=== PATIENT | male | born 1935 | race Caucasian/White ===

== ENCOUNTER → 2017-03-04 | Outpatient (CLI) | payer MEDICARE ==
[~2017-03-04] MED LIST: /WARF5TA; BISO5TAB5 PO; FIBEPOW PO; HYDR25TA6; LISI20TA5; THERGRAN; WARF5VL PO; XARE20TA PO
[2017-03-04 13:18] LABS: ALBUMIN 4.2 GM/DL (3.2-5.2); ALBUMIN/GLOBULIN RATIO 1.24 (1.00-1.93); BILIRUBIN,TOTAL 0.7 MG/DL (0.2-1.0); CALCIUM LEVEL 9.7 MG/DL (8.8-10.2); CREATININE FOR GFR 1.37 MG/DL (0.70-1.30); GLOMERULAR FILTRATION RATE 53.4 (>42); POTASSIUM SERUM 4.5 MEQ/L (3.5-5.1); TOTAL PROTEIN 7.6 GM/DL (6.4-8.2)
[2017-03-04 13:22] LABS: BASO % 0.8 % (0.0-1.0); EOS # 0.1 K/mm3 (0.0-0.50); EOS % 1.9 % (0.0-3.0); LARGE UNSTAINED CELL # 0.1 K/mm3 (0.0-0.4); LYMPH # 1.4 K/mm3 (1.5-4.5); LYMPH % 20.2 % (24.0-44.0); MEAN CORPUSCULAR HEMOGLOBIN 33.6 pg (27.0-33.0); MEAN CORPUSCULAR HGB CONC 32.1 g/dl (32.0-36.5); MEAN CORPUSCULAR VOLUME 104.7 fl (80.0-96.0); MONO # 0.5 K/mm3 (0.0-0.8); MONO % 7.3 % (0.0-5.0); NEUTROPHILS # 4.5 K/mm3 (1.8-7.7); NEUTROPHILS % 67.8 % (36.0-66.0); PLATELET COUNT, AUTOMATED 268 k/mm3 (150-450); RED CELL DISTRIBUTION WIDTH 13.7 % (11.5-14.5); WHITE BLOOD COUNT 6.7 K/mm3 (4.0-10.0)
== END ==
LOC: M SMT 09:55
PROVIDERS: ATTEND Family Medicine
DX: I10 Essential (primary) hypertension (principal); R73.01 Impaired fasting glucose

== ENCOUNTER 2017-09-09 07:17 | Outpatient (CLI) | payer MEDICARE ==
[~2017-09-09] VITALS: Ht 167.6 cm; Wt 85.0 kg
[2017-09-09] MEDS ORDERED: IMMUNE GLOBULIN 10% 20GM 200ML 20 GM in APPROPRIATE DILUENT 1 EA IV ONE ×4 (08:00)
[2017-09-25] MEDS ORDERED: TRAV04OPD (11:28)
[2017-09-25] MEDS ORDERED: LISI-542 PO (11:28)
[2017-09-25] MEDS ORDERED: ELIQ5TAB (11:28)
[2017-09-25] MEDS ORDERED: GABA600T PO (11:28)
[2017-09-25] MEDS ORDERED: ATOR1TAB19 (11:28)
[2017-09-25] MEDS ORDERED: MECL-68 (11:28)
[2017-09-25] MEDS ORDERED: BAYE325T12 PO (11:28)
[2017-09-25] MEDS ORDERED: CHLO125TA (11:28)
[2017-09-25] MEDS ORDERED: METH2.5TA PO (11:28)
[2017-09-25] MEDS ORDERED: POTA20TA6 (11:28)
[2017-09-25] MEDS ORDERED: NORT50CA (11:28)
[2017-09-25] MEDS ORDERED: GABA-282 PO (11:28)
== END 2017-09-09 11:15 | disposition home or self-care (01) ==
LOC: M INFU 07:17
PROVIDERS: ATTEND Psychiatry & Neurology Neurology
DX: G61.81 Chronic inflammatory demyelinating polyneuritis (principal); Z95.0 Presence of cardiac pacemaker; Z85.828 Personal history of other malignant neoplasm of skin; Z88.8 Allergy status to other drugs, medicaments and biological substances; Z88.0 Allergy status to penicillin; Z88.2 Allergy status to sulfonamides; Z96.1 Presence of intraocular lens; Z79.899 Other long term (current) drug therapy
CPT/HCPCS: 96365; 96366; J1569

== ENCOUNTER 2017-10-07 07:48 | Outpatient (CLI) | payer MEDICARE ==
[~2017-10-07] VITALS: Ht 167.6 cm; Wt 85.0 kg
[~2017-10-07 07:48] MED LIST changes: +ATOR1TAB19; +BAYE325T12 PO; +CHLO125TA; +ELIQ5TAB; +GABA-282 PO; +GABA600T PO; +LISI-542 PO; +MECL-68; +METH2.5TA PO; +NORT50CA; +POTA20TA6; +TRAV04OPD
[2017-10-07] MEDS ORDERED: IMMUNE GLOBULIN 10% 20GM 200ML 40 GM in APPROPRIATE DILUENT 1 EA IV ONE (08:00)
== END 2017-10-07 11:25 | disposition home or self-care (01) ==
LOC: M INFU 07:48
PROVIDERS: ATTEND Psychiatry & Neurology Neurology
DX: G61.81 Chronic inflammatory demyelinating polyneuritis (principal); Z95.0 Presence of cardiac pacemaker; Z96.1 Presence of intraocular lens; Z85.828 Personal history of other malignant neoplasm of skin; Z88.8 Allergy status to other drugs, medicaments and biological substances; Z88.0 Allergy status to penicillin; Z88.2 Allergy status to sulfonamides; Z79.82 Long term (current) use of aspirin; Z79.899 Other long term (current) drug therapy
CPT/HCPCS: 96365; 96366; J1569

== ENCOUNTER 2017-11-04 07:33 | Outpatient (CLI) | payer MEDICARE ==
[2017-11-04] MEDS ORDERED: IMMUNE GLOBULIN 10% 5GM 5 GM in APPROPRIATE DILUENT 1 EA IV ONE (07:45)
[2017-11-04] MEDS ORDERED: IMMUNE GLOBULIN 10% 10GM 100ML 10 GM in APPROPRIATE DILUENT 1 EA IV ONE (07:45)
[2017-11-04] MEDS ORDERED: IMMUNE GLOBULIN 10% 20GM 200ML 40 GM in APPROPRIATE DILUENT 1 EA IV ONE (08:00)
== END 2017-11-04 11:30 | disposition home or self-care (01) ==
LOC: M INFU 07:33
PROVIDERS: ATTEND Psychiatry & Neurology Neurology
DX: G61.81 Chronic inflammatory demyelinating polyneuritis (principal); Z95.0 Presence of cardiac pacemaker; Z96.1 Presence of intraocular lens; Z85.828 Personal history of other malignant neoplasm of skin; Z88.8 Allergy status to other drugs, medicaments and biological substances; Z88.0 Allergy status to penicillin; Z88.2 Allergy status to sulfonamides; Z79.82 Long term (current) use of aspirin; Z79.899 Other long term (current) drug therapy
CPT/HCPCS: 96365; 96366; J1569

== ENCOUNTER → 2018-03-06 | Outpatient (CLI) | payer MEDICARE ==
[2018-03-06 13:34] LABS: BASO # 0.1 10^3/uL (0.0-0.2); BASO % 1.5 % (0.0-1.0); EOS # 0.2 10^3/uL (0.0-0.50); HEMATOCRIT 43.4 % (42.0-52.0); HEMOGLOBIN 14.2 g/dl (13.5-17.5); IMMATURE GRANULOCYTE % 0.3 % (0-3.0); LYMPH # 1.6 10^3/uL (1.5-4.5); LYMPH % 24.2 % (24.0-44.0); MEAN CORPUSCULAR HEMOGLOBIN 33.6 pg (27.0-33.0); MEAN CORPUSCULAR HGB CONC 32.7 g/dl (32.0-36.5); MEAN CORPUSCULAR VOLUME 102.6 fl (80.0-96.0); MONO # 0.6 10^3/uL (0.0-0.8); MONO % 9.1 % (0.0-5.0); NEUTROPHILS # 4.2 10^3/uL (1.8-7.7); NEUTROPHILS % 61.9 % (36.0-66.0); PLATELET COUNT, AUTOMATED 272 10^3/uL (150-450); RED BLOOD COUNT 4.23 10^6/uL (4.30-6.10); RED CELL DISTRIBUTION WIDTH 14.2 % (11.5-14.5); WHITE BLOOD COUNT 6.7 10^3/uL (4.0-10.0)
[2018-03-06 14:06] LABS: ALBUMIN 4.1 GM/DL (3.2-5.2); ALBUMIN/GLOBULIN RATIO 0.98 (1.00-1.93); ALKALINE PHOSPHATASE 85 U/L (45-117); ALT/SGPT 23 U/L (12-78); ANION GAP 6 MEQ/L (8-16); AST/SGOT 20 U/L (7-37); BILIRUBIN,TOTAL 0.8 MG/DL (0.2-1.0); BLOOD UREA NITROGEN 23 MG/DL (7-18); CALCIUM LEVEL 9.3 MG/DL (8.8-10.2); CARBON DIOXIDE LEVEL 29 MEQ/L (21-32); CHLORIDE LEVEL 105 MEQ/L (98-107); CHOLESTEROL LEVEL 129 MG/DL (<200); CHOLESTEROL RISK RATIO 1.897 (<5); CREATININE FOR GFR 1.37 MG/DL (0.70-1.30); GLOMERULAR FILTRATION RATE 53.2 (>35); GLUCOSE, FASTING 111 MG/DL (70-100); HDL CHOLESTEROL 68 MG/DL (>40); LDL CHOLESTEROL 50.6 MG/DL (<100); NON-HDL-C 61 MG/DL; POTASSIUM SERUM 4.3 MEQ/L (3.5-5.1); SODIUM LEVEL 140 MEQ/L (136-145); TOTAL PROTEIN 8.3 GM/DL (6.4-8.2); TRIGLYCERIDES LEVEL 52 MG/DL (<150)
[2018-03-06 14:57] LABS: ESTIMATED AVERAGE GLUCOSE 111 MG/DL (60-110); HEMOGLOBIN A1c 5.5 %
== END ==
LOC: M SMT 09:11
DX: I10 Essential (primary) hypertension (principal); R73.01 Impaired fasting glucose
CPT/HCPCS: 80053

== ENCOUNTER 2018-04-07 07:45 | Outpatient (CLI) | payer MEDICARE ==
[2018-04-07] MEDS: IMMUNE GLOBULIN 10% 20GM 200ML 40 GM in APPROPRIATE DILUENT 1 EA IV (09:01)
== END 2018-04-07 12:00 | disposition home or self-care (01) ==
LOC: M INFU 07:45
DX: G61.81 Chronic inflammatory demyelinating polyneuritis (principal); I10 Essential (primary) hypertension; Z79.82 Long term (current) use of aspirin; Z79.899 Other long term (current) drug therapy; Z88.8 Allergy status to other drugs, medicaments and biological substances; Z95.0 Presence of cardiac pacemaker
CPT/HCPCS: J1569

== ENCOUNTER 2018-05-05 08:38 | Outpatient (CLI) | payer MEDICARE ==
[2018-05-05] MEDS: IMMUNE GLOBULIN 10% 20GM 200ML 40 GM in APPROPRIATE DILUENT 1 EA IV (08:56)
== END 2018-05-05 12:30 | disposition home or self-care (01) ==
LOC: M INFU 08:38
DX: G61.81 Chronic inflammatory demyelinating polyneuritis (principal); I10 Essential (primary) hypertension; Z79.899 Other long term (current) drug therapy; Z79.82 Long term (current) use of aspirin; Z88.8 Allergy status to other drugs, medicaments and biological substances; Z95.5 Presence of coronary angioplasty implant and graft
CPT/HCPCS: J1569

== ENCOUNTER 2018-05-26 21:05 | Inpatient (IN) | payer MEDICARE ==
[2018-05-26 22:45] LABS: BASO # 0.1 10^3/uL (0.0-0.2); BASO % 0.3 % (0.0-1.0); EOS % 0.2 % (0.0-3.0); HEMATOCRIT 40.1 % (42.0-52.0); HEMOGLOBIN 13.5 g/dl (13.5-17.5); IMMATURE GRANULOCYTE % 0.7 % (0-3.0); LYMPH # 0.5 10^3/uL (1.5-4.5); LYMPH % 2.3 % (24.0-44.0); MEAN CORPUSCULAR HEMOGLOBIN 33.4 pg (27.0-33.0); MEAN CORPUSCULAR HGB CONC 33.7 g/dl (32.0-36.5); MEAN CORPUSCULAR VOLUME 99.3 fl (80.0-96.0); MONO # 1.2 10^3/uL (0.0-0.8); MONO % 6.2 % (0.0-5.0); NEUTROPHILS # 17.7 10^3/uL (1.8-7.7); NEUTROPHILS % 90.3 % (36.0-66.0); PLATELET COUNT, AUTOMATED 302 10^3/uL (150-450); RED BLOOD COUNT 4.04 10^6/uL (4.30-6.10); RED CELL DISTRIBUTION WIDTH 14.6 % (11.5-14.5); WHITE BLOOD COUNT 19.6 10^3/uL (4.0-10.0)
[2018-05-26] MEDS: NS 500 ML IV ×2 (22:50→23:45)
[2018-05-26] MEDS: cefTRIAXone SOD 1 GM in D5W MINI-BAG PLUS 50 ML IV (22:50)
[2018-05-26] MEDS: ACETAMINOPHEN TAB 650MG DOSE (2X325MG) PO (22:50)
[2018-05-26 23:00] LABS: ALBUMIN 3.9 GM/DL (3.2-5.2); ALBUMIN/GLOBULIN RATIO 0.95 (1.00-1.93); ALKALINE PHOSPHATASE 78 U/L (45-117); ALT/SGPT 25 U/L (12-78); ANION GAP 10 MEQ/L (8-16); AST/SGOT 17 U/L (7-37); BILIRUBIN,DIRECT 0.3 MG/DL (0.0-0.2); BILIRUBIN,TOTAL 1.1 MG/DL (0.2-1.0); BLOOD UREA NITROGEN 21 MG/DL (7-18); C REACTIVE PROTEIN QUANTITATIV 1.22 MG/DL (0.00-0.30); CALCIUM LEVEL 8.7 MG/DL (8.8-10.2); CARBON DIOXIDE LEVEL 25 MEQ/L (21-32); CHLORIDE LEVEL 101 MEQ/L (98-107); CK-MB VALUE MASS < 1.0 NG/ML (<3.6); CPK CREATINE PHOSPHOKINASE 68 U/L (39-308); CREATININE FOR GFR 1.35 MG/DL (0.70-1.30); GLOMERULAR FILTRATION RATE 54.1 (>35); GLUCOSE, FASTING 137 MG/DL (70-100); MB/CK RELATIVE INDEX 1.47 (< OR =4); POTASSIUM SERUM 3.9 MEQ/L (3.5-5.1); SODIUM LEVEL 136 MEQ/L (136-145); TROPONIN I 0.04 NG/ML (< 0.10)
[2018-05-26 23:09] LABS: LACTIC ACID SEPSIS PROTOCOL 3.1 MMOL/L (0.4-2.0)
[2018-05-27] MEDS: AZITHROMYCIN INJ 500 MG, VIAL MATE ADAPTER 1 EACH in D5W 250 ML IV (00:30)
[2018-05-27 01:02] LABS: KETONE, URINE AUTO RFX NEGATIVE (NEGATIVE); LEUKOCYTE ESTERASE UR AUTO RFX NEGATIVE (NEGATIVE); MUCUS, URINE RFX SMALL (NEGATIVE); NITRITE, URINE AUTO RFX NEGATIVE (NEGATIVE); RBC, URINE AUTO RFX 3 /HPF (0-3); SPECIFIC GRAVITY UR AUTO RFX 1.017 (1.002-1.035); SQUAM EPITHELIAL CELL UR AURFX 0 /HPF (0-6); WBC, URINE AUTO RFX 0 /HPF (0-3)
[2018-05-27] MEDS ORDERED: BISACODYL 5 MG TAB PO (01:30)
[2018-05-27] MEDS ORDERED: ONDANSETRON 4 MG TAB (S0181) PO (01:30)
[2018-05-27] MEDS ORDERED: ACETAMINOPHEN 500 MG TAB PO (01:30)
[2018-05-27] MEDS: LATANOPROST 0.005% OPHTH SOLN 2.5 ML OU ×2 (02:29→20:36)
[2018-05-27] MEDS: ATORVASTATIN 10 MG TAB PO ×2 (02:29→20:36)
[2018-05-27] MEDS: LISINOPRIL 5 MG TAB PO ×2 (02:29→20:36)
[2018-05-27] MEDS: NORTRIPTYLINE 25 MG CAP PO ×2 (02:29→20:31)
[2018-05-27] MEDS: GABAPENTIN 300 MG CAP PO ×4 (02:29→20:31)
[2018-05-27] MEDS: APIXABAN 5 MG TAB (ELIQUIS) PO ×3 (02:29→20:31)
[2018-05-27 03:09] LABS: BASO % 0.1 % (0.0-1.0); HEMATOCRIT 33.4 % (42.0-52.0); HEMOGLOBIN 11.7 g/dl (13.5-17.5); IMMATURE GRANULOCYTE % 1.9 % (0-3.0); LYMPH # 0.4 10^3/uL (1.5-4.5); LYMPH % 1.4 % (24.0-44.0); MEAN CORPUSCULAR HEMOGLOBIN 33.9 pg (27.0-33.0); MEAN CORPUSCULAR VOLUME 96.8 fl (80.0-96.0); MONO % 7.7 % (0.0-5.0); NEUTROPHILS # 24.5 10^3/uL (1.8-7.7); NEUTROPHILS % 88.9 % (36.0-66.0); PLATELET COUNT, AUTOMATED 255 10^3/uL (150-450); RED BLOOD COUNT 3.45 10^6/uL (4.30-6.10); RED CELL DISTRIBUTION WIDTH 14.6 % (11.5-14.5); WHITE BLOOD COUNT 27.6 10^3/uL (4.0-10.0)
[2018-05-27 03:27] LABS: ANION GAP 10 MEQ/L (8-16); BLOOD UREA NITROGEN 20 MG/DL (7-18); CALCIUM LEVEL 7.8 MG/DL (8.8-10.2); CARBON DIOXIDE LEVEL 25 MEQ/L (21-32); CHLORIDE LEVEL 101 MEQ/L (98-107); GLOMERULAR FILTRATION RATE 56.5 (>35); GLUCOSE, FASTING 155 MG/DL (70-100); POTASSIUM SERUM 3.6 MEQ/L (3.5-5.1); SODIUM LEVEL 136 MEQ/L (136-145)
[2018-05-27 04:20] LABS: MONO # 2.1 10^3/uL (0.0-0.8); POSITIVE DIFF POS FLAG
[2018-05-27 08:05] LABS: CPK CREATINE PHOSPHOKINASE 63 U/L (39-308); MB/CK RELATIVE INDEX 1.58 (< OR =4); TROPONIN I 0.04 NG/ML (< 0.10)
[2018-05-27 08:14] LABS: LACTIC ACID SEPSIS PROTOCOL 2.4 MMOL/L (0.4-2.0)
[2018-05-27] MEDS: NS 500 ML IV (08:55)
[2018-05-27] MEDS: VITAMIN D 1,000 INTERNATIONAL UNITS TABLET PO (08:55)
[2018-05-27] MEDS: MULTIVITAMINS/MINERALS THERAP 1 TAB PO (08:55)
[2018-05-27] MEDS: FOLIC ACID 1 MG TAB PO (08:55)
[2018-05-27] MEDS: ASPIRIN 81 MG ENTERIC TAB PO (08:55)
[2018-05-27] MEDS: POTASSIUM CHLORIDE 10 MEQ SR TABLET PO (08:56)
[2018-05-27] MEDS ORDERED: ISOVUE-370 76% 100ML VIAL (Q9967) As Ordered (13:34)
[2018-05-27] MEDS: CEFTAROLINE FOSAMIL 600 MG in D5W MINI-BAG PLUS 50 ML IV (15:02)
[2018-05-27] MEDS: KCL 40MEQ in NS 1000ML 1,000 ML IV (15:03)
[2018-05-27 16:32] LABS: LACTIC ACID SEPSIS PROTOCOL 1.7 MMOL/L (0.4-2.0)
[2018-05-27] MEDS: ACETAMINOPHEN TAB 650MG DOSE (2X325MG) PO (20:30)
[2018-05-27] MEDS ORDERED: cefTRIAXone SOD 1 GM in D5W MINI-BAG PLUS 50 ML IV (23:00)
[2018-05-28] MEDS ORDERED: AZITHROMYCIN INJ 500 MG, VIAL MATE ADAPTER 1 EACH in D5W 250 ML IV ×2 (01:00)
[2018-05-28] MEDS: CEFTAROLINE FOSAMIL 600 MG in D5W MINI-BAG PLUS 50 ML IV ×2 (01:53→14:52)
[2018-05-28 05:44] LABS: HEMATOCRIT 34.2 % (42.0-52.0); HEMOGLOBIN 11.3 g/dl (13.5-17.5); MEAN CORPUSCULAR HEMOGLOBIN 33.2 pg (27.0-33.0); MEAN CORPUSCULAR VOLUME 100.6 fl (80.0-96.0); PLATELET COUNT, AUTOMATED 222 10^3/uL (150-450); RED CELL DISTRIBUTION WIDTH 15.2 % (11.5-14.5); WHITE BLOOD COUNT 11.5 10^3/uL (4.0-10.0)
[2018-05-28 06:01] LABS: ALBUMIN 2.7 GM/DL (3.2-5.2); ALBUMIN/GLOBULIN RATIO 0.66 (1.00-1.93); ALKALINE PHOSPHATASE 63 U/L (45-117); ALT/SGPT 18 U/L (12-78); ANION GAP 5 MEQ/L (8-16); AST/SGOT 12 U/L (7-37); BILIRUBIN,TOTAL 0.3 MG/DL (0.2-1.0); BLOOD UREA NITROGEN 20 MG/DL (7-18); C REACTIVE PROTEIN QUANTITATIV 6.92 MG/DL (0.00-0.30); CALCIUM LEVEL 8.2 MG/DL (8.8-10.2); CARBON DIOXIDE LEVEL 27 MEQ/L (21-32); CHLORIDE LEVEL 108 MEQ/L (98-107); CREATININE FOR GFR 1.23 MG/DL (0.70-1.30); GLOMERULAR FILTRATION RATE > 60.0 (>35); GLUCOSE, FASTING 117 MG/DL (70-100); MAGNESIUM LEVEL 2.1 MG/DL (1.8-2.4); POTASSIUM SERUM 4.5 MEQ/L (3.5-5.1); SODIUM LEVEL 140 MEQ/L (136-145); TOTAL PROTEIN 6.8 GM/DL (6.4-8.2)
[2018-05-28] MEDS: APIXABAN 5 MG TAB (ELIQUIS) PO ×2 (09:49→21:34)
[2018-05-28] MEDS: FOLIC ACID 1 MG TAB PO (09:49)
[2018-05-28] MEDS: GABAPENTIN 300 MG CAP PO ×3 (09:49→21:33)
[2018-05-28] MEDS: ASPIRIN 81 MG ENTERIC TAB PO (09:49)
[2018-05-28] MEDS: MULTIVITAMINS/MINERALS THERAP 1 TAB PO (09:50)
[2018-05-28] MEDS: VITAMIN D 1,000 INTERNATIONAL UNITS TABLET PO (09:50)
[2018-05-28] MEDS: CHLORTHALIDONE 12.5MG PER 1/2 TABLET PO (14:52)
[2018-05-28] MEDS: LISINOPRIL 5 MG TAB PO (21:33)
[2018-05-28] MEDS: NORTRIPTYLINE 25 MG CAP PO (21:34)
[2018-05-28] MEDS: LATANOPROST 0.005% OPHTH SOLN 2.5 ML OU (21:34)
[2018-05-28] MEDS: ATORVASTATIN 10 MG TAB PO (21:34)
[2018-05-28] MEDS: ACETAMINOPHEN TAB 650MG DOSE (2X325MG) PO (21:35)
[2018-05-29] MEDS: CEFTAROLINE FOSAMIL 600 MG in D5W MINI-BAG PLUS 50 ML IV (01:47)
[2018-05-29 06:16] LABS: HEMATOCRIT 35.5 % (42.0-52.0); HEMOGLOBIN 11.7 g/dl (13.5-17.5); MEAN CORPUSCULAR HEMOGLOBIN 33.1 pg (27.0-33.0); MEAN CORPUSCULAR VOLUME 100.6 fl (80.0-96.0); PLATELET COUNT, AUTOMATED 228 10^3/uL (150-450); RED BLOOD COUNT 3.53 10^6/uL (4.30-6.10); RED CELL DISTRIBUTION WIDTH 14.9 % (11.5-14.5); WHITE BLOOD COUNT 7.9 10^3/uL (4.0-10.0)
[2018-05-29 06:37] LABS: ALBUMIN 2.8 GM/DL (3.2-5.2); ALBUMIN/GLOBULIN RATIO 0.61 (1.00-1.93); ALKALINE PHOSPHATASE 78 U/L (45-117); ALT/SGPT 36 U/L (12-78); ANION GAP 6 MEQ/L (8-16); AST/SGOT 29 U/L (7-37); BILIRUBIN,TOTAL 0.2 MG/DL (0.2-1.0); BLOOD UREA NITROGEN 18 MG/DL (7-18); C REACTIVE PROTEIN QUANTITATIV 3.26 MG/DL (0.00-0.30); CALCIUM LEVEL 8.3 MG/DL (8.8-10.2); CARBON DIOXIDE LEVEL 28 MEQ/L (21-32); CHLORIDE LEVEL 107 MEQ/L (98-107); CREATININE FOR GFR 1.23 MG/DL (0.70-1.30); GLOMERULAR FILTRATION RATE > 60.0 (>35); GLUCOSE, FASTING 120 MG/DL (70-100); POTASSIUM SERUM 4.4 MEQ/L (3.5-5.1); SODIUM LEVEL 141 MEQ/L (136-145); TOTAL PROTEIN 7.4 GM/DL (6.4-8.2)
[2018-05-29] MEDS: FOLIC ACID 1 MG TAB PO (08:47)
[2018-05-29] MEDS: APIXABAN 5 MG TAB (ELIQUIS) PO (08:47)
[2018-05-29] MEDS: CHLORTHALIDONE 12.5MG PER 1/2 TABLET PO (08:47)
[2018-05-29] MEDS: ASPIRIN 81 MG ENTERIC TAB PO (08:47)
[2018-05-29] MEDS: GABAPENTIN 300 MG CAP PO (08:48)
[2018-05-29] MEDS: MULTIVITAMINS/MINERALS THERAP 1 TAB PO (08:48)
[2018-05-29] MEDS: VITAMIN D 1,000 INTERNATIONAL UNITS TABLET PO (08:48)
== END 2018-05-29 13:08 | disposition home or self-care (01) | DRG 872 ==
LOC: M ED INP 05-27 01:19 → M MS5PR 05-29 02:09 → M ED 21:05 → M MSPAV 05-27 01:59
DX: A41.9 Sepsis, unspecified organism (principal); L03.115 Cellulitis of right lower limb; I48.2 Chronic atrial fibrillation; F32.9 Major depressive disorder, single episode, unspecified; I10 Essential (primary) hypertension; G62.9 Polyneuropathy, unspecified; Z95.0 Presence of cardiac pacemaker; Z79.899 Other long term (current) drug therapy; Z79.82 Long term (current) use of aspirin; Z88.0 Allergy status to penicillin; Z88.8 Allergy status to other drugs, medicaments and biological substances

== ENCOUNTER 2018-06-02 07:03 | Outpatient (CLI) | payer MEDICARE ==
[2018-06-02] MEDS: IMMUNE GLOBULIN 10% 20GM 200ML 40 GM in APPROPRIATE DILUENT 1 EA IV (07:35)
== END 2018-06-02 10:30 | disposition home or self-care (01) ==
LOC: M INFU 07:03
DX: G61.81 Chronic inflammatory demyelinating polyneuritis (principal); Z95.0 Presence of cardiac pacemaker; Z88.8 Allergy status to other drugs, medicaments and biological substances; Z88.0 Allergy status to penicillin; Z88.2 Allergy status to sulfonamides; Z79.82 Long term (current) use of aspirin; Z79.899 Other long term (current) drug therapy
CPT/HCPCS: J1569

== ENCOUNTER → 2018-06-06 | Outpatient (REF) | payer MEDICARE ==
[2018-06-06 14:04] LABS: CREATININE, URINE 37.9 MG/DL; MALB URINE SIEMENS 12.3 MG/L; MAU/CREAT RATIO 32.4 MCG/MG (0.0-30.0)
== END ==
LOC: M LAB REF 13:05
DX: E11.9 Type 2 diabetes mellitus without complications (principal)
CPT/HCPCS: 82043

== ENCOUNTER 2018-06-30 07:05 | Outpatient (CLI) | payer MEDICARE ==
[2018-06-30] MEDS: IMMUNE GLOBULIN 10% 20GM 200ML 40 GM in APPROPRIATE DILUENT 1 EA IV (07:20)
== END 2018-06-30 10:30 | disposition home or self-care (01) ==
LOC: M INFU 07:05
DX: G61.81 Chronic inflammatory demyelinating polyneuritis (principal); Z95.0 Presence of cardiac pacemaker; Z88.8 Allergy status to other drugs, medicaments and biological substances; Z88.0 Allergy status to penicillin; Z88.2 Allergy status to sulfonamides; Z79.899 Other long term (current) drug therapy; Z79.82 Long term (current) use of aspirin; Z79.01 Long term (current) use of anticoagulants
CPT/HCPCS: J1569

== ENCOUNTER 2018-07-28 07:16 | Outpatient (CLI) | payer MEDICARE ==
[2018-07-28] MEDS: IMMUNE GLOBULIN 10% 20GM 200ML 40 GM in APPROPRIATE DILUENT 1 EA IV (07:55)
== END 2018-07-28 10:50 | disposition home or self-care (01) ==
LOC: M INFU 07:16
DX: G61.81 Chronic inflammatory demyelinating polyneuritis (principal); E78.5 Hyperlipidemia, unspecified; I10 Essential (primary) hypertension; I48.91 Unspecified atrial fibrillation; K57.30 Diverticulosis of large intestine without perforation or abscess without bleeding; I25.2 Old myocardial infarction; Z95.0 Presence of cardiac pacemaker; Z88.8 Allergy status to other drugs, medicaments and biological substances; Z88.0 Allergy status to penicillin; Z88.2 Allergy status to sulfonamides; Z79.899 Other long term (current) drug therapy; Z79.82 Long term (current) use of aspirin
CPT/HCPCS: J1569

== ENCOUNTER 2018-08-25 09:45 | Outpatient (CLI) | payer MEDICARE ==
[2018-08-25] MEDS: IMMUNE GLOBULIN 10% 20GM 200ML 40 GM in APPROPRIATE DILUENT 1 EA IV (10:28)
== END 2018-08-25 13:30 | disposition home or self-care (01) ==
LOC: M INFU 09:45
DX: G61.81 Chronic inflammatory demyelinating polyneuritis (principal)
CPT/HCPCS: J1569

== ENCOUNTER 2018-09-25 06:39 | Outpatient (CLI) | payer MEDICARE ==
[2018-09-25] MEDS: IMMUNE GLOBULIN 10% 20GM 200ML 40 GM in APPROPRIATE DILUENT 1 EA IV (07:25)
== END 2018-09-25 10:30 | disposition home or self-care (01) ==
LOC: M INFU 06:39
DX: G61.81 Chronic inflammatory demyelinating polyneuritis (principal); Z79.899 Other long term (current) drug therapy; Z88.0 Allergy status to penicillin; Z88.2 Allergy status to sulfonamides; Z88.8 Allergy status to other drugs, medicaments and biological substances
CPT/HCPCS: J1569

== ENCOUNTER 2018-10-23 06:50 | Outpatient (CLI) | payer MEDICARE ==
[2018-10-23] MEDS: IMMUNE GLOBULIN 10% 40 GM in APPROPRIATE DILUENT 1 EA IV (07:15)
== END 2018-10-23 10:30 | disposition home or self-care (01) ==
LOC: M INFU 06:50
DX: G61.81 Chronic inflammatory demyelinating polyneuritis (principal)
CPT/HCPCS: J1459

== ENCOUNTER → 2018-10-25 | Outpatient (CLI) | payer MEDICARE ==
[2018-10-25 18:45] LABS: ANION GAP 7 MEQ/L (8-16); BLOOD UREA NITROGEN 22 MG/DL (7-18); CALCIUM LEVEL 9.3 MG/DL (8.8-10.2); CARBON DIOXIDE LEVEL 29 MEQ/L (21-32); CHLORIDE LEVEL 103 MEQ/L (98-107); CREATININE FOR GFR 1.28 MG/DL (0.70-1.30); GLOMERULAR FILTRATION RATE 57.4 (>35); GLUCOSE, FASTING 78 MG/DL (70-100); POTASSIUM SERUM 4.9 MEQ/L (3.5-5.1); SODIUM LEVEL 139 MEQ/L (136-145)
[2018-10-25 18:56] LABS: HEMATOCRIT 40.4 % (42.0-52.0); HEMOGLOBIN 13.1 g/dl (13.5-17.5); MEAN CORPUSCULAR HEMOGLOBIN 32.8 pg (27.0-33.0); MEAN CORPUSCULAR HGB CONC 32.4 g/dl (32.0-36.5); PLATELET COUNT, AUTOMATED 272 10^3/uL (150-450); WHITE BLOOD COUNT 6.2 10^3/uL (4.0-10.0)
== END ==
LOC: M SMT 13:06
DX: I48.2 Chronic atrial fibrillation (principal); I11.9 Hypertensive heart disease without heart failure
CPT/HCPCS: 83735

== ENCOUNTER 2019-02-28 06:44 | Outpatient (CLI) | payer MEDICARE ==
[~2019-02-28] VITALS: Ht 182.9 cm; Wt 87.0 kg
[~2019-02-28 06:44] MED LIST changes: -/WARF5TA; +ACET500T15 PO; +ASPI81TA85 PO; -ATOR1TAB19; +ATOR1TAB19 PO; +BENF150C PO; +CEFD1CAP8 PO; -CHLO125TA; +CHLO125TA PO; +COUM1TAB17; +DOXY-350 PO; -ELIQ5TAB; +ELIQ5TAB PO; +FOLI1TAB11 PO; -GABA-282 PO; +GABA-843 PO; -GABA600T PO; +GABA600T4 PO; +METH2.5T48 PO; -METH2.5TA PO; -NORT50CA; +NORT50CA PO; -POTA20TA6; +POTA20TA6 PO; -TRAV04OPD; +TRAV04OPD OU; +VITA200016 PO; +VITMTA PO
[2019-02-28 06:50] VITALS: BP 135/63
[2019-02-28] MEDS ORDERED: IMMUNE GLOBULIN 10% 40 GM in APPROPRIATE DILUENT 1 EA IV ONE (07:00)
[2019-02-28 07:45] VITALS: BP 137/70
[2019-02-28 08:15] VITALS: BP 153/67
[2019-02-28 08:45] VITALS: BP 153/68
[2019-02-28 09:45] VITALS: BP 160/70
[2019-02-28 10:30] VITALS: BP 163/71
== END 2019-02-28 10:30 | disposition home or self-care (01) ==
LOC: M INFU 06:44
PROVIDERS: ATTEND Psychiatry & Neurology Neurology
DX: G61.81 Chronic inflammatory demyelinating polyneuritis (principal)
CPT/HCPCS: 96365; 96366; J1459

== ENCOUNTER 2019-03-27 18:48 | Inpatient (IN) | payer MEDICARE ==
[~2019-03-27] VITALS: Ht 175.3 cm; Wt 85.4 kg
[2019-03-27 19:48] LABS: HEMATOCRIT 27.3 % (42.0-52.0); HEMOGLOBIN 8.7 g/dl (13.5-17.5); MEAN CORPUSCULAR HEMOGLOBIN 31.8 pg (27.0-33.0); MEAN CORPUSCULAR HGB CONC 31.9 g/dl (32.0-36.5); MEAN CORPUSCULAR VOLUME 99.6 fl (80.0-96.0); PLATELET COUNT, AUTOMATED 211 10^3/uL (150-450); RED BLOOD COUNT 2.74 10^6/uL (4.30-6.10); WHITE BLOOD COUNT 5.8 10^3/uL (4.0-10.0)
[2019-03-27 20:02] LABS: INR 1.66; PROTHROMBIN TIME 19.9 SECONDS (12.1-14.4)
[2019-03-27 20:03] LABS: PARTIAL THROMBOPLASTIN TIME 42.1 SECONDS (25.4-37.6)
[2019-03-27 20:05] LABS: ALBUMIN 3.5 GM/DL (3.2-5.2); BILIRUBIN,DIRECT 0.2 MG/DL (0.0-0.2); BILIRUBIN,TOTAL 0.6 MG/DL (0.2-1.0); CALCIUM LEVEL 8.3 MG/DL (8.8-10.2); CREATININE FOR GFR 2.15 MG/DL (0.70-1.30); GLOMERULAR FILTRATION RATE 31.6 (>35); TOTAL PROTEIN 7.3 GM/DL (6.4-8.2)
[2019-03-27 20:30] LABS: EOSINOPHILS 2 % (0-5); LYMPHOCYTES 20 % (16-52); NEUTROPHILS 78 % (35-75); PLATELET ESTIMATE NORMAL (NORMAL)
[2019-03-27 20:32] LABS: ANISOCYTOSIS 1+; OVALOCYTES 1+; POIKILOCYTOSIS 1+
--- NOTE | 2019-03-27 21:14 | REPVR ---
EXAM: CT Abdomen and Pelvis Without Contrast EXAM DATE/TIME: 03/27/2019 8:26 PM CLINICAL HISTORY: 83 years old, male; Injury or trauma; Fall; Initial encounter; Blunt; Generalized; Additional info: Tr/elev creat. TECHNIQUE: Imaging protocol: Axial computed tomography images of the abdomen and pelvis without contrast. Coronal and sagittal reformatted images were created and reviewed. Radiation optimization: All CT scans at this facility use at least one of these dose optimization techniques: automated exposure control; mA and/or kV adjustment per patient size (includes targeted exams where dose is matched to clinical indication); or iterative reconstruction. COMPARISON: No relevant prior studies available. FINDINGS: Tubes, catheters and devices: A transvenous pacemaker is noted. Lungs: 1 cm nodule at the right lung base. Heart: There is moderate cardiomegaly. There is no evidence of pericardial effusion. ABDOMEN: Liver: Normal appearing liver. Gallbladder and bile ducts: Normal appearing gallbladder. Small gallstone. Pancreas: Normal appearing pancreas. Spleen: Normal appearing spleen. Adrenals: Normal appearing adrenal glands. Kidneys and ureters: 4 mm calcified stone upper pole right kidney/nonobstructive. Small calcified stone left kidney/nonobstructive. There is some stranding density right and left kidney probably scarring. Stomach and bowel: There are numerous diverticula throughout the colon. It is noted that there is hazy increased density within the mesentery of the diverticula at the hepatic flexure this may be scarring. Very mild changes of inflammation not excluded. The cecum is in the right pelvis. There is no evidence of inflammation in the region of the cecum. There is focal thickening at the junction of the left colon with the sigmoid colon, I would recommend correlation with colonoscopy to exclude any possibility of pathology. There is also some thickening of the bowel wall of the rectum on the left. PELVIS: Bladder: Normal appearing urinary bladder. Reproductive: Normal prostate. ABDOMEN and PELVIS: Intraperitoneal space: There is no evidence of pneumoperitoneum. There is no evidence of free fluid within the abdomen or the pelvis. Bones/joints: There is a grade 2 spondylolisthesis of L4 on L5 and with posterior disc protrusion producing central canal stenosis and severe bilateral L4 neural foramina narrowing. There is a prominent posterior osteophyte L2-L3 and L3-L4 causing Central spinal canal stenosis. There is no evidence of fracture. Soft tissues: There is a 4 CM umbilical hernia with protrusion of mesenteric fat only. Vasculature: There is calcification/atherosclerotic change of the aorta. 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 Lymph nodes: Normal. No enlarged lymph nodes. IMPRESSION: 1. No evidence of fracture and no evidence of organ laceration. 2. Numerous large diverticula throughout the colon. It is incidentally noted there is some hazy increased density in the mesentery at the hepatic flexure of the colon which may be the result of scarring. Mild changes of inflammation of these large diverticula also possible. 3. There is evidence of prominent thickening at the junction of the left colon with the proximal sigmoid colon. To exclude any possibility of mass in this area recommend colonoscopy or CT with oral contrast to opacify the colon versus barium enema. Electronically signed by: Hector Spears On 03/27/2019 21:14:41 PM
[2019-03-27] MEDS ORDERED: NS 1,000 ML IV ONE (22:15)
[2019-03-27] MEDS ORDERED: FERR32TA PO (22:44)
[2019-03-27] MEDS ORDERED: METH2.5T48 PO (22:44)
[2019-03-27] MEDS ORDERED: IMMUN40IV IV ×2 (22:44→22:54)
[2019-03-27] MEDS ORDERED: NITR4TASL SL (22:44)
[2019-03-27] MEDS ORDERED: GABA600T4 PO (22:44)
[2019-03-27] MEDS ORDERED: TRIA1CR80 TOP (23:03)
[2019-03-27] MEDS ORDERED: CHLO25TA PO (23:07)
[2019-03-27] MEDS ORDERED: BISO5TAB5 PO (23:07)
[2019-03-27] MEDS ORDERED: MOM 30ML SUSPENSION UDC PO PRN (23:45)
[2019-03-27] MEDS ORDERED: MAALOX 30 ML SUSP *UDC PO PRN (23:45)
[2019-03-27] MEDS ORDERED: TRIAMCINOLONE ACET 0.1% CREAM 80 GM TOP PRN (23:45)
[2019-03-27] MEDS ORDERED: NITROGLYCERIN 0.4 MG SUBL TABLET SL PRN (23:45)
[2019-03-28] MEDS ORDERED: CIPROFLOXACIN 400 MG in APPROPRIATE DILUENT 1 EA IV SCH (01:00)
[2019-03-28 01:28] VITALS: BP 174/72
--- NOTE | 2019-03-28 02:23 | HPEPDOC ---
General Date of Admission March 27, 2019 at 23:36 Chief Complaint The patient is a 83-year-old male admitted with a reason for visit of Symptomati c Anemia. Source: Patient, Family, RN/MD, Old records History of Present Illness Mr. Ritchie is an 83 years old man with hx/o AF on Eliquis who presented to ER with c/o bloody diarrhea, weakness and dizziness for 2-3 days. He also had a fall today and sustained injury to the left side of this body, no head injury. He also admitted to dull/crampy intermittent abdominal pain. But denied nausea, vomiting, fever or chills. In the ER, pt was hemodynamically stable, afebrile, with good mental status. He was noted to have a Hb level of 8.7 (13.1 in Dec), Serum Cr of 2.5 (1.28 in Dec). Ct abd showed left colon wall thickening. Last colonoscopy was 5-10 years ago. Pt doesn't remember the report. PAST MEDICAL HISTORY: peripheral neuropathy, AF on Eliquis s/p pacemaker, HTN, HLD, diverticulosis, C. diff colitis Dec 2018 PAST SURGICAL HISTORY: hernia surgery, pacemaker implantation SOCIAL HISTORY: Patient denies smoking, illicit drug and drinking FAMILY HISTORY: Family history consistent of heart disease Home Medications Scheduled Apixaban (Eliquis) 5 Mg Tab, 5 MG PO BID, (Reported) Aspirin (Aspir 81) 81 Mg Tab, 81 MG PO DAILY, (Reported) Atorvastatin Calcium (Atorvastatin Calcium) 10 Mg Tab, 10 MG PO QHS, (Reported) Bisoprolol Fumarate (Bisoprolol Fumarate) 5 Mg Tablet, 2.5 MG PO DAILY, ( Reported) Chlorthalidone (Chlorthalidone) 25 Mg Tablet, 12.5 MG PO DAILY, (Reported) Cholecalciferol (Vitamin D3) (Vitamin D3) 2,000 Unit Cap, 2,000 UNIT PO DAILY, (Reported) Ferrous Gluconate (Ferrous Gluconate) 324 Mg Tablet, 324 MG PO BID, (Reported) Folic Acid (Folic Acid) 1 Mg Tab, 1 MG PO DAILY, (Reported) Gabapentin (Gabapentin) 600 Mg Tablet, 600 MG PO BID, (Reported) Immune Globulin (Privigen 10% Vial) 400 Ml Vial, 40 GM IV MTHLY, (Reported) NEXT DOSE ON 03/29/19 Lisinopril (Lisinopril) 5 Mg Tab, 5 MG PO QHS, (Reported) Methotrexate Sodium (Methotrexate) 2.5 Mg Tablet, 7.5 MG PO 1XWK, (Reported) MONDAYS Multivitamins (Thera M Plus Tablet) 1 Tab Tab, 1 TAB PO DAILY, (Reported) Nortriptyline HCl (Nortriptyline HCl) 50 Mg Cap, 50 MG PO QHS, (Reported) Potassium Chloride (Potassium Chloride) 20 Meq Tab, 20 MEQ PO DAILY, (Reported) Travoprost (Travatan Z) 50 Drop/2.5 Ml Soln, 1 DROP OU QHS, (Reported) Scheduled PRN Nitroglycerin (Nitrostat) 0.4 Mg Tab.subl, 0.4 MG SL NITRO PRN for CHEST PAIN, (Reported) Triamcinolone Acet (Triamcinolone Acetonide 0.1% Crm) 80 Gm Cream..g., 1 DOSE TOP BID PRN for RASH, (Reported) Allergies Coded Allergies: Penicillins (Verified Allergy, Unknown, 02/28/19) Sulfa (Sulfonamide Antibiotics) (Verified Allergy, Unknown, 02/28/19) nifedipine (Verified Allergy, Unknown, 02/28/19) A-FIB/CHADSVASC A-FIB History Current/History of A-Fib/PAF?: Yes Current Oral Anticoagulant The: No Treatment Reason Anticoagulant not given: Current bleeding Review of Systems Constitutional: Reports: Malaise, Weakness; Denies: Chills, Fever Eyes: Denies: Pain ENT: Denies: Head Aches Skin: Reports: Rash (papular rash on arms L>R, chest for 3 months (supposedly due to Vancmycin side effect)) Pulmonary: Denies: Dyspnea, Cough Cardiovascular: Reports: Edema; Denies: Chest Pain, Palpitations Gastrointestinal: Reports: Abdominal Pain, Diarrhea; Denies: Nausea, Vomiting Genitourinary: Denies: Dysuria Neurological: Reports: Weakness Psych: Reports: Mood Normal; Denies: Anxiety Physical Examination General Exam: Positive: Alert, Cooperative, No Acute Distress Eye Exam: Positive: PERRLA ENT Exam: Positive: Atraumatic, Mucous membr. moist/pink Neck Exam: Positive: Supple; Negative: JVD Chest Exam: Positive: Clear to auscultation, Normal air movement Heart Exam: Positive: Rate Normal, Irregular Rhythm Abdomen Exam: Positive: BS Hypoactive, Soft, Tenderness (on left lower abdomen) Extremity Exam: Positive: Edema (2+ leg edema b/l) Skin Exam: Negative: Rash Neuro Exam: Positive: Normal Speech, Strength at 5/5 X4 ext Psych Exam: Positive: Mental status NL, Mood NL Vital Signs Vital Signs Date Time Temp Pulse Resp B/P (MAP) Pulse Ox O2 Delivery O2 Flow Rate FiO2 03/27/19 23:00 78 18 154/72 (99) 100 Room Air 03/27/19 18:49 98.1 Laboratory Data Labs 24H Laboratory Tests 2 03/27/19 19:26: Nucleated Red Blood Cells % (auto) 0.0, Neutrophils 78H, Lymphocytes (Manual) 20, Eosinophils (Manual) 2, Platelet Estimate NORMAL, Poikilocytosis 1+, Anisocytosis 1+, Ovalocytes 1+, Prothrombin Time 19.9H, Prothromb Time International Ratio 1.66, Activated Partial Thromboplast Time 42.1H, Anion Gap 9, Glomerular Filtration Rate 31.6L, Calcium Level 8.3L, Aspartate Amino Transf (AST/SGOT) 24, Alanine Aminotransferase (ALT/SGPT) 30, Alkaline Phosphatase 97, Total Bilirubin 0.6, Direct Bilirubin 0.2, Total Protein 7.3, Albumin 3.5, Albumin/Globulin Ratio 0.92L, Lipase 214 03/27/19 20:51: Lactic Acid Level 1.2 CBC/BMP Laboratory Tests 03/27/19 19:26 Red Blood Count 2.74 L, Mean Corpuscular Volume 99.6 H, Mean Corpuscular Hemoglobin 31.8, Mean Corpuscular Hemoglobin Concent 31.9 L, Red Cell Distrib ution Width 14.7 H Assessment/Plan 1. Colitis vs non-inflammatory colon pathology (wall thickening in CT) - Send GI panel; risk for c. diff - IV Cipro and Flagyl empirically; avoid Vanco due to prior reaction - Colonoscopy as OP 2. Acute on Chronic Anemia due to Lower GI Bleeding while on Anticoagulation - Hold anticoagulation and trend h/h - Transfuse if further drop in Hb or more active bleeding - Colonoscopy as OP 3. MACY - IV fluid; treat underlying condition (volume loss from GI tract) - Monitor renal function 4. Chronic Leg Edema - Pt states it is due to neuropathy - Echo in the morning 5. Neuropathy of the Legs - Pt reports that he is scheduled for IVIg on Daisy; penelope order has been placed. Plan / VTE VTE Prophylaxis Ordered?: No VTE Exclusion Mechanical Proph: N/A:VTE Prophy Ordered VTE Exclusion Pharmacological: Active Bleeding PARKER WHYTE MD March 28, 2019 02:23
[2019-03-28] MEDS: GABAPENTIN 300 MG CAP PO SCH ×3 (02:59→20:59)
[2019-03-28] MEDS: ATORVASTATIN 10 MG TAB PO SCH ×2 (03:00→20:59)
[2019-03-28] MEDS: NORTRIPTYLINE 25 MG CAP PO SCH ×2 (03:00→20:59)
[2019-03-28] MEDS: LATANOPROST 0.005% OPHTH SOLN 2.5 ML OU SCH ×2 (03:01→20:59)
[2019-03-28] MEDS: LR 1,000 ML IV SCH ×2 (03:02→16:46)
[2019-03-28] MEDS: metroNIDAZOLE 500 MG in APPROPRIATE DILUENT 1 EA IV SCH ×3 (03:04→17:06)
[2019-03-28] MEDS: ACETAMINOPHEN TAB 650MG DOSE (2X325MG) PO PRN ×2 (03:07→23:35)
[2019-03-28] MEDS: FERROUS GLUCONATE 324 MG TAB PO SCH ×3 (03:26→20:59)
[2019-03-28 04:00] VITALS: BP 152/72
[2019-03-28 05:17] LABS: HEMATOCRIT 23.4 % (42.0-52.0); HEMOGLOBIN 7.6 g/dl (13.5-17.5); MEAN CORPUSCULAR HEMOGLOBIN 31.8 pg (27.0-33.0); MEAN CORPUSCULAR HGB CONC 32.5 g/dl (32.0-36.5); MEAN CORPUSCULAR VOLUME 97.9 fl (80.0-96.0); PLATELET COUNT, AUTOMATED 171 10^3/uL (150-450); RED BLOOD COUNT 2.39 10^6/uL (4.30-6.10); WHITE BLOOD COUNT 4.5 10^3/uL (4.0-10.0)
[2019-03-28 05:34] LABS: CALCIUM LEVEL 7.9 MG/DL (8.8-10.2); CREATININE FOR GFR 1.98 MG/DL (0.70-1.30); GLOMERULAR FILTRATION RATE 34.7 (>35); POTASSIUM SERUM 3.8 MEQ/L (3.5-5.1)
[2019-03-28] MEDS: FOLIC ACID 1 MG TAB PO SCH (09:04)
[2019-03-28] MEDS: BISOPROLOL FUMARATE 5 MG TAB PO SCH (09:04)
[2019-03-28 12:01] LABS: HEMOGLOBIN 7.9 g/dl (13.5-17.5)
[2019-03-28 14:00] VITALS: BP 148/68
--- NOTE | 2019-03-28 16:42 | IPNPDOC ---
Date Seen The patient was seen on 03/28/19. Progress Note SUBJECTIVE: Pleasant gentleman resting in bed. No active diarrhea. Feel tired but answers questions. Spoke to GI, plan for endoscopy evaluation on Tuesday. OBJECTIVE PHYSICAL EXAMINATION: VITAL SIGNS: Please see below GENERAL APPEARANCE: Resting comfortably HEENT: Normocephalic, PERRLA, Mucous moist, CARDIOVASCULAR: S1,S2, pulse present, irregular LUNGS: Equal air entry b/l, no wheezes or crackle ABDOMEN: Soft, BS present, mild tenderness, no guarding EXTREMITIES: B/L no edema, capillary refill present SKIN: Warm, No fever,multiple pin prick petechial dot like finding throughout his body except his face NEUROLOGICAL: Cranial nerves grossly intact PSYCHIATRIC: Normal mood and affect for current situation LABORATORY DATA, IMAGING STUDIES, MICROBIOLOGY: Please see below. Mr. Ritchie is an 83 years old man with hx/o AF on Eliquis who presented to ER with c/o bloody diarrhea, weakness and dizziness for 2-3 days. He also had a fall today and sustained injury to the left side of this body, no head injury. He also admitted to dull/crampy intermittent abdominal pain. But denied nausea, vomiting, fever or chills. In the ER, pt was hemodynamically stable, afebrile, with good mental status. He was noted to have a Hb level of 8.7 (13.1 in Dec), Serum Cr of 2.5 (1.28 in Dec). Ct abd showed left colon wall thickening. Last colonoscopy was 5-10 years ago. Pt doesn't remember the report. Assessment and plan:: 83 years old man with hx/o AF on Eliquis who presented to ER with c/o bloody diarrhea, weakness and dizziness for 2-3 days. He also has PMH of peripheral neuropathy, AF on Eliquis s/p pacemaker, HTN, HLD, diverticulosis, C. diff colitis Dec 2018. Colitis vs non-inflammatory colon pathology (wall thickening in CT), hx C.diff - CT abdomen:1. No evidence of fracture and no evidence of organ laceration. 2. Numerous large diverticula throughout the colon. It is incidentally noted there is some hazy increased density in the mesentery at the hepatic flexure of the colon which may be the result of scarring. Mild changes of inflammation of these large diverticula also possible. 3. There is evidence of prominent thickening at the junction of the left colon with the proximal sigmoid colon. To exclude any possibility of mass in this area recommend colonoscopy or CT with oral contrast to opacify the colon versus barium enema. - Previously hemoglobin on 11/07 was 13.1 - hx of c.diff, GI panel pending - Gi recommends IV Flagyl empirically - Avoiding Vanco due to prior skin reaction - Occult stool ordered - Dr. Leong consult, plan for endoscopy this coming Tuesday Acute on Chronic Anemia due to Lower GI Bleeding while on Anticoagulation - Held Eliquis and ASA - trend h/h - Transfuse if further drop in Hb (hemoglobin<7.0) or more active bleeding - resume iron supplement and FA - GI consult as above MACY on chronic kidney disease, improving - IV fluid; treat underlying condition (volume loss from GI tract) - Monitor renal function Fall from acute problems above - Fall precaution - cranial nerve intact - supportive treatment Chronic Leg Edema - Pt states it is due to neuropathy - Echo pending AF on Eliquis s/p pacemaker - Anticoagulant as above Neuropathy of the Legs - Pt reports that he is scheduled for IVIg on Daisy; spoke to Dr. Campos: can hold this dose and patient receive this therapy once acute issues are resolved. F/u with Dr. Campos as outpatient. -resume home regimen HTN -lisinopril held due to poor renal function -resume bisoprolol HLD -resume statin DVT prop w ESTEFANY/SCD A-FIB/CHADSVASC A-FIB History Current/History of A-Fib/PAF?: Yes VS, I&O, 24H, Fishbone Vital Signs/I&O Vital Signs Date Time Temp Pulse Resp B/P (MAP) Pulse Ox O2 Delivery O2 Flow Rate FiO2 03/28/19 14:00 98.2 83 18 148/68 (94) 99 03/27/19 23:00 Room Air I&O- Last 24 Hours up to 6 AM 03/28/19 06:00 Intake Total 396 ml Output Total 100 ml Balance 296 ml Laboratory Data 24H LABS Laboratory Tests 2 03/27/19 19:26: Nucleated Red Blood Cells % (auto) 0.0, Neutrophils 78H, Lymphocytes (Manual) 20, Eosinophils (Manual) 2, Platelet Estimate NORMAL, Poikilocytosis 1+, Anisocytosis 1+, Ovalocytes 1+, Prothrombin Time 19.9H, Prothromb Time International Ratio 1.66, Activated Partial Thromboplast Time 42.1H, Anion Gap 9, Glomerular Filtration Rate 31.6L, Calcium Level 8.3L, Aspartate Amino Transf (AST/SGOT) 24, Alanine Aminotransferase (ALT/SGPT) 30, Alkaline Phosphatase 97, Total Bilirubin 0.6, Direct Bilirubin 0.2, Total Protein 7.3, Albumin 3.5, Al[place] min/Globulin Ratio 0.92L, Lipase 214 03/27/19 20:51: Lactic Acid Level 1.2 03/28/19 05:02: Nucleated Red Blood Cells % (auto) 0.0, Anion Gap 7L, Glomerular Filtration Rate 34.7L, Calcium Level 7.9L, Blood Urea Nitrogen 38H, Creatinine 1.98H, Sodium Level 139, Potassium Level 3.8, Chloride Level 109H, Carbon Dioxide Level 23 CBC/BMP Laboratory Tests 03/27/19 19:26 Red Blood Count 2.74 L, Mean Corpuscular Volume 99.6 H, Mean Corpuscular H emoglobin 31.8, Mean Corpuscular Hemoglobin Concent 31.9 L, Red Cell Distribution Width 14.7 H 03/28/19 05:02 Red Blood Count 2.39 L, Mean Corpuscular Volume 97.9 H, Mean Corpuscular Hemoglobin 31.8, Mean Corpuscular Hemoglobin Concent 32.5, Red Cell Distribution Width 14.4, Calcium Level 7.9 L 03/28/19 11:51 Microbiology Microbiology 03/28/19 Blood Culture, Received Pending NINI NGO MD March 28, 2019 16:42
[2019-03-28 18:07] LABS: HEMATOCRIT 24.4 % (42.0-52.0); HEMOGLOBIN 7.9 g/dl (13.5-17.5)
[2019-03-28 20:00] VITALS: BP 160/74
--- NOTE | 2019-03-28 21:25 | ECHO ---
DATE OF PROCEDURE: 03/28/2019 AGE: 83 GENDER: Male HEIGHT: 69 inches WEIGHT: 171 pounds BODY SURFACE AREA: 1.94 m2 PATIENT LOCATION: Inpatient, [address] [place] [address], room 4134 REFERRING PHYSICIAN: Javier Webb MD INDICATION: Edema. 2-D MEASUREMENTS: RV: 4.8 cm LV: 4.9 cm Septum: 1.3 cm Posterior wall: 1.3 cm Aortic root: 3.4 cm LA: 4.8 cm LVEF: 75% DOPPLER MEASUREMENTS: AV: 1.7 m/s LVOT: 0.8 m/s LVOT diameter: 2.3 cm MV-E: 68 Early mitral deceleration time: 134 ms E prime: 8, E/E prime ratio: 8.5 PCWP: 9.6 mmHg PV: 0.7 m/s Pulmonary artery acceleration time: 90 ms RVSP: 61 mmHg IVC: 2.0 cm COMMENTS: Underlying atrial fibrillation with controlled ventricular response. Right bundle branch block. M-mode and two-dimensional echocardiography was performed with pulsed, continuous wave, color flow and tissue Doppler studies. Mild concentric left ventricle hypertrophy with hyperkinetic wall motion. Moderately dilated left atrium with current estimated mean left atrial pressure within normal limits. Moderately dilated right heart chambers with right ventricular free wall hypokinesis and Doppler evidence of moderately severe to severe pulmonary hypertension. IVC size upper limits of normal with reduced respiratory collapse in keeping with an elevated central venous pressure/right heart failure. Moderate aortic valvular sclerosis without stenosis, but mild - moderate insufficiency. Normal aortic root size. Moderate mitral annular calcification without inflow tract obstruction and only mild insufficiency. Normal appearing tricuspid valve with at least moderate insufficiency. Pacing lead could be visualized traversing right heart structures, but no other intracardiac mass. No pericardial effusion.
[2019-03-29] VITALS: BP 156/60
[2019-03-29 00:36] LABS: HEMATOCRIT 24.3 % (42.0-52.0); HEMOGLOBIN 7.9 g/dl (13.5-17.5)
[2019-03-29] MEDS: LR 1,000 ML IV SCH ×3 (01:09→15:35)
[2019-03-29] MEDS: metroNIDAZOLE 500 MG in APPROPRIATE DILUENT 1 EA IV SCH ×3 (01:09→17:23)
[2019-03-29 04:00] VITALS: BP 146/58
[2019-03-29 06:47] LABS: HEMATOCRIT 20.5 % (42.0-52.0)
[2019-03-29 06:53] LABS: HEMOGLOBIN 6.7 g/dl (13.5-17.5)
[2019-03-29 07:44] LABS: HEMATOCRIT 21.4 % (42.0-52.0)
[2019-03-29] MEDS: FOLIC ACID 1 MG TAB PO SCH (08:28)
[2019-03-29] MEDS: FERROUS GLUCONATE 324 MG TAB PO SCH ×2 (08:28→20:33)
[2019-03-29] MEDS: GABAPENTIN 300 MG CAP PO SCH ×2 (08:28→20:34)
[2019-03-29] MEDS: BISOPROLOL FUMARATE 5 MG TAB PO SCH (08:29)
[2019-03-29] MEDS ORDERED: IMMUNE GLOBULIN 10% 40GM 400ML BOTTLE (PRIVIGEN) (J1459 PER 500MG) IV ONE (09:00)
[2019-03-29 10:00] VITALS: BP 102/62
--- NOTE | 2019-03-29 10:26 | REP ---
Right elbow series: Five views. History: Pain after a fall. Findings: Five views right elbow demonstrate olecranon and proximal ulnar osteoarthritic spurring. There is a little luisito olecranon soft tissue swelling on the lateral view. There is no evidence of fracture. No joint effusion is seen. There is medial and lateral epicondylar spurring. Impression: No acute bony abnormality. Proximal ulnar and olecranon spurring. Medial and lateral epicondylar spurring. Electronically Signed by James Da Silva MD 03/29/2019 10:17 A
[2019-03-29 14:00] VITALS: BP 162/82
--- NOTE | 2019-03-29 14:45 | IPNPDOC ---
Date Seen The patient was seen on 03/29/19. Progress Note SUBJECTIVE: Patient hemoglobin was less than 7 today. Repeat hemoglobin return 7 therefore patient to receive 1 unit of red blood cell. Risk and benefit for r blood cell transfusion explained to patient Patient denied of any chest pain, shortness of breath, dizziness, or any acute signs of acute bleeding. Patient plan for colonoscopy and endoscopy evaluation by GI tomorrow. Dr. Leong requests cardiology optimization as patient has a pacemaker and may require magnetic adjustment. Consulted with Dr. Zuñiga (patient's income tax investigator), discussed the case with cardiology and discussed the response to GI. OBJECTIVE PHYSICAL EXAMINATION: VITAL SIGNS: Please see below GENERAL APPEARANCE: Resting comfortably HEENT: Normocephalic, PERRLA, Mucous moist, CARDIOVASCULAR: S1,S2, pulse present, irregular LUNGS: Equal air entry b/l, no wheezes or crackle ABDOMEN: Soft, BS present, mild tenderness, no guarding EXTREMITIES: B/L no edema, capillary refill present SKIN: Warm, No fever,multiple pin prick petechial dot like finding throughout his body except his face NEUROLOGICAL: Cranial nerves grossly intact PSYCHIATRIC: Normal mood and affect for current situation LABORATORY DATA, IMAGING STUDIES, MICROBIOLOGY: Please see below. Mr. Ritchie is an 83 years old man with hx/o AF on Eliquis who presented to ER with c/o bloody diarrhea, weakness and dizziness for 2-3 days. He also had a fall today and sustained injury to the left side of this body, no head injury. He also admitted to dull/crampy intermittent abdominal pain. But denied nausea, vomiting, fever or chills. In the ER, pt was hemodynamically stable, afebrile, with good mental status. He was noted to have a Hb level of 8.7 (13.1 in Dec), Serum Cr of 2.5 (1.28 in Dec). Ct abd showed left colon wall thickening. Last colonoscopy was 5-10 years ago. Pt doesn't remember the report. Assessment and plan:: 83 years old man with hx/o AF on Eliquis who presented to ER with c/o bloody diarrhea, weakness and dizziness for 2-3 days. He also has PMH of peripheral neuropathy, AF on Eliquis s/p pacemaker, HTN, HLD, diverticulosis, C. diff colitis Dec 2018. Colitis vs non-inflammatory colon pathology (wall thickening in CT), hx C.diff - CT abdomen:1. No evidence of fracture and no evidence of organ laceration. 2. Numerous large diverticula throughout the colon. It is incidentally noted there is some hazy increased density in the mesentery at the hepatic flexure of the colon which may be the result of scarring. Mild changes of inflammation of these large diverticula also possible. 3. There is evidence of prominent thickening at the junction of the left colon with the proximal sigmoid colon. To exclude any possibility of mass in this area recommend colonoscopy or CT with oral contrast to opacify the colon versus barium enema. - Previously hemoglobin on 11/07 was 13.1 - hx of c.diff, GI panel: no stool collected - Gi recommends IV Flagyl empirically - Avoiding Vanco due to prior skin reaction - Occult stool ordered: no stool collected - Dr. Leong consult, plan for endoscopy this coming Tuesday but requests cardiology optimization as patient has a pacemaker and may require magnetic adjustment - Consult with Dr. Zuñiga (patient's income tax investigator), discussed the case with cardiology and discussed the response to GI. Acute on Chronic Anemia due to Lower GI Bleeding while on Anticoagulation - Held Eliquis and ASA - trend h/h, transfused 1 unit RBC - Transfuse if further drop in Hb (hemoglobin<7.0) or more active bleeding - resume iron supplement and FA - GI consult as above MACY on chronic kidney disease, improving - IV fluid; treat underlying condition (volume loss from GI tract) - Monitor renal function Fall from acute problems above - Fall precaution - cranial nerve intact - supportive treatment Chronic Leg Edema - Pt states it is due to neuropathy - Echo :Mild concentric left ventricle hypertrophy with hyperkinetic wall motion.Moderately dilated left atrium with current estimated mean left atrial pressure within normal limits.Moderately dilated right heart chambers with right ventricular free wall hypokinesis and Doppler evidence of moderately severe to severe pulmonary hypertension. IVC size upper limits of normal with reduced respiratory collapse in keeping with an elevated central venous pressure/right heart failure. Moderate aortic valvular sclerosis without stenosis, but mild - moderate insufficiency. Normal aortic root size. Moderate mitral annular calcification without inflow tract obstruction and only mild insufficiency. Normal appearing tricuspid valve with at least moderate insufficiency. Pacing lead could be visualized traversing right heart structures, but no other intracardiac mass. No pericardial effusion. AF on Eliquis s/p pacemaker - Anticoagulant as above Neuropathy of the Legs - Pt reports that he is scheduled for IVIg on Daisy; spoke to Dr. Campos: can hold this dose and patient receive this therapy once acute issues are resolved. F/u with Dr. Campos as outpatient. F/u with Dr. Campos as outpatient. -resume home regimen HTN -lisinopril held due to poor renal function -resume bisoprolol HLD -resume statin DVT prop w ESTEFANY/SCD A-FIB/CHADSVASC A-FIB History Current/History of A-Fib/PAF?: Yes VS, I&O, 24H, Fishbone Vital Signs/I&O Vital Signs Date Time Temp Pulse Resp B/P (MAP) Pulse Ox O2 Delivery O2 Flow Rate FiO2 03/29/19 14:00 97.3 73 19 162/82 (108) 100 03/27/19 23:00 Room Air I&O- Last 24 Hours up to 6 AM 03/29/19 06:00 Intake Total 3440 ml Output Total 1375 ml Balance 2065 ml Laboratory Data CBC/BMP Laboratory Tests 03/28/19 17:33 03/29/19 00:09 03/29/19 06:15 03/29/19 07:31 Microbiology Microbiology 03/28/19 Blood Culture - Preliminary, Resulted No growth after 24 hours . All specim... NINI NGO MD March 29, 2019 14:45
[2019-03-29 18:00] VITALS: BP 180/83
--- NOTE | 2019-03-29 18:39 | CR.PDOC ---
General Date of Consultation: March 28, 2019 Referring Provider: PARKER WEBB MD Attending Physician: WALTER POP MD Consultation Primary physician/ hospitalist: Dr. Webb Reason for consult: Rectal bleeding, abnormal CT scan and acute anemia of blood loss. HPI: 83 years old male patient with HTN, atrial fibrillation on Eliquis, h/p pacemaker placement ( last Checked in April 2018), was admitted to hospital through ER for complaints of one episode of bloody diarrhea. Patient is noted with new onset anemia ( drop in H/H to 8.7 gm/dL from baseline 13.1gm/ dL in Oct 2018). Gi was consulted for the same. Patient reports his symptoms started initially in Oct 2018 when he was diagnosed with C. difficile diarrhea, which was treated with vancomycin and he started having petechial rash all over the abdomen. Patient reports being weak over the past few weeks and 1 day prior to hospitalizatoin, he had one large bloody bowel movement with some left sided abdominal cramping. Patient denies any further bloody stools but having once daily bowel movements. Patient denies any similar episodes of bleeding in past. Patient also reports his skin rash is not improving but thinks it is worsening. Who presented to ER with c/o bloody diarrhea, weakness and dizziness for 2-3 days. He also had a fall today and sustained injury to the left side of this body, no head injury. He also admitted to dull/crampy intermittent abdominal pain. But denied nausea, vomiting, fever or chills. In the ER, pt was hemodynamically stable, afebrile, with good mental status. He was noted to have a Hb level of 8.7 (13.1 in Dec), Serum Cr of 2.5 (1.28 in Dec). Ct abd showed left colon wall thickening. Pertinent negative GI symptoms: Patient denies nausea, vomiting, diarrhea, abdominal pain, loss of appetite, early satiety or unintentional weight loss. No history of hematemesis, melena or hematochezia. Patient reports regular bowel movements. Review of Systems: GI: as stated above CVS: No chest pain, No palpitations, No leg swelling. 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 Skin: No rash : No hematuria, No burning sensation of the urine ENT: No ear discharge/ pain, No dysphagia. Eyes: No photophobia. Home medications: reviewed. Antithrombotic agents - On eliquis -- Last dose on tuesday. Medical h/o: As above. Surgical h/o: None on abdomen. Social h/o: Alcohol- Denies , tobacco-Denies , IVDA/ drugs- Denies.. Family h/o of GI cancers - [ ] Prior Endoscopies: None in [facility] Prior GI evaluation: None in [facility] Exam: Vitals: reviewed General: Alert and oriented x 3, not in distress HEENT: NO pallor, no icterus. Normal oropharynx, NO cervical lymph nodes. Chest: symmetric with bilateral clear air entry, CVS: S1, S2 heard, normal, no murmurs . Abdomen: non-distended, no surgical scars, soft, non-tender, no palpable masses, normal bowel sounds heard. Rectal exam: Patient refused / Deferred at this time in view of scheduled colonoscopy. Extremities: no pedal edema, pulses palpable. 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 Moves all extremities Skin: diffuse petechial rash Labs: reviewed. Imaging: reviewed. Impression: - Acute drop in Hemoglobin and hematocrit in patient on anticoagulation with one large bloody bowel movements and No further rectal bleeding and CT abdomen showing Colon wall thickening -- Needs further evaluation for GI bleeding -- DDx-- colon cancer vs Colitis vs AVMs vs PUD. - Diffuse petechial rash over the entire body -- Needs further evaluation. Recommendations: - Patient educated about the test results, possible differential diagnoses and All questions answered. - Clear liquid diet for 1 day prior to procedure. - Monitor H/H and transfuse as needed to keep hemoglobin around 8-9 gm/dL. - If not contraindicated continue to hold Eliquis in view of acute blood loss anemia. - Patient can continue ASA 81 mg ( no contraindication from GI point as there is no increased of bleeding with that). - Give IV pantoprazole 40 mg twice daily for now. - Please have medical clearance and /or Pacemaker evaluation prior to the planned EGD and Colonoscopy on Tuesday. - Patient is scheduled for EGD and Colonoscopy on Tuesday after holding eliquis for 3 days and after bowel prep. - The procedures, indications, risks (bleeding, perforation, infection, hypotension, respiratory depression, allergy, need for endotracheal intubation, surgery, colostomy, cardiac arrest, even ), benefits, limitations (e.g., missing a lesion), and all other alternatives (including no intervention) were explained to the patient who understood and agreed for the procedures. - Follow the procedure notes post procedure for further recommendations. Plan of care discussed with patient and primary team. Patient verbalized understanding and agreed with the plan. Laboratory Data CBC/BMP Laboratory Tests 03/27/19 19:26 Red Blood Count 2.74 L, Mean Corpuscular Volume 99.6 H, Mean Corpuscular Hemoglobin 31.8, Mean Corpuscular Hemoglobin Concent 31.9 L, Red Cell Distribution Width 14.7 H 03/28/19 05:02 Red Blood Count 2.39 L, Mean Corpuscular Volume 97.9 H, Mean Corpuscular Hemoglobin 31.8, Mean Corpuscular Hemoglobin Concent 32.5, Red Cell Distribution Width 14.4, Calcium Level 7.9 L 03/28/19 11:51 03/28/19 17:33 Allergies Coded Allergies: Penicillins (Verified Allergy, Unknown, 02/28/19) Sulfa (Sulfonamide Antibiotics) (Verified Allergy, Unknown, 02/28/19) nifedipine (Verified Allergy, Unknown, 02/28/19) Home Medications Scheduled Apixaban (Eliquis) 5 Mg Tab, 5 MG PO BID, (Reported) Aspirin (Aspir 81) 81 Mg Tab, 81 MG PO DAILY, (Reported) Atorvastatin Calcium (Atorvastatin Calcium) 10 Mg Tab, 10 MG PO QHS, (Reported) Bisoprolol Fumarate (Bisoprolol Fumarate) 5 Mg Tablet, 2.5 MG PO DAILY, (Reported) Chlorthalidone (Chlorthalidone) 25 Mg Tablet, 12.5 MG PO DAILY, (Reported) Cholecalciferol (Vitamin D3) (Vitamin D3) 2,000 Unit Cap, 2,000 UNIT PO DAILY, (Reported) Ferrous Gluconate (Ferrous Gluconate) 324 Mg Tablet, 324 MG PO BID, (Reported) Folic Acid (Folic Acid) 1 Mg Tab, 1 MG PO DAILY, (Reported) Gabapentin (Gabapentin) 600 Mg Tablet, 600 MG PO BID, (Reported) Immune Globulin (Privigen 10% Vial) 400 Ml Vial, 40 GM IV MTHLY, (Reported) NEXT DOSE ON 03/29/19 Lisinopril (Lisinopril) 5 Mg Tab, 5 MG PO QHS, (Reported) Methotrexate Sodium (Methotrexate) 2.5 Mg Tablet, 7.5 MG PO 1XWK, (Reported) MONDAYS Multivitamins (Thera M Plus Tablet) 1 Tab Tab, 1 TAB PO DAILY, (Reported) Nortriptyline HCl (Nortriptyline HCl) 50 Mg Cap, 50 MG PO QHS, (Reported) Potassium Chloride (Potassium Chloride) 20 Meq Tab, 20 MEQ PO DAILY, (Reported) Travoprost (Travatan Z) 50 Drop/2.5 Ml Soln, 1 DROP OU QHS, (Reported) Scheduled PRN Nitroglycerin (Nitrostat) 0.4 Mg Tab.subl, 0.4 MG SL NITRO PRN for CHEST PAIN, (Reported) Triamcinolone Acet (Triamcinolone Acetonide 0.1% Crm) 80 Gm Cream..g., 1 DOSE TOP BID PRN for RASH, (Reported) WALTER POP MD March 28, 2019 19:16
[2019-03-29] MEDS ORDERED: GOLYTELY SOLN 4000 ML BTL PO ONE (19:00)
[2019-03-29] MEDS ORDERED: BISACODYL 5 MG TAB PO ONE (20:00)
[2019-03-29] MEDS: ATORVASTATIN 10 MG TAB PO SCH (20:34)
[2019-03-29] MEDS: LATANOPROST 0.005% OPHTH SOLN 2.5 ML OU SCH (20:34)
[2019-03-29] MEDS: NORTRIPTYLINE 25 MG CAP PO SCH (20:42)
[2019-03-29] MEDS ORDERED: FIDAXOMICIN 200 MG TAB (DIFICID) PO SCH (21:00)
[2019-03-29 22:03] VITALS: BP 168/84
[2019-03-30] VITALS (11 sets, daily range): BP systolic 128–168; BP diastolic 62–86
[2019-03-30] MEDS ORDERED: VANCOMYCIN ORAL SOL 250MG/5ML ORAL SYRINGE PO SCH (01:15)
[2019-03-30] MEDS: metroNIDAZOLE 500 MG in APPROPRIATE DILUENT 1 EA IV SCH ×2 (01:25→09:54)
[2019-03-30] MEDS: LR 1,000 ML IV SCH ×2 (01:26→11:45)
[2019-03-30] MEDS ORDERED: FIDAXOMICIN 200 MG TAB (DIFICID) PO SCH (01:30)
[2019-03-30 08:05] LABS: HEMATOCRIT 25.1 % (42.0-52.0); HEMOGLOBIN 8.2 g/dl (13.5-17.5); MEAN CORPUSCULAR HEMOGLOBIN 31.8 pg (27.0-33.0); MEAN CORPUSCULAR HGB CONC 32.7 g/dl (32.0-36.5); MEAN CORPUSCULAR VOLUME 97.3 fl (80.0-96.0); PLATELET COUNT, AUTOMATED 120 10^3/uL (150-450); RED BLOOD COUNT 2.58 10^6/uL (4.30-6.10); WHITE BLOOD COUNT 5.3 10^3/uL (4.0-10.0)
[2019-03-30 08:24] LABS: CALCIUM LEVEL 7.7 MG/DL (8.8-10.2); CREATININE FOR GFR 1.79 MG/DL (0.70-1.30); POTASSIUM SERUM 3.3 MEQ/L (3.5-5.1)
[2019-03-30] MEDS: GABAPENTIN 300 MG CAP PO SCH ×2 (09:54→20:40)
[2019-03-30] MEDS: BISOPROLOL FUMARATE 5 MG TAB PO SCH (09:54)
[2019-03-30] MEDS: FERROUS GLUCONATE 324 MG TAB PO SCH ×2 (09:55→20:40)
[2019-03-30] MEDS: FOLIC ACID 1 MG TAB PO SCH (09:55)
--- NOTE | 2019-03-30 11:36 | REP ---
REASON: Increasing abdominal pain. COMPARISON: 03/27/2019 also without contrast. Once again, the lack of intravenous contrast significantly decreases the sensitivity of the exam. Small bilateral pleural effusions have developed since the last exam. This is seen in conjunction with patchy basilar opacities which could be secondary to infectious etiology or subsegmental atelectatic changes correlate clinically. Note is again made of the four chamber cardiac enlargement. There is an unchanged right middle lobe nodule which represents a change from the chest CT of 05/27/2018. The nodule measures 6 mm. Limited evaluation of the solid intra-abdominal organs, there is no change in the appearance of the gallbladder. Small bilateral nephroliths are noted status quo. These are not causing obstructive phenomenon. Limited evaluation of the pancreas and adrenal glands show no gross abnormalities or significant changes from the prior exam. There is no evidence of free fluid or free air in the abdomen. There is calcific atherosclerotic change in the abdominal aorta status quo with mild ectasis, but without evidence of aneurysmal dilatation. There is a ventral hernia through which only mesentery protrudes. The appearance of the mesentery today has changed in that it is now fatty infiltrated. There is colonic diverticulosis status quo. There are a few gas filled mildly dilated small bowel loops in the abdomen which have developed since the last exam. CT PELVIS: There are a few fluid filled loops of small bowel in the pelvis which have developed since the last exam. There is no pelvic mass or adenopathy. There is no free fluid or free air. Bone window technique throughout the exam shows chronic osseous changes stable from 03/27/2019. IMPRESSION: 1. Lung base findings and nodule in the right middle lobe as described above. According to the revised Fleischner's Society criteria the nodule represents a category 4A lesion for which [address] is recommended. 2. The ventral hernia is unchanged in size from 03/27/2019, however, the fatty infiltration of the mesentery within the hernial sac indicates inflammation. 3. There is evidence of a small bowel ileus or possible early small bowel obstruction. The area of narrowed sigmoid colon seen on the prior exam is now collapsed, but that could be secondary to content void rather than other causes. This exam does not obviate colonoscopy. 4. Other chronic findings and stable findings as described above. Electronically Signed by Geovany Hernández DO 03/30/2019 02:41 P
[2019-03-30] MEDS ORDERED: PROPOFOL 200 MG/20 ML VIAL As Ordered ONE (13:58)
[2019-03-30] MEDS ORDERED: LIDOCAINE 2% INJ 100 MG/5 ML SDV (FOR ANES.) As Ordered ONE (13:59)
--- NOTE | 2019-03-30 15:35 | ROOR ---
Patient Name: Jacky Ritchie Procedure Date: 03/30/2019 2:36 PM Date of : 1935 Age: 83 Room: [facility] Gender: Male Note Status: Finalized Procedure: Upper GI endoscopy Indications: Acute post hemorrhagic anemia Providers: Marlon Leong MD Referring MD: Bettina Soto MD Requesting Provider: Medicines: Monitored Anesthesia Care Complications: No immediate complications. Procedure: Pre-Anesthesia Assessment: - Prior to the procedure, a History and Physical was performed, and patient medications and allergies were reviewed. The patient is competent. The risks and benefits of the procedure and the sedation options and risks were discussed with the patient. All questions were answered and informed consent was obtained. Patient identification and proposed procedure were verified by the physician, the nurse and the anesthesiologist in the procedure room. Mental Status Examination: alert and oriented. Airway Examination: normal oropharyngeal airway and neck mobility. Respiratory Examination: clear to auscultation. CV Examination: normal. Prophylactic Antibiotics: The patient does not require prophylactic antibiotics. Prior Anticoagulants: The patient has taken Eliquis (apixaban), last dose was 3 days prior to procedure. ASA Grade Assessment: III - A patient with severe systemic disease. After reviewing the risks and benefits, the patient was deemed in satisfactory condition to undergo the procedure. The anesthesia plan was to use monitored anesthesia care (MAC). Immediately prior to administration of medications, the patient was re-assessed for adequacy to receive sedatives. The heart rate, respiratory rate, oxygen saturations, blood pressure, adequacy of pulmonary ventilation, and response to care were monitored throughout the procedure. The physical status of the patient was re-assessed after the procedure. The Endoscope was introduced through the mouth, and advanced to the second part of duodenum. The upper GI endoscopy was accomplished without difficulty. The patient tolerated the procedure well. Findings: The examined esophagus was normal. The Z-line was regular and was found 42 cm from the incisors. Scattered moderate inflammation characterized by erosions, friability and granularity was found in the gastric body and in the gastric antrum. Biopsies were taken with a cold forceps for Helicobacter pylori testing. Biopsies were taken with a cold forceps for histology. Verification of patient identification for the specimen was done by the physician and nurse using the patient's name, date and medical record number. Estimated blood loss was minimal. Patchy mild inflammation characterized by erythema and granularity was found in the duodenal bulb, in the second portion of the duodenum and in the third portion of the duodenum. Biopsies for histology were taken with a cold forceps for evaluation of celiac disease. Impression: - Normal esophagus. - Z-line regular, 42 cm from the incisors. - Gastritis. Biopsied. - Duodenitis. Biopsied. Recommendation: - Patient has a contact number available for emergencies. The signs and symptoms of potential delayed complications were discussed with the patient. Return to normal activities tomorrow. Written discharge instructions were provided to the patient. - High fiber diet. - Continue present medications. - Use Protonix (pantoprazole) 40 mg PO twice daily - to be taken in morning (1/2 hour before breakfast) and at bedtime ( atleast 3 hours after last meal) for 3 months. - Resume Eliquis (apixaban) at prior dose tomorrow. Refer to primary physician for further adjustment of therapy. - Await pathology results. - If Biopsy shows H. pylori will need therapy with antibiotic course.. - Return to primary care physician. - Telephone GI clinic for pathology results 1 - 2 weeks. Please call GI clinic @ [phone] for apppointment date and time. Marlon Leong MD Marlon Leong MD 03/30/2019 3:35:25 PM Electronically signed by Marlon Leong MD Number of Addenda: 0 Note Initiated On: 03/30/2019 2:36 PM Estimated Blood Loss: Estimated blood loss was minimal.
--- NOTE | 2019-03-30 15:47 | ROOR ---
Patient Name: Jacky Ritchie Procedure Date: 03/30/2019 2:35 PM Date of : 1935 Age: 83 Room: [facility] Gender: Male Note Status: Finalized Procedure: Colonoscopy Indications: Hematochezia Providers: Marlon Leong MD Referring MD: Bettina Soto MD Requesting Provider: Medicines: Monitored Anesthesia Care Complications: No immediate complications. Procedure: Pre-Anesthesia Assessment: - Prior to the procedure, a History and Physical was performed, and patient medications and allergies were reviewed. The patient is competent. The risks and benefits of the procedure and the sedation options and risks were discussed with the patient. All questions were answered and informed consent was obtained. Patient identification and proposed procedure were verified by the physician, the nurse and the anesthesiologist in the procedure room. Mental Status Examination: alert and oriented. Airway Examination: normal oropharyngeal airway and neck mobility. Respiratory Examination: clear to auscultation. CV Examination: normal. Prophylactic Antibiotics: The patient does not require prophylactic antibiotics. Prior Anticoagulants: The patient has taken Eliquis (apixaban), last dose was 3 days prior to procedure. ASA Grade Assessment: III - A patient with severe systemic disease. After reviewing the risks and benefits, the patient was deemed in satisfactory condition to undergo the procedure. The anesthesia plan was to use monitored anesthesia care (MAC). Immediately prior to administration of medications, the patient was re-assessed for adequacy to receive sedatives. The heart rate, respiratory rate, oxygen saturations, blood pressure, adequacy of pulmonary ventilation, and response to care were monitored throughout the procedure. The physical status of the patient was re-assessed after the procedure. The Colonoscope was introduced through the anus and advanced to the terminal ileum, with identification of the appendiceal orifice and IC valve. The colonoscopy was performed without difficulty. The patient tolerated the procedure well. The quality of the bowel preparation was fair. The terminal ileum, ileocecal valve, appendiceal orifice, and rectum were photographed. Scope insertion time was 4 minutes. Scope withdrawal time was 10 minutes. The total duration of the procedure was 14 minutes. Findings: The perianal and digital rectal examinations were normal. The terminal ileum appeared normal. Multiple small and large-mouthed diverticula were found from sigmoid to ascending colon. There was no evidence of diverticular bleeding. Scattered, segmental and patchy severe mucosal changes characterized by congestion (edema), erosions, erythema, granularity and loss of vascularity were found from rectum to transverse colon. Biopsies were taken with a cold forceps for histology. Verification of patient identification for the specimen was done by the physician and nurse using the patient's name, date and medical record number. Estimated blood loss was minimal. Non-bleeding external and internal hemorrhoids were found during retroflexion. The hemorrhoids were medium-sized. Impression: - Preparation of the colon was fair. - The examined portion of the ileum was normal. - Severe diverticulosis from sigmoid to ascending colon. There was no evidence of diverticular bleeding. - Scattered, segmental and patchy severe mucosal changes were found from rectum to transverse colon secondary to left-sided colitis. Biopsied. - Non-bleeding external and internal hemorrhoids. Recommendation: - Patient has a contact number available for emergencies. The signs and symptoms of potential delayed complications were discussed with the patient. Return to normal activities tomorrow. Written discharge instructions were provided to the patient. - High fiber diet. - Continue present medications. - Resume Eliquis (apixaban) at prior dose tomorrow. Refer to primary physician for further adjustment of therapy. - Await pathology results. - Repeat colonoscopy is not recommended depending on clinical and functional status. - Telephone GI clinic for pathology results 1 - 2 weeks. Please call GI clinic @ [phone] for apppointment date and time. - Return to primary care physician. Marlon Leong MD Marlon Leong MD 03/30/2019 3:46:58 PM Electronically signed by Marlon Leong MD Number of Addenda: 0 Note Initiated On: 03/30/2019 2:35 PM Estimated Blood Loss: Estimated blood loss was minimal.
[2019-03-30] MEDS ORDERED: MAGNESIUM OXIDE 400 MG TAB (MAG-OX) PO ONE (16:45)
[2019-03-30] MEDS ORDERED: POTASSIUM CHLORIDE 10 MEQ SR TABLET PO ONE (16:45)
--- NOTE | 2019-03-30 17:10 | IPNPDOC ---
Date Seen The patient was seen on 03/30/19. Progress Note SUBJECTIVE: Patient hemoglobin stable. Positive for C.diff and started Difficid as patient had skin reaction on vancomycin. Abd pain slightly worse this morning suspect bowel prep irritation and c.diff; thus CT scan done prior to endoscopy. CT abdomen:Lung base findings and nodule in the right middle lobe as described above. [address] is recommended. The ventral hernia is unchanged in size from 03/27/2019, however, the fatty infiltration of the mesentery within the hernial sac indicates inflammation. There is evidence of a small bowel ileus or possible early small bowel obstruction. The area of narrowed sigmoid colon seen on the prior exam is now collapsed, but that could be secondary to content void rather than other causes. S/p EGD and Colonoscopy today. EGD:Normal esophagus. Z-line regular, 42 cm from the incisors. Gastritis and Duodenitis. Biopsied. Colonoscopy:: ileum was normal. Severe diverticulosis from sigmoid to ascending colon. There was no evidence of diverticular bleeding. - Scattered, segmental and patchy severe mucosal changes w ere found from rectum to transverse colon secondary to left-sided colitis. - Non-bleeding external and internal hemorrhoids. GI recommends:High fiber diet., Resume Eliquis (apixaban) at prior dose tomorrow, Telephone GI clinic for pathology results 1 - 2 weeks. Protonix (panto prazole) 40 mg PO twice daily. If Biopsy shows H. pylori will need therapy with antibiotic course OBJECTIVE PHYSICAL EXAMINATION: VITAL SIGNS: Please see below GENERAL APPEARANCE: Resting comfortably HEENT: Normocephalic, PERRLA, Mucous moist, CARDIOVASCULAR: S1,S2, pulse present, irregular LUNGS: Equal air entry b/l, no wheezes or crackle ABDOMEN: Soft, BS present, mild tenderness, no guarding EXTREMITIES: B/L no edema, capillary refill present SKIN: Warm, No fever,multiple pin prick petechial dot like finding throughout his body except his face NEUROLOGICAL: Cranial nerves grossly intact PSYCHIATRIC: Normal mood and affect for current situation LABORATORY DATA, IMAGING STUDIES, MICROBIOLOGY: Please see below. Mr. Ritchie is an 83 years old man with hx/o AF on Eliquis who presented to ER with c/o bloody diarrhea, weakness and dizziness for 2-3 days. He also had a fall today and sustained injury to the left side of this body, no head injury. He also admitted to dull/crampy intermittent abdominal pain. But denied nausea, vomiting, fever or chills. In the ER, pt was hemodynamically stable, afebrile, with good mental status. He was noted to have a Hb level of 8.7 (13.1 in Dec), Serum Cr of 2.5 (1.28 in Dec). Ct abd showed left colon wall thickening. Last colonoscopy was 5-10 years ago. Pt doesn't remember the report. Assessment and plan:: 83 years old man with hx/o AF on Eliquis who presented to ER with c/o bloody diarrhea, weakness and dizziness for 2-3 days. He also has PMH of peripheral neuropathy, AF on Eliquis s/p pacemaker, HTN, HLD, diverticulosis, C. diff colitis Dec 2018. Left-sided colitis, hx C.diff and repeat positive for C.diff - CT abdomen:1. No evidence of fracture and no evidence of organ laceration. 2. Numerous large diverticula throughout the colon. It is incidentally noted there is some hazy increased density in the mesentery at the hepatic flexure of the colon which may be the result of scarring. Mild changes of inflammation of these large diverticula also possible. 3. There is evidence of prominent thickening at the junction of the left colon with the proximal sigmoid colon. To exclude any possibility of mass in this area recommend colonoscopy or CT with oral contrast to opacify the colon versus barium enema. - S/p Gi recommends IV Flagyl empirically - Previously hemoglobin on 11/07 was 13.1 - hx of c.diff, GI panel:C. diff positive - Avoiding Vanco due to prior skin reaction - Dificid started - Occult stool ordered: negative - Dr. Leong consult - Repeat CT abdomen:Lung base findings and nodule in the right middle lobe as described above. [address] is recommended. The ventral hernia is unchanged in size from 03/27/2019, however, the fatty infiltration of the mesentery within the hernial sac indicates inflammation. There is evidence of a small bowel ileus or possible early small bowel obstruction. The area of narrowed sigmoid colon seen on the prior exam is now collapsed, but that could be secondary to content void rather than other causes. - S/p EGD and Colonoscopy today. EGD:Normal esophagus. Z-line regular, 42 cm from the incisors. Gastritis and Duodenitis. Biopsied. Colonoscopy:: ileum was normal. Severe diverticulosis from sigmoid to ascending colon. There was no evidence of diverticular bleeding. - Scattered, segmental and patchy severe mucosal changes were found from rectum to transverse colon secondary to left-sided colitis. - Non-bleeding external and internal hemorrhoids. GI recommends:High fiber diet., Resume Eliquis (apixaban) at prior dose tomorrow, Telephone GI clinic for pathology results 1 - 2 weeks. Protonix (pantoprazole) 40 mg PO twice daily. If Biopsy shows H. pylori will need therapy with antibiotic course Acute on Chronic Anemia due to Lower GI Bleeding while on Anticoagulation - Held Eliquis and ASA, resume as per GI - trend h/h, transfused 1 unit RBC - Transfuse if further drop in Hb (hemoglobin<7.0) or more active bleeding - resume iron supplement and FA - GI consult as above MACY on chronic kidney disease, improving - IV fluid; treat underlying condition (volume loss from GI tract) - Monitor renal function Fall from acute problems above - Fall precaution - cranial nerve intact - supportive treatment Chronic Leg Edema - Pt states it is due to neuropathy - Echo :Mild concentric left ventricle hypertrophy with hyperkinetic wall motion.Moderately dilated left atrium with current estimated mean left atrial pressure within normal limits.Moderately dilated right heart chambers with right ventricular free wall hypokinesis and Doppler evidence of moderately severe to severe pulmonary hypertension. IVC size upper limits of normal with reduced respiratory collapse in keeping with an elevated central venous pressure/right heart failure. Moderate aortic valvular sclerosis without stenosis, but mild - moderate insufficiency. Normal aortic root size. Moderate mitral annular calcification without inflow tract obstruction and only mild insufficiency. No rmal appearing tricuspid valve with at least moderate insufficiency. Pacing lead could be visualized traversing right heart structures, but no other intracardiac mass. No pericardial effusion. AF on Eliquis s/p pacemaker - Anticoagulant as above Neuropathy of the Legs - Pt reports that he is scheduled for IVIg on Daisy; spoke to Dr. Campos: can hold this dose and patient receive this therapy once acute issues are resolved. F/u with Dr. Campos as outpatient. F/u with Dr. Campos as outpatient. -resume home regimen HTN -lisinopril held due to poor renal function -resume bisoprolol HLD -resume statin DVT prop w ESTEFANY/SCD A-FIB/CHADSVASC A-FIB History Current/History of A-Fib/PAF?: Yes VS, I&O, 24H, Fishbone Vital Signs/I&O Vital Signs Date Time Temp Pulse Resp B/P (MAP) Pulse Ox O2 Delivery O2 Flow Rate FiO2 03/30/19 15:20 98.4 81 18 164/72 99 03/27/19 23:00 Room Air I&O- Last 24 Hours up to 6 AM 03/30/19 06:00 Intake Total 5660 ml Output Total 1100 ml Balance 4560 ml Laboratory Data 24H LABS Laboratory Tests 2 03/29/19 21:15: Urine Color YELLOW, Urine Appearance HAZY, Urine pH 5.0, Urine Specific [place] 1.013, Urine Protein 2+H, Urine Glucose (UA) NEGATIVE, Urine Ketones NEGATIVE, Urine Blood 3+H, Urine Nitrite NEGATIVE, Urine Bilirubin NEGATIVE, Urine Urobilinogen 0.2, Urine Leukocyte Esterase TRACEH, Urine WBC (Auto) 2, Urine RBC (Auto) 77H, Urine Hyaline Casts (Auto) 0, Urine Bacteria (Auto) NEGATIVE, Urine Squamous Epithelial Cells 0, Urine Mucus (Auto) SMALL, Urine Sperm (Auto) 03/30/19 07:50: Nucleated Red Blood Cells % (auto) 0.0, Anion Gap 9, Glomerular Filtration Rate 39.0, Blood Urea Nitrogen 32H, Creatinine 1.79H, Sodium Level 138, Potassium Level 3.3L, Chloride Level 104, Carbon Dioxide Level 25, Calcium Level 7.7L CBC/BMP Laboratory Tests 03/30/19 07:50 Red Blood Count 2.58 L, Mean Corpuscular Volume 97.3 H, Mean Corpuscular Hemoglobin 31.8, Mean Corpuscular Hemoglobin Concent 32.7, Red Cell Distribution Width 14.7 H, Calcium Level 7.7 L Microbiology Microbiology 03/28/19 Blood Culture - Preliminary, Resulted No Growth after 48 hours. All Specime... 03/29/19 Stool Occult Blood (MANDY) - Final, Complete 03/29/19 Gastrointestinal Tract Panel (PCR) - Final, Complete Clostridium Difficile A/B 03/29/19 Urine Culture - Final, Complete NINI NGO MD March 30, 2019 17:10
[2019-03-30] MEDS: LATANOPROST 0.005% OPHTH SOLN 2.5 ML OU SCH (20:39)
[2019-03-30] MEDS: NORTRIPTYLINE 25 MG CAP PO SCH (20:40)
[2019-03-30] MEDS: FIDAXOMICIN 200 MG TAB (DIFICID) PO SCH (20:40)
[2019-03-30] MEDS: ATORVASTATIN 10 MG TAB PO SCH (20:40)
--- NOTE | 2019-03-30 23:58 | ECGEPIP ---
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 HEART RATE IS NOW SLOWER Electronically Signed On 03-30-2019 23:58:30 EDT by Osorio Nguyen
[2019-03-31] MEDS: ACETAMINOPHEN TAB 650MG DOSE (2X325MG) PO PRN (02:56)
[2019-03-31 04:00] VITALS: BP 130/69
[2019-03-31] MEDS: LR 1,000 ML IV SCH ×2 (04:46→14:58)
[2019-03-31 06:51] LABS: HEMATOCRIT 23.4 % (42.0-52.0); HEMOGLOBIN 7.6 g/dl (13.5-17.5); MEAN CORPUSCULAR HEMOGLOBIN 31.1 pg (27.0-33.0); MEAN CORPUSCULAR HGB CONC 32.5 g/dl (32.0-36.5); MEAN CORPUSCULAR VOLUME 95.9 fl (80.0-96.0); RED BLOOD COUNT 2.44 10^6/uL (4.30-6.10); WHITE BLOOD COUNT 2.6 10^3/uL (4.0-10.0)
[2019-03-31 07:16] LABS: CALCIUM LEVEL 7.8 MG/DL (8.8-10.2); CREATININE FOR GFR 1.75 MG/DL (0.70-1.30); POTASSIUM SERUM 3.5 MEQ/L (3.5-5.1)
[2019-03-31 07:19] LABS: PLATELET COUNT, AUTOMATED 80 10^3/uL (150-450)
[2019-03-31] MEDS: APIXABAN 5 MG TAB (ELIQUIS) PO SCH ×2 (09:00→21:31)
[2019-03-31] MEDS ORDERED: ASPIRIN 81 MG ENTERIC TAB PO SCH (09:00)
[2019-03-31 10:00] VITALS: BP 152/70
[2019-03-31] MEDS: BISOPROLOL FUMARATE 5 MG TAB PO SCH (11:03)
[2019-03-31] MEDS: GABAPENTIN 300 MG CAP PO SCH ×2 (11:04→21:31)
[2019-03-31] MEDS: FIDAXOMICIN 200 MG TAB (DIFICID) PO SCH ×2 (11:04→21:32)
[2019-03-31] MEDS: VITAMIN D 1,000 INTERNATIONAL UNITS TABLET PO SCH (11:04)
[2019-03-31] MEDS: FERROUS GLUCONATE 324 MG TAB PO SCH ×2 (11:05→21:31)
[2019-03-31] MEDS: POTASSIUM CHLORIDE 10 MEQ SR TABLET PO SCH (11:05)
[2019-03-31] MEDS: CHLORTHALIDONE 12.5MG PER 1/2 TABLET PO SCH (11:05)
[2019-03-31] MEDS: FOLIC ACID 1 MG TAB PO SCH (11:06)
[2019-03-31 11:26] LABS: HEMATOCRIT 23.2 % (42.0-52.0); HEMOGLOBIN 7.5 g/dl (13.5-17.5); MEAN CORPUSCULAR HEMOGLOBIN 31.6 pg (27.0-33.0); MEAN CORPUSCULAR HGB CONC 32.3 g/dl (32.0-36.5); MEAN CORPUSCULAR VOLUME 97.9 fl (80.0-96.0); PLTBLUE- EDTA FREE CALC 81 K/mm3 (172-450); RED BLOOD COUNT 2.37 10^6/uL (4.30-6.10); WHITE BLOOD COUNT 2.4 10^3/uL (4.0-10.0)
[2019-03-31 11:57] LABS: PLATELET COUNT, AUTOMATED 80 10^3/uL (150-450)
[2019-03-31 11:58] LABS: PLTBLUE- EDTA FREE MACHINE 74 10^3/uL (172-450)
[2019-03-31 14:00] VITALS: BP 148/65
--- NOTE | 2019-03-31 15:09 | IPNPDOC ---
Date Seen The patient was seen on 03/31/19. Progress Note SUBJECTIVE: Patient hemoglobin stable. But his platelet decreased since yesterday. He does have renal dysfunction. He's not on heparin subcutaneous at this time due to procedure and ELiquis and ASA was to be resumed today. Patient clinically is feeling better after colonoscopy and EGD plus initiation of Dificid. We'll judiciously resume Eliquis but hold aspirin for now. Continue to monitor for worsening thrombocytopenia or acute bruising/bleeding. OBJECTIVE PHYSICAL EXAMINATION: VITAL SIGNS: Please see below GENERAL APPEARANCE: Resting comfortably HEENT: Normocephalic, PERRLA, Mucous moist, CARDIOVASCULAR: S1,S2, pulse present, irregular LUNGS: Equal air entry b/l, no wheezes or crackle ABDOMEN: Soft, BS present, mild tenderness, no guarding EXTREMITIES: B/L no edema, capillary refill present SKIN: Warm, No fever,multiple pin prick petechial dot like finding throughout his body except his fac NEUROLOGICAL: Cranial nerves grossly intact PSYCHIATRIC: Normal mood and affect for current situation LABORATORY DATA, IMAGING STUDIES, MICROBIOLOGY: Please see below. Mr. Ritchie is an 83 years old man with hx/o AF on Eliquis who presented to ER with c/o bloody diarrhea, weakness and dizziness for 2-3 days. He also had a fall today and sustained injury to the left side of this body, no head injury. He also admitted to dull/crampy intermittent abdominal pain. But denied nausea, vomiting, fever or chills. In the ER, pt was hemodynamically stable, afebrile, with good mental status. He was noted to have a Hb level of 8.7 (13.1 in Dec), Serum Cr of 2.5 (1.28 in Dec). Ct abd showed left colon wall thickening. Last colonoscopy was 5-10 years ago. Pt doesn't remember the report. Assessment and plan:: 83 years old man with hx/o AF on Eliquis who presented to ER with c/o bloody d iarrhea, weakness and dizziness for 2-3 days. He also has PMH of peripheral neuropathy, AF on Eliquis s/p pacemaker, HTN, HLD, diverticulosis, C. diff colitis Dec 2018. Left-sided colitis, hx C.diff and repeat positive for C.diff (possible colonization but patient with symptoms and colitis therefore treated). - CT abdomen:1. No evidence of fracture and no evidence of organ laceration. 2. Numerous large diverticula throughout the colon. It is incidentally noted there is some hazy increased density in the mesentery at the hepatic flexure of the colon which may be the result of scarring. Mild changes of inflammation of these large diverticula also possible. 3. There is evidence of prominent thickening at the junction of the left colon with the proximal sigmoid colon. To exclude any possibility of mass in this area recommend colonoscopy or CT with oral contrast to opacify the colon versus barium enema. - S/p Gi recommends IV Flagyl empirically - Previously hemoglobin on 11/07 was 13.1 - hx of c.diff, GI panel:C. diff positive - Avoiding Vanco due to prior skin reaction as above in PE - Dificid started - Occult stool ordered: negative - Dr. Leong consult - Repeat CT abdomen:Lung base findings and nodule in the right middle lobe as described above. [address] is recommended. The ventral hernia is unchanged in size from 03/27/2019, however, the fatty infiltration of the mesentery within the hernial sac indicates inflammation. There is evidence of a small bowel ileus or possible early small bowel obstruction. The area of narrowed sigmoid colon seen on the prior exam is now collapsed, but that could be secondary to content void rather than other causes. - S/p EGD and Colonoscopy today. EGD:Normal esophagus. Z-line regular, 42 cm from the incisors. Gastritis and Duodenitis. Biopsied. Colonoscopy:: ileum was normal. Severe diverticulosis from sigmoid to ascending colon. There was no evidence of diverticular bleeding. - Scattered, segmental and patchy severe mucosal changes were found from rectum to transverse colon secondary to left-sided colitis. - Non-bleeding external and internal hemorrhoids. -Eliquis resumed GI recommends:High fiber diet., Resume Eliquis (apixaban) at prior dose tomorrow, Telephone GI clinic for pathology results 1 - 2 weeks. Protonix (pantoprazole) 40 mg PO twice daily. If Biopsy shows H. pylori will need therapy with antibiotic course Thrombocytopenia -Patient with renal dysfunction -Continue to monitor -Judiciously resumed Eliquis -Held aspirin for now, if platelet remains stable will resume Acute on Chronic Anemia due to Lower GI Bleeding while on Anticoagulation - trend h/h, transfused 1 unit RBC - Transfuse if further drop in Hb (hemoglobin<7.0) or more active bleeding - resume iron supplement and FA - GI consult as above - judiciously resumed Eliquis MACY on chronic kidney disease, improving - IV fluid; treat underlying condition (volume loss from GI tract) - Monitor renal function Fall from acute problems above - Fall precaution - cranial nerve intact - supportive treatment Chronic Leg Edema - Pt states it is due to neuropathy - Echo :Mild concentric left ventricle hypertrophy with hyperkinetic wall motion.Moderately dilated left atrium with current estimated mean left atrial pressure within normal limits.Moderately dilated right heart chambers with right ventricular free wall hypokinesis and Doppler evidence of moderately severe to severe pulmonary hypertension. IVC size upper limits of normal with reduced respiratory collapse in keeping with an elevated central venous pressure/right heart failure. Moderate aortic valvular sclerosis without stenosis, but mild - moderate insufficiency. Normal aortic root size. Moderate mitral annular calcification without inflow tract obstruction and only mild insufficiency. Normal appearing tricuspid valve with at least moderate insufficiency. Pacing lead could be visualized traversing right heart structures, but no other intra cardiac mass. No pericardial effusion. AF on Eliquis s/p pacemaker - Anticoagulant as above Neuropathy of the Legs - Pt reports that he is scheduled for IVIg on Daisy; spoke to Dr. Campos: can hold this dose and patient receive this therapy once acute issues are resolved. F/u with Dr. Campos as outpatient. F/u with Dr. Campos as outpatient. -resume home regimen HTN -lisinopril held due to poor renal function -resume bisoprolol HLD -resume statin DVT prop w Eliquis A-FIB/CHADSVASC A-FIB History Current/History of A-Fib/PAF?: Yes VS, I&O, 24H, Fishbone Vital Signs/I&O Vital Signs Date Time Temp Pulse Resp B/P (MAP) Pulse Ox O2 Delivery O2 Flow Rate FiO2 03/31/19 11:03 62 136/66 03/31/19 04:00 100.8 14 94 03/27/19 23:00 Room Air I&O- Last 24 Hours up to 6 AM 03/31/19 06:00 Intake Total 1560 ml Balance 1560 ml Laboratory Data 24H LABS Laboratory Tests 2 03/31/19 06:29: Nucleated Red Blood Cells % (auto) 0.0, Immature Platelet Fraction 2.3, Anion Gap 9, Glomerular Filtration Rate 40.0, Blood Urea Nitrogen 35H, Creatinine 1.75H, Sodium Level 139, Potassium Level 3.5, Chloride Level 108H, Carbon Dioxide Level 22, Calcium Level 7.8L 03/31/19 11:10: Nucleated Red Blood Cells % (auto) 0.0, Platelet Count, EDTA Free 81L CBC/BMP Laboratory Tests 03/31/19 06:29 Red Blood Count 2.44 L, Mean Corpuscular Volume 95.9, Mean Corpuscular H emoglobin 31.1, Mean Corpuscular Hemoglobin Concent 32.5, Red Cell Distribution Width 14.4, Calcium Level 7.8 L 03/31/19 11:10 Red Blood Count 2.37 L, Mean Corpuscular Volume 97.9 H, Mean Corpuscular Hemoglobin 31.6, Mean Corpuscular Hemoglobin Concent 32.3, Red Cell Distribution Width 14.5 Microbiology Microbiology 03/28/19 Blood Culture - Preliminary, Resulted No Growth after 72 hours. All specime... 03/29/19 Stool Occult Blood (MANDY) - Final, Complete 03/29/19 Gastrointestinal Tract Panel (PCR) - Final, Complete Clostridium Difficile A/B 03/29/19 Urine Culture - Final, Complete NINI NGO MD March 31, 2019 15:09
[2019-03-31 18:00] VITALS: BP 163/71
[2019-03-31] MEDS: NORTRIPTYLINE 25 MG CAP PO SCH (21:31)
[2019-03-31] MEDS: ATORVASTATIN 10 MG TAB PO SCH (21:31)
[2019-03-31] MEDS: LISINOPRIL 5 MG TAB PO SCH (21:35)
[2019-03-31] MEDS: LATANOPROST 0.005% OPHTH SOLN 2.5 ML OU SCH (21:37)
[2019-03-31 22:00] VITALS: BP 161/71
[2019-04-01] VITALS (7 sets, daily range): BP systolic 150–161; BP diastolic 67–71
[2019-04-01 06:33] LABS: HEMATOCRIT 24.2 % (42.0-52.0); HEMOGLOBIN 7.8 g/dl (13.5-17.5); MEAN CORPUSCULAR HEMOGLOBIN 30.8 pg (27.0-33.0); MEAN CORPUSCULAR HGB CONC 32.2 g/dl (32.0-36.5); MEAN CORPUSCULAR VOLUME 95.7 fl (80.0-96.0); RED BLOOD COUNT 2.53 10^6/uL (4.30-6.10); WHITE BLOOD COUNT 2.4 10^3/uL (4.0-10.0)
[2019-04-01 06:55] LABS: CALCIUM LEVEL 7.9 MG/DL (8.8-10.2); CREATININE FOR GFR 1.73 MG/DL (0.70-1.30); GLOMERULAR FILTRATION RATE 40.6 (>35); POTASSIUM SERUM 3.7 MEQ/L (3.5-5.1)
[2019-04-01 07:03] LABS: PLATELET COUNT, AUTOMATED 66 10^3/uL (150-450)
[2019-04-01] MEDS: FIDAXOMICIN 200 MG TAB (DIFICID) PO SCH ×2 (08:35→21:25)
[2019-04-01] MEDS: CHLORTHALIDONE 12.5MG PER 1/2 TABLET PO SCH (08:35)
[2019-04-01] MEDS: LR 1,000 ML IV SCH ×2 (08:35)
[2019-04-01] MEDS: BISOPROLOL FUMARATE 5 MG TAB PO SCH (08:36)
[2019-04-01] MEDS: GABAPENTIN 300 MG CAP PO SCH ×2 (08:36→21:25)
[2019-04-01] MEDS: FERROUS GLUCONATE 324 MG TAB PO SCH ×2 (08:37→21:24)
[2019-04-01] MEDS: APIXABAN 5 MG TAB (ELIQUIS) PO SCH ×2 (08:37→21:24)
[2019-04-01] MEDS: POTASSIUM CHLORIDE 10 MEQ SR TABLET PO SCH (08:37)
[2019-04-01] MEDS: FOLIC ACID 1 MG TAB PO SCH (08:37)
[2019-04-01] MEDS: VITAMIN D 1,000 INTERNATIONAL UNITS TABLET PO SCH (08:37)
[2019-04-01] MEDS ORDERED: PILL CRUSHER/CUTTER 1 EACH XX PRN (11:15)
--- NOTE | 2019-04-01 13:32 | IPNPDOC ---
Date Seen The patient was seen on 04/01/19. Progress Note SUBJECTIVE: Patient hemoglobin stable. But his Plt continue to go down. Per patient he has petechiae like skin findings from Vanco po adn that was stopped and alternative treatment used in the past. Patient continues to clinically feeling better after colonoscopy and EGD plus initiation of Dificid. We'll judiciously resume Eliquis but hold aspirin for now. Continue to monitor for worsening thrombocytopenia or acute bruising/bleeding. ID consult Tuesday. OBJECTIVE PHYSICAL EXAMINATION: VITAL SIGNS: Please see below GENERAL APPEARANCE: Resting comfortably HEENT: Normocephalic, PERRLA, Mucous moist, CARDIOVASCULAR: S1,S2, pulse present, irregular LUNGS: Equal air entry b/l, no wheezes or crackle ABDOMEN: Soft, BS present, mild tenderness, no guarding EXTREMITIES: B/L no edema, capillary refill present SKIN: Warm, No fever, pin point petechiae like dot all over his body except face NEUROLOGICAL: Cranial nerves grossly intact PSYCHIATRIC: Normal mood and affect for current situation LABORATORY DATA, IMAGING STUDIES, MICROBIOLOGY: Please see below. Mr. Ritchie is an 83 years old man with hx/o AF on Eliquis who presented to ER with c/o bloody diarrhea, weakness and dizziness for 2-3 days. He also had a fall today and sustained injury to the left side of this body, no head injury. He also admitted to dull/crampy intermittent abdominal pain. But denied nausea, vomiting, fever or chills. In the ER, pt was hemodynamically stable, afebrile, with good mental status. He was noted to have a Hb level of 8.7 (13.1 in Dec), Serum Cr of 2.5 (1.28 in Dec). Ct abd showed left colon wall thickening. Last colonoscopy was 5-10 years ago. Pt doesn't remember the report. Assessment and plan:: 83 years old man with hx/o AF on Eliquis who presented to ER with c/o bloody diarrhea, weakness and dizziness for 2-3 days. He also has PMH of peripheral neuropathy, AF on Eliquis s/p pacemaker, HTN, HLD, diverticulosis, C. diff colitis Dec 2018. He is positive to c.diff and Difficid (as he had skin side effect petechiae while using Vanvo PO) restarted as it returned with bloody diarrhea. EGD and Colonoscopy was performed by GI and showed colitis. He developed thrombocytopenia, possibly from drug reaction (not on heparin sc, not on protonix, but Difficid started prior to acute low plt). Left-sided colitis, hx C.diff and repeat positive for C.diff (possible colonization but patient with symptoms and colitis therefore treated). - CT abdomen:1. No evidence of fracture and no evidence of organ laceration. 2. Numerous large diverticula throughout the colon. It is incidentally noted there is some hazy increased density in the mesentery at the hepatic flexure of the colon which may be the result of scarring. Mild changes of inflammation of these large diverticula also possible. 3. There is evidence of prominent thickening at the junction of the left colon with the proximal sigmoid colon. To exclude any possibility of mass in this area recommend colonoscopy or CT with oral co ntrast to opacify the colon versus barium enema. - S/p Gi recommends IV Flagyl empirically - Previously hemoglobin on 11/07 was 13.1 - hx of c.diff, GI panel:C. diff positive - Avoiding Vanco due to prior skin reaction - Dificid started - Occult stool ordered: negative - Dr. Leong consult - Repeat CT abdomen:Lung base findings and nodule in the right middle lobe as described above. [address] is recommended. The ventral hernia is unchanged in size from 03/27/2019, however, the fatty infiltration of the mesentery within the hernial sac indicates inflammation. There is evidence of a small bowel ileus or possible early small bowel obstruction. The area of narrowed sigmoid colon seen on the prior exam is now collapsed, but that could be secondary to content void rather than other causes. - S/p EGD and Colonoscopy today. EGD:Normal esophagus. Z-line regular, 42 cm from the incisors. Gastritis and Duodenitis. Biopsied. Colonoscopy:: ileum was normal. Severe diverticulosis from sigmoid to ascending colon. There was no evidence of diverticular bleeding. - Scattered, segmental and patchy severe mucosal changes were found from rectum to transverse colon secondary to left-sided colitis. - Non-bleeding external and internal hemorrhoids. -Eliquis resumed GI recommends:High fiber diet., Resume Eliquis (apixaban) at prior dose, Telephone GI clinic for pathology results 1 - 2 weeks. Protonix (pantoprazole) 40 mg PO twice daily. If Biopsy shows H. pylori will need therapy with antibiotic course Thrombocytopenia -Patient with renal dysfunction -Continue to monitor -Judiciously resumed Eliquis -Held aspirin for now, if platelet remains stable will resume -not on Protonix yet after colonoscopy due to low plt -evaluated medication list w pharmacy -Hematology consult w , request HIT, DIC, and flow cytometry workup -HIT marcos: ordered -DIC panel: ordered -Flow cytometry: ordered Acute on Chronic Anemia due to Lower GI Bleeding while on Anticoagulation - trend h/h, transfused 1 unit RBC - Transfuse if further drop in Hb (hemoglobin<7.0) or more active bleeding - resume iron supplement and FA - GI consult as above - judiciously resumed Eliquis MACY on chronic kidney disease, improving - IV fluid; treat underlying condition (volume loss from GI tract) - Monitor renal function Fall from acute problems above - Fall precaution - cranial nerve intact - supportive treatment Chronic Leg Edema - Pt states it is due to neuropathy - Echo :Mild concentric left ventricle hypertrophy with hyperkinetic wall motion.Moderately dilated left atrium with current estimated mean left atrial pressure within normal limits.Moderately dilated right heart chambers with right ventricular free wall hypokinesis and Doppler evidence of moderately severe to severe pulmonary hypertension. IVC size upper limits of normal with reduced respiratory collapse in keeping with an elevated central venous pressure/right heart failure. Moderate aortic valvular sclerosis without stenosis, but mild - moderate insufficiency. Normal aortic root size. Moderate mitral annular calcification without inflow tract obstruction and only mild insufficiency. Normal appearing tricuspid valve with at least moderate insufficiency. Pacing lead could be visualized traversing right heart structures, but no other intracardiac mass. No pericardial effusion. AF on Eliquis s/p pacemaker - Anticoagulant as above Neuropathy of the Legs - Pt reports that he is scheduledconsult for IVIg on Daisy; spoke to Dr. Campos: can hold this dose and patient receive this therapy once acute issues are resolved. F/u with Dr. Campos as outpatient. F/u with Dr. Campos as outpatient. -resume home regimen HTN -lisinopril held due to poor renal function -resume bisoprolol HLD -resume statin DVT prop w Eliquis . VS, I&O, 24H, Fishbone Vital Signs/I&O Vital Signs Date Time Temp Pulse Resp B/P (MAP) Pulse Ox O2 Delivery O2 Flow Rate FiO2 04/01/19 10:00 97.3 58 18 150/69 (96) 97 03/27/19 23:00 Room Air I&O- Last 24 Hours up to 6 AM 04/01/19 06:00 Intake Total 1440 ml Output Total 0 ml Balance 1440 ml Laboratory Data 24H LABS Laboratory Tests 2 04/01/19 05:21: Nucleated Red Blood Cells % (auto) 0.0, Anion Gap 8, Glomerular Filtration Rate 40.6, Blood Urea Nitrogen 31H, Creatinine 1.73H, Sodium Level 140, Potassium Level 3.7, Chloride Level 109H, Carbon Dioxide Level 23, Calcium Level 7.9L CBC/BMP Laboratory Tests 04/01/19 05:21 Red Blood Count 2.53 L, Mean Corpuscular Volume 95.7, Mean Corpuscular Hemoglobin 30.8, Mean Corpuscular Hemoglobin Concent 32.2, Red Cell Distribution Width 14.3, Calcium Level 7.9 L Microbiology Microbiology 03/28/19 Blood Culture - Preliminary, Resulted No Growth after 72 hours. All specime... 03/29/19 Stool Occult Blood (MANDY) - Final, Complete 03/29/19 Gastrointestinal Tract Panel (PCR) - Final, Complete Clostridium Difficile A/B 03/29/19 Urine Culture - Final, Complete NINI NGO MD April 01, 2019 13:32
[2019-04-01 14:21] LABS: INR 1.65; PROTHROMBIN TIME 19.8 SECONDS (12.1-14.4)
[2019-04-01 14:22] LABS: FIBRINOGEN 417 MG/DL (221-452)
[2019-04-01 14:42] LABS: D-DIMER QUANT > 4000 ng/ml (<500)
[2019-04-01] MEDS: NORTRIPTYLINE 25 MG CAP PO SCH (21:25)
[2019-04-01] MEDS: ATORVASTATIN 10 MG TAB PO SCH (21:25)
[2019-04-01] MEDS: LISINOPRIL 5 MG TAB PO SCH (21:25)
[2019-04-01] MEDS: LATANOPROST 0.005% OPHTH SOLN 2.5 ML OU SCH (21:26)
[2019-04-02 02:00] VITALS: BP 150/65
[2019-04-02 06:00] VITALS: BP 160/80
[2019-04-02 06:23] LABS: HEMATOCRIT 24.4 % (42.0-52.0); MEAN CORPUSCULAR HGB CONC 32.8 g/dl (32.0-36.5); MEAN CORPUSCULAR VOLUME 97.6 fl (80.0-96.0); WHITE BLOOD COUNT 4.6 10^3/uL (4.0-10.0)
[2019-04-02 06:33] LABS: PLATELET COUNT, AUTOMATED 48 10^3/uL (150-450)
[2019-04-02 06:43] LABS: CALCIUM LEVEL 8.1 MG/DL (8.8-10.2); CREATININE FOR GFR 1.67 MG/DL (0.70-1.30); GLOMERULAR FILTRATION RATE 42.2 (>35); POTASSIUM SERUM 3.7 MEQ/L (3.5-5.1)
[2019-04-02] MEDS: BISOPROLOL FUMARATE 5 MG TAB PO SCH (08:33)
[2019-04-02] MEDS: FOLIC ACID 1 MG TAB PO SCH (08:34)
[2019-04-02] MEDS: FIDAXOMICIN 200 MG TAB (DIFICID) PO SCH ×2 (08:34→21:10)
[2019-04-02] MEDS: VITAMIN D 1,000 INTERNATIONAL UNITS TABLET PO SCH (08:34)
[2019-04-02] MEDS: POTASSIUM CHLORIDE 10 MEQ SR TABLET PO SCH (08:34)
[2019-04-02] MEDS: GABAPENTIN 300 MG CAP PO SCH ×2 (08:34→21:10)
[2019-04-02] MEDS: FERROUS GLUCONATE 324 MG TAB PO SCH ×2 (08:34→21:09)
[2019-04-02] MEDS: APIXABAN 5 MG TAB (ELIQUIS) PO SCH ×2 (08:34→21:09)
[2019-04-02] MEDS: CHLORTHALIDONE 12.5MG PER 1/2 TABLET PO SCH (08:34)
[2019-04-02] MEDS ORDERED: ASPIRIN 81 MG ENTERIC TAB PO SCH (09:00)
[2019-04-02 10:00] VITALS: BP 144/70
--- NOTE | 2019-04-02 13:37 | IPNPDOC ---
Date Seen The patient was seen on 04/02/19. Progress Note SUBJECTIVE: Patient without clinical complaint. Patient hemoglobin stable and slightly up today but his Plt continue to go down. Await further recommendation and evaluation by hematology oncology and evaluation by infectious disease alternative treatment for C. difficile. Patient with history of vancomycin skin reaction. Platelet decrease shortly after initiation of Dificid. Patient not on heparin or PPI. Await recommendation by Hem/onco and ID. Appreciate evaluation. Dermatology consult. OBJECTIVE PHYSICAL EXAMINATION: VITAL SIGNS: Please see below GENERAL APPEARANCE: Resting comfortably HEENT: Normocephalic, PERRLA, Mucous moist, CARDIOVASCULAR: S1,S2, pulse present, irregular LUNGS: Equal air entry b/l, no wheezes or crackle ABDOMEN: Soft, BS present, mild tenderness, no guarding EXTREMITIES: B/L no edema, capillary refill present SKIN: Warm, No fever, multiple pin prick petechial dot like finding throughout his body except his face NEUROLOGICAL: Cranial nerves grossly intact PSYCHIATRIC: Normal mood and affect for current situation LABORATORY DATA, IMAGING STUDIES, MICROBIOLOGY: Please see below. Mr. Ritchie is an 83 years old man with hx/o AF on Eliquis who presented to ER with c/o bloody diarrhea, weakness and dizziness for 2-3 days. He also had a fall today and sustained injury to the left side of this body, no head injury. He also admitted to dull/crampy intermittent abdominal pain. But denied nausea, vomiting, fever or chills. In the ER, pt was hemodynamically stable, afebrile, with good mental status. He was noted to have a Hb level of 8.7 (13.1 in Dec), Serum Cr of 2.5 (1.28 in Dec). Ct abd showed left colon wall thickening. Last colonoscopy was 5-10 years ago. Pt doesn't remember the report. Assessment and plan:: 83 years old man with hx/o AF on Eliquis who presented to ER with c/o bloody diarrhea, weakness and dizziness for 2-3 days. He also has PMH of peripheral neuropathy, AF on Eliquis s/p pacemaker, HTN, HLD, diverticulosis, C. diff colit is Dec 2018. He is positive to c.diff and Difficid (as he had skin side effect petechiae while using Vanvo PO). EGD and Colonoscopy was performed by GI and showed colitis. He developed thrombocytopenia, possibly from drug reaction (not on heparin sc, not on protonix, but Difficid started prior to downtrending of low plt). Thrombocytopenia -Patient with renal dysfunction, improving -Judiciously resumed Eliquis, H/H stable -Held aspirin for now, if platelet remains improves and remains stable consider resume -not on Protonix yet after colonoscopy due to low plt -evaluated medication list w pharmacy -Hematology consult w , request HIT, DIC, and flow cytometry workup -HIT marcos: pending -DIC panel: Ddimer elevated, pt on RA and nit tachycardic on eliquis. Fibrinogen nml -Flow cytometry: ordered, Hematology on board -Dermatology consult w Dr. Styles Left-sided colitis, hx C.diff and repeat positive for C.diff (possible colonization but patient with symptoms and colitis therefore treated). - CT abdomen:1. No evidence of fracture and no evidence of organ laceration. 2. Numerous large diverticula throughout the colon. It is incidentally noted there is some hazy increased density in the mesentery at the hepatic flexure of the colon which may be the result of scarring. Mild changes of inflammation of these large diverticula also possible. 3. There is evidence of prominent thickening at the junction of the left colon with the proximal sigmoid colon. To exclude any possibility of mass in this area recommend colonoscopy or CT with oral contrast to opacify the colon versus barium enema. - S/p Gi recommends IV Flagyl empirically - Previously hemoglobin on 11/07 was 13.1 - hx of c.diff, GI panel:C. diff positive - Avoiding Vanco due to prior skin reaction - Dificid started - Occult stool ordered: negative - Dr. Leong consult - Repeat CT abdomen:Lung base findings and nodule in the right middle lobe as described above. [address] is recommended. The ventral hernia is unchanged in size from 03/27/2019, however, the fatty infiltration of the mesentery within the hernial sac indicates inflammation. There is evidence of a small bowel ileus or possible early small bowel obstruction. The area of narrowed sigmoid colon seen on the prior exam is now collapsed, but that could b e secondary to content void rather than other causes. - S/p EGD and Colonoscopy today. EGD:Normal esophagus. Z-line regular, 42 cm from the incisors. Gastritis and Duodenitis. Biopsied. Colonoscopy:: ileum was normal. Severe diverticulosis from sigmoid to ascending colon. There was no evidence of diverticular bleeding. - Scattered, segmental and patchy severe mucosal changes were found from rectum to transverse colon secondary to left-sided colitis. - Non-bleeding external and internal hemorrhoids. -Eliquis resumed GI recommends:High fiber diet., Resume Eliquis (apixaban) at prior dose, Telephone GI clinic for pathology results 1 - 2 weeks. Protonix (pantoprazole) 40 mg PO twice daily but not started due to low platelet. If Biopsy shows H. pylori will need therapy with antibiotic course. Acute on Chronic Anemia due to Lower GI Bleeding while on Anticoagulation - trend h/h, transfused 1 unit RBC - Transfuse if further drop in Hb (hemoglobin<7.0) or more active bleeding - resume iron supplement and FA - GI consult as above - judiciously resumed Eliquis MACY on chronic kidney disease, improving - IV fluid; treat underlying condition (volume loss from GI tract) - Monitor renal function Fall from acute problems above - Fall precaution - cranial nerve intact - supportive treatment Chronic Leg Edema - Pt states it is due to neuropathy - Echo :Mild concentric left ventricle hypertrophy with hyperkinetic wall mo tion.Moderately dilated left atrium with current estimated mean left atrial pressure within normal limits.Moderately dilated right heart chambers with right ventricular free wall hypokinesis and Doppler evidence of moderately severe to severe pulmonary hypertension. IVC size upper limits of normal with reduced respiratory collapse in keeping with an elevated central venous pressure/right heart failure. Moderate aortic valvular sclerosis without stenosis, but mild - moderate insufficiency. Normal aortic root size. Moderate mitral annular calcification without inflow tract obstruction and only mild insufficiency. Normal appearing tricuspid valve with at least moderate insufficiency. Pacing lead could be visualized traversing right heart structures, but no other intracardiac mass. No pericardial effusion. AF on Eliquis s/p pacemaker - Anticoagulant as above Neuropathy of the Legs - Pt reports that he is scheduled for IVIg on Daisy; spoke to Dr. Campos: can hold this dose and patient receive this therapy once acute issues are resolved. F/u with Dr. Campos as outpatient. F/u with Dr. Campos as outpatient. -resume home regimen HTN -lisinopril held due to poor renal function -resume bisoprolol HLD -resume statin DVT prop w Eliquis VS, I&O, 24H, Fishbone Vital Signs/I&O Vital Signs Date Time Temp Pulse Resp B/P (MAP) Pulse Ox O2 Delivery O2 Flow Rate FiO2 04/02/19 10:00 97.6 57 18 144/70 (94) 100 03/27/19 23:00 Room Air I&O- Last 24 Hours up to 6 AM 04/02/19 06:00 Intake Total 1200 ml Output Total 650 ml Balance 550 ml Laboratory Data 24H LABS Laboratory Tests 2 04/01/19 13:51: Prothrombin Time 19.8H, Prothromb Time International Ratio 1.65, Activated Partial Thromboplast Time 39.0H, Fibrinogen 417, D-Dimer, Quantitative > 4000H 04/02/19 06:07: Anion Gap 8, Glomerular Filtration Rate 42.2, Blood Urea Nitrogen 31H, Creatinine 1.67H, Sodium Level 140, Potassium Level 3.7, Chloride Level 109H, Carbon Dioxide Level 23, Calcium Level 8.1L 04/02/19 06:08: Nucleated Red Blood Cells % (auto) 0.0, Differential Slide Review Report, Immature Platelet Fraction 3.9, Peripheral Blood Smear Path Consult PERIPHERAL SMEAR CBC/BMP Laboratory Tests 04/02/19 06:07 Calcium Level 8.1 L 04/02/19 06:08 Red Blood Count 2.50 L, Mean Corpuscular Volume 97.6 H, Mean Corpuscular Hemoglobin 32.0, Mean Corpuscular Hemoglobin Concent 32.8, Red Cell Distribution Width 14.2 Microbiology Microbiology 03/28/19 Blood Culture - Final, Complete NO GROWTH AFTER 5 DAYS 03/29/19 Stool Occult Blood (MANDY) - Final, Complete 03/29/19 Gastrointestinal Tract Panel (PCR) - Final, Complete Clostridium Difficile A/B 03/29/19 Urine Culture - Final, Complete NINI NGO MD April 02, 2019 13:37
[2019-04-02 14:00] VITALS: BP 142/69
[2019-04-02 18:00] VITALS: BP 166/77
[2019-04-02] MEDS: ATORVASTATIN 10 MG TAB PO SCH (21:09)
[2019-04-02] MEDS: LISINOPRIL 5 MG TAB PO SCH (21:10)
[2019-04-02] MEDS: NORTRIPTYLINE 25 MG CAP PO SCH (21:10)
[2019-04-02] MEDS: LATANOPROST 0.005% OPHTH SOLN 2.5 ML OU SCH (21:10)
--- NOTE | 2019-04-02 21:22 | CR.PDOC ---
General Date of Consultation: April 02, 2019 Referring Provider: NINI NGO MD Attending Physician: Agata Lujan MD Consultation REASON FOR CONSULTATION/CHIEF COMPLAINT: C. Diff and thrombocytopenia HISTORY OF PRESENT ILLNESS: Mr. Ritchie is an 83 years old man with hx/o AF on Eliquis who presented to ER with c/o bloody diarrhea. Initial stool culture was positive for C. difficile toxin. Initially patient was started on metronidazole from March 28 to March 30, he was also given 1 dose of ciprofloxacin. On March 30. Patient was started on the fidaxomicin. Vancomycin was not given to patient. Due to reported allergy (Rash). GI was also consulted. Patient underwent colonoscopy and EGD that showed gastritis, duodenitis and colitis respectively. Patient states that his story began 2 months ago in [place] where he developed diarrhea and presented to a local hospital. He was started on medication. He does not recall the name of the medication. He states that his diarrhea resolved and he was able to return to the [facility]. He then visited [place] to see his other son in January. While in [place] he developed diarrhea and was taken to a local ER. He was then diagnosed with C. difficile and start on vancomycin. He stated that he took the medication until he developed a red rash all over his b tamera. So he discontinued the medication. His rash started to improved. He was fine for a few days until 2 weeks ago when he developed diarrhea. He denies any other recent use of any antibiotics. States that his rash started after the vancomycin has been improving. Infectious diseases consulted for management of patient's C. difficile and thrombocytopenia. On initial evaluation, patient stated that he feels fine. His last bowel movement was 2 days ago prior to initial evaluation. He had no acute complaints. Last colonoscopy was 5-10 years ago. Pt doesn't remember the report. ALLERGIES: Please see below. HOME MEDICATIONS: Please see below. PAST MEDICAL HISTORY: Peripheral neuropathy, atrial fibrillation on Ellik was status post pacemaker, hypertension, hyperlipidemia, diverticulosis, history of C. difficile PAST SURGICAL HISTORY: Hernia repair, pacemaker implantation FAMILY HISTORY: Noncontributory SOCIAL HISTORY: Denies smoking, denies illicit drug use. Denies alcohol use REVIEW OF SYSTEMS CONSTITUTIONAL: No fevers, denies chills, denies weight loss, denies lethargy HEENT: No rhinorrhea, no itchy eyes, no congesion, CARDIOVASCULAR: No murmurs no palpitations and arrhythmias RESPIRATORY: Not cough, No SOB, no issues to report GASTROINTESTINAL: No nausea, no vomiting, no difficulty swallowing, no pain with eating, no diarrhea HEMATOLOGICAL: Admits to prior rectal bleeding GENITOURINARY:No Issues HEMATOLOGIC/LYMPHATIC: No swelling PHYSICAL EXAMINATION VITALS: See Below GENERAL APPEARANCE: Alert no acute distress, elderly male SKIN: Vasculitic nonblanching erythematous rash on patient's arm and thighs. ENT: Palate intact, franco tympanic membrane no bulging, no erythema, Neck supple, no thyromegaly THORAX: Symmetrical. LUNGS: Clear to auscultation bilaterally. HEART: Normal S1, S2. No murmurs, no rubs, no gallops ABDOMEN: Soft. No masses. Bowel sounds are present. TRUNK/SPINE:Straight. EXTREMITIES: Ulcer noted on patient's fourth toe, foul odor detected from the toe, purulent drainage is also detected from patient's fourth toe PULSES: 2+ upper and lower extremity . LABORATORY DATA: Please see below. ASSESSMENT/PLAN: Patient is an 83-year-old male admitted for GI bleed, with gastroenterology consultation. He was also diagnosed with C. difficile, he has a history of C. difficile infection that began in December 2018. Infectious disease has been consulted for management of C.diff and thrombocytopenia Thrombocytopenia -Unlikely to be medication related, although metronidazole does have adverse effect of thrombocytopenia. Patient was only on it for 2 days. Fidaxomicin is unlikely to cause thrombocytopenia. Thrombocytopenia For the moment is not related to patient's infection.We'll continue to monitor. C.Diff -Patient reports an episode of diarrhea in [place], which was managed by medication. Patient does not remember the medication. During his travel to [place]. Patient was diagnosed with C. difficile and started on vancomycin. Which she discontinued due to stress. For the moment. Unsure if patient has been colonized or if his C. difficile was improperly treated due to the early termination of vancomycin. Please continue fidaxomicin. He denies diarrhea in the last 2 days. His GI bleed has been investigated by gastroenterology. Please follow their recommendation for management. -Rash - Distribution and presentation rashes is unlikely to be vancomycin allergic rash. I have suspicion for Henoch-Schnlein purpura, which would also provide an explanation from patient Thrombocytopenia . Vasculitis labs including ANCA, MAYRA, IgA, serum creatinine, liver profile, ESR and CRP have been ordered for tomorrow morning. Dermatology has been consulted. -Toe ulcer -Due to patient's current C. difficile antibiotic treatment is now recommended. Recommending nursing daily, ulcer, clean and and dressing with packing. Vital Signs/I&O Vital Signs Date Time Temp Pulse Resp B/P (MAP) Pulse Ox O2 Delivery O2 Flow Rate FiO2 04/02/19 18:00 97.4 58 16 166/77 (106) 100 03/27/19 23:00 Room Air I&O- Last 24 Hours up to 6 AM 04/02/19 06:00 Intake Total 1200 ml Output Total 650 ml Balance 550 ml Laboratory Data Labs 24H Laboratory Tests 2 04/02/19 06:07: Anion Gap 8, Glomerular Filtration Rate 42.2, Blood Urea Nitrogen 31H, Creatinine 1.67H, Sodium Level 140, Potassium Level 3.7, Chloride Level 109H, Carbon Dioxide Level 23, Calcium Level 8.1L 04/02/19 06:08: Nucleated Red Blood Cells % (auto) 0.0, Differential Slide Review Report, Immature Platelet Fraction 3.9, Peripheral Blood Smear Path Consult PERIPHERAL SMEAR CBC/BMP Laboratory Tests 04/02/19 06:07 Calcium Level 8.1 L 04/02/19 06:08 Red Blood Count 2.50 L, Mean Corpuscular Volume 97.6 H, Mean Corpuscular Hemoglobin 32.0, Mean Corpuscular Hemoglobin Concent 32.8, Red Cell Distribution Width 14.2 Microbiology Microbiology 03/28/19 Blood Culture - Final, Complete NO GROWTH AFTER 5 DAYS 03/29/19 Stool Occult Blood (MANDY) - Final, Complete 03/29/19 Gastrointestinal Tract Panel (PCR) - Final, Complete Clostridium Difficile A/B 03/29/19 Urine Culture - Final, Complete Allergies Coded Allergies: vancomycin (Verified Allergy, Intermediate, Rash, 03/30/19) Patient developed a generalized red body rash after receiving vanco 12/2018. Penicillins (Verified Allergy, Unknown, 02/28/19) Sulfa (Sulfonamide Antibiotics) (Verified Allergy, Unknown, 02/28/19) nifedipine (Verified Allergy, Unknown, 02/28/19) Home Medications Scheduled Apixaban (Eliquis) 5 Mg Tab, 5 MG PO BID, (Reported) Aspirin (Aspir 81) 81 Mg Tab, 81 MG PO DAILY, (Reported) Atorvastatin Calcium (Atorvastatin Calcium) 10 Mg Tab, 10 MG PO QHS, (Reported) Bisoprolol Fumarate (Bisoprolol Fumarate) 5 Mg Tablet, 2.5 MG PO DAILY, (Reported) Chlorthalidone (Chlorthalidone) 25 Mg Tablet, 12.5 MG PO DAILY, (Reported) Cholecalciferol (Vitamin D3) (Vitamin D3) 2,000 Unit Cap, 2,000 UNIT PO DAILY, (Reported) Ferrous Gluconate (Ferrous Gluconate) 324 Mg Tablet, 324 MG PO BID, (Reported) Folic Acid (Folic Acid) 1 Mg Tab, 1 MG PO DAILY, (Reported) Gabapentin (Gabapentin) 600 Mg Tablet, 600 MG PO BID, (Reported) Immune Globulin (Privigen 10% Vial) 400 Ml Vial, 40 GM IV MTHLY, (Reported) NEXT DOSE ON 03/29/19 Lisinopril (Lisinopril) 5 Mg Tab, 5 MG PO QHS, (Reported) Methotrexate Sodium (Methotrexate) 2.5 Mg Tablet, 7.5 MG PO 1XWK, (Reported) MONDAYS Multivitamins (Thera M Plus Tablet) 1 Tab Tab, 1 TAB PO DAILY, (Reported) Nortriptyline HCl (Nortriptyline HCl) 50 Mg Cap, 50 MG PO QHS, (Reported) Potassium Chloride (Potassium Chloride) 20 Meq Tab, 20 MEQ PO DAILY, (Reported) Travoprost (Travatan Z) 50 Drop/2.5 Ml Soln, 1 DROP OU QHS, (Reported) Scheduled PRN Nitroglycerin (Nitrostat) 0.4 Mg Tab.subl, 0.4 MG SL NITRO PRN for CHEST PAIN, (Reported) Triamcinolone Acet (Triamcinolone Acetonide 0.1% Crm) 80 Gm Cream..g., 1 DOSE TOP BID PRN for RASH, (Reported) GME ATTESTATION GME ATTESTATION My faculty preceptor for this patient encounter was physically present during the encounter and was fully available. All aspects of the patient interview, examination, medical decision making process, and medical care plan development were reviewed and approved by the faculty preceptor. The faculty preceptor is aware and concurs with the plan as stated in the body of this note and will attest to such by his/her cosignature. DOMINIC SIDDIQUI DO April 02, 2019 21:22
[2019-04-02 22:00] VITALS: BP 146/76
[2019-04-03 06:00] VITALS: BP 170/92
[2019-04-03 06:17] LABS: HEMATOCRIT 25.9 % (42.0-52.0); HEMOGLOBIN 8.3 g/dl (13.5-17.5); MEAN CORPUSCULAR HEMOGLOBIN 31.4 pg (27.0-33.0); MEAN CORPUSCULAR VOLUME 98.1 fl (80.0-96.0); RED BLOOD COUNT 2.64 10^6/uL (4.30-6.10); WHITE BLOOD COUNT 4.6 10^3/uL (4.0-10.0)
[2019-04-03 06:43] LABS: ALBUMIN 2.5 GM/DL (3.2-5.2); BILIRUBIN,DIRECT 0.2 MG/DL (0.0-0.2); BILIRUBIN,TOTAL 0.5 MG/DL (0.2-1.0); C REACTIVE PROTEIN QUANTITATIV 2.38 MG/DL (0.00-0.30); CREATININE FOR GFR 1.76 MG/DL (0.70-1.30); GLOMERULAR FILTRATION RATE 39.8 (>35); TOTAL PROTEIN 6.6 GM/DL (6.4-8.2)
[2019-04-03 06:45] LABS: ERYTHROCYTE SEDIMENTATION RATE 50 mm/hr (0-20)
[2019-04-03 06:53] LABS: PLATELET COUNT, AUTOMATED 30 10^3/uL (150-450)
[2019-04-03] MEDS: CHLORTHALIDONE 12.5MG PER 1/2 TABLET PO SCH (09:41)
[2019-04-03] MEDS: APIXABAN 5 MG TAB (ELIQUIS) PO SCH ×2 (09:41→20:24)
[2019-04-03] MEDS: GABAPENTIN 300 MG CAP PO SCH ×2 (09:41→20:25)
[2019-04-03] MEDS: FERROUS GLUCONATE 324 MG TAB PO SCH ×2 (09:41→20:24)
[2019-04-03] MEDS: FOLIC ACID 1 MG TAB PO SCH (09:41)
[2019-04-03] MEDS: VITAMIN D 1,000 INTERNATIONAL UNITS TABLET PO SCH (09:41)
[2019-04-03] MEDS: BISOPROLOL FUMARATE 5 MG TAB PO SCH (09:42)
[2019-04-03] MEDS: POTASSIUM CHLORIDE 10 MEQ SR TABLET PO SCH (09:42)
[2019-04-03] MEDS: FIDAXOMICIN 200 MG TAB (DIFICID) PO SCH ×2 (09:42→20:24)
[2019-04-03 10:00] VITALS: BP 143/74
[2019-04-03 14:00] VITALS: BP 160/65
[2019-04-03 18:00] VITALS: BP 183/73
--- NOTE | 2019-04-03 19:35 | IPNPDOC ---
Date Seen The patient was seen on 04/03/19. Progress Note SUBJECTIVE: Patient reported feeling well today denying any complaints. Reports no diarrhea or abdominal discomfort. Platelets continue to trend down at 30 today but no evidence of bleeding. To be seen by dermatology this evening. OBJECTIVE PHYSICAL EXAMINATION: VITAL SIGNS: Please see below. General: No acute distress, Alert Eyes: Normal sclera, EOMI, CAMRON HENT: Atraumatic, neck supple, moist mucous membranes Cardiovascular: Normal rate Pulmonary: Clear to auscultation b/l, no wheezing GI: Soft, nontender, nondistended Skin: diffuse red spots throughout body, non tender to palpation. Neuro: CN grossly intact. No focal deficits. Strengths equal b/l. Psych: oriented x 3 LABORATORY DATA, IMAGING STUDIES, MICROBIOLOGY: Please see below. DVT prophylaxis ordered?: Eliquis ASSESSMENT AND PLAN: 83 years old man with hx/o AF on Eliquis who presented to ER with c/o bloody diarrhea, weakness and dizziness for 2-3 days. He also has PMH of peripheral neuropathy, AF on Eliquis s/p pacemaker, HTN, HLD, diverticulosis, C. diff colitis Dec 2018. He is positive to c.diff on Fidaxomicin due to rashes on PO Vancomycin. EGD and Colonoscopy was performed by GI and showed colitis. He developed thrombocytopenia, possibly from drug reaction (not on heparin sc, not on protonix, but Fidaxomicin started prior to downtrending of low plt). 1. C. diff w/ colitis - Has a hx of c. diff and currently positive for it. - may be colonization but due to colitis, will treat for it at this time. - c/w Fidaxomicin treatment as PO vancomycin was suspected to cause patient's rash. no diarrhea reported at this time. - ID following. Low suspicion for Abx as the etiology of rash. - Dermatology consulted, f/u recommendations. - GI following. c/w empiric Flagyl at this time. - s/p EGD and colonoscopy with evidence of gastritis and duodenitis, f/u biopsy. Severe diverticulosis. 2. Acute on chronic anemia 2/2 GI bleed on AC - s/p transfusion. monitor H/H. - transfuse if Hb <7. - Eliquis resumed for now. - GI following. 3. MACY on CKD improving - Likely due to volume loss. - Monitor. 4. AF - c/w Eliquis. with pacemaker. 5. Leg neuropathy. - Scheduled for IVIG as outpatient with Dr. Campos. Discussed and can follow as outpatient was stable. 6. HTN - resume home meds A-FIB/CHADSVASC A-FIB History Current/History of A-Fib/PAF?: Yes Current Oral Anticoagulant The: Yes VS, I&O, 24H, Fishbone Vital Signs/I&O Vital Signs Date Time Temp Pulse Resp B/P (MAP) Pulse Ox O2 Delivery O2 Flow Rate FiO2 04/03/19 18:00 183/73 (109) 04/03/19 14:00 98.8 65 18 100 I&O- Last 24 Hours up to 6 AM 04/03/19 06:00 Intake Total 1710 ml Output Total 1400 ml Balance 310 ml Laboratory Data 24H LABS Laboratory Tests 2 04/03/19 05:58: Nucleated Red Blood Cells % (auto) 0.0, Erythrocyte Sedimentation Rate 50H, Anion Gap 8, Glomerular Filtration Rate 39.8, Calcium Level 8.0L, Aspartate Amino Transf (AST/SGOT) 21, Alanine Aminotransferase (ALT/SGPT) 36, Alkaline Phosphatase 69, Total Bilirubin 0.5, Direct Bilirubin 0.2, C-Reactive Protein, Quantitative 2.38H, Total Protein 6.6, Albumin 2.5L, Albumin/Globulin Ratio 0.61L CBC/BMP Laboratory Tests 04/03/19 05:58 Red Blood Count 2.64 L, Mean Corpuscular Volume 98.1 H, Mean Corpuscular H emoglobin 31.4, Mean Corpuscular Hemoglobin Concent 32.0, Red Cell Distribution Width 14.2 Microbiology Microbiology 03/28/19 Blood Culture - Final, Complete NO GROWTH AFTER 5 DAYS 03/29/19 Stool Occult Blood (MANDY) - Final, Complete 03/29/19 Gastrointestinal Tract Panel (PCR) - Final, Complete Clostridium Difficile A/B 03/29/19 Urine Culture - Final, Complete 04/03/19 Acid Fast Stain, Received Pending 04/03/19 Mycobacterial Culture, Received Pending 04/03/19 Fungal Smear, Received Pending 04/03/19 Fungal Culture, Received Pending 04/03/19 Surgical Biopsy Culture, Received Pending GREGG CHAVARRIA MD April 03, 2019 19:35
[2019-04-03] MEDS: LISINOPRIL 5 MG TAB PO SCH (20:24)
[2019-04-03] MEDS: NORTRIPTYLINE 25 MG CAP PO SCH (20:24)
[2019-04-03] MEDS: ATORVASTATIN 10 MG TAB PO SCH (20:24)
[2019-04-03] MEDS: LATANOPROST 0.005% OPHTH SOLN 2.5 ML OU SCH (20:25)
[2019-04-03 22:00] VITALS: BP 179/82
--- NOTE | 2019-04-03 22:51 | IPN ---
DATE: 04/03/2019 INFECTIOUS DISEASE PROGRESS NOTE Mr. Ritchie seems to be doing fairly well. He is anxious to go home. His diarrhea resolved. He has no complaints. No nausea, vomiting, no fever or chills. He was seen by Dr. Styles today, dermatology, who did a biopsy. Dr. Styles thinks this is a vasculitis. I had a long discussion with his son, Joshua, who lives in [place]. Mr. Ritchie went to [place] in mid October, around the . He developed cellulitis of his knuckle. He was treated with a 3-day course of antibiotic with improvement. Some time in late November, he developed diarrhea and a rash, the diarrhea got worse. When he arrived to [place] to his other son's, he was seen there and was treated for diverticulitis with some antibiotics that Joshua does not recall the name. He went back to [place] to spend another month. At that point, his diarrhea again was worse, and he was treated with vancomycin for Clostridium (C) difficile colitis. He was treated with 10 days of vancomycin. A few days after he discontinued antibiotics his diarrhea recurred, and he was given an 8-week course of vancomycin again by the providers in [place], probably on a tapering schedule. The patient states that he stopped the vancomycin at some point about a month prior to admission because he thought the rash was getting worse. His son is sure that the rash and the diarrhea started together in late November and was not medication related. On physical exam, temperature is 98.8, pulse 65, respirations 18, blood pressure 160/65, oxygen saturation (O2 sat) 100% on room air. Heart: Normal S1, S2 distant. Lungs are clear. Abdomen: Obese, soft, nontender. Extremities: Trace edema with multiple palpable purpura on the thighs and upper arms. LABORATORY DATA: White count 4.6, hemoglobin 8.3, hematocrit 25.9, platelets 30, which has continued to drop. On admission, his platelet count was 211. Sodium 143, potassium 4, chloride 109, bicarbonate 26, BUN 30, creatinine 1.76, glucose 110, calcium 8, AST 21, ALT 36, alkaline phosphatase 69, CRP 2.38, albumin 2.5. IMPRESSION: 1. Clostridium difficile colitis, on fidaxomicin, currently day number day #5 out of 10 with no recurrent diarrhea. 2. Palpable purpura, suggestive of vasculitis. MAYRA, ANCA were sent. Skin biopsy was done by Dr. Styles. He will follow up with dermatology in 1 week. 3. Severe thrombocytopenia. This is not related to vancomycin or fidaxomicin. Fidaxomicin was started and had already started dropping. I wonder whether the rash and the thrombocytopenia are related. He was seen by hematology, but the consult note is not in the chart yet. 4. Peripheral neuropathy. On IV immunoglobulins, ordered by Dr. Campos, but the patient had not taken his immunoglobulins in November, December or January. He had one infusion in February, and his infusion in March is on hold since he has been in the hospital, so this is unlikely the cause of his thrombocytopenia. PLAN: He needs to followup with dermatology and hematology as an outpatient. STEPHANE
[2019-04-04 02:00] VITALS: BP 165/84
[2019-04-04 06:00] VITALS: BP 145/86
[2019-04-04 06:34] LABS: HEMATOCRIT 24.3 % (42.0-52.0); HEMOGLOBIN 7.8 g/dl (13.5-17.5); MEAN CORPUSCULAR HEMOGLOBIN 31.6 pg (27.0-33.0); MEAN CORPUSCULAR HGB CONC 32.1 g/dl (32.0-36.5); MEAN CORPUSCULAR VOLUME 98.4 fl (80.0-96.0); RED BLOOD COUNT 2.47 10^6/uL (4.30-6.10); WHITE BLOOD COUNT 2.5 10^3/uL (4.0-10.0)
[2019-04-04 06:35] LABS: PLATELET COUNT, AUTOMATED 35 10^3/uL (150-450)
[2019-04-04 07:03] LABS: CALCIUM LEVEL 8.4 MG/DL (8.8-10.2); CREATININE FOR GFR 1.71 MG/DL (0.70-1.30); GLOMERULAR FILTRATION RATE 41.1 (>35); POTASSIUM SERUM 4.1 MEQ/L (3.5-5.1)
--- NOTE | 2019-04-04 07:36 | CR.PDOC ---
General Date of Consultation: April 03, 2019 Referring Provider: Agata Lujan MD Consultation REASON FOR CONSULTATION/CHIEF COMPLAINT: Rash and thrombocytopenia HISTORY OF PRESENT ILLNESS: Mr. Ritchie is an 83 year old man with AF on Eliquis who presented to ER with c/o bloody diarrhea. Initial stool culture was positive for C. difficile toxin. Initially patient was started on metronidazole from March 28 to March 30, he was also given 1 dose of ciprofloxacin. On March 30, patient was started on the fidaxomicin. Vancomycin was not given to patient due to reported allergy (rash). GI was also consulted. Patient underwent colonoscopy and EGD that showed gastritis, duodenitis and colitis. Patient states that his story began 2 months ago in [place] where he developed diarrhea and presented to a local hospital. He was started on medication. He does not recall the name of the medication. He states that his diarrhea resolved and he was able to return to the [facility]. He then visited [place] to see his other son in January. While in [place], he developed diarrhea and was taken to a local ER. He was then diagnosed with C. difficile and start on vancomycin. He stated that he took the medication until he developed a red rash all over his body. So he discontinued the medication. His rash started to improved. He was fine for a few days until 2 weeks ago when he developed diarrhea. He denies any other recent use of any antibiotics. Dermatology was consulted as rash has progressed in the last several weeks and is not remitting. His platelet count has progressively decreased, currently 30. ESR = 50; CRP = 2.38; sCr 1.76. ALLERGIES: Please see below. HOME MEDICATIONS: Please see below. PAST MEDICAL HISTORY: Peripheral neuropathy, atrial fibrillation, hypertension, hyperlipidemia, diverticulosis, history of C. difficile PAST SURGICAL HISTORY: Hernia repair, pacemaker implantation FAMILY HISTORY: Noncontributory SOCIAL HISTORY: Denies smoking, denies illicit drug use, denies alcohol use REVIEW OF SYSTEMS No fever, no chills, no genital sores, no oral sores, no swollen lumps or bumps, no joint stiffness PHYSICAL EXAMINATION VITALS: See Below GENERAL APPEARANCE: Alert no acute distress, elderly male SKIN: Vasculitic purple red nonblanching papules and macules on patient's arm and thighs LUNGS: Regular rate and rhythm ABDOMEN: Soft. No masses. Non-tender to palpation EXTREMITIES: Ulcer noted on patient's fourth toe, foul odor detected from the toe, purulent drainage is also detected from patient's fourth toe PULSES: 2+ upper and lower extremity LABORATORY DATA: Please see below. ASSESSMENT/PLAN: Patient is an 83-year-old male admitted for GI bleed also with C. difficile with a history of C. difficile infection that began in December 2018 with dermatology consultation placed for rash on arms and legs in setting of thrombocytopenia. 1) Rash: Distribution and presentation rashes is unlikely to be vancomycin/medication allergic rash. 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 Three punch biopsies performed to left arm for H&E, DIF, and tissue culture, 4 mm punch used with 4-0 nylon as suture, lido with epi used to anesthetize, Chloroprep used to clean the areas prior to biopsies being performed. Bandaging was performed with Vaseline, gauze, and Coban wrapping. Follow up ANCA, MAYRA, IgA along with pathology and cultures. 2) Toe ulcer: Recommending nursing daily, ulcer, clean and and dressing with packing. Outpatient wound care consultation to [facility]. Thank you for this consultation. I will continue to follow along with patient and should see patient at discharge in the outpatient dermatology clinic. Please arrange follow up in 2-3 W from discharge by calling [phone]. I spent 35 minutes at the patient's bedside in direct patient care. Vital Signs/I&O Vital Signs Date Time Temp Pulse Resp B/P (MAP) Pulse Ox O2 Delivery O2 Flow Rate FiO2 04/04/19 02:00 99.1 88 18 165/84 (111) 99 I&O- Last 24 Hours up to 6 AM 04/04/19 06:00 Intake Total 1080 ml Output Total 925 ml Balance 155 ml Laboratory Data Labs 24H Laboratory Tests 2 04/04/19 06:12: Nucleated Red Blood Cells % (auto) 0.0, Immature Platelet Fraction 7.6, Anion Gap 6L, Glomerular Filtration Rate 41.1, Blood Urea Nitrogen 29H, Creatinine 1.71H, Sodium Level 140, Potassium Level 4.1, Chloride Level 108H, Carbon Dioxide Level 26, Calcium Level 8.4L CBC/BMP Laboratory Tests 04/04/19 06:12 Red Blood Count 2.47 L, Mean Corpuscular Volume 98.4 H, Mean Corpuscular Hemoglobin 31.6, Mean Corpuscular Hemoglobin Concent 32.1, Red Cell Distribution Width 14.2, Calcium Level 8.4 L Microbiology Microbiology 03/28/19 Blood Culture - Final, Complete NO GROWTH AFTER 5 DAYS 03/29/19 Stool Occult Blood (MANDY) - Final, Complete 03/29/19 Gastrointestinal Tract Panel (PCR) - Final, Complete Clostridium Difficile A/B 03/29/19 Urine Culture - Final, Complete 04/03/19 Acid Fast Stain, Received Pending 04/03/19 Mycobacterial Culture, Received Pending 04/03/19 Fungal Smear, Received Pending 04/03/19 Fungal Culture, Received Pending 04/03/19 Surgical Biopsy Culture, Received Pending Allergies Coded Allergies: vancomycin (Verified Allergy, Intermediate, Rash, 03/30/19) Patient developed a generalized red body rash after receiving vanco 12/2018. Penicillins (Verified Allergy, Unknown, 02/28/19) Sulfa (Sulfonamide Antibiotics) (Verified Allergy, Unknown, 02/28/19) nifedipine (Verified Allergy, Unknown, 02/28/19) Home Medications Scheduled Apixaban (Eliquis) 5 Mg Tab, 5 MG PO BID, (Reported) Aspirin (Aspir 81) 81 Mg Tab, 81 MG PO DAILY, (Reported) Atorvastatin Calcium (Atorvastatin Calcium) 10 Mg Tab, 10 MG PO QHS, (Reported) Bisoprolol Fumarate (Bisoprolol Fumarate) 5 Mg Tablet, 2.5 MG PO DAILY, (Reported) Chlorthalidone (Chlorthalidone) 25 Mg Tablet, 12.5 MG PO DAILY, (Reported) Cholecalciferol (Vitamin D3) (Vitamin D3) 2,000 Unit Cap, 2,000 UNIT PO DAILY, (Reported) Ferrous Gluconate (Ferrous Gluconate) 324 Mg Tablet, 324 MG PO BID, (Reported) Folic Acid (Folic Acid) 1 Mg Tab, 1 MG PO DAILY, (Reported) Gabapentin (Gabapentin) 600 Mg Tablet, 600 MG PO BID, (Reported) Immune Globulin (Privigen 10% Vial) 400 Ml Vial, 40 GM IV MTHLY, (Reported) NEXT DOSE ON 03/29/19 Lisinopril (Lisinopril) 5 Mg Tab, 5 MG PO QHS, (Reported) Methotrexate Sodium (Methotrexate) 2.5 Mg Tablet, 7.5 MG PO 1XWK, (Reported) MONDAYS Multivitamins (Thera M Plus Tablet) 1 Tab Tab, 1 TAB PO DAILY, (Reported) Nortriptyline HCl (Nortriptyline HCl) 50 Mg Cap, 50 MG PO QHS, (Reported) Potassium Chloride (Potassium Chloride) 20 Meq Tab, 20 MEQ PO DAILY, (Reported) Travoprost (Travatan Z) 50 Drop/2.5 Ml Soln, 1 DROP OU QHS, (Reported) Scheduled PRN Nitroglycerin (Nitrostat) 0.4 Mg Tab.subl, 0.4 MG SL NITRO PRN for CHEST PAIN, (Reported) Triamcinolone Acet (Triamcinolone Acetonide 0.1% Crm) 80 Gm Cream..g., 1 DOSE TOP BID PRN for RASH, (Reported) LUIS FELIPE DURON MD April 04, 2019 07:36
[2019-04-04] MEDS: CHLORTHALIDONE 12.5MG PER 1/2 TABLET PO SCH (09:19)
[2019-04-04] MEDS: BISOPROLOL FUMARATE 5 MG TAB PO SCH (09:20)
[2019-04-04] MEDS: GABAPENTIN 300 MG CAP PO SCH ×2 (09:20→22:09)
[2019-04-04] MEDS: POTASSIUM CHLORIDE 10 MEQ SR TABLET PO SCH (09:20)
[2019-04-04] MEDS: VITAMIN D 1,000 INTERNATIONAL UNITS TABLET PO SCH (09:20)
[2019-04-04] MEDS: APIXABAN 5 MG TAB (ELIQUIS) PO SCH ×2 (09:20→22:09)
[2019-04-04] MEDS: FIDAXOMICIN 200 MG TAB (DIFICID) PO SCH ×2 (09:21→22:10)
[2019-04-04] MEDS: FERROUS GLUCONATE 324 MG TAB PO SCH ×2 (09:21→22:09)
[2019-04-04] MEDS: FOLIC ACID 1 MG TAB PO SCH (09:21)
[2019-04-04 10:00] VITALS: BP 137/75
[2019-04-04] MEDS: ACETAMINOPHEN TAB 650MG DOSE (2X325MG) PO PRN (13:00)
[2019-04-04 14:00] VITALS: BP 141/66
--- NOTE | 2019-04-04 16:17 | IPNPDOC ---
Date Seen The patient was seen on 04/04/19. Progress Note SUBJECTIVE: Patient denies any complaints today. s/p skin biopsy by dermatology yesterday. Diffuse rash still noted. Platelets still low today but slightly improved from 30->35. OBJECTIVE PHYSICAL EXAMINATION: VITAL SIGNS: Please see below. General: No acute distress, Alert Eyes: Normal sclera, EOMI, CAMRON HENT: Atraumatic, neck supple, moist mucous membranes Cardiovascular: Normal rate Pulmonary: Clear to auscultation b/l, no wheezing GI: Soft, nontender, nondistended Skin: diffuse purpuric rash throughout body, non tender to palpation. Neuro: CN grossly intact. No focal deficits. Strengths equal b/l. Psych: oriented x 3 LABORATORY DATA, IMAGING STUDIES, MICROBIOLOGY: Please see below. DVT prophylaxis ordered?: Eliquis ASSESSMENT AND PLAN: 83 years old man with hx/o AF on Eliquis who presented to ER with c/o bloody diarrhea, weakness and dizziness for 2-3 days. He also has PMH of peripheral neuropathy, AF on Eliquis s/p pacemaker, HTN, HLD, diverticulosis, C. diff colitis Dec 2018. He is positive to c.diff on Fidaxomicin due to rashes on PO Vancomycin. EGD and Colonoscopy was performed by GI and showed colitis. He developed thrombocytopenia, possibly from drug reaction (not on heparin sc, not on protonix, but Fidaxomicin started prior to downtrending of low plt). 1. C. diff w/ colitis - Has a hx of c. diff and currently positive for it. - c/w Fidaxomicin treatment as PO vancomycin was suspected to cause patient's rash. no diarrhea reported at this time. - ID following. Low suspicion for Abx as the etiology of rash. - Dermatology evaluated, biopsy obtained. f/u findings. - Suspicion for Henoch Schonlein purpura. Vasculitis workup pending. ANCA, MAYRA, IgA. ESR and CRP elevated. HIV negative. - GI following. c/w empiric Flagyl at this time. - s/p EGD and colonoscopy with evidence of gastritis and duodenitis, f/u biopsy. Severe diverticulosis. 2. Acute on chronic anemia 2/2 GI bleed on AC - s/p transfusion. monitor H/H. - transfuse if Hb <7. - Eliquis resumed for now. - GI following. 3. MACY on CKD improving - Likely due to volume loss. - Monitor. 4. AF - c/w Eliquis. with pacemaker. 5. Leg neuropathy. - Scheduled for IVIG as outpatient with Dr. Campos. Discussed and can follow as outpatient was stable. 6. HTN - resume home meds A-FIB/CHADSVASC A-FIB History Current/History of A-Fib/PAF?: Yes Current Oral Anticoagulant The: Yes VS, I&O, 24H, Fishbone Vital Signs/I&O Vital Signs Date Time Temp Pulse Resp B/P (MAP) Pulse Ox O2 Delivery O2 Flow Rate FiO2 04/04/19 14:00 97.8 72 18 141/66 (91) 98 I&O- Last 24 Hours up to 6 AM 04/04/19 06:00 Intake Total 1380 ml Output Total 925 ml Balance 455 ml Laboratory Data 24H LABS Laboratory Tests 2 04/04/19 06:12: Nucleated Red Blood Cells % (auto) 0.0, Immature Platelet Fraction 7.6, Anion Gap 6L, Glomerular Filtration Rate 41.1, Blood Urea Nitrogen 29H, Creatinine 1.71H, Sodium Level 140, Potassium Level 4.1, Chloride Level 108H, Carbon Dioxide Level 26, Calcium Level 8.4L, HIV Antigen/Antibody Combo Qual NEGATIVE CBC/BMP Laboratory Tests 04/04/19 06:12 Red Blood Count 2.47 L, Mean Corpuscular Volume 98.4 H, Mean Corpuscular Hemoglobin 31.6, Mean Corpuscular Hemoglobin Concent 32.1, Red Cell Distribution Width 14.2, Calcium Level 8.4 L Microbiology Microbiology 03/28/19 Blood Culture - Final, Complete NO GROWTH AFTER 5 DAYS 03/29/19 Stool Occult Blood (MANDY) - Final, Complete 03/29/19 Gastrointestinal Tract Panel (PCR) - Final, Complete Clostridium Difficile A/B 03/29/19 Urine Culture - Final, Complete 04/03/19 Acid Fast Stain, Received Pending 04/03/19 Mycobacterial Culture, Received Pending 04/03/19 Fungal Smear, Received Pending 04/03/19 Fungal Culture, Received Pending 04/03/19 Surgical Biopsy Culture, Received Pending GREGG CHAVARRIA MD April 04, 2019 16:17
--- NOTE | 2019-04-04 17:08 | CR ---
DATE OF CONSULTATION: 04/02/2019 Dr. Campos of hospitalist service requested inpatient hematology/oncology consult for a new thrombocytopenia in an 83year-old man admitted with colitis. Mr. Ritchie at baseline has atrial fibrillation on anticoagulation and a recent history of Clostridium (C) difficile colitis. He presented to the emergency room 03/28/2019 with complaint of bloody diarrhea. He had also had a fall without head trauma and complained of crampy abdominal pain. Workup here showed stool positive for C. difficile. He received oral vancomycin which was stopped after what was thought to be a petechial rash occurred and thrombocytopenia developed which was new, baseline platelets being normal. Through the hospitalization, white blood cell (WBC) count has gone from normal to 2.5, hemoglobin 8.7 on admission, 8 currently, platelets 211 on admission, 48 currently. Reviewing the patient's history, he has chronic intermittent leukopenia for years; but always with normal platelets. Notable among laboratories here is a sedimentation rate of 50 suggesting an inflammatory process. PAST MEDICAL HISTORY: Peripheral neuropathy, atrial fibrillation, pacemaker placement, hypertension, hyperlipidemia, diverticulosis, Clostridium (C) difficile colitis in December 2018. PAST SURGICAL HISTORY: Herniorrhaphy, permanent pacemaker placement. SOCIAL HISTORY: The patient is not a smoker. Denies alcohol. and lives with . FAMILY HISTORY: Negative for malignancy or blood disorders or platelet disorders or bleeding problems. HOME MEDICATIONS: Reviewed. CURRENT MEDICATIONS: Reviewed. No evidence that heparin flushes have been given on this admission in medication list. REVIEW OF SYSTEMS: The patient is seated on the bedside, able to answer questions, accompanied by his . He denies a history of chronic nosebleeds but had one episode where he required an emergency room (ER) visit for a nosebleed years ago. The patient denies a prodrome of chills or fevers. Acknowledges his Clostridium (C) difficile history. Denies unintended major weight loss in the last year. Denies bodily bruising without trauma, new joint swelling or aching. Acknowledges arthritis. Remainder of 12-system review negative. PHYSICAL EXAMINATION: Temperature 97.7, blood pressure 142/69, heart rate 58, respiratory rate 18, oxygen saturation 100%. The patient is a normal weight-appearing older gentleman reclining in bed, in no distress. RESPIRATORY: Clear lungs to auscultation. CARDIAC: S1, S2, irregularly irregular. ABDOMEN: Soft, nondistended. Some slight lower quadrant non-rebound tenderness without palpable mass. EXTREMITIES: Trace pedal edema. LYMPH NODES: No palpable submandibular, cervical, supraclavicular or axillary adenopathy bilaterally. SKIN: A macular irregular rash over the arms bilaterally but not obvious petechiae. LABORATORY DATA: WBC 4.6, hemoglobin 8, hematocrit 24, platelets 48. Peripheral smear with macrocytic anemia, poikilocytosis, thrombocytopenia with normal platelet morphology and no blast forms. No comment on presence of schistocyte. ESR 50, SPEP negative for M spike. PT, PTT 19.8 and 39 respectively with D-dimer greater than 4000, fibrinogen 417. IMPRESSION: 1. An 83-year-old man with rapidly evolving thrombocytopenia, absent heparin challenge, on Eliquis for atrial fibrillation. 2. Clostridium (C) difficile colitis on antibiotics, rash possibly associated or not, not convincingly a petechial rash. 3. New anemia without clear evidence of hemolysis, with a negative serum protein electrophoresis (SPEP), no major source of bleeding (bleeding explained by colitis that may not fully explain currently anemia level). The differential diagnosis is broad here. I have a low suspicion for heparin-induced thrombocytopenia (HIT) though it is conceivable the patient had contact with heparin; thrombotic thrombocytopenia purpura (TTP) is unlikely given elevated prothrombin time (PT) and partial thromboplastin time (PTT), the patient's clear sensorium though he does have some renal insufficiency currently. We do not have a lactate dehydrogenase (LDH) to further sort this out. With elevated sedimentation rate, autoimmune causes of thrombocytopenia and anemia have to be invoked for example microangiopathic hemolytic anemia which can be associated with lupus (Bernal syndrome), a drug-induced thrombocytopenia immune mediated, possibly with associated hemolysis. Because of the patient's normal laboratories almost right up until his admission, an acute leukemia is possible but seems less likely, again given the patient's overall well appearance on examination at the bedside. RECOMMENDATIONS: 1. Obtain full hemolysis laboratories including haptoglobin, BAT, aspartate aminotransferase (AST), LDH. 2. Peripheral flow cytometry, rule out leukemia, lymphoma. I will follow intermittently. Should platelets continue to drop precipitously, we will consider diagnostic bone marrow biopsy. [facility]
[2019-04-04 18:00] VITALS: BP 147/62
[2019-04-04] MEDS: LATANOPROST 0.005% OPHTH SOLN 2.5 ML OU SCH (21:00)
[2019-04-04 22:00] VITALS: BP 150/65
[2019-04-04] MEDS: ATORVASTATIN 10 MG TAB PO SCH (22:09)
[2019-04-04] MEDS: LISINOPRIL 5 MG TAB PO SCH (22:10)
[2019-04-04] MEDS: NORTRIPTYLINE 25 MG CAP PO SCH (22:10)
[2019-04-05 02:00] VITALS: BP 150/83
[2019-04-05 06:00] VITALS: BP 145/86
[2019-04-05 06:53] LABS: HEMATOCRIT 23.9 % (42.0-52.0); HEMOGLOBIN 7.7 g/dl (13.5-17.5); MEAN CORPUSCULAR HGB CONC 32.2 g/dl (32.0-36.5); MEAN CORPUSCULAR VOLUME 99.2 fl (80.0-96.0); RED BLOOD COUNT 2.41 10^6/uL (4.30-6.10)
[2019-04-05 06:55] LABS: PLATELET COUNT, AUTOMATED 68 10^3/uL (150-450); WHITE BLOOD COUNT 1.8 10^3/uL (4.0-10.0)
[2019-04-05 07:15] LABS: CALCIUM LEVEL 8.4 MG/DL (8.8-10.2); CREATININE FOR GFR 1.71 MG/DL (0.70-1.30); GLOMERULAR FILTRATION RATE 41.1 (>35); POTASSIUM SERUM 4.1 MEQ/L (3.5-5.1)
[2019-04-05] MEDS: GABAPENTIN 300 MG CAP PO SCH ×2 (09:18→22:18)
[2019-04-05] MEDS: FERROUS GLUCONATE 324 MG TAB PO SCH ×2 (09:18→22:18)
[2019-04-05] MEDS: POTASSIUM CHLORIDE 10 MEQ SR TABLET PO SCH (09:18)
[2019-04-05] MEDS: APIXABAN 5 MG TAB (ELIQUIS) PO SCH (09:18)
[2019-04-05] MEDS: FIDAXOMICIN 200 MG TAB (DIFICID) PO SCH ×2 (09:18→22:17)
[2019-04-05] MEDS: CHLORTHALIDONE 12.5MG PER 1/2 TABLET PO SCH (09:18)
[2019-04-05] MEDS: ACETAMINOPHEN TAB 650MG DOSE (2X325MG) PO PRN ×2 (09:18→22:38)
[2019-04-05] MEDS: FOLIC ACID 1 MG TAB PO SCH (09:18)
[2019-04-05] MEDS: VITAMIN D 1,000 INTERNATIONAL UNITS TABLET PO SCH (09:19)
[2019-04-05] MEDS: BISOPROLOL FUMARATE 5 MG TAB PO SCH (09:19)
[2019-04-05 10:00] VITALS: BP 132/63
--- NOTE | 2019-04-05 13:16 | IPNPDOC ---
Date Seen The patient was seen on 04/05/19. Progress Note SUBJECTIVE: Patient continues to report feeling well without any complaints. Denies any bleeding. Diffuse rash unchanged. Platelets up 35->68. WBC down to 1.8. OBJECTIVE PHYSICAL EXAMINATION: VITAL SIGNS: Please see below. General: No acute distress, Alert Eyes: Normal sclera, EOMI, CAMRON HENT: Atraumatic, neck supple, moist mucous membranes Cardiovascular: Normal rate Pulmonary: Clear to auscultation b/l, no wheezing GI: Soft, nontender, nondistended Skin: diffuse purpuric rash throughout body, non tender to palpation. Neuro: CN grossly intact. No focal deficits. Strengths equal b/l. Psych: oriented x 3 LABORATORY DATA, IMAGING STUDIES, MICROBIOLOGY: Please see below. DVT prophylaxis ordered?: Eliquis ASSESSMENT AND PLAN: 83 years old man with hx/o AF on Eliquis who presented to ER with c/o bloody diarrhea, weakness and dizziness for 2-3 days. He also has PMH of peripheral neuropathy, AF on Eliquis s/p pacemaker, HTN, HLD, diverticulosis, C. diff colitis Dec 2018. He is positive to c.diff on Fidaxomicin due to rashes on PO Vancomycin. EGD and Colonoscopy was performed by GI and showed colitis. He developed thrombocytopenia, possibly from drug reaction (not on heparin sc, not on protonix, but Fidaxomicin started prior to downtrending of low plt). 1. C. diff w/ colitis - Has a hx of c. diff and currently positive for it. - c/w Fidaxomicin treatment as PO vancomycin was initially suspected to cause patient's rash. no diarrhea reported at this time. - ID following. Low suspicion for Abx as the etiology of rash. - Dermatology evaluated, biopsy obtained. f/u findings. - Suspicion for Henoch Schonlein purpura. Vasculitis workup pending. ANCA, MAYRA, IgA. ESR and CRP elevated. HIV negative. - GI following. c/w empiric Flagyl at this time. - s/p EGD and colonoscopy with evidence of gastritis and duodenitis, f/u biopsy. Severe diverticulosis. 2. Acute on chronic anemia 2/2 GI bleed on AC - s/p transfusion. monitor H/H. - transfuse if Hb <7. - Eliquis resumed for now. - GI following. 3. MACY on CKD improving - Likely due to volume loss. - Monitor. 4. AF - c/w Eliquis. with pacemaker. 5. Leg neuropathy. - Scheduled for IVIG as outpatient with Dr. Campos. Discussed and can follow as outpatient was stable. 6. HTN - resume home meds 7. Thrombocytopenia - improving. - Suspecting HSP. Immune workup pending. 8. Leukopenia - WBC trending down. - Heme following. Repeat CBC tonight, possible BM biopsy tomorrow morning if persistently low. A-FIB/CHADSVASC A-FIB History Current/History of A-Fib/PAF?: No VS, I&O, 24H, Fishbone Vital Signs/I&O Vital Signs Date Time Temp Pulse Resp B/P (MAP) Pulse Ox O2 Delivery O2 Flow Rate FiO2 04/05/19 10:00 132/63 (86) 04/05/19 09:19 71 04/05/19 06:00 98.4 16 97 I&O- Last 24 Hours up to 6 AM 04/05/19 05:59 Intake Total 1340 ml Output Total 725 ml Balance 615 ml Laboratory Data 24H LABS Laboratory Tests 2 04/04/19 18:56: Lactate Dehydrogenase 210 04/05/19 06:13: Nucleated Red Blood Cells % (auto) 0.0, Immature Platelet Fraction 7.8, Anion Gap 6L, Glomerular Filtration Rate 41.1, Blood Urea Nitrogen 28H, Creatinine 1.71H, Sodium Level 139, Potassium Level 4.1, Chloride Level 108H, Carbon Dioxide Level 25, Calcium Level 8.4L CBC/BMP Laboratory Tests 04/05/19 06:13 Red Blood Count 2.41 L, Mean Corpuscular Volume 99.2 H, Mean Corpuscular Hemoglobin 32.0, Mean Corpuscular Hemoglobin Concent 32.2, Red Cell Distribution Width 14.4, Calcium Level 8.4 L Microbiology Microbiology 03/28/19 Blood Culture - Final, Complete NO GROWTH AFTER 5 DAYS 03/29/19 Stool Occult Blood (MANDY) - Final, Complete 03/29/19 Gastrointestinal Tract Panel (PCR) - Final, Complete Clostridium Difficile A/B 03/29/19 Urine Culture - Final, Complete 04/03/19 Acid Fast Stain, Received Pending 04/03/19 Mycobacterial Culture, Received Pending 04/03/19 Fungal Smear, Received Pending 04/03/19 Fungal Culture, Received Pending 04/03/19 Surgical Biopsy Culture - Final, Complete CHAVARRIAGREGG MD April 05, 2019 13:16
[2019-04-05 14:00] VITALS: BP 135/62
[2019-04-05 18:00] VITALS: BP 144/95
[2019-04-05 18:07] LABS: HEMATOCRIT 26.9 % (42.0-52.0); HEMOGLOBIN 8.6 g/dl (13.5-17.5); MEAN CORPUSCULAR HEMOGLOBIN 31.7 pg (27.0-33.0); MEAN CORPUSCULAR VOLUME 99.3 fl (80.0-96.0); RED BLOOD COUNT 2.71 10^6/uL (4.30-6.10); WHITE BLOOD COUNT 2.2 10^3/uL (4.0-10.0)
--- NOTE | 2019-04-05 18:25 | IPNPDOC ---
Text Note Date of Service The patient was seen on 04/05/19. NOTE SUBJECTIVE: Patient was examined at bedside. He was resting comfortably. He denied any abdominal pain, stated that he has not had diarrhea. He was afebrile overnight. He had no complaints. OBJECTIVE: PHYSICAL EXAMINATION: VITALS: See Below GENERAL APPEARANCE: Alert no acute distress, elderly male, very pleasant SKIN: Vasculitic nonblanching erythematous rash on patient's arm and thighs. Unchanged. Pt has skin biospy bruises on left arm LUNGS: Clear to auscultation bilaterally. HEART: Normal S1, S2. No murmurs, no rubs, no gallops ABDOMEN: Soft. No masses. Bowel sounds are present. EXTREMITIES: Ulcer noted on patient's fourth toe, no foul odor detected from the toe today PULSES: Intact LABORATORY DATA: Please see below. ASSEMENT AND PLAN: 1. Clostridium difficile colitis, on fidaxomicin, currently day number day #7 out of 10 with no recurrent diarrhea. 2. Palpable purpura, suggestive of vasculitis. Pending vasculitis serology. Dermatology, Dr. Styles, has been consulted. Pending biopsy results. Patient will follow-up with dermatology 1 week after discharge. 3. Severe thrombocytopenia. Patient had an increase in platelet count today compared to yesterday. However continues to thrombocytopenic. Dr. Simi Claros , oncologist, was consulted. They recomemded hemolysis laboratories including haptoglobin, BAT, aspartate aminotransferase (AST), LDH and Peripheral flow cytometry, rule out leukemia, lymphoma. Oncology will follow with patient. hold since he has been in 4. He needs to followup with dermatology and hematology as outpatient Adina RODRIGUEZ, I+O VSAdina, I+O Laboratory Tests 04/05/19 06:13 Red Blood Count 2.41 L, Mean Corpuscular Volume 99.2 H, Mean Corpuscular Hemoglobin 32.0, Mean Corpuscular Hemoglobin Concent 32.2, Red Cell Distribution Width 14.4, Calcium Level 8.4 L Vital Signs Date Time Temp Pulse Resp B/P (MAP) Pulse Ox O2 Delivery O2 Flow Rate FiO2 04/05/19 18:00 98.8 80 17 144/95 (111) 99 I&O- Last 24 Hours up to 6 AM 04/05/19 06:00 Intake Total 1240 ml Output Total 825 ml Balance 415 ml GME ATTESTATION GME ATTESTATION My faculty preceptor for this patient encounter was physically present during the encounter and was fully available. All aspects of the patient interview, examination, medical decision making process, and medical care plan development were reviewed and approved by the faculty preceptor. The faculty preceptor is aware and concurs with the plan as stated in the body of this note and will attest to such by his/her cosignature. DOMINIC SIDDIQUI DO April 05, 2019 18:25
[2019-04-05 19:11] LABS: PLATELET COUNT, AUTOMATED 94 10^3/uL (150-450)
[2019-04-05 22:00] VITALS: BP 140/85
[2019-04-05] MEDS: LISINOPRIL 5 MG TAB PO SCH (22:17)
[2019-04-05] MEDS: ATORVASTATIN 10 MG TAB PO SCH (22:17)
[2019-04-05] MEDS: NORTRIPTYLINE 25 MG CAP PO SCH (22:18)
[2019-04-05] MEDS: LATANOPROST 0.005% OPHTH SOLN 2.5 ML OU SCH (22:18)
[2019-04-06 00:06] LABS: ANCA-ATYPICAL <1:20 titer (Neg:<1:20); ANTINUCLEAR ANTIBODIES DIRECT Negative (Negative); CYTOPLASMIC NEUTROP AB ANCA-C <1:20 titer (Neg:<1:20); IGASUB3 16.3 mg/dL (13.4-97.9); IgA SERUM (part of Subclasses) 194 mg/dL (61-437); PERINUCLEAR AB ANCA-P <1:20 titer (Neg:<1:20)
[2019-04-06 06:00] VITALS: BP_SYST 140; BP_SYST 153; BP_DIAS 85
[2019-04-06 06:32] LABS: HEMATOCRIT 25.8 % (42.0-52.0); HEMOGLOBIN 8.3 g/dl (13.5-17.5); MEAN CORPUSCULAR HEMOGLOBIN 31.1 pg (27.0-33.0); MEAN CORPUSCULAR HGB CONC 32.2 g/dl (32.0-36.5); MEAN CORPUSCULAR VOLUME 96.6 fl (80.0-96.0); PLATELET COUNT, AUTOMATED 140 10^3/uL (150-450); RED BLOOD COUNT 2.67 10^6/uL (4.30-6.10); WHITE BLOOD COUNT 2.1 10^3/uL (4.0-10.0)
[2019-04-06 06:58] LABS: CALCIUM LEVEL 8.8 MG/DL (8.8-10.2); CREATININE FOR GFR 1.85 MG/DL (0.70-1.30); GLOMERULAR FILTRATION RATE 37.5 (>35); POTASSIUM SERUM 4.4 MEQ/L (3.5-5.1)
[2019-04-06] MEDS: FIDAXOMICIN 200 MG TAB (DIFICID) PO SCH ×2 (09:45→20:46)
[2019-04-06] MEDS: BISOPROLOL FUMARATE 5 MG TAB PO SCH (09:47)
[2019-04-06] MEDS: POTASSIUM CHLORIDE 10 MEQ SR TABLET PO SCH (09:47)
[2019-04-06] MEDS: FOLIC ACID 1 MG TAB PO SCH (09:48)
[2019-04-06] MEDS: GABAPENTIN 300 MG CAP PO SCH ×2 (09:48→20:46)
[2019-04-06] MEDS: VITAMIN D 1,000 INTERNATIONAL UNITS TABLET PO SCH (09:48)
[2019-04-06] MEDS: FERROUS GLUCONATE 324 MG TAB PO SCH ×2 (09:49→20:46)
[2019-04-06 10:00] VITALS: BP 156/81
--- NOTE | 2019-04-06 11:34 | IPN ---
DATE: 04/06/2019 He denies any complaints. No nausea, vomiting or diarrhea. No abdominal pain. His only complaint today is swelling of his leg and pain. He does not recall a history of gout but his right toe is definitely swollen. LABS: White count 2.1, hemoglobin 8.3, hematocrit 25.8, platelets 140, which have improved from 35 48 hours ago. Sodium 140, potassium 4.4, chloride 107, bicarbonate 25, BUN 29, creatinine 1.85, glucose 108, calcium 8.8. Surgical biopsy cultures of the left arm are negative. AFB fungal smear and culture are pending. On physical exam, temperature is 99.6, pulse 80, respirations 16, blood pressure 153/85, oxygen saturation 98% on room air. Heart: Normal S1, S2. No murmurs. Lungs are clear. Abdomen: Soft, nontender. No visceromegaly. He has no bowel movement in the past 3 days. Oropharynx: Clear. Purpuric lesions on arms and thighs are fading away. Nontender. Right foot is swollen, +1 pitting edema. Swollen metacarpophalangeal (MCP) joint and across the dorsal aspect of the foot. No swelling of the left MCP joint but he has trace edema on the left leg as well. IMPRESSION: 1. Clostridium (C) difficile colitis. Doing much better. Diarrhea has resolved. The patient is currently day 06/30 for daptomycin. 2. Purpuric lesions. Rule out vasculitis. The patient states that this occurred after his intravenous (IV) immunoglobulin in October and got worse after he had another infusion in February. The patient (dictation cut off) for the past 6 years and it could be held this month until a vasculitis workup is ruled out. There has been reported cases of cryoglobulinemic vasculitis from intravenous immunoglobulin (IVIG). 3. Swelling of the right foot. I suspect he has gouty arthritis. Would recommend prednisone. PLAN: Case has been discussed with Dr. Campos, who agreed on holding IVIG this month. Case has been discussed with Dr. Styles, who recommended a prednisone taper for possible vasculitis at a dose of 40 mg for 4 days, 30 mg for 4 days, 20 mg for 4 days, and then 10 mg. He is to followup with dermatology in 1 week upon discharge. Case has been discussed with Dr. Dixon, who agrees with plan. Lower extremity ultrasound to rule out deep venous thrombosis (DVT) is also scheduled. I would avoid any antibiotics at this point. I do not think the patient has cellulitis but more likely gouty arthritis.
[2019-04-06 11:46] LABS: URIC ACID 8.6 MG/DL (3.5-7.2)
[2019-04-06] MEDS: ACETAMINOPHEN TAB 650MG DOSE (2X325MG) PO PRN (12:10)
[2019-04-06] MEDS: CHLORTHALIDONE 12.5MG PER 1/2 TABLET PO SCH (12:10)
[2019-04-06] MEDS: predniSONE 20 MG TAB PO SCH (12:10)
--- NOTE | 2019-04-06 13:31 | IPN ---
MEDICAL ONCOLOGY INPATIENT CONSULTATION FOLLOWUP DATE OF SERVICE: 04/05/2019 DIAGNOSIS: Pancytopenia. CONSULTATION FOLLOWUP: Mr. Ritchie's white count dropped again overnight below 2 though platelets improving. Hemoglobin/hematocrit stable. Overall there is no clear evidence of a leukemia, the clinical impression is possibly drug related or inflammatory related or infection related bone marrow suppression. I talked with Mr. Ritchie about diagnostic bone marrow biopsy. I explained the procedure and reviewing the risks, benefits and alternatives including but not limited to pain bleeding, infection at the site, remote, rare risk of organ puncture and catastrophic bleeding, and the alternative of foregoing the information to be gained from a bone marrow biopsy. He said he is in favor of doing this if it is needed. I recommended we recheck CBC overnight and in the morning; if white blood cell count above 2, no worsening of platelets or hemoglobin/hematocrit, we could defer further hematology workup to the outpatient setting. Given he is anxious to go home there is no stigmata of florid emerging hematologic malignancy. He is in agreement with this. MPRESSION: Pancytopenia, uncertain etiology, suspect nonmalignant possibly secondary to drugs versus inflammation versus infection. PLAN/RECOMMENDATIONS: 1. Recheck CBC tonight and in the a.m. 2. Plan early childhood assistant bone marrow biopsy and aspirate if persistent drop in WBC count or platelets. The case discussed with Niurka Dixon MD of hospitalist service. STEPHANE
[2019-04-06 14:00] VITALS: BP 154/81
--- NOTE | 2019-04-06 14:44 | IPNPDOC ---
Date Seen The patient was seen on 04/06/19. Progress Note SUBJECTIVE: Patient continues to report feeling well without any complaints. Denies any bleeding. Had recurrent fevers today Tmax 102.1F, patient stated that he feels fine however and attributed to having several blankets on. Platelets trended up to 140 from 94. LLE noted to be glossy and diffusely swollen with erythema on dorsum of foot and R. toe. OBJECTIVE PHYSICAL EXAMINATION: VITAL SIGNS: Please see below. General: No acute distress, Alert Eyes: Normal sclera, EOMI, CAMRON HENT: Atraumatic, neck supple, moist mucous membranes Cardiovascular: Normal rate Pulmonary: Clear to auscultation b/l, no wheezing GI: Soft, nontender, nondistended Skin: diffuse purpuric rash throughout body, non tender to palpation. Neuro: CN grossly intact. No focal deficits. Strengths equal b/l. Psych: oriented x 3 LABORATORY DATA, IMAGING STUDIES, MICROBIOLOGY: Please see below. DVT prophylaxis ordered?: Eliquis ASSESSMENT AND PLAN: 83 years old man with hx/o AF on Eliquis who presented to ER with c/o bloody diarrhea, weakness and dizziness for 2-3 days. He also has PMH of peripheral neuropathy, AF on Eliquis s/p pacemaker, HTN, HLD, diverticulosis, C. diff colitis Dec 2018. He is positive to c.diff on Fidaxomicin due to rashes on PO Vancomycin. EGD and Colonoscopy was performed by GI and showed colitis. He developed thrombocytopenia, possibly from drug reaction (not on heparin sc, not on protonix, but Fidaxomicin started prior to downtrending of low plt). 1. C. diff w/ colitis - Has a hx of c. diff and currently positive for it. - c/w Fidaxomicin treatment as PO vancomycin was initially suspected to cause patient's rash. no diarrhea reported at this time. - ID following. Low suspicion for Abx as the etiology of rash. - Dermatology evaluated, biopsy obtained. f/u findings. - Suspicion for Henoch Schonlein purpura. Vasculitis workup: negative for ANCA screen and IgA WNL. ESR and CRP elevated. HIV negative. - s/p EGD and colonoscopy with evidence of gastritis and duodenitis, f/u biopsy. Severe diverticulosis. 2. Acute on chronic anemia 2/2 GI bleed on AC - s/p transfusion. monitor H/H. - transfuse if Hb <7. - Eliquis resumed for now. - GI following. 3. MACY on CKD improving - Likely due to volume loss. - Monitor. 4. AF - c/w Eliquis. with pacemaker. 5. Leg neuropathy. - Scheduled for IVIG as outpatient with Dr. Campos. Discussed and can follow as outpatient was stable. - Reportedly symptoms worsen with IVIG? 6. HTN - resume home meds 7. 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 ESR elevated but negative ANCA screen with normal IgA. - Started on Prednisone taper course starting with 40 mg daily, will help with vasculitis as well as possible gout flare. 8. Leukopenia - WBC trending down. - Heme following. 9. RLE swelling - RLE dopplers ordered to r/o DVT. - Patient is on Eliquis already for Afib, lower suspicion. - R. foot is tender in many areas including toe, uric acid 8.6. - Started on prednisone for vasculitis also will help with gout if symptoms are 2/2 gout flare. Would be new onset. 10. Fevers - Could possible from DVT vs. RLE cellulitis vs. gout flare? - f/u LE dopplers, blood cultures and Lactic acid. - Consider adding Abx with lactic acid +. A-FIB/CHADSVASC A-FIB History Current/History of A-Fib/PAF?: Yes Current Oral Anticoagulant The: Yes VS, I&O, 24H, Fishbone Vital Signs/I&O Vital Signs Date Time Temp Pulse Resp B/P (MAP) Pulse Ox O2 Delivery O2 Flow Rate FiO2 04/06/19 14:00 101.1 85 16 154/81 (105) 97 I&O- Last 24 Hours up to 6 AM 04/06/19 06:00 Intake Total 1390 ml Output Total 420 ml Balance 970 ml Laboratory Data 24H LABS Laboratory Tests 2 04/05/19 17:55: Nucleated Red Blood Cells % (auto) 0.0 04/05/19 22:28: 04/06/19 06:07: Nucleated Red Blood Cells % (auto) 0.0, Anion Gap 8, Glomerular Filtration Rate 37.5, Blood Urea Nitrogen 29H, Creatinine 1.85H, Sodium Level 140, Potassium Level 4.4, Chloride Level 107, Carbon Dioxide Level 25, Calcium Level 8.8 04/06/19 11:06: Uric Acid 8.6H CBC/BMP Laboratory Tests 04/05/19 17:55 Red Blood Count 2.71 L, Mean Corpuscular Volume 99.3 H, Mean Corpuscular Hemoglobin 31.7, Mean Corpuscular Hemoglobin Concent 32.0, Red Cell Distribution Width 14.6 H 04/06/19 06:07 Red Blood Count 2.67 L, Mean Corpuscular Volume 96.6 H, Mean Corpuscular Hemoglobin 31.1, Mean Corpuscular Hemoglobin Concent 32.2, Red Cell Distribution Width 14.6 H, Calcium Level 8.8 Microbiology Microbiology 03/28/19 Blood Culture - Final, Complete NO GROWTH AFTER 5 DAYS 03/29/19 Stool Occult Blood (MANDY) - Final, Complete 03/29/19 Gastrointestinal Tract Panel (PCR) - Final, Complete Clostridium Difficile A/B 03/29/19 Urine Culture - Final, Complete 04/03/19 Acid Fast Stain, Received Pending 04/03/19 Mycobacterial Culture, Received Pending 04/03/19 Fungal Smear, Received Pending 04/03/19 Fungal Culture, Received Pending 04/03/19 Surgical Biopsy Culture - Final, Complete GREGG CHAVARRIA MD April 06, 2019 14:44
--- NOTE | 2019-04-06 16:39 | REP ---
Right lower extremity duplex venous ultrasound: History: Right lower extremity swelling. Question DVT. No comparison study. Findings: The deep veins are anechoic and fully compressible from the groin to the popliteal fossa in the right lower extremity on two-dimensional scanning. The rizzo of the common femoral vein and the proximal femoral vein segment are slightly thickened however there is complete compression and good flow suggesting that this may be the result of old thrombophlebitis. There is no evidence of acute DVT. There are two normal-appearing lymph nodes in the right groin. These have normal fatty hilar architecture. Impression: No evidence of acute DVT. Slight thickening of the rizzo of the proximal femoral and common femoral vein segments may reflect old DVT. Electronically Signed by James Da Silva MD 04/06/2019 06:33 P
[2019-04-06 18:00] VITALS: BP 124/57
[2019-04-06] MEDS: ATORVASTATIN 10 MG TAB PO SCH (20:46)
[2019-04-06] MEDS: APIXABAN 5 MG TAB (ELIQUIS) PO SCH (20:46)
[2019-04-06] MEDS: LISINOPRIL 5 MG TAB PO SCH (20:47)
[2019-04-06] MEDS: LATANOPROST 0.005% OPHTH SOLN 2.5 ML OU SCH (20:47)
[2019-04-06] MEDS: NORTRIPTYLINE 25 MG CAP PO SCH (20:47)
[2019-04-06 22:00] VITALS: BP 131/65
[2019-04-07 02:00] VITALS: BP 128/64
[2019-04-07 06:00] VITALS: BP 139/77
[2019-04-07 06:51] LABS: HEMOGLOBIN 8.7 g/dl (13.5-17.5); MEAN CORPUSCULAR HEMOGLOBIN 32.1 pg (27.0-33.0); MEAN CORPUSCULAR HGB CONC 32.2 g/dl (32.0-36.5); MEAN CORPUSCULAR VOLUME 99.6 fl (80.0-96.0); PLATELET COUNT, AUTOMATED 230 10^3/uL (150-450); RED BLOOD COUNT 2.71 10^6/uL (4.30-6.10)
[2019-04-07 07:06] LABS: WHITE BLOOD COUNT 1.3 10^3/uL (4.0-10.0)
[2019-04-07 07:21] LABS: CALCIUM LEVEL 8.5 MG/DL (8.8-10.2); CREATININE FOR GFR 1.85 MG/DL (0.70-1.30); GLOMERULAR FILTRATION RATE 37.5 (>35); POTASSIUM SERUM 3.8 MEQ/L (3.5-5.1)
[2019-04-07] MEDS: VITAMIN D 1,000 INTERNATIONAL UNITS TABLET PO SCH (09:06)
[2019-04-07] MEDS: POTASSIUM CHLORIDE 10 MEQ SR TABLET PO SCH (09:07)
[2019-04-07] MEDS: GABAPENTIN 300 MG CAP PO SCH ×2 (09:08→21:42)
[2019-04-07] MEDS: CHLORTHALIDONE 12.5MG PER 1/2 TABLET PO SCH (09:08)
[2019-04-07] MEDS: FIDAXOMICIN 200 MG TAB (DIFICID) PO SCH ×2 (09:08→21:42)
[2019-04-07] MEDS: APIXABAN 5 MG TAB (ELIQUIS) PO SCH (09:09)
[2019-04-07] MEDS: predniSONE 20 MG TAB PO SCH (09:09)
[2019-04-07] MEDS: FOLIC ACID 1 MG TAB PO SCH (09:10)
[2019-04-07] MEDS: BISOPROLOL FUMARATE 5 MG TAB PO SCH (09:11)
[2019-04-07] MEDS: FERROUS GLUCONATE 324 MG TAB PO SCH ×2 (09:11→21:44)
[2019-04-07 10:00] VITALS: BP 134/74
--- NOTE | 2019-04-07 10:23 | IPNPDOC ---
Date Seen The patient was seen on 04/07/19. Progress Note SUBJECTIVE: Patient's fever had completely resolved and patient reported feeling well this morning. Remained afebrile overnight and denies any bleeding. Reported improvement in pain of right lower extremity over foot and large toe. Was started on prednisone yesterday for vasculitis and suspected gout. Rashes noted to had improved as well. OBJECTIVE PHYSICAL EXAMINATION: VITAL SIGNS: Please see below. General: No acute distress, Alert Eyes: Normal sclera, EOMI, CAMRON HENT: Atraumatic, neck supple, moist mucous membranes Cardiovascular: Normal rate Pulmonary: Clear to auscultation b/l, no wheezing GI: Soft, nontender, nondistended MSK: RLE swollen and shiny compared to left. b/l pitting edema worse on the R. side. Skin: diffuse purpuric rash throughout body, non tender to palpation, improved from prior. Neuro: CN grossly intact. No focal deficits. Strengths equal b/l. Psych: oriented x 3 LABORATORY DATA, IMAGING STUDIES, MICROBIOLOGY: Please see below. DVT prophylaxis ordered?: Eliquis ASSESSMENT AND PLAN: 83 years old man with hx/o AF on Eliquis who presented to ER with c/o bloody diarrhea, weakness and dizziness for 2-3 days. He also has PMH of peripheral neuropathy, AF on Eliquis s/p pacemaker, HTN, HLD, diverticulosis, C. diff colitis Dec 2018. He is positive to c.diff on Fidaxomicin due to rashes on PO Vancomycin. EGD and Colonoscopy was performed by GI and showed colitis. He developed thrombocytopenia, possibly from drug reaction (not on heparin sc, not on protonix, but Fidaxomicin started prior to downtrending of low plt). 1. C. diff w/ colitis - Has a hx of c. diff and currently positive for it. - c/w Fidaxomicin treatment as PO vancomycin was initially suspected to cause patient's rash. no diarrhea reported at this time. - Started 03/30/19. Would be day 810 today. - s/p EGD and colonoscopy with evidence of gastritis and duodenitis, f/u biopsy. Severe diverticulosis. 2. Suspect vasculitis. - ID following. Low suspicion for Abx as the etiology of rash. 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 - Dermatology evaluated, biopsy obtained. f/u findings. - Suspicion for Henoch Schonlein purpura. Vasculitis workup: negative for ANCA screen and IgA WNL. ESR and CRP elevated. HIV negative. - ID had discussed with Dr. Styles, recommended Prednisone 40 mg for 4 days, follow by 30mg/20mg/10mg each for 4 days. Will also help with likely gout in RLE as well. 3. Acute on chronic anemia 2/2 GI bleed on AC - s/p transfusion. monitor H/H. - transfuse if Hb <7. - Eliquis resumed for now. - GI following. 4. MACY on CKD improving - Likely due to volume loss. - Monitor. 5. AF - c/w Eliquis. with pacemaker. 6. Leg neuropathy. - Scheduled for IVIG as outpatient with Dr. Campos. Discussed and can follow as outpatient was stable. - Reportedly symptoms worsen with IVIG? 7. HTN - resume home meds 8. 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 ESR elevated but negative ANCA screen with normal IgA. - Started on Prednisone taper course starting with 40 mg daily, will help with vasculitis as well as possible gout flare. 9. Leukopenia - WBC trending down. - Heme following. 10. RLE swelling - Doppler negative for any DVT. - Patient is on Eliquis already for Afib. - R. foot is tender in many areas including toe, uric acid 8.6. - Started on prednisone for vasculitis also will help with a gouty flare. - Tenderness improving. 11. Fevers - No evidence of DVT, resolved. - Lactic acid WNL. f/u blood cultures. - Clinically improved without any Abx. Unsure if gout attack could cause this fever. A-FIB/CHADSVASC A-FIB History Current/History of A-Fib/PAF?: Yes Current Oral Anticoagulant The: Yes VS, I&O, 24H, Fishbone Vital Signs/I&O Vital Signs Date Time Temp Pulse Resp B/P (MAP) Pulse Ox O2 Delivery O2 Flow Rate FiO2 04/07/19 09:11 73 139/77 04/07/19 06:00 97.7 18 100 I&O- Last 24 Hours up to 6 AM 04/07/19 06:00 Intake Total 440 ml Output Total 475 ml Balance -35 ml Laboratory Data 24H LABS Laboratory Tests 2 04/06/19 11:06: Uric Acid 8.6H 04/06/19 14:59: Lactic Acid Level 1.5 04/07/19 06:14: Nucleated Red Blood Cells % (auto) 0.0, Anion Gap 7L, Glomerular Filtration Rate 37.5, Blood Urea Nitrogen 31H, Creatinine 1.85H, Sodium Level 139, Potassium Level 3.8, Chloride Level 106, Carbon Dioxide Level 26, Calcium Level 8.5L CBC/BMP Laboratory Tests 04/07/19 06:14 Red Blood Count 2.71 L, Mean Corpuscular Volume 99.6 H, Mean Corpuscular Hemoglobin 32.1, Mean Corpuscular Hemoglobin Concent 32.2, Red Cell Distribution Width 14.6 H, Calcium Level 8.5 L Microbiology Microbiology 04/06/19 Blood Culture, Received Pending 04/06/19 Blood Culture, Received Pending 03/28/19 Blood Culture - Final, Complete NO GROWTH AFTER 5 DAYS 03/29/19 Stool Occult Blood (MANDY) - Final, Complete 03/29/19 Gastrointestinal Tract Panel (PCR) - Final, Complete Clostridium Difficile A/B 03/29/19 Urine Culture - Final, Complete 04/03/19 Acid Fast Stain, Received Pending 04/03/19 Mycobacterial Culture, Received Pending 04/03/19 Fungal Smear, Received Pending 04/03/19 Fungal Culture, Received Pending 04/03/19 Surgical Biopsy Culture - Final, Complete GREGG CHAVARRIA MD April 07, 2019 10:23
[2019-04-07 13:14] LABS: CRYOGLOBULINS NEGATIVE (NEGATIVE)
[2019-04-07 14:00] VITALS: BP 125/55
[2019-04-07 18:00] VITALS: BP 130/60
[2019-04-07 21:01] LABS: APPEARANCE, URINE MANUAL CLOUDY (CLEAR); COLOR, URINE MANUAL BROWN (YELLOW)
[2019-04-07 21:02] LABS: BILIRUBIN, URINE MANUAL NEGATIVE (NEGATIVE); BLOOD URINE MANUAL POSITIVE (NEGATIVE); GLUCOSE, URINE (UA) MANUAL TRACE(50 MG/DL) mg/dL (NEGATIVE); KETONE, URINE MANUAL NEGATIVE (NEGATIVE); LEUKOCYTE ESTERASE, URINE MAN POSITIVE (NEGATIVE); NITRITE, URINE MANUAL NEGATIVE (NEGATIVE); PROTEIN, URINE MANUAL 2+ mg/dL (NEGATIVE); SPECIFIC GRAVITY,URINE MANUAL 1.025 (1.002-1.035); UROBILINOGEN, URINE MANUAL NORMAL (NORMAL)
[2019-04-07 21:11] LABS: RBC, URINE TNTC /hpf (0-3)
[2019-04-07 21:12] LABS: SQUAMOUS EPITHELIAL CELL URINE SMALL AMOUNT /hpf (SMALL AMT); TRANSITIONAL EPI CELLS, URINE LARGE AMOUNT /hpf; URIC ACID CRYSTALS, URINE MOD AMOUNT /hpf
[2019-04-07 21:15] LABS: AMORPHOUS SEDIMENT, URINE SMALL AMOUNT (NEGATIVE); BACTERIA, URINE SMALL AMOUNT; MUCUS, URINE MOD AMOUNT (NEGATIVE)
[2019-04-07 21:16] LABS: HYALINE CAST, URINE 0-1 /lpf (0-1)
[2019-04-07] MEDS: NORTRIPTYLINE 25 MG CAP PO SCH (21:41)
[2019-04-07] MEDS: ATORVASTATIN 10 MG TAB PO SCH (21:42)
[2019-04-07] MEDS: LISINOPRIL 5 MG TAB PO SCH (21:43)
[2019-04-07] MEDS: LATANOPROST 0.005% OPHTH SOLN 2.5 ML OU SCH (21:44)
[2019-04-07 22:00] VITALS: BP 126/56
[2019-04-08 02:00] VITALS: BP 133/72
[2019-04-08 06:00] VITALS: BP 136/71
[2019-04-08 06:21] LABS: HEMATOCRIT 25.8 % (42.0-52.0); HEMOGLOBIN 8.4 g/dl (13.5-17.5); MEAN CORPUSCULAR HEMOGLOBIN 31.8 pg (27.0-33.0); MEAN CORPUSCULAR HGB CONC 32.6 g/dl (32.0-36.5); MEAN CORPUSCULAR VOLUME 97.7 fl (80.0-96.0); PLATELET COUNT, AUTOMATED 347 10^3/uL (150-450); RED BLOOD COUNT 2.64 10^6/uL (4.30-6.10)
[2019-04-08 06:24] LABS: WHITE BLOOD COUNT 1.3 10^3/uL (4.0-10.0)
[2019-04-08 06:45] LABS: CALCIUM LEVEL 7.8 MG/DL (8.8-10.2); CREATININE FOR GFR 1.64 MG/DL (0.70-1.30); GLOMERULAR FILTRATION RATE 43.1 (>35); POTASSIUM SERUM 4.2 MEQ/L (3.5-5.1)
[2019-04-08] MEDS: CHLORTHALIDONE 12.5MG PER 1/2 TABLET PO SCH (08:17)
[2019-04-08] MEDS: POTASSIUM CHLORIDE 10 MEQ SR TABLET PO SCH (08:20)
[2019-04-08] MEDS: VITAMIN D 1,000 INTERNATIONAL UNITS TABLET PO SCH (08:20)
[2019-04-08] MEDS: FIDAXOMICIN 200 MG TAB (DIFICID) PO SCH ×2 (08:21→21:23)
[2019-04-08] MEDS: FERROUS GLUCONATE 324 MG TAB PO SCH ×2 (08:21→21:24)
[2019-04-08] MEDS: FOLIC ACID 1 MG TAB PO SCH (08:21)
[2019-04-08] MEDS: predniSONE 20 MG TAB PO SCH (08:21)
[2019-04-08] MEDS: BISOPROLOL FUMARATE 5 MG TAB PO SCH (08:22)
[2019-04-08] MEDS: GABAPENTIN 300 MG CAP PO SCH ×2 (08:22→21:21)
[2019-04-08 10:00] VITALS: BP 134/73
--- NOTE | 2019-04-08 11:22 | IPNPDOC ---
Date Seen The patient was seen on 04/08/19. Progress Note SUBJECTIVE: Patient reports feeling well and offered no complaints. LE tenderness and swelling improving. Noted to have tea color urine overnight and this morning. RBC noted on UA. Complaints of intermittent dysuria. Eliquis has been held. Rashes had improved significantly. OBJECTIVE PHYSICAL EXAMINATION: VITAL SIGNS: Please see below. General: No acute distress, Alert Eyes: Normal sclera, EOMI, CAMRON HENT: Atraumatic, neck supple, moist mucous membranes Cardiovascular: Normal rate Pulmonary: Clear to auscultation b/l, no wheezing GI: Soft, nontender, nondistended MSK: RLE swollen and shiny compared to left. b/l pitting edema worse on the R. side. Skin: diffuse purpuric rash throughout body improving. Neuro: CN grossly intact. No focal deficits. Strengths equal b/l. Psych: oriented x 3 LABORATORY DATA, IMAGING STUDIES, MICROBIOLOGY: Please see below. DVT prophylaxis ordered?: Eliquis ASSESSMENT AND PLAN: 83 years old man with hx/o AF on Eliquis who presented to ER with c/o bloody diarrhea, weakness and dizziness for 2-3 days. He also has PMH of peripheral neuropathy, AF on Eliquis s/p pacemaker, HTN, HLD, diverticulosis, C. diff colitis Dec 2018. He is positive to c.diff on Fidaxomicin due to rashes on PO Vancomycin. EGD and Colonoscopy was performed by GI and showed colitis. He developed thrombocytopenia, possibly from drug reaction (not on heparin sc, not on protonix, but Fidaxomicin started prior to downtrending of low plt). 1. C. diff w/ colitis - Has a hx of c. diff and currently positive for it. - c/w Fidaxomicin treatment as PO vancomycin was initially suspected to cause patient's rash. no diarrhea reported at this time. - Started 03/30/19. Would be day 07/31 today. - s/p EGD and colonoscopy with evidence of gastritis and duodenitis, f/u biopsy. Severe diverticulosis. 2. Suspect vasculitis. - ID following. Low suspicion for Abx as the etiology of rash. 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 - Dermatology evaluated, biopsy obtained. f/u findings. - Vasculitis workup: negative for ANCA screen and IgA WNL. ESR and CRP elevated. HIV negative. Cryoglobulin negative. - ID had discussed with Dr. Styles, recommended Prednisone 40 mg for 4 days, follow by 30mg/20mg/10mg each for 4 days. Will also help with likely gout in RLE as well. 3. Acute on chronic anemia 2/2 GI bleed on AC - s/p transfusion. monitor H/H. - transfuse if Hb <7. - Eliquis was resumed but held at this time due to hematuria. - GI following. 4. MACY on CKD improving - Likely due to volume loss. - Monitor. 5. AF - c/w Eliquis once hematuria resolves. with pacemaker. 6. Leg neuropathy. - Scheduled for IVIG as outpatient with Dr. Campos. Discussed and can follow as outpatient was stable. - Reportedly symptoms worsen with IVIG? 7. HTN - resume home meds 8. Thrombocytopenia - Resolved. - Suspected HSP and other vasculitis etiology. ESR elevated but negative ANCA screen with normal IgA. Likely drug reaction vs. infectious etiology with presentation. - Started on Prednisone taper course starting with 40 mg daily, will help with vasculitis as well as possible gout flare. 9. Leukopenia - WBC trended down. - Heme following. BM biopsy was considered but held at this time. - Low suspicion for malignancy, flowed cytometry noted. 10. RLE swelling - Doppler negative for any DVT. - Patient was on Eliquis already for Afib. - R. foot is tender in many areas including toe, uric acid 8.6. - Started on prednisone for vasculitis also will help with a gouty flare. - Tenderness improving. 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 - Will give some diuresis to see if swelling will improve. 11. Fevers - No evidence of DVT, resolved. - Lactic acid WNL. blood cultures NTD. - Clinically improved without any Abx. Unsure if gout attack could cause this fever. A-FIB/CHADSVASC A-FIB History Current/History of A-Fib/PAF?: Yes Current Oral Anticoagulant The: Yes VS, I&O, 24H, Fishbone Vital Signs/I&O Vital Signs Date Time Temp Pulse Resp B/P (MAP) Pulse Ox O2 Delivery O2 Flow Rate FiO2 04/08/19 10:00 98.5 75 18 134/73 (93) 98 I&O- Last 24 Hours up to 6 AM 04/08/19 06:00 Intake Total 1170 ml Output Total 125 ml Balance 1045 ml Laboratory Data 24H LABS Laboratory Tests 2 04/07/19 20:50: Bedside Urine Color (LAB) BROWNH, Bedside Urine Appearance (LAB) CLOUDYH, Bedside Urine pH (LAB) 5.0, Bedside Urine Specific [place] (LAB 1.025, Bedside Urine Protein (LAB) 2+H, Bedside Urine Glucose (UA) TRACE(50 MG/DL), Bedside Urine Ketones (LAB) NEGATIVE, Bedside Urine Blood POSITIVEH, Bedside Urine Nitrite (LAB) NEGATIVE, Bedside Urine Bilirubin (LAB) NEGATIVE, Bedside Urine Urobilinogen (LAB) NORMAL, Bedside Urine Leukocyte Esterase (L POSITIVEH, Urine WBC 10-15H, Urine RBC TNTCH, Urine Squamous Epithelial Cells SMALL AMOUNT, Urine Transitional Epithelial Cells LARGE AMOUNTH, Urine Uric Acid Crystals MOD AMOUNTH, Urine Bacteria SMALL AMOUNTH, Urine Hyaline Casts 0-1, Urine Mucus MOD AMOUNTH, Urine Amorphous Sediment SMALL AMOUNTH, Urine Sediment Examination PERFORMED 04/08/19 05:53: Nucleated Red Blood Cells % (auto) 0.0, Anion Gap 8, Glomerular Filtration Rate 43.1, Blood Urea Nitrogen 41H, Creatinine 1.64H, Sodium Level 139, Potassium Level 4.2, Chloride Level 107, Carbon Dioxide Level 24, Calcium Level 7.8L CBC/BMP Laboratory Tests 04/08/19 05:53 Red Blood Count 2.64 L, Mean Corpuscular Volume 97.7 H, Mean Corpuscular Hemoglobin 31.8, Mean Corpuscular Hemoglobin Concent 32.6, Red Cell Distribution Width 14.7 H, Calcium Level 7.8 L Microbiology Microbiology 04/06/19 Blood Culture - Preliminary, Resulted No growth after 24 hours . All specim... 04/06/19 Blood Culture - Preliminary, Resulted No growth after 24 hours . All specim... 03/29/19 Stool Occult Blood (MANDY) - Final, Complete 03/29/19 Gastrointestinal Tract Panel (PCR) - Final, Complete Clostridium Difficile A/B 03/29/19 Urine Culture - Final, Complete 04/03/19 Acid Fast Stain, Received Pending 04/03/19 Mycobacterial Culture, Received Pending 04/03/19 Fungal Smear, Received Pending 04/03/19 Fungal Culture, Received Pending 04/03/19 Surgical Biopsy Culture - Final, Complete GREGG CHAVARRIA MD April 08, 2019 11:22
--- NOTE | 2019-04-08 11:44 | SMCUROLCON ---
Urology Consultation General Date of Consultation 04/08/19 Reason For Consultation This patient is seen for Symptomatic Anemia. History of Present Illness Mr. Ritchie is an 83 years old man with hx/o AF on Eliquis who presented to ER with c/o bloody diarrhea, weakness and dizziness for 2-3 days. He also had a fall today and sustained injury to the left side of this body, no head injury. He also admitted to dull/crampy intermittent abdominal pain. But denied nausea, vomiting, fever or chills. He has been in the hospital since 03/28/19. He has had a history of urgency and urge incontinences and for approximately a week ago developed dysuria. Family History Family History heart disease Social History * Smoker: non-smoker Medications Current Medications Current Medications Acetaminophen (Tylenol Tab) 650 mg Q4H PRN PO PAIN OR FEVER Last administered on 04/06/19at 12:10; Start 03/27/19 at 23:45 Al Hydrox/Mg Hydrox/Simethicone (Mylanta) 10 ml DAILY PRN PO DYSPEPSIA; Start 03/27/19 at 23:45 Apixaban (Eliquis) 5 mg BID PO Last administered on 04/07/19at 09:09; Start 03/31/19 at 09:00; Stop 04/07/19 at 21:29; Status DC Aspirin (Ecotrin) 81 mg DAILY PO ; Start 03/31/19 at 09:00; Stop 03/31/19 at 15:29; Status DC Aspirin (Ecotrin) 81 mg DAILY PO ; Start 04/02/19 at 09:00; Stop 04/02/19 at 09:00; Status DC Atorvastatin Calcium (Lipitor) 10 mg QHS PO Last administered on 04/07/19at 21:42; Start 03/27/19 at 21:00 Bisoprolol Fumarate (Zebeta) 2.5 mg DAILY PO Last administered on 04/08/19at 08:22; Start 03/28/19 at 09:00 Chlorthalidone (Hygroton, Chlorthalidone) 12.5 mg DAILY PO Last administered on 04/08/19at 08:17; Start 03/31/19 at 09:00 Ciprofloxacin 400 mg/IV Miscellaneous Supplies 200 ml @ 200 mls/hr Q12H IV Last administered on 03/28/19at 05:01; Start 03/28/19 at 01:00; Stop 03/28/19 at 11:53; Status DC Ferrous Gluconate (Fergon) 324 mg BID PO Last administered on 04/08/19 08:21; Start 03/27/19 at 21:00 Fidaxomicin (Dificid) 200 mg BID PO ; Start 03/30/19 at 01:30; Stop 03/30/19 at 01:30; Status DC Fidaxomicin (Dificid) 200 mg BID PO Last administered on 04/08/19 08:21; Start 03/30/19 at 21:00; Stop 04/14/19 at 20:59 Fidaxomicin (Dificid) 200 mg BID PO ; Start 03/29/19 at 21:00; Stop 03/30/19 at 01:17; Status DC Folic Acid (Folic Acid) 1 mg DAILY PO Last administered on 04/08/19 08:21; Start 03/28/19 at 09:00 Gabapentin (Neurontin) 600 mg BID PO Last administered on 04/08/19 08:22; Start 03/27/19 at 21:00 Home Med (Med Rec Complete!) ASDIRECTED XX ; Start 03/27/19 at 22:45; Stop 03/27/19 at 22:46; Status DC Lactated Ringer's 1,000 ml @ 100 mls/hr Q10H IV Last administered on 04/01/19 08:35; Start 03/27/19 at 23:45; Stop 04/01/19 at 09:10; Status DC Latanoprost (Xalatan 0.005% Op Soln) 1 drop QHS OU Last administered on 04/07/19at 21:44; Start 03/27/19 at 21:00 Lisinopril (Prinivil) 5 mg QHS PO Last administered on 04/07/19 21:43; Start 03/31/19 at 21:00 Magnesium Hydroxide (Milk Of Magnesia) 30 ml DAILY PRN PO CONSTIPATION; Start 03/27/19 at 23:45 Metronidazole 500 mg/IV Miscellaneous Supplies 100 ml @ 100 mls/hr Q8H IV Last administered on 03/30/19 09:54; Start 03/28/19 at 02:00; Stop 03/30/19 at 16:32; Status DC Nitroglycerin (Nitrostat (1/ 150)) 0.4 mg Q15MP PRN SL CHEST PAIN; Start 03/27/19 at 23:45 Nortriptyline HCl (Pamelor) 50 mg QHS PO Last administered on 04/07/19at 21:41; Start 03/27/19 at 21:00 Potassium Chloride (Micro-K Extencaps) 20 meq DAILY PO Last administered on 04/08/19at 08:20; Start 03/31/19 at 09:00 Prednisone (Deltasone) 40 mg DAILY PO Last administered on 04/08/19at 08:21; Start 04/06/19 at 09:00 Triamcinolone Acetonide (Kenalog 0.1% Cream) 1 dose BID PRN TOP RASH Last administered on 04/08/19at 08:24; Start 03/27/19 at 23:45 Vancomycin HCl (First-Vancomycin 50(Firvanq)- 250mg/5ml) 125 mg Q6H PO ; Start 03/30/19 at 01:15; Stop 03/30/19 at 01:16; Status DC Vitamin D (Vitamin D) 2,000 units DAILY PO Last administered on 04/08/19at 08:20; Start 03/31/19 at 09:00 Allergies Allergies: Coded Allergies: vancomycin (Verified Allergy, Intermediate, Rash, 03/30/19) Patient developed a generalized red body rash after receiving vanco 12/2018. Penicillins (Verified Allergy, Unknown, 02/28/19) Sulfa (Sulfonamide Antibiotics) (Verified Allergy, Unknown, 02/28/19) nifedipine (Verified Allergy, Unknown, 02/28/19) Review of Systems General: Denies: ROS Unobtainable, Chills, Night Sweats, Fatigue, Malaise, Normal Appetite, Other Symptoms Constitutional: Denies: Fever, Chills, Sweats, Weakness, Malaise, Other Skin: Denies: Rash, Lesions, Jaundice, Bruising, Itching, Dry, Breakdown, Nail Changes, Other Pulmonary: Denies: Dyspnea, Cough, Pleuritic Chest Pain, Other Symptoms Cardiovascular: Denies Chest Pain, Denies Palpitations, Denies Orthopnea, Denies Paroxysmal Noc. Dyspnea, Denies Edema, Denies Lt Headedness, Denies Other Symptoms Gastrointestinal: Denies: Nausea, Vomiting, Abdominal Pain, Diarrhea, Constipation, Melena, Hematochezia, Other Symptoms Genitourinary: Reports: Dysuria, Frequency, Incontinence, Hematuria, Retention, Other Symptoms (urgency and urge incontinence ) Neurological: Denies: Weakness, Numbness, Incoordination, Change in Speech, Confusion, Seizures, Other Symptoms Psych: Denies: Mood Normal, Anxiety, Depression, Memory Issues, Thoughts of Self Harm, Anger, Thoughts of harming Other, Other Psych Physical Examination General Exam: Alert, Cooperative, No Acute Distress, Mild Distress, Moderate Distress, Severe Distress, Other Neck Exam: Supple Abdomen Exam: No: Normal Bowel Sounds, BS Hyperactive, BS Hypoactive, Soft, Tenderness, Hepatospenomegaly, Mass, Hernia, Other Male Exam: Normal Genital Exam Male Exam prostate 30 grams with left sided firmness and asymmetry. ? nodule Extremity Exam: Clubbing, Cyanosis, Edema, Normal Pulses, Tenderness, Swelling, Other Skin Exam: Nl turgor and temperature Vital Signs/I&O Vital Signs Date Time Temp Pulse Resp B/P (MAP) Pulse Ox O2 Delivery O2 Flow Rate FiO2 04/08/19 10:00 98.5 75 18 134/73 (93) 98 I&O- Last 24 Hours up to 6 AM 04/08/19 06:00 Intake Total 1170 ml Output Total 125 ml Balance 1045 ml Laboratory Data 24H Labs Laboratory Tests 2 04/07/19 20:50: Bedside Urine Color (LAB) BROWNH, Bedside Urine Appearance (LAB) CLOUDYH, Bedside Urine pH (LAB) 5.0, Bedside Urine Specific Cl[place] (LAB 1.025, Bedside Urine Protein (LAB) 2+H, Bedside Urine Glucose (UA) TRACE(50 MG/DL), Bedside Urine Ketones (LAB) NEGATIVE, Bedside Urine Blood POSITIVEH, Bedside Urine Nitrite (LAB) NEGATIVE, Bedside Urine Bilirubin (LAB) NEGATIVE, Bedside Urine Urobilinogen (LAB) NORMAL, Bedside Urine Leukocyte Esterase (L POSITIVEH, Urine WBC 10-15H, Urine RBC TNTCH, Urine Squamous Epithelial Cells SMALL AMOUNT, Urine Transitional Epithelial Cells LARGE AMOUNTH, Urine Uric Acid Crystals MOD AMOUNTH, Urine Bacteria SMALL AMOUNTH, Urine Hyaline Casts 0-1, Urine Mucus MOD AMOUNTH, Urine Amorphous Sediment SMALL AMOUNTH, Urine Sediment Examination PERFORMED 04/08/19 05:53: Nucleated Red Blood Cells % (auto) 0.0, Anion Gap 8, Glomerular Filtration Rate 43.1, Blood Urea Nitrogen 41H, Creatinine 1.64H, Sodium Level 139, Potassium Level 4.2, Chloride Level 107, Carbon Dioxide Level 24, Calcium Level 7.8L CBC/BMP Laboratory Tests 04/08/19 05:53 Red Blood Count 2.64 L, Mean Corpuscular Volume 97.7 H, Mean Corpuscular Hemoglobin 31.8, Mean Corpuscular Hemoglobin Concent 32.6, Red Cell Distribution Width 14.7 H, Calcium Level 7.8 L Microbiology Microbiology 04/06/19 Blood Culture - Preliminary, Resulted No growth after 24 hours . All specim... 04/06/19 Blood Culture - Preliminary, Resulted No growth after 24 hours . All specim... 03/29/19 Stool Occult Blood (MANDY) - Final, Complete 03/29/19 Gastrointestinal Tract Panel (PCR) - Final, Complete Clostridium Difficile A/B 03/29/19 Urine Culture - Final, Complete 04/03/19 Acid Fast Stain, Received Pending 04/03/19 Mycobacterial Culture, Received Pending 04/03/19 Fungal Smear, Received Pending 04/03/19 Fungal Culture, Received Pending 04/03/19 Surgical Biopsy Culture - Final, Complete Assessment Patient with history of lower urinary tract symptoms and now the dysuria and uncomplicated uti Plan 1) Treat UTI with oral antibiotics 2) Start Flomax daily 3) Follow up in 1 month in urology clinic with TAB Klein MD April 08, 2019 11:32
[2019-04-08] MEDS ORDERED: FUROSEMIDE 40 MG/4 ML VIAL (J1940) IV ONE (12:00)
[2019-04-08] MEDS: CIPROFLOXACIN 500 MG TAB PO SCH (12:21)
[2019-04-08 14:00] VITALS: BP 124/61
[2019-04-08 18:00] VITALS: BP 146/71
[2019-04-08] MEDS: NORTRIPTYLINE 25 MG CAP PO SCH (21:23)
[2019-04-08] MEDS: LISINOPRIL 5 MG TAB PO SCH (21:23)
[2019-04-08] MEDS: ATORVASTATIN 10 MG TAB PO SCH (21:23)
[2019-04-08] MEDS: LATANOPROST 0.005% OPHTH SOLN 2.5 ML OU SCH (21:24)
[2019-04-08 22:00] VITALS: BP 131/62
[2019-04-09 02:00] VITALS: BP 175/72
[2019-04-09] MEDS: CIPROFLOXACIN 500 MG TAB PO SCH (05:48)
[2019-04-09 06:00] VITALS: BP 168/77
[2019-04-09 06:10] LABS: HEMATOCRIT 25.9 % (42.0-52.0); HEMOGLOBIN 8.2 g/dl (13.5-17.5); MEAN CORPUSCULAR HEMOGLOBIN 30.6 pg (27.0-33.0); MEAN CORPUSCULAR HGB CONC 31.7 g/dl (32.0-36.5); MEAN CORPUSCULAR VOLUME 96.6 fl (80.0-96.0); PLATELET COUNT, AUTOMATED 443 10^3/uL (150-450); RED BLOOD COUNT 2.68 10^6/uL (4.30-6.10); WHITE BLOOD COUNT 2.1 10^3/uL (4.0-10.0)
[2019-04-09 06:36] LABS: CALCIUM LEVEL 8.6 MG/DL (8.8-10.2); CREATININE FOR GFR 1.8 MG/DL (0.70-1.30); GLOMERULAR FILTRATION RATE 38.7 (>35); POTASSIUM SERUM 4.1 MEQ/L (3.5-5.1)
[2019-04-09] MEDS ORDERED: APIXABAN 5 MG TAB (ELIQUIS) PO SCH (09:00)
[2019-04-09] MEDS ORDERED: TAMSULOSIN 0.4 MG CAP PO SCH (09:00)
[2019-04-09] MEDS: POTASSIUM CHLORIDE 10 MEQ SR TABLET PO SCH (11:24)
[2019-04-09] MEDS: FOLIC ACID 1 MG TAB PO SCH (11:25)
[2019-04-09] MEDS: predniSONE 20 MG TAB PO SCH (11:25)
[2019-04-09] MEDS: VITAMIN D 1,000 INTERNATIONAL UNITS TABLET PO SCH (11:25)
[2019-04-09] MEDS: CHLORTHALIDONE 12.5MG PER 1/2 TABLET PO SCH (11:25)
[2019-04-09 11:26] VITALS: BP 168/77
[2019-04-09] MEDS: BISOPROLOL FUMARATE 5 MG TAB PO SCH (11:26)
[2019-04-09] MEDS: FIDAXOMICIN 200 MG TAB (DIFICID) PO SCH (11:32)
[2019-04-09] MEDS: FERROUS GLUCONATE 324 MG TAB PO SCH (11:32)
[2019-04-09] MEDS: GABAPENTIN 300 MG CAP PO SCH (11:33)
[2019-04-09] MEDS ORDERED: CIPR-249 PO ×2 (11:40→11:41)
[2019-04-09] MEDS ORDERED: FLOM0.4C39 PO (11:40)
--- NOTE | 2019-04-09 11:49 | DS.PDOC ---
Discharge Summary General Date of Admission March 27, 2019 at 23:36 Date of Discharge 04/09/19 Specialist/Consultants Involve: Agata Lujan MD Specialist/Consultants Involve Dr. Stephani Sanchez Discharge Summary PROCEDURES PERFORMED DURING STAY: EGD and Colonoscopy- Gastritis and Duodenitis Severe Diverticulosis ADMITTING DIAGNOSES: 1. C. diff infection/colitis 2. Acute on chronic anemia 3. MACY 4. Leg neuropathy 5. Afib 6. HTN 7. Thrombocytopenia DISCHARGE DIAGNOSES: 1. C. diff infection/colitis 2. Acute on chronic anemia 3. MACY 4. Leg neuropathy 5. Afib 6. HTN 7. Thrombocytopenia 8. Suspected Vasculitis 9. Suspected Gout 10. Hematuria COMPLICATIONS/CHIEF COMPLAINT: Symptomatic Anemia. HISTORY OF PRESENT ILLNESS: "Mr. Ritchie is an 83 years old man with hx/o AF on Eliquis who presented to ER with c/o bloody diarrhea, weakness and dizziness for 2-3 days. He also had a fall today and sustained injury to the left side of this body, no head injury. He also admitted to dull/crampy intermittent abdominal pain. But denied nausea, vomiting, fever or chills. In the ER, pt was hemodynamically stable, afebrile, with good mental status. He was noted to have a Hb level of 8.7 (13.1 in Dec), Serum Cr of 2.5 (1.28 in Dec) . Ct abd showed left colon wall thickening. Last colonoscopy was 5-10 years ago. Pt doesn't remember the report." HOSPITAL COURSE: Patient is admitted for colitis and treated for C. difficile infection with bloody diarrhea s/p EGD/Colonoscopy showing gastritis/duodenitis/diverticulosis. He was started on Fidaxomicin as patient was noted to have severe thrombocytopenia and diffuse purpuric rash. GI symptoms quickly resolved but rash was concerning for possible drug reaction. ID, Heme, and Dermatology was also consulted. Extensive workup showed no strong evidence for IgA vasculitis and a skin biopsy was obtained by dermatology. Very low suspicion for rash as a drug reaction or allergy to PO vancomycin or other drugs. Likely 2/2 infectious etiology. Thrombocytopenia resolved on its own as well as improvement in rash. He was also initiated on prednisone for suspected vasculitis as well as gout to RLE, all symptoms improve quickly and patient reports feeling well wishing to go home. In addition, he developed tea color urine yesterday with RBC and LE noted on UA, he was started on Abx and Flomax with resolution of urinary symptoms. To discharge patient home to / with Heme, Derm, and urology as outpatient. His course of Fidaxomine is complete today at 10/10 days, will only need 3 more days of Cipro to complete 5 day course for UTI. DISCHARGE MEDICATIONS: Please see below. ALLERGIES: Please see below. PHYSICAL EXAMINATION ON DISCHARGE: VITAL SIGNS: Please see below. General: No acute distress, Alert Eyes: Normal sclera, EOMI, CAMRON HENT: Atraumatic, neck supple, moist mucous membranes Cardiovascular: Normal rate Pulmonary: Clear to auscultation b/l, no wheezing GI: Soft, nontender, nondistended MSK: RLE swollen and shiny compared to left. b/l pitting edema worse on the R. side. Skin: Improving diffuse purpuric rash. Neuro: CN grossly intact. No focal deficits. Strengths equal b/l. Psych: oriented x 3 LABORATORY DATA: Please see below. IMAGING: Abd/pelvis CT (03/27)- IMPRESSION: 1. No evidence of fracture and no evidence of organ laceration. 2. Numerous large diverticula throughout the colon. It is incidentally noted there is some hazy increased density in the mesentery at the hepatic flexure of the colon which may be the result of scarring. Mild changes of inflammation of these large diverticula also possible. 3. There is evidence of prominent thickening at the junction of the left colon with the proximal sigmoid colon. To exclude any possibility of mass in this area recommend colonoscopy or CT with oral contrast to opacify the colon versus barium enema. R Elbow XR- Impression: No acute bony abnormality. Proximal ulnar and olecranon spurring. Medial and lateral epicondylar spurring. Abd/pelvis CT (03/30)- IMPRESSION: 1. Lung base findings and nodule in the right middle lobe as described above. According to the revised Fleischner's Society criteria the nodule represents a category 4A lesion for which [address] is recommended. 2. The ventral hernia is unchanged in size from 03/27/2019, however, the fatty infiltration of the mesentery within the hernial sac indicates inflammation. 3. There is evidence of a small bowel ileus or possible early small bowel obstruction. The area of narrowed sigmoid colon seen on the prior exam is now collapsed, but that could be secondary to content void rather than other causes. This exam does not obviate colonoscopy. 4. Other chronic findings and stable findings as described above. Vascular US/Doppler RLE- Impression: No evidence of acute DVT. Slight thickening of the rizzo of the proximal femoral and common femoral vein segments may reflect old DVT. ACTIVITY: [As tolerated]. DIET: High fiber diet DISCHARGE PLAN: Complete course of 3 more days of Ciprofloxaxin Complete course of Prednisone taper: 30 mg for 4 days, follow by 20mg for 4 days, then 10 mg for 4 days F/u with PCP, Heme, Dermatology and urology. DISPOSITION: Home. DISCHARGE INSTRUCTIONS: Complete course of 3 more days of Ciprofloxaxin Complete course of Prednisone taper: 30 mg for 4 days, follow by 20mg for 4 days, then 10 mg for 4 days F/u with PCP, Heme, Dermatology and urology. ITEMS TO FOLLOWUP ON ON OUTPATIENT: Skin biopsy findings DISCHARGE CONDITION: [Stable]. TIME SPENT ON DISCHARGE: 35 minutes. Vital Signs/I&Os Vital Signs Date Time Temp Pulse Resp B/P (MAP) Pulse Ox O2 Delivery O2 Flow Rate FiO2 04/09/19 11:26 77 168/77 04/09/19 06:00 96.5 20 96 I&O- Last 24 Hours up to 6 AM 04/09/19 06:00 Intake Total 1440 ml Output Total 1475 ml Balance -35 ml Laboratory Data Labs 24H Laboratory Tests 2 04/09/19 05:47: Nucleated Red Blood Cells % (auto) 0.0, Anion Gap 7L, Glomerular Filtration Rate 38.7, Blood Urea Nitrogen 45H, Creatinine 1.80H, Sodium Level 141, Potassium Level 4.1, Chloride Level 107, Carbon Dioxide Level 27, Calcium Level 8.6L CBC/BMP Laboratory Tests 04/09/19 05:47 Red Blood Count 2.68 L, Mean Corpuscular Volume 96.6 H, Mean Corpuscular Hemog lobin 30.6, Mean Corpuscular Hemoglobin Concent 31.7 L, Red Cell Distribution Width 14.7 H, Calcium Level 8.6 L Microbiology Microbiology 04/06/19 Blood Culture - Preliminary, Resulted No Growth after 48 hours. All Specime... 04/06/19 Blood Culture - Preliminary, Resulted No Growth after 48 hours. All Specime... 04/08/19 Urine Culture - Final, Complete 04/03/19 Acid Fast Stain, Received Pending 04/03/19 Mycobacterial Culture, Received Pending 04/03/19 Fungal Smear, Received Pending 04/03/19 Fungal Culture, Received Pending 04/03/19 Surgical Biopsy Culture - Final, Complete Discharge Medications Scheduled Apixaban (Eliquis) 5 Mg Tab, 5 MG PO BID, (Reported) Aspirin (Aspir 81) 81 Mg Tab, 81 MG PO DAILY, (Reported) Atorvastatin Calcium (Atorvastatin Calcium) 10 Mg Tab, 10 MG PO QHS, (Reported) Bisoprolol Fumarate (Bisoprolol Fumarate) 5 Mg Tablet, 2.5 MG PO DAILY, (Reported) Chlorthalidone (Chlorthalidone) 25 Mg Tablet, 12.5 MG PO DAILY, (Reported) Cholecalciferol (Vitamin D3) (Vitamin D3) 2,000 Unit Cap, 2,000 UNIT PO DAILY, (Reported) Ciprofloxacin HCl (Cipro) 500 Mg Tablet, 500 MG PO DAILY@06 start 04/10/19 Ferrous Gluconate (Ferrous Gluconate) 324 Mg Tablet, 324 MG PO BID, (Reported) Folic Acid (Folic Acid) 1 Mg Tab, 1 MG PO DAILY, (Reported) Gabapentin (Gabapentin) 600 Mg Tablet, 600 MG PO BID, (Reported) Immune Globulin (Privigen 10% Vial) 400 Ml Vial, 40 GM IV MTHLY, (Reported) NEXT DOSE ON 03/29/19 Lisinopril (Lisinopril) 5 Mg Tab, 5 MG PO QHS, (Reported) Methotrexate Sodium (Methotrexate) 2.5 Mg Tablet, 7.5 MG PO 1XWK, (Reported) MONDAYS Multivitamins (Thera M Plus Tablet) 1 Tab Tab, 1 TAB PO DAILY, (Reported) Nortriptyline HCl (Nortriptyline HCl) 50 Mg Cap, 50 MG PO QHS, (Reported) Potassium Chloride (Potassium Chloride) 20 Meq Tab, 20 MEQ PO DAILY, (Reported) Tamsulosin HCl (Flomax) 0.4 Mg Capsule, 0.4 MG PO DAILY Travoprost (Travatan Z) 50 Drop/2.5 Ml Soln, 1 DROP OU QHS, (Reported) Scheduled PRN Nitroglycerin (Nitrostat) 0.4 Mg Tab.subl, 0.4 MG SL NITRO PRN for CHEST PAIN, (Reported) Triamcinolone Acet (Triamcinolone Acetonide 0.1% Crm) 80 Gm Cream..g., 1 DOSE TOP BID PRN for RASH, (Reported) Allergies Coded Allergies: vancomycin (Verified Allergy, Intermediate, Rash, 03/30/19) Patient developed a generalized red body rash after receiving vanco 12/2018. Penicillins (Verified Allergy, Unknown, 02/28/19) Sulfa (Sulfonamide Antibiotics) (Verified Allergy, Unknown, 02/28/19) nifedipine (Verified Allergy, Unknown, 02/28/19) GREGG CHAVARRIA MD April 09, 2019 11:49
[2019-04-12 00:07] LABS: CMV QUANT DNA PCR, URINE Negative copies/mL (Negative)
== END 2019-04-09 13:20 | disposition home or self-care (01) | DRG 372 ==
LOC: M ED 18:48 → M ED INP 23:36 → M MS4PR 03-28 01:28 → M MS5PR 03-30 20:59
PROVIDERS: ADMIT Internal Medicine; ATTEND Student in an Organized Health Care Education/Training Program
PROC: 30233N1 Transfusion of Nonautologous Red Blood Cells into Peripheral Vein, Percutaneous Approach (ICD-10-PCS; principal; 2019-03-29)
PROC: 0DB68ZX Excision of Stomach, Via Natural or Artificial Opening Endoscopic, Diagnostic (ICD-10-PCS; 2019-03-30)
PROC: 0DBK8ZX Excision of Ascending Colon, Via Natural or Artificial Opening Endoscopic, Diagnostic (ICD-10-PCS; 2019-03-30)
DX: A04.71 Enterocolitis due to Clostridium difficile, recurrent (principal); K92.2 Gastrointestinal hemorrhage, unspecified; N17.9 Acute kidney failure, unspecified; N39.0 Urinary tract infection, site not specified; D62 Acute posthemorrhagic anemia; K52.9 Noninfective gastroenteritis and colitis, unspecified; I48.91 Unspecified atrial fibrillation; D69.6 Thrombocytopenia, unspecified; I10 Essential (primary) hypertension; Z79.899 Other long term (current) drug therapy; Z79.82 Long term (current) use of aspirin; Z88.0 Allergy status to penicillin; Z88.2 Allergy status to sulfonamides; Z88.8 Allergy status to other drugs, medicaments and biological substances; Z95.0 Presence of cardiac pacemaker; Z79.01 Long term (current) use of anticoagulants; K57.30 Diverticulosis of large intestine without perforation or abscess without bleeding; G62.9 Polyneuropathy, unspecified; K64.8 Other hemorrhoids; L95.8 Other vasculitis limited to the skin

== ENCOUNTER → 2019-04-25 | Outpatient (REF) | payer MEDICARE ==
[~2019-04-25] MED LIST changes: +CHLO25TA PO; +CIPR-249 PO; +FERR32TA PO; +FLOM0.4C39 PO; +IMMUN40IV IV; +NITR4TASL SL; +TRIA1CR80 TOP
== END ==
LOC: M SFHCPLAZ 17:18
PROVIDERS: ATTEND Dermatology
DX: C44.310 Basal cell carcinoma of skin of unspecified parts of face (principal)

== ENCOUNTER 2019-05-01 07:03 | Outpatient (CLI) | payer MEDICARE ==
[~2019-05-01] VITALS: Ht 175.3 cm; Wt 79.7 kg
[2019-05-01 07:10] VITALS: BP 129/61
[2019-05-01] MEDS ORDERED: IMMUNE GLOBULIN 10% 40 GM in APPROPRIATE DILUENT 1 EA IV ONE (07:15)
[2019-05-01 08:05] VITALS: BP 132/63
[2019-05-01 08:35] VITALS: BP 130/60
[2019-05-01 09:05] VITALS: BP 125/58
[2019-05-01 10:05] VITALS: BP 137/65
[2019-05-01 10:55] VITALS: BP 149/68
== END 2019-05-01 10:55 | disposition home or self-care (01) ==
LOC: M INFU 07:03
PROVIDERS: ATTEND Psychiatry & Neurology Neurology
DX: G61.81 Chronic inflammatory demyelinating polyneuritis (principal)
CPT/HCPCS: 96365; 96366; J1459

== ENCOUNTER → 2019-05-03 | Outpatient (CLI) | payer MEDICARE ==
[2019-05-03 10:37] LABS: BASO # 0.1 10^3/uL (0.0-0.2); BASO % 1.4 % (0.0-1.0); EOS # 0.7 10^3/uL (0.0-0.50); EOS % 13.1 % (0.0-3.0); HEMATOCRIT 27.6 % (42.0-52.0); HEMOGLOBIN 8.6 g/dl (13.5-17.5); LYMPH # 1.1 10^3/uL (1.5-4.5); LYMPH % 20.5 % (24.0-44.0); MEAN CORPUSCULAR HEMOGLOBIN 30.3 pg (27.0-33.0); MEAN CORPUSCULAR HGB CONC 31.2 g/dl (32.0-36.5); MEAN CORPUSCULAR VOLUME 97.2 fl (80.0-96.0); MONO # 0.7 10^3/uL (0.0-0.8); MONO % 14.2 % (0.0-5.0); NEUTROPHILS # 2.6 10^3/uL (1.8-7.7); NEUTROPHILS % 50.6 % (36.0-66.0); PLATELET COUNT, AUTOMATED 321 10^3/uL (150-450); RED BLOOD COUNT 2.84 10^6/uL (4.30-6.10); WHITE BLOOD COUNT 5.1 10^3/uL (4.0-10.0)
[2019-05-03 11:04] LABS: ALBUMIN 2.8 GM/DL (3.2-5.2); BILIRUBIN,TOTAL 0.5 MG/DL (0.2-1.0); CALCIUM LEVEL 8.4 MG/DL (8.8-10.2); CREATININE FOR GFR 2.43 MG/DL (0.70-1.30); GLOMERULAR FILTRATION RATE 27.4 (>35); POTASSIUM SERUM 4.8 MEQ/L (3.5-5.1); TOTAL PROTEIN 7.1 GM/DL (6.4-8.2)
== END ==
LOC: M SMT 08:11
PROVIDERS: ATTEND Psychiatry & Neurology Neurology
DX: M10.9 Gout, unspecified (principal); G61.81 Chronic inflammatory demyelinating polyneuritis

== ENCOUNTER 2019-05-31 06:51 | Outpatient (CLI) | payer MEDICARE ==
[~2019-05-31] VITALS: Ht 175.3 cm; Wt 79.7 kg
[2019-05-31] MEDS ORDERED: IMMUNE GLOBULIN 10% 40 GM in APPROPRIATE DILUENT 1 EA IV ONE (07:00)
[2019-05-31 07:15] VITALS: BP 134/61
[2019-05-31] MEDS ORDERED: IMMUNE GLOBULIN 10% 20GM 200ML 40 GM in APPROPRIATE DILUENT 1 EA IV ONE (07:15)
[2019-05-31 07:45] VITALS: BP 124/58
[2019-05-31 08:15] VITALS: BP 116/56
[2019-05-31 08:45] VITALS: BP 133/60
[2019-05-31 09:45] VITALS: BP 127/58
[2019-05-31 10:15] VITALS: BP 137/65
== END 2019-05-31 10:32 | disposition home or self-care (01) ==
LOC: M INFU 06:51
PROVIDERS: ATTEND Psychiatry & Neurology Neurology
DX: G61.81 Chronic inflammatory demyelinating polyneuritis (principal)
CPT/HCPCS: 96365; 96366; J1569

== ENCOUNTER → 2019-06-05 | Outpatient (CLI) | payer MEDICARE ==
[2019-06-05 10:11] LABS: BASO % 0.9 % (0.0-1.0); EOS # 0.2 10^3/uL (0.0-0.50); EOS % 4.1 % (0.0-3.0); HEMATOCRIT 26.8 % (42.0-52.0); HEMOGLOBIN 8.6 g/dl (13.5-17.5); LYMPH # 1.2 10^3/uL (1.5-4.5); LYMPH % 25.3 % (24.0-44.0); MEAN CORPUSCULAR HGB CONC 32.1 g/dl (32.0-36.5); MEAN CORPUSCULAR VOLUME 96.8 fl (80.0-96.0); MONO # 0.5 10^3/uL (0.0-0.8); MONO % 11.6 % (0.0-5.0); NEUTROPHILS # 2.7 10^3/uL (1.8-7.7); NEUTROPHILS % 57.9 % (36.0-66.0); PLATELET COUNT, AUTOMATED 270 10^3/uL (150-450); RED BLOOD COUNT 2.77 10^6/uL (4.30-6.10); WHITE BLOOD COUNT 4.6 10^3/uL (4.0-10.0)
[2019-06-05 10:29] LABS: ALBUMIN 3.3 GM/DL (3.2-5.2); BILIRUBIN,TOTAL 0.7 MG/DL (0.2-1.0); CALCIUM LEVEL 8.7 MG/DL (8.8-10.2); CHOLESTEROL RISK RATIO 2.285 (<5); CREATININE FOR GFR 2.04 MG/DL (0.70-1.30); GLOMERULAR FILTRATION RATE 33.5 (>35); POTASSIUM SERUM 4.5 MEQ/L (3.5-5.1); TOTAL PROTEIN 7.6 GM/DL (6.4-8.2)
[2019-06-05 10:36] LABS: CREATININE, URINE 71.4 MG/DL; MAU/CREAT RATIO 336.1 MCG/MG (0.0-30.0)
[2019-06-05 11:31] LABS: HEMOGLOBIN A1c 5.7 %
== END ==
LOC: M SMT 08:00
PROVIDERS: ATTEND Family Medicine
DX: E11.9 Type 2 diabetes mellitus without complications (principal)

== ENCOUNTER 2019-06-28 07:18 | Outpatient (CLI) | payer MEDICARE ==
[~2019-06-28] VITALS: Ht 175.3 cm; Wt 69.0 kg
[~2019-06-28 07:18] MED LIST changes: +IMMUNE GLOBULIN 10% 40 GM in APPROPRIATE DILUENT 1 EA IV ONE
[2019-06-28 07:20] VITALS: BP 162/72
[2019-06-28 08:15] VITALS: BP 152/65
[2019-06-28 08:45] VITALS: BP 132/63
[2019-06-28 09:15] VITALS: BP 149/66
[2019-06-28 09:45] VITALS: BP 168/69
[2019-06-28 11:00] VITALS: BP 142/67
== END 2019-06-28 11:00 | disposition home or self-care (01) ==
LOC: M INFU 07:18
PROVIDERS: ATTEND Psychiatry & Neurology Neurology
DX: G61.81 Chronic inflammatory demyelinating polyneuritis (principal)
CPT/HCPCS: 96365; 96366; J1459

== ENCOUNTER → 2019-07-02 | Outpatient (CLI) | payer MEDICARE ==
[~2019-07-02] MED LIST changes: -IMMUNE GLOBULIN 10% 40 GM in APPROPRIATE DILUENT 1 EA IV ONE
[2019-07-02 13:20] LABS: BASO % 0.9 % (0.0-1.0); EOS # 0.2 10^3/uL (0.0-0.50); EOS % 3.3 % (0.0-3.0); HEMOGLOBIN 8.9 g/dl (13.5-17.5); LYMPH # 1.3 10^3/uL (1.5-4.5); LYMPH % 27.7 % (24.0-44.0); MEAN CORPUSCULAR HEMOGLOBIN 31.9 pg (27.0-33.0); MEAN CORPUSCULAR HGB CONC 31.8 g/dl (32.0-36.5); MEAN CORPUSCULAR VOLUME 100.4 fl (80.0-96.0); MONO # 0.5 10^3/uL (0.0-0.8); MONO % 11.8 % (0.0-5.0); NEUTROPHILS # 2.5 10^3/uL (1.8-7.7); NEUTROPHILS % 55.6 % (36.0-66.0); PLATELET COUNT, AUTOMATED 186 10^3/uL (150-450); RED BLOOD COUNT 2.79 10^6/uL (4.30-6.10); WHITE BLOOD COUNT 4.5 10^3/uL (4.0-10.0)
== END ==
LOC: M SMT 08:23
PROVIDERS: ATTEND Family Medicine
DX: D64.9 Anemia, unspecified (principal)

== ENCOUNTER → 2019-07-24 | Outpatient (REF) | payer MEDICARE ==
[~2019-07-24] MED LIST changes: +BISO5TAB9 PO; +NITR1CAP26 PO
== END ==
LOC: M SFHCPLAZ 10:41
PROVIDERS: ATTEND Dermatology
DX: C44.310 Basal cell carcinoma of skin of unspecified parts of face (principal)

== ENCOUNTER 2019-07-27 07:19 | Outpatient (CLI) | payer MEDICARE ==
[~2019-07-27] VITALS: Ht 175.3 cm; Wt 69.0 kg
[~2019-07-27 07:19] MED LIST changes: -NITR1CAP26 PO
[2019-07-27 07:30] VITALS: BP 154/66
[2019-07-27 08:30] VITALS: BP 129/60
[2019-07-27 09:00] VITALS: BP 150/70
[2019-07-27] MEDS ORDERED: IMMUNE GLOBULIN 10% 40 GM in APPROPRIATE DILUENT 1 EA IV ONE (09:00)
[2019-07-27 09:30] VITALS: BP 156/67
[2019-07-27 10:30] VITALS: BP 165/72
[2019-07-27 11:30] VITALS: BP 145/62
== END 2019-07-27 11:55 | disposition home or self-care (01) ==
LOC: M INFU 07:19
PROVIDERS: ATTEND Psychiatry & Neurology Neurology
DX: G61.81 Chronic inflammatory demyelinating polyneuritis (principal)
CPT/HCPCS: 96365; 96366; J1459

== ENCOUNTER → 2019-08-17 | Outpatient (REF) | payer MEDICARE ==
[2019-08-17 15:40] LABS: BASO # 0.1 10^3/uL (0.0-0.2); BASO % 1.3 % (0.0-1.0); EOS # 0.2 10^3/uL (0.0-0.5); EOS % 4.1 % (0.0-3.0); HEMATOCRIT 31.6 % (42.0-52.0); LYMPH # 1.1 10^3/uL (1.5-5.0); LYMPH % 24.7 % (24.0-44.0); MEAN CORPUSCULAR HEMOGLOBIN 31.8 pg (27.0-33.0); MEAN CORPUSCULAR HGB CONC 31.6 g/dl (32.0-36.5); MEAN CORPUSCULAR VOLUME 100.6 fl (80.0-96.0); MONO # 0.6 10^3/uL (0.0-0.8); MONO % 12.6 % (0.0-5.0); NEUTROPHILS # 2.6 10^3/uL (1.5-8.5); NEUTROPHILS % 57.1 % (36.0-66.0); PLATELET COUNT, AUTOMATED 214 10^3/uL (150-450); RED BLOOD COUNT 3.14 10^6/uL (4.30-6.10); WHITE BLOOD COUNT 4.6 10^3/uL (4.0-10.0)
[2019-08-17 16:50] LABS: ALBUMIN 3.8 GM/DL (3.2-5.2); BILIRUBIN,TOTAL 0.5 MG/DL (0.2-1.0); CALCIUM LEVEL 9.1 MG/DL (8.8-10.2); CREATININE FOR GFR 2.21 MG/DL (0.70-1.30); GLOMERULAR FILTRATION RATE 30.5 (>35); POTASSIUM SERUM 5.2 MEQ/L (3.5-5.1); TOTAL PROTEIN 7.8 GM/DL (6.4-8.2)
== END ==
LOC: M LABNEURO 09:33
PROVIDERS: ATTEND Psychiatry & Neurology Neurology
DX: D64.9 Anemia, unspecified (principal); N18.9 Chronic kidney disease, unspecified

== ENCOUNTER 2019-08-28 07:24 | Outpatient (CLI) | payer MEDICARE ==
[~2019-08-28] VITALS: Ht 175.3 cm; Wt 69.0 kg
[2019-08-28] VITALS (7 sets, daily range): BP systolic 10–150; BP diastolic 53–66
[2019-08-28] MEDS ORDERED: IMMUNE GLOBULIN 10% 40 GM in IV 1 EA IV ONE (08:00)
[2019-08-28] MEDS ORDERED: NITR1CAP26 PO (08:04)
== END 2019-08-28 12:00 | disposition home or self-care (01) ==
LOC: M INFU 07:24
PROVIDERS: ATTEND Psychiatry & Neurology Neurology
DX: G61.81 Chronic inflammatory demyelinating polyneuritis (principal)
CPT/HCPCS: 96365; 96366; J1459

== ENCOUNTER 2019-09-25 07:13 | Outpatient (CLI) | payer MEDICARE ==
[~2019-09-25] VITALS: Ht 175.3 cm; Wt 69.0 kg
[~2019-09-25 07:13] MED LIST changes: +IMMUNE GLOBULIN 10% 40 GM in IV 1 EA IV ONE; +NITR1CAP26 PO
[2019-09-25 07:58] VITALS: BP 156/69
[2019-09-25 08:12] VITALS: BP 146/64
[2019-09-25 08:45] VITALS: BP 152/72
[2019-09-25 09:14] VITALS: BP 157/67
[2019-09-25 10:10] VITALS: BP 162/67
[2019-09-25 11:30] VITALS: BP 166/77
== END 2019-09-25 11:30 | disposition home or self-care (01) ==
LOC: M INFU 07:13
PROVIDERS: ATTEND Psychiatry & Neurology Neurology
DX: G61.81 Chronic inflammatory demyelinating polyneuritis (principal)
CPT/HCPCS: 96365; 96366; J1459

== ENCOUNTER 2019-10-23 07:22 | Outpatient (CLI) | payer MEDICARE ==
[2019-10-23] VITALS (7 sets, daily range): BP systolic 134–150; BP diastolic 60–77
[~2019-10-23] VITALS: Ht 175.3 cm; Wt 81.0 kg
[~2019-10-23 07:22] MED LIST changes: -IMMUNE GLOBULIN 10% 40 GM in IV 1 EA IV ONE
[2019-10-23] MEDS ORDERED: IMMUNE GLOBULIN 10% 40 GM in IV 1 EA IV ONE (08:00)
== END 2019-10-23 11:00 | disposition home or self-care (01) ==
LOC: M INFU 07:22
PROVIDERS: ATTEND Psychiatry & Neurology Neurology
DX: G61.81 Chronic inflammatory demyelinating polyneuritis (principal); Z88.0 Allergy status to penicillin; Z88.1 Allergy status to other antibiotic agents; Z88.2 Allergy status to sulfonamides; Z88.8 Allergy status to other drugs, medicaments and biological substances
CPT/HCPCS: 96365; 96366; J1459

== ENCOUNTER → 2019-11-07 | Outpatient (REF) | payer MEDICARE ==
[~2019-11-07] MED LIST changes: +BISO5TAB14 PO; -BISO5TAB9 PO; -MECL-68; +MECL1TAB31
== END ==
LOC: M LAB REF 18:05
PROVIDERS: ATTEND Dermatology
DX: C44.320 Squamous cell carcinoma of skin of unspecified parts of face (principal); D04.62 Carcinoma in situ of skin of left upper limb, including shoulder; L57.0 Actinic keratosis

== ENCOUNTER 2019-11-27 07:17 | Outpatient (CLI) | payer MEDICARE ==
[~2019-11-27] VITALS: Ht 175.3 cm; Wt 81.0 kg
[2019-11-27 07:30] VITALS: BP 139/61
[2019-11-27] MEDS ORDERED: IMMUNE GLOBULIN 10% 40 GM in IV 1 EA IV ONE (07:30)
[2019-11-27 07:56] VITALS: BP 101/50
[2019-11-27 08:28] VITALS: BP 128/69
[2019-11-27 09:03] VITALS: BP 136/68
[2019-11-27 10:05] VITALS: BP 141/69
[2019-11-27 10:51] VITALS: BP 152/68
== END 2019-11-27 10:50 | disposition home or self-care (01) ==
LOC: M INFU 07:17
PROVIDERS: ATTEND Psychiatry & Neurology Neurology
DX: G61.81 Chronic inflammatory demyelinating polyneuritis (principal); Z88.0 Allergy status to penicillin; Z88.1 Allergy status to other antibiotic agents; Z88.2 Allergy status to sulfonamides
CPT/HCPCS: 96365; 96366; J1459

== ENCOUNTER 2019-12-25 07:39 | Outpatient (CLI) | payer MEDICARE ==
[~2019-12-25] VITALS: Ht 175.3 cm; Wt 81.0 kg
[2019-12-25] MEDS ORDERED: IMMUNE GLOBULIN 10% 40 GM in IV 1 EA IV ONE (08:00)
[2019-12-25 08:15] VITALS: BP 139/73
[2019-12-25 08:45] VITALS: BP 138/63
[2019-12-25 09:45] VITALS: BP 135/61
[2019-12-25 11:50] VITALS: BP 163/73
== END 2019-12-25 11:50 | disposition home or self-care (01) ==
LOC: M INFU 07:39
PROVIDERS: ATTEND Psychiatry & Neurology Neurology
DX: G61.81 Chronic inflammatory demyelinating polyneuritis (principal); Z88.0 Allergy status to penicillin; Z88.2 Allergy status to sulfonamides; Z88.8 Allergy status to other drugs, medicaments and biological substances
CPT/HCPCS: 96365; 96366; J1459

== ENCOUNTER → 2020-01-14 | Outpatient (REF) | payer MEDICARE | LOC: M LAB REF 10:01 | PROVIDERS: ATTEND Dermatology | DX: D04.30 Carcinoma in situ of skin of unspecified part of face (principal); L57.0 Actinic keratosis ==

== ENCOUNTER 2020-01-22 07:20 | Outpatient (CLI) | payer MEDICARE ==
[~2020-01-22] VITALS: Ht 175.3 cm; Wt 81.0 kg
[2020-01-22 07:25] VITALS: BP 129/81
[2020-01-22] MEDS ORDERED: IMMUNE GLOBULIN 10% 40 GM in IV 1 EA IV ONE (08:00)
[2020-01-22 08:15] VITALS: BP 122/59
[2020-01-22 08:45] VITALS: BP 150/68
[2020-01-22 09:15] VITALS: BP 146/64
[2020-01-22 11:00] VITALS: BP 148/70
== END 2020-01-22 11:00 | disposition home or self-care (01) ==
LOC: M INFU 07:20
PROVIDERS: ATTEND Psychiatry & Neurology Neurology
DX: G61.81 Chronic inflammatory demyelinating polyneuritis (principal); Z88.0 Allergy status to penicillin; Z88.2 Allergy status to sulfonamides; Z88.8 Allergy status to other drugs, medicaments and biological substances
CPT/HCPCS: 96365; 96366; J1459

== ENCOUNTER → 2020-02-25 | Outpatient (REF) | payer MEDICARE | LOC: M LAB REF 09:54 | PROVIDERS: ATTEND Dermatology | DX: L57.8 Other skin changes due to chronic exposure to nonionizing radiation (principal) ==

== ENCOUNTER → 2020-05-05 | Outpatient (REF) | payer MEDICARE ==
[~2020-05-05] MED LIST changes: -ASPI81TA85 PO; +ASPI81TA86 PO
== END ==
LOC: M LAB REF 17:40
PROVIDERS: ATTEND Dermatology
DX: L82.1 Other seborrheic keratosis (principal)

== ENCOUNTER → 2020-05-30 | Outpatient (CLI) | payer MEDICARE ==
[2020-05-30 11:28] LABS: FREE T4 0.92 NG/DL (0.76-1.46); THYROID STIMULATING HORMONE 2.14 uIU/ML (0.358-3.740)
== END ==
LOC: M PLALAB 09:04
PROVIDERS: ATTEND Nurse Practitioner Family
DX: R94.6 Abnormal results of thyroid function studies (principal)

== ENCOUNTER → 2021-02-02 | Outpatient (CLI) | payer MEDICARE ==
[~2021-02-02] MED LIST changes: +GABA-282 PO; -GABA-843 PO; -LISI-542 PO; +LISI-898 PO
[2021-02-02 12:58] LABS: BASO # 0.1 10^3/uL (0.0-0.2); BASO % 1.2 % (0.0-1.0); EOS # 0.3 10^3/uL (0.0-0.5); EOS % 7.1 % (0.0-3.0); HEMATOCRIT 33.3 % (42.0-52.0); HEMOGLOBIN 10.6 g/dl (13.5-17.5); LYMPH # 1.1 10^3/uL (1.5-5.0); LYMPH % 25.8 % (24.0-44.0); MEAN CORPUSCULAR HEMOGLOBIN 34.6 pg (27.0-33.0); MEAN CORPUSCULAR HGB CONC 31.8 g/dl (32.0-36.5); MEAN CORPUSCULAR VOLUME 108.8 fl (80.0-96.0); MONO # 0.6 10^3/uL (0.0-0.8); MONO % 14.1 % (2.0-8.0); NEUTROPHILS # 2.1 10^3/uL (1.5-8.5); NEUTROPHILS % 51.6 % (36.0-66.0); PLATELET COUNT, AUTOMATED 232 10^3/uL (150-450); RED BLOOD COUNT 3.06 10^6/uL (4.30-6.10); WHITE BLOOD COUNT 4.1 10^3/uL (4.0-10.0)
[2021-02-02 13:39] LABS: ALBUMIN 3.7 GM/DL (3.2-5.2); BILIRUBIN,TOTAL 0.4 MG/DL (0.2-1.0); CALCIUM LEVEL 8.9 MG/DL (8.8-10.2); CHOLESTEROL RISK RATIO 1.805 (<5); CREATININE FOR GFR 1.59 MG/DL (0.70-1.30); FREE T4 0.88 NG/DL (0.76-1.46); GLOMERULAR FILTRATION RATE 44.5 (>35); POTASSIUM SERUM 4.7 MEQ/L (3.5-5.1); THYROID STIMULATING HORMONE 2.74 uIU/ML (0.358-3.740); TOTAL PROTEIN 7.3 GM/DL (6.4-8.2)
[2021-02-02 14:44] LABS: HEMOGLOBIN A1c 5.5 %
== END ==
LOC: M PLALAB 09:04
PROVIDERS: ATTEND Nurse Practitioner Family
DX: I10 Essential (primary) hypertension (principal); Z79.899 Other long term (current) drug therapy

== ENCOUNTER → 2021-02-24 | Outpatient (CLI) | payer MEDICARE ==
[~2021-02-24] MED LIST changes: +ISOVUE-370 76% 100ML VIAL As Ordered ONE
--- NOTE | 2021-02-24 09:47 | REP ---
INDICATION: SOLITARY PULMONARY NODULE. COMPARISON: The visualized lower lung brown on abdomen/pelvis CT studies dated 03/27/2019 and 03/30/2019. TECHNIQUE: Chest CT with IV contrast. FINDINGS: Within the visualized lower lung brown on the abdomen/pelvis CT studies of 03/27/2019 and 03/30/2019. A 1 cm nodule was identified in the lateral segment of the right middle lobe, on pages 6 and 9 respectively. On the study today this nodule is no longer present and has apparently involuted. There are no other lung nodules or masses. There are no infiltrates or pleural effusions. There are small calcified granulomas in the left infrahilar zone. There is no mediastinal or hilar lymph node enlargement. There is no axillary lymphadenopathy. The thoracic aorta is unremarkable. Cardiac size is enlarged. There is no pericardial effusion. There is a pacemaker. Upper abdomen: There is a 13 mm hypodensity in the dome of the liver posteromedially as an interval change, nonspecific but possibly an hemangioma or cyst. The gallbladder, pancreas and spleen are normal size and unremarkable. The adrenals are unremarkable. The renal upper poles demonstrate cortical atrophy but are otherwise unremarkable. There are numerous diverticula in the visualized transverse colon. No diverticulitis. IMPRESSION: The right middle lobe lung nodule identified on the comparison abdomen/pelvis CT is no longer present on the study today suggesting that it has involuted. There are no other lung nodules or masses. There are no infiltrates or pleural effusions. There is no adenopathy. There is cardiomegaly. There is a pacemaker. No pericardial effusion. There is a new 13 mm hypodensity in the dome of the liver posteromedially, not present previously, likely an hepatic cyst or hemangioma, however, ultrasound follow-up is recommended as this is a new finding. Renal cortical atrophy in the visualized renal upper poles. There is extensive diverticulosis in the visualized transverse colon. No diverticulitis. <Electronically signed by Derek Adam > 02/24/21 [id number]
== END ==
LOC: M RAD 08:50
PROVIDERS: ATTEND Nurse Practitioner Family
DX: R91.1 Solitary pulmonary nodule (principal); Z95.0 Presence of cardiac pacemaker; I51.7 Cardiomegaly
CPT/HCPCS: 71260; Q9967

== ENCOUNTER → 2021-03-11 | Outpatient (CLI) | payer MEDICARE ==
[~2021-03-11] MED LIST changes: -ISOVUE-370 76% 100ML VIAL As Ordered ONE
--- NOTE | 2021-03-11 09:28 | REP ---
INDICATION: ABN IMAGING HYPO DENSITY OF DOME LIVE COMPARISON: None. TECHNIQUE: Real time franco scale ultrasound examination using curved array transducer. FINDINGS: Liver demonstrates anechoic structure in the right lobe approaching the dome measuring 1.3 x 1.1 x 1.6 cm compatible with the finding on recent CT likely representing small cyst. Liver otherwise demonstrates fatty infiltration without obvious further abnormality identified. Gallbladder is unremarkable and without gallstones, wall thickening, or pericholecystic fluid. No biliary ductal dilatation is appreciated and the common bile duct measures 2.7 mm diameter. Pancreas is incompletely evaluated but visualized portions appear grossly normal. The right kidney is normal in reniform shape without hydronephrosis and measures 10.4 x 5.1 x 4.8 cm. No ascites in the visualized right upper quadrant. IMPRESSION: 1. Hypodensity at the dome of the liver right lobe compatible with finding on CT and likely representing benign cyst. 2. Hepatosteatosis. <Electronically signed by Jose Barahona > 03/11/21 0924
== END ==
LOC: M RAD 08:44
PROVIDERS: ATTEND Nurse Practitioner Family
DX: R93.5 Abnormal findings on diagnostic imaging of other abdominal regions, including retroperitoneum (principal)

== ENCOUNTER → 2021-05-06 | Outpatient (REF) | payer MEDICARE | LOC: M LAB REF 14:52 | PROVIDERS: ATTEND Physician Assistant | DX: D04.39 Carcinoma in situ of skin of other parts of face (principal) | CPT/HCPCS: 11102; 17000; 17003; 88305; G0463 ==

== ENCOUNTER 2021-06-13 17:38 | Emergency (ER) | payer MEDICARE ==
[~2021-06-13] VITALS: Ht 170.2 cm; Wt 90.0 kg
[2021-06-13 17:39] VITALS: BP 172/78
[2021-06-13 18:50] LABS: BASO % 0.6 % (0.0-1.0); EOS # 0.1 10^3/uL (0.0-0.5); EOS % 1.2 % (0.0-3.0); HEMATOCRIT 32.3 % (42.0-52.0); HEMOGLOBIN 10.7 g/dl (13.5-17.5); LYMPH # 0.4 10^3/uL (1.5-5.0); MEAN CORPUSCULAR HGB CONC 33.1 g/dl (32.0-36.5); MEAN CORPUSCULAR VOLUME 108.8 fl (80.0-96.0); MONO # 0.4 10^3/uL (0.0-0.8); MONO % 6.4 % (2.0-8.0); NEUTROPHILS # 5.7 10^3/uL (1.5-8.5); NEUTROPHILS % 85.4 % (36.0-66.0); PLATELET COUNT, AUTOMATED 200 10^3/uL (150-450); RED BLOOD COUNT 2.97 10^6/uL (4.30-6.10); WHITE BLOOD COUNT 6.7 10^3/uL (4.0-10.0)
[2021-06-13 19:07] LABS: C REACTIVE PROTEIN QUANTITATIV 3.22 MG/DL (0.00-0.30); CALCIUM LEVEL 8.6 MG/DL (8.8-10.2); CREATININE FOR GFR 1.49 MG/DL (0.70-1.30); GLOMERULAR FILTRATION RATE 47.9 (>35); POTASSIUM SERUM 4.6 MEQ/L (3.5-5.1)
[2021-06-13 19:29] LABS: ERYTHROCYTE SEDIMENTATION RATE 49 mm/hr (0-20)
[2021-06-13] MEDS ORDERED: CLINDAMYCIN 900 MG in IV 1 EA IV ONE (19:45)
[2021-06-13] MEDS ORDERED: BOOSTRIX/ADACEL VACCINE (DIPHTH/PERTUSS/ACELL/TETANUS) 0.5ML SYR IM ONE (19:50)
[2021-06-13] MEDS ORDERED: CLEO300C2 PO (20:55)
== END 2021-06-13 21:38 | disposition home or self-care (01) ==
LOC: M ED 17:38
DX: L03.116 Cellulitis of left lower limb (principal); I10 Essential (primary) hypertension; I25.2 Old myocardial infarction; E78.2 Mixed hyperlipidemia; R51.9 Headache, unspecified; G90.09 Other idiopathic peripheral autonomic neuropathy; Z95.0 Presence of cardiac pacemaker; Z79.01 Long term (current) use of anticoagulants; Z79.899 Other long term (current) drug therapy; Z88.0 Allergy status to penicillin; Z88.1 Allergy status to other antibiotic agents; Z88.2 Allergy status to sulfonamides

== ENCOUNTER → 2021-09-03 | Outpatient (CLI) | payer MEDICARE ==
[~2021-09-03] MED LIST changes: +CLEO300C2 PO
[2021-09-03 14:48] LABS: ALBUMIN 3.4 GM/DL (3.2-5.2); BILIRUBIN,TOTAL 0.6 MG/DL (0.2-1.0); CALCIUM LEVEL 8.6 MG/DL (8.8-10.2); CHOLESTEROL RISK RATIO 2.283 (<5); CREATININE FOR GFR 1.76 MG/DL (0.70-1.30); FREE T4 0.9 NG/DL (0.76-1.46); GLOMERULAR FILTRATION RATE 39.5 (>35); POTASSIUM SERUM 4.5 MEQ/L (3.5-5.1); THYROID STIMULATING HORMONE 3.52 uIU/ML (0.358-3.740); TOTAL PROTEIN 8.1 GM/DL (6.4-8.2)
[2021-09-03 15:03] LABS: MAU/CREAT RATIO 185.5 MCG/MG (0.0-30.0)
[2021-09-03 16:24] LABS: HEMOGLOBIN A1c 5.5 %
== END ==
LOC: M PLALAB 08:50
PROVIDERS: ATTEND Nurse Practitioner Family
DX: E11.42 Type 2 diabetes mellitus with diabetic polyneuropathy (principal); I10 Essential (primary) hypertension; E03.9 Hypothyroidism, unspecified

== ENCOUNTER → 2021-09-17 | Outpatient (CLI) | payer MEDICARE ==
[2021-09-17 10:40] LABS: HEMATOCRIT 35.4 % (42.0-52.0); HEMOGLOBIN 11.6 g/dl (13.5-17.5); MEAN CORPUSCULAR HEMOGLOBIN 36.1 pg (27.0-33.0); MEAN CORPUSCULAR HGB CONC 32.8 g/dl (32.0-36.5); MEAN CORPUSCULAR VOLUME 110.3 fl (80.0-96.0); PLATELET COUNT, AUTOMATED 232 10^3/uL (150-450); RED BLOOD COUNT 3.21 10^6/uL (4.30-6.10)
== END ==
LOC: M PLALAB 08:48
PROVIDERS: ATTEND Physician Assistant
DX: I49.5 Sick sinus syndrome (principal)

== ENCOUNTER → 2021-09-23 | Outpatient (CLI) | payer MEDICARE ==
[~2021-09-23] MED LIST changes: +ECOT81TA5 PO
== END ==
LOC: M LABSMTC 10:00
PROVIDERS: ATTEND Anesthesiology
DX: Z01.818 Encounter for other preprocedural examination (principal); Z11.52 Encounter for screening for COVID-19

== ENCOUNTER 2021-09-28 10:48 | Day surgery (SDC) | payer MEDICARE ==
[~2021-09-28] VITALS: Ht 175.3 cm; Wt 90.2 kg
[~2021-09-28 10:48] MED LIST changes: +LR 1,000 ML IV ONE; +ceFAZolin SOD 2 GM in IV 1 EA IV ONE
--- OUTSIDE RECORDS SUMMARY | 2021-09-28 10:54 | CCD | Continuity of Care Document ---
Author Author Jacky LECHUGA Organization Unknown Address [address] [place] [address] Phone [phone] Care Team Providers Care Roll Former Name Role Phone Brian Campos AUTM [phone] Maty Emanuel MD AUTM [phone] Dilip BOWEN M.D., Han Ortiz AUTM [phone] Markos Augustine MD AUTM [phone] Problems Active Problems Provider Date Essential hypertension Bettina Soto M.D. Onset: 02/01 Atrial fibrillation Bettina Soto M.D. Onset: 02/02/20 11 Persistent atrial fibrillation Bettina Soto M.D. Onsgagan t: 10/28/2015 Persistent atrial fibrillation Bettina Soto M.D. Onse t: 04/28/2016 Chronic kidney disease stage 3 Onset: Type 2 diabetes mellitus Juliana Lechuga FNP Onset: 021 Multiple sclerosis Juliana Lechuga FNP Onset: 02/19/2021 Social History Type Date Description Comments Sex Unknown Tobacco Use Start: Unknown Never Smoked Cigarettes Tobacco Use Start: Unknown Never Used Smokeless Tobacco ETOH Use Drinks 2 Alcoholic Beverages Per Day Recreational Drug Use Never Used Drugs Tobacco Use Start: Unknown Patient has never smoked Smoking Status Reviewed: 08/24/21 Patient has never smoked Exercise Type/Frequency Exercises regularly Exercise Type/Frequency Walks 5 times a week Tattoo/Piercing None Sun Exposure Moderate amount of sun exposure Sun Exposure Does not use sunscreen Seat Belt/Car Seat Always uses seat belt Guns in Home No Smoke Alarms Yes Smoke Alarms Carbon Monoxide Detector: Yes Allergies and adverse reactions Active Allergies Criticality Reaction | Severity Comments Date Septra Unable to assess criticality lips swelled , sores all over his lips 03/04/2009 Procardia Unable to assess criticality rash 03/04/2009 Ampicillin Unable to assess criticality rash 03/04/2009 Hydrochlorothiazide Unable to assess criticality 04/26/2013 Medications Active Medications SIG Qnty Indications Ordering Provide r Date Levothyroxine Sodium 25mcg Tablets Take One Tablet By Mouth Every Day 90tabs E03.9 Juliana Lechuga F NP 04/16/2020 Allopurinol 100mg Tablets 2 tabs daily for a total of 200 mg by mouth every day 180tabs M10.9 Wale Lechuga FNP 02/14/2020 Gabapentin 300mg Capsules 1 by mouth two times a day 180caps G61.81 Juliana Lechuga FNP 08/17/2019 Meclizine HCL 25mg Tablets 1 by mouth two times a day as needed vertigo 60tabs Juliana Lechuga F NP 08/17/2019 Methotrexate 2.5mg Tablets 3 tabs once a week tuesday 14tabs G61.81 Juliana Lechuga FNP 04/10/2019 Nitrostat 0.4mg Tablets Sub place one tablet under the tongue every 5 minutes for up to 3 doses as needed for chest pain. call 911 after the 3rd dose Unknown 04/10/2019 Flomax 0.4mg Capsules take one capsule by mouth at bedtime 90caps N40.0 Juliana Lechuga FNP 04/10/2019 Lisinopril 5mg Tablets 1 by mouth every day at bedtime 90tabs I10 Juliana Lechuga FNP 04/10/2019 Aspirin Childrens 81mg Chewtabs one po daily Chandler Gandara MD Eliquis 2.5mg Tablets take 1 tablet by mouth twice a day I48.19 Nigel Zuñiga M.D. 0 Chlorthalidone 25mg Tablets Take One-Half Tablet By Mouth Every Day In The Morning 45tabs I10 Juliana Harris FNP Travoprost 0.004% Solution one gtt. each eye daily Maty Emanuel MD Folic Acid 1mg Tablets 1 by mouth every day 30tabs Unknown Gamma Globulin Antibodies Solutio n once a month IV G61.81 Andres, [facility] Nortriptyline HCL 50mg Capsules one po at hs Ali, Brian Klor-Con M20 20Meq Tablets ER 1 by mouth every day 90tabs I10 Chandler Gandara MD Centrum Silver Tablets 1 po qd OTC Unknown History Medications Clindamycin HCL 300mg Capsules 1 by mouth three times a dayfor 10 days Unknown - 08/24/2021 Immunizations CPT Code Status Date Vaccine Lot # [id number] Given 08/21/2021 Moderna Sars-(Co vid-19) vaccine, mRNA, LNP-S, PF, 100 mcg/ 0.5 mL [id number] Given 06/13/2021 Boostrix (Tdap) Tetnus, Diphtheria Toxoids & Acellular Pertussis 76440 Given 01/30/2021 Moderna Sars-(Co vid-19) vaccine, mRNA, LNP-S, PF, 100 mcg/ 0.5 mL 38787 Given 01/01/2021 Moderna Sars-(Co vid-19) vaccine, mRNA, LNP-S, PF, 100 mcg/ 0.5 mL 70479 Given 09/11/2019 Influenza Virus Vaccine, Maury drivalent,multidose vial [id number] 79390 Given 09/05/2018 Influenza Virus Vaccine, Maury drivalent,multidose vial [id number] Q2038 Given 08/22/2017 Influenza Vaccine (Fluzone)( medicare) [id number] Given 09/03/2016 Influenza Vaccine (Fluzone)( medicare) [id number] 64437 Given 07/24/2015 Influenza Vaccination 02449 Given 06/04/2015 Zostavax 11076 Given 04/28/2015 Prevnar 13 [id number] Q2038 Given 09/03/2014 Influenza Vaccine (Fluzone)( medicare) [id number] 13227 Given 09/03/2014 Boostrix (Tdap) Tetnus, Diphtheria Toxoids & Acellular Pertussis [id number] Q2038 Given 08/17/2013 Influenza Vaccine (Fluzone)( medicare) 18658 Given 08/17/2013 Influenza Vaccination [id number] Q2038 Given 08/04/2012 Influenza Vaccine (Fluzone)( medicare) 50377 Given 08/04/2012 Influenza Vaccination [id number] 46257 Given 08/03/2010 Pneumococcal Vaccine [id number] 56484 Given 08/03/2010 Influenza Vaccination [id number] 87251 Given 09/02/2009 Influenza Vaccination [id number] Vital Signs Date Vital Result Comment 08/24/2021 8:47am BP Systolic 154 mmHg BP Diastolic 63 mmHg Heart Rate 67 /min Body Temperature 96.8 F Respiratory Rate 17 /min Height 69 inches 5'9" Weight 198.12 lb O2 % BldC Oximetry 98 % [place] Body Weight 160 lb BMI (Body Mass Index) 29.3 kg/m2 06/04/2021 2:14pm BP Systolic 155 mmHg BP Diastolic 59 mmHg Heart Rate 76 /min Body Temperature 97.2 F Respiratory Rate 15 /min Height 69 inches 5'9" Weight 195.38 lb [place] Body Weight 160 lb BMI (Body Mass Index) 28.8 kg/m2 Results Test Acquired Date Facility Test Result H/L Range Note Hemoglobin A1c 09/03/2021 [facility] nter [phone] Hemoglobin A1c 5.5 % Normal 1 Estimated Average Glucose 111 mg/dL High 60-110 Microalbumin Random 09/03/2021 [facility] nter [phone] Creatinine, Urine 111.0 mg/dL Normal Malb Urine Siemens 206.0 mg/L Normal Dmitriy/Creat Ratio 185.5 MCG/MG High 0.0-30.0 2 Comprehensive Metabolic Profil 09/03/2021 [facility] [phone] Glucose, Fasting 114 mg/dL High 70-100 Blood Urea Nitrogen 22 mg/dL High 7-18 Creatinine For GFR 1.76 mg/dL High 0.70-1.30 Glomerular Filtration Rate 39.5 Normal >35 3 Sodium Level 138 mEq/L Normal 136-145 Potassium Serum 4.5 mEq/L Normal 3.5-5.1 Chloride Level 107 mEq/L Normal 98-107 Carbon Dioxide Level 24 mEq/L Normal 21-32 Anion Gap 7 mEq/L Low 8-16 Calcium Level 8.6 mg/dL Low 8.8-10.2 Ast/Sgot 23 U/L Normal 7-37 Alt/SGPT 25 U/L Normal 12-78 Alkaline Phosphatase 74 U/L Normal 45-117 Bilirubin,Total 0.6 mg/dL Normal 0.2-1.0 Total Protein 8.1 GM/DL Normal 6.4-8.2 Albumin 3.4 GM/DL Normal 3.2-5.2 Albumin/Globulin Ratio 0.7 Normal Lipid Panel 09/03/2021 [facility] [phone] Triglycerides Level 67 mg/dL Normal <150 Cholesterol Level 153 mg/dL Normal <200 HDL Cholesterol 67 mg/dL Normal >40 LDL Cholesterol 73 mg/dL Normal <100 Non-HDL-C 86 mg/dL Normal Cholesterol Risk Ratio 2.283 Normal <5 TSH And T4 Free ([facility]) 09/03/2021 [facility] [phone] Thyroid Stimulating Hormone 3.520 uIU/ML Normal 0. 358-3.740 Free T4 0.90 ng/dL Normal 0.76-1.46 Basic Metabolic Profile 06/13/2021 [place] [address] [phone] Glucose, Fasting 119 mg/dL High 70-100 Blood Urea Nitrogen 28 mg/dL High 7-18 Creatinine For GFR 1.49 mg/dL High 0.70-1.30 Glomerular Filtration Rate 47.9 Normal >35 4 Sodium Level 142 mEq/L Normal 136-145 Potassium Serum 4.6 mEq/L Normal 3.5-5.1 Chloride Level 112 mEq/L High 98-107 Carbon Dioxide Level 23 mEq/L Normal 21-32 Anion Gap 7 mEq/L Low 8-16 Calcium Level 8.6 mg/dL Low 8.8-10.2 Laboratory test finding 06/13/2021 [place] [address] [phone] C Reactive Protein Quantitativ 3.22 mg/dL High 0 .00-0.30 CBC With Differential 06/13/2021 [place] [address] [phone] White Blood Count 6.7 10 Normal 4.0-10.0 Red Blood Count 2.97 10 Low 4.30-6.10 Hemoglobin 10.7 g/dL Low 13.5-17.5 Hematocrit 32.3 % Low 42.0-52.0 Mean Corpuscular Volume 108.8 fl High 80.0-96.0 Mean Corpuscular Hemoglobin 36.0 pg High 27.0-33.0 Mean Corpuscular HGB Conc 33.1 g/dL Normal 32.0-36.5 Red Cell Distribution Width 15.3 % High 11.5-14.5 Platelet Count, Automated 200 10 Normal 150-450 Neutrophils % 85.4 % High 36.0-66.0 Lymph % 6.0 % Low 24.0-44.0 [place] % 6.4 % Normal 2.0-8.0 Eos % 1.2 % Normal 0.0-3.0 Baso % 0.6 % Normal 0.0-1.0 Immature Granulocyte % 0.4 % Normal 0-3.0 Nucleated Red Blood Cell % 0.0 % Normal 0-0 Neutrophils # 5.7 10 Normal 1.5-8.5 Lymph # 0.4 10 Low 1.5-5.0 [place] # 0.4 10 Normal 0.0-0.8 Eos # 0.1 10 Normal 0.0-0.5 Baso # 0.0 10 Normal 0.0-0.2 Laboratory test finding 06/13/2021 [place] [address] [phone] Erythrocyte Sedimentation Rate 49 mm/hr High 0 -20 1 REFERENCE RANGES: <=5.6% NORMAL 5.7-6.4% SUGGESTS IMPAIRED GLUCOSE META BOLISM/PREDIABETIC >= 6.5% ABNORMAL 2 THE [employer] ATION STATES THAT MICROALBUMINURIA IS PRESENT IF THE MICROALBUMIN/CREATININE RATIO EXCEEDS 30 MCG/MG. THE THRESHOLD FOR CLINICAL ALBUMINURIA IS REACHED AT 300 MCG/MG. THE CLASSIFICATION OF A PATIENT SHOULD BE BASED UPON AT LEAST 2 OF 3 ABNORMAL RESULTS ON SPECIMENS COLLECTED WITHIN A 3 TO 6 MONTH TIME FRAME. 3 Units are mL/min/1.73 m2 Chronic Kidney Disease Staging per NKF: Stage I & II GFR >=60 Normal to Mildly Decreased Stage III GFR 30-59 Moderately Decreased Stage IV GFR 15-29 Severely Decreased Stage V GFR <15 Very Little GFR Left ESRD GFR <15 on BEH[employer]IOR[employer]PARTMENT CHAIR 4 Units are mL/min/1.73 m2 Chronic Kidney Disease Staging per NKF: Stage I & II GFR >=60 Normal to Mildly Decreased Stage III GFR 30-59 Moderately Decreased Stage IV GFR 15-29 Severely Decreased Stage V GFR <15 Very Little GFR Left ESRD GFR <15 on BEHAVIORAL SCI[employer] DEPARTMENT CHAIR Procedures Date Code Description Status 08/24/2021 63750 Office/Outpatient Established Mo d MDM 30-39 Min Completed 08/24/2021 630162246 Diabetic Foot Exam Completed 08/10/2021 56034 Chronic Care MGMT 20 Mins Clinical Staff Time Per Calendar Month Completed 07/09/2021 83448 Chronic Care MGMT 20 Mins Clinical Staff Time Per Calendar Month Completed 06/05/2021 47318 Chronic Care MGMT 20 Mins Clinical Staff Time Per Calendar Month Completed 06/05/2021 00685 Chronic Care Management Services Ea Addl 20 Min Completed 06/04/2021 38604 Office/Outpatient Established Lo w MDM 20-29 Min Completed 05/13/2021 79374 Chronic Care MGMT 20 Mins Clinical Staff Time Per Calendar Month Completed 04/17/2021 75288 Chronic Care MGMT 20 Mins Clinical Staff Time Per Calendar Month Completed Medical Devices Description No Information Available Encounters Type Date Location Provider Dx Diagnosis Office Visit 08/24/2021 8:45a Main Office Juliana Lechuga FNP 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 N18.30 Chronic kidney disease, stag e 3 unspecified I10 Essential (primary) hyperten shari I48.19 Other persistent atrial fibr illation E03.9 Hypothyroidism, unspecified 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 N40.0 Benign prostatic hyperplasia without lower urinry tract symp Office Visit 06/04/2021 2:15p Main Office Juliana Lechuga FNP S80.1 2xA Contusion of left lower leg, initial encounter Assessments Date Code Description Provider 08/24/2021 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 Juliana Lechuga FNP 08/24/2021 N18.30 Chronic kidney disease, stage 3 unspecified Juliana Lechuga FNP 08/24/2021 I10 Essential (primary) hypertension Juliana Lechuga FNP 08/24/2021 I48.19 Other persistent atrial fibrilla tion Pleskach, Juliana, [employer] 08/24/2021 E03.9 Hypothyroidism, unspecified Ples kach, Juliana, [employer] 08/24/2021 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 Pleskach, Juliana, [employer] INS[employer]MER 08/24/2021 N40.0 Benign prostatic hyp erplasia without lower urinary tract symptoms Pleskach, Juliana, [employer] INS[employer]MER 08/10/2021 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 Pleskach, Juliana, [employer] INS[employer]MER 08/10/2021 N18.30 Chronic kidney disease, stage 3 unspecified Pleskach, Juliana, [employer] INS[employer]MER 08/10/2021 I10 Essential (primary) hypertension Pleskach, Juliana, [employer] INS[employer]MER 08/10/2021 I48.19 Other persistent atrial fibrilla tion Pleskach, Juliana, [employer] INS[employer]MER 07/09/2021 N18.30 Chronic kidney disease, stage 3 unspecified Pleskach, Juliana, [employer] INS[employer]MER 07/09/2021 I10 Essential (primary) hypertension Pleskach, Juliana, [employer] INS[employer]MER 07/09/2021 I48.19 Other persistent atrial fibrilla tion Pleskach, Juliana, [employer] INS[employer]MER 07/09/2021 E03.9 Hypothyroidism, unspecified Ples kach, Juliana, [employer] INS[employer] TR[employer]MER 06/05/2021 N18.30 Chronic kidney disease, stage 3 unspecified Pleskach, Juliana, [employer] INS[employer]MER 06/05/2021 I10 Essential (primary) hypertension Pleskach, Juliana, [employer] INS[employer] TR[employer]MER 06/05/2021 I48.19 Other persistent atrial fibrilla tion Pleskach, Juliana, [employer] INS[employer]MER 06/05/2021 E03.9 Hypothyroidism, unspecified Ples kach, Juliana, [employer] INS[employer] TR[employer]MER 06/04/2021 S80.12xA Hematoma of left lower leg Plesk ach, Juliana, [employer] INS[employer]MER 05/13/2021 N18.30 Chronic kidney disease, stage 3 unspecified Pleskach, Juliana, [employer] INS[employer] TR[employer]MER 05/13/2021 I48.19 Other persistent atrial fibrilla tion Pleskach, Juliana, [employer] INS[employer] TR[employer]MER 05/13/2021 I10 Essential (primary) hypertension Pleskach, Juliana, [employer] INS[employer] TR[employer]MER 05/13/2021 E03.9 Hypothyroidism, unspecified Concepcions ayednJuliana, [employer] INSPECT[employer]IMMER 04/17/2021 N18.30 Chronic kidney disease, stage 3 unspecified Juliana Lechuga, [employer] INS[employer]MER 04/17/2021 I48.19 Other persistent atrial fibrilla tion Juliana Lechuga, [employer] INS[employer]MER 04/17/2021 I10 Essential (primary) hypertension Juliana Lechuga, [employer]MER 04/17/2021 E03.9 Hypothyroidism, unspecified Ples Juliana hensley, [employer]MER Plan of Treatment Future Appointment(s):* 02/23/2022 8:45 am - Juliana Lechuga FNP at Main Office 08/24/2021 - Juliana Lechuga FNP* E11.42 Type 2 diabetes mellitus with diabetic polyneuropathy* New Labs:* Microalbumin Random, Scheduled: 08/24/21 * Comments:* diet controlled, recheck A1C * N18.30 Chronic kidney disease, stage 3 unspecified* Comments:* stable for age, continue to monitor * I10 Essential (primary) hypertension* Comments:* controlled, continue current medications * Follow up:* 6 months, with labs * I48.19 Other persistent atrial fibrillation* Comments:* follows with cardiology. 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 Patient is requesting to be referred back to have his carotids rechecked. Thank you. Closed [address] [facility] [address] [phone] Markos Augustine MD Patient is requesting to be referred back to have his carotids checked. Thank you. Closed 07/06/[address] [facility] [address] [phone] Dilip BOWEN M.D., Han Ortiz. Urgent Referral:patient need s hematoma evacuation LLE. Thank you. Closed 06/05/[address] [place] [address] [address] [facility] [address] [phone]
--- OUTSIDE RECORDS SUMMARY | 2021-09-28 10:54 | CCD | Continuity of Care Document ---
Author Author Jacky BALL M.D. Organization Unknown Address [address] [place] [address] Phone [phone] Care Team Providers Care Political Scientist Name Role Phone Brian Campos AUTM [phone] Maty Emanuel MD AUTM [phone] Dilip BOWEN M.D., Han Ortiz AUTM Markos Augustine MD AUTM [phone] Problems Active Problems Provider Date Essential hypertension Bettina Ball M.D. Onset: 02/01 Atrial fibrillation Bettina Ball M.D. Onset: 02/02/20 11 Persistent atrial fibrillation Bettina Ball M.D. Onsgagan t: 10/28/2015 Persistent atrial fibrillation Bettina Ball M.D. Onsgagan t: 04/28/2016 Chronic kidney disease stage 3 [...] n once a month IV G61.81 Andres, [facility] Nortriptyline HCL 50mg Capsules one po at hs Ali, Brian Klor-Con M20 20Meq Tablets ER 1 by mouth every day 90tabs I10 Chandler Gandara MD Centrum Silver Tablets 1 po qd OTC Unknown History Medications Clindamycin HCL 300mg Capsules 1 by mouth three times a dayfor 10 days Unknown - 08/24/2021 Immunizations CPT Code Status Date Vaccine Lot # [id number] Given 08/21/2021 Moderna Sars-(Co vid-19) vaccine, mRNA, LNP-S, PF, 100 mcg/ 0.5 mL 16162 Given 06/13/2021 Boostrix (Tdap) Tetnus, Diphtheria Toxoids & Acellular Pertussis 49165 Given 01/30/2021 Moderna Sars-(Co vid-19) vaccine, mRNA, LNP-S, PF, 100 mcg/ 0.5 mL 22548 Given 01/01/2021 Moderna Sars-(Co vid-19) vaccine, mRNA, LNP-S, PF, 100 mcg/ 0.5 mL 58408 Given 09/11/2019 Influenza Virus Vaccine, Maury drivalent,multidose vial [id number] 06768 Given 09/05/2018 Influenza Virus Vaccine, Maury drivalent,multidose vial [id number] Q2038 Given 08/22/2017 Influenza Vaccine (Fluzone)( medicare) Q2038 Given 09/03/2016 Influenza Vaccine (Fluzone)( medicare) [id number] 44613 Given 07/24/2015 Influenza Vaccination 21288 Given 06/04/2015 Zostavax 70663 Given 04/28/2015 Prevnar 13 [id number] Q2038 Given 09/03/2014 Influenza Vaccine (Fluzone)( medicare) [id number] 60572 Given 09/03/2014 Boostrix (Tdap) Tetnus, Diphtheria Toxoids & Acellular Pertussis [id number] Q2038 Given 08/17/2013 Influenza Vaccine (Fluzone)( medicare) 88373 Given 08/17/2013 Influenza Vaccination [id number] Q2038 Given 08/04/2012 Influenza Vaccine (Fluzone)( medicare) 46588 Given 08/04/2012 Influenza Vaccination [id number] 63485 Given 08/03/2010 Pneumococcal Vaccine [id number] 63948 Given 08/03/2010 Influenza Vaccination [id number] 99749 Given 09/02/2009 Influenza Vaccination [id number] Vital Signs Date Vital Result Comment 08/24/2021 8:47am BP Systolic 154 mmHg BP Diastolic 63 mmHg Heart Rate 67 /min Body Temperature 96.8 F Respiratory Rate 17 /min Height 69 inches 5'9" Weight 198.12 lb O2 % BldC Oximetry 98 % [place] Body Weight 160 lb BMI (Body Mass Index) 29.3 kg/m2 06/04/2021 2:14pm BP Systolic 155 mmHg BP Diastolic 59 mmHg Heart Rate 76 /min Body Temperature 97.2 F Respiratory Rate 15 /min Height 69 inches 5'9" Weight 195.38 lb [place] Body Weight 160 lb BMI (Body Mass Index) 28.8 kg/m2 Results Test Acquired Date Facility Test Result H/L Range Note Complete Blood Count 09/17/2021 [place] [address] [phone] White Blood Count 5.0 10 Normal 4.0-10.0 Red Blood Count 3.21 10 Low 4.30-6.10 Hemoglobin 11.6 g/dL Low 13.5-17.5 Hematocrit 35.4 % Low 42.0-52.0 Mean Corpuscular Volume 110.3 fl High 80.0-96.0 Mean Corpuscular Hemoglobin 36.1 pg High 27.0-33.0 Mean Corpuscular HGB Conc 32.8 g/dL Normal 32.0-36.5 Red Cell Distribution Width 15.6 % High 11.5-14.5 Platelet Count, Automated 232 10 Normal 150-450 Nucleated Red Blood Cell % 0.0 % Normal 0-0 Hemoglobin A1c 09/03/2021 [facility] nter [phone] Hemoglobin A1c 5.5 % Normal 1 Estimated Average Glucose 111 mg/dL High 60-110 Microalbumin Random 09/03/2021 [facility] nter [phone] Creatinine, Urine 111.0 mg/dL Normal Malb Urine Siemens 206.0 mg/L Normal Dmitriy/Creat Ratio 185.5 MCG/MG High 0.0-30.0 2 Comprehensive Metabolic Profil 09/03/2021 [facility] [phone] Glucose, Fasting 114 mg/dL High 70-100 Blood [...] Albumin/Globulin Ratio 0.7 Normal Lipid Panel 09/03/2021 [facility] nter [phone] Triglycerides Level 67 mg/dL Normal <150 Cholesterol Level 153 mg/dL Normal <200 HDL Cholesterol 67 mg/dL Normal >40 LDL Cholesterol 73 mg/dL Normal <100 Non-HDL-C 86 mg/dL Normal Cholesterol Risk Ratio 2.283 Normal <5 TSH And T4 Free ([facility]) 09/03/2021 [facility] [phone] Thyroid Stimulating Hormone 3.520 uIU/ML Normal 0. 358-3.740 Free T4 0.90 ng/dL Normal 0.76-1.46 Basic Metabolic Profile 06/13/2021 [facility] [place], [place] [id number] [phone] Glucose, Fasting 119 mg/dL High 70-100 Blood [...] 8.8-10.2 Laboratory test finding 06/13/2021 [place] [address] [phone] C Reactive Protein Quantitativ 3.22 mg/dL High 0 .00-0.30 CBC With Differential 06/13/2021 [place] [address] [phone] White Blood Count 6.7 10 Normal 4.0-10.0 [...] 36.0-66.0 Lymph % 6.0 % Low 24.0-44.0 [place] % 6.4 % Normal 2.0-8.0 Eos % 1.2 % Normal 0.0-3.0 Baso % 0.6 % Normal 0.0-1.0 Immature Granulocyte % 0.4 % Normal 0-3.0 Nucleated Red Blood Cell % 0.0 % Normal 0-0 Neutrophils # 5.7 10 Normal 1.5-8.5 Lymph # 0.4 10 Low 1.5-5.0 [place] # 0.4 10 Normal 0.0-0.8 Eos # 0.1 10 Normal 0.0-0.5 Baso # 0.0 10 Normal 0.0-0.2 Laboratory test finding 06/13/2021 [place] [address] [phone] Erythrocyte Sedimentation Rate 49 mm/hr High 0 -20 1 REFERENCE RANGES: <=5.6% NORMAL 5.7-6.4% SUGGESTS IMPAIRED GLUCOSE META BOLISM/PREDIABETIC >= 6.5% ABNORMAL 2 THE [employer] DI[employer] ATION STATES THAT MICROALBUMINURIA IS [...] Little GFR Left ESRD GFR <15 on ASSEMBLY MEMBER 4 Units are mL/min/1.73 m2 Chronic Kidney Disease Staging per NKF: Stage I & II GFR >=60 Normal to Mildly Decreased Stage III GFR 30-59 Moderately Decreased Stage IV GFR 15-29 Severely Decreased Stage V GFR <15 Very Little GFR Left ESRD GFR <15 on ASSEMBLY MEMBER Procedures Date Code Description Status 08/24/2021 54904 Office/Outpatient Established Mo d MDM 30-39 Min Completed 08/24/2021 340738868 Diabetic Foot Exam Completed 08/10/2021 11117 Chronic Care MGMT 20 Mins Clinical Staff Time Per Calendar Month Completed 07/09/2021 58942 Chronic Care MGMT 20 Mins Clinical Staff Time Per Calendar Month Completed 06/05/2021 73870 Chronic Care MGMT 20 Mins Clinical Staff Time Per Calendar Month Completed 06/05/2021 01283 Chronic Care Management Services Ea Addl 20 Min Completed 06/04/2021 34665 Office/Outpatient Established Lo w MDM 20-29 Min Completed 05/13/2021 88159 Chronic Care MGMT 20 Mins Clinical Staff Time Per Calendar Month Completed 04/17/2021 26379 Chronic Care MGMT 20 Mins Clinical Staff [...] symp Office Visit 06/04/2021 2:15p Main Office Pleskach, Juliana, BEAM BUILDER S80.1 2xA Contusion of left lower leg, initial encounter Assessments Date Code Description Provider 08/24/2021 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 Pleskach, Juliana, BEAM BUILDER 08/24/2021 N18.30 Chronic kidney disease, stage 3 unspecified Pleskach, Juliana, BEAM BUILDER 08/24/2021 I10 Essential (primary) hypertension Pleskach, Juliana, BEAM BUILDER 08/24/2021 I48.19 Other persistent atrial fibrilla tion Pleskach, Juliana, BEAM BUILDER 08/24/2021 E03.9 Hypothyroidism, unspecified Ples kach, Juliana, BEAM BUILDER 08/24/2021 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 Pleskach, Juliana, BEAM BUILDER 08/24/2021 N40.0 Benign prostatic hyp erplasia without lower urinary tract symptoms Pleskach, Juliana, BEAM BUILDER 08/10/2021 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 Pleskach, Juliana, BEAM BUILDER 08/10/2021 N18.30 Chronic kidney disease, stage 3 unspecified Pleskach, Juliana, BEAM BUILDER 08/10/2021 I10 Essential (primary) hypertension Pleskach, Juliana, BEAM BUILDER 08/10/2021 I48.19 Other persistent atrial fibrilla tion Pleskach, Juliana, BEAM BUILDER 07/09/2021 N18.30 Chronic kidney disease, stage 3 unspecified Pleskach, Juliana, BEAM BUILDER 07/09/2021 I10 Essential (primary) hypertension Pleskach, Juliana, BEAM BUILDER 07/09/2021 I48.19 Other persistent atrial fibrilla tion Pleskach, Juliana, BEAM BUILDER 07/09/2021 E03.9 Hypothyroidism, unspecified Ples kach, Juliana, BEAM BUILDER 06/05/2021 N18.30 Chronic kidney disease, stage 3 unspecified Pleskach, Juliana, BEAM BUILDER 06/05/2021 I10 Essential (primary) hypertension Juliana Lechuga, BEAM BUILDER 06/05/2021 I48.19 Other persistent atrial fibrilla tion PlegeorginaJuliana murray, BEAM BUILDER 06/05/2021 E03.9 Hypothyroidism, unspecified Ples Juliana hensley, BEAM BUILDER 06/04/2021 S80.12xA Hematoma of left lower leg PleJuliana hung, BEAM BUILDER 05/13/2021 N18.30 Chronic kidney disease, stage 3 unspecified Plece Juliana, BEAM BUILDER 05/13/2021 I48.19 Other persistent atrial fibrilla tion Ankush Juliana, BEAM BUILDER 05/13/2021 I10 Essential (primary) hypertension Juliana Lechuga, BEAM BUILDER 05/13/2021 E03.9 Hypothyroidism, unspecified Juliana Luther, BEAM BUILDER 04/17/2021 N18.30 Chronic kidney disease, stage 3 unspecified PleSuha encinasy, BEAM BUILDER 04/17/2021 I48.19 Other persistent atrial fibrilla tion Ankush Juliana, BEAM BUILDER 04/17/2021 I10 Essential (primary) hypertension Juliana Lechuga, BEAM BUILDER 04/17/2021 E03.9 Hypothyroidism, unspecified Ples Juliana hensley, BEAM BUILDER Plan of Treatment Future Appointment(s):* 02/23/2022 8:45 [...] his carotids rechecked. Thank you. Closed [address] [facility] [address] [facility] [id number] [phone] Markos Augustine MD Patient is requesting to be referred back to have his carotids checked. Thank you. Closed 07/06/2021 [address] [facility] [address] [facility] [address] [phone] Dilip BOWEN M.D., Han Ortiz. Urgent Referral:patient need s hematoma evacuation LLE. Thank you. Closed 06/05/2021 [address] [facility] [address] [facility] [address] [phone]
--- OUTSIDE RECORDS SUMMARY | 2021-09-28 10:54 | CCD | Continuity of Care Document ---
Author Author Jacky LECHUGA Organization Unknown Address [address] [place] [address] Phone [phone] Care Team Providers Care Labor Relations Specialist Name Role Phone Brian Campos AUTM [phone] Maty Emanuel MD AUTM [phone] Dilip BOWEN M.D., Han Ortiz AUTM [phone] Markos Augustine MD AUTM [phone] Problems Active Problems Provider Date Essential hypertension [...] n once a month IV G61.81 Andres, [facility] Nortriptyline HCL 50mg Capsules one po at hs Ali, Brian Klor-Con M20 20Meq Tablets ER 1 by mouth every day 90tabs I10 Chandler Gandara MD Centrum Silver Tablets 1 po qd OTC Unknown History Medications Clindamycin HCL 300mg Capsules 1 by mouth three times a dayfor 10 days Unknown - 08/24/2021 Immunizations CPT Code Status Date Vaccine Lot # [id number] Given 08/21/2021 Moderna Sars-(Co vid-19) vaccine, mRNA, LNP-S, PF, 100 mcg/ 0.5 mL 88996 Given 06/13/2021 Boostrix (Tdap) Tetnus, Diphtheria Toxoids & Acellular Pertussis 61107 Given 01/30/2021 Moderna Sars-(Co vid-19) vaccine, mRNA, LNP-S, PF, 100 mcg/ 0.5 mL 48038 Given 01/01/2021 Moderna Sars-(Co vid-19) vaccine, mRNA, LNP-S, PF, 100 mcg/ 0.5 mL 04456 Given 09/11/2019 Influenza Virus Vaccine, Maury drivalent,multidose vial [id number] 97511 Given 09/05/2018 Influenza Virus Vaccine, Maury drivalent,multidose vial [id number] Q2038 Given 08/22/2017 Influenza Vaccine (Fluzone)( medicare) Q2038 Given 09/03/2016 Influenza Vaccine (Fluzone)( medicare) [id number] 58949 Given 07/24/2015 Influenza Vaccination 94886 Given 06/04/2015 Zostavax 04922 Given 04/28/2015 Prevnar 13 [id number] Q2038 Given 09/03/2014 Influenza Vaccine (Fluzone)( medicare) [id number] 21348 Given 09/03/2014 Boostrix (Tdap) Tetnus, Diphtheria Toxoids & Acellular Pertussis [id number] Q2038 Given 08/17/2013 Influenza Vaccine (Fluzone)( medicare) 33355 Given 08/17/2013 Influenza Vaccination [id number] Q2038 Given 08/04/2012 Influenza Vaccine (Fluzone)( medicare) 05277 Given 08/04/2012 Influenza Vaccination [id number] 82083 Given 08/03/2010 Pneumococcal Vaccine [id number] 42847 Given 08/03/2010 Influenza Vaccination [id number] 47357 Given 09/02/2009 Influenza Vaccination [id number] Vital Signs Date Vital Result Comment 08/24/2021 8:47am BP Systolic 154 mmHg BP Diastolic 63 mmHg Heart Rate 67 /min Body Temperature 96.8 F Respiratory Rate 17 /min Height 69 inches 5'9" Weight 198.12 lb O2 % BldC Oximetry 98 % [place] Body Weight 160 lb BMI (Body Mass Index) 29.3 kg/m2 06/04/2021 2:14pm BP Systolic 155 mmHg BP Diastolic 59 mmHg Heart Rate 76 /min Body Temperature 97.2 F Respiratory Rate 15 /min Height 69 inches 5'9" Weight 195.38 lb [place] Body Weight 160 lb BMI (Body Mass Index) 28.8 kg/m2 Results Test Acquired Date Facility Test Result H/L Range Note Complete Blood Count 09/17/2021 [place] [address] [phone] White Blood Count 5.0 10 Normal 4.0-10.0 [...] 0.0 % Normal 0-0 Hemoglobin A1c 09/03/2021 [facility] nter [phone] Hemoglobin A1c 5.5 % Normal 1 Estimated Average Glucose 111 mg/dL High 60-110 Microalbumin Random 09/03/2021 [facility] nter [phone] Creatinine, Urine 111.0 mg/dL Normal Malb Urine Siemens 206.0 mg/L Normal Dmitriy/Creat Ratio 185.5 MCG/MG High 0.0-30.0 2 Comprehensive Metabolic Profil 09/03/2021 [facility] [phone] Glucose, Fasting 114 mg/dL High 70-100 Blood [...] Albumin/Globulin Ratio 0.7 Normal Lipid Panel 09/03/2021 [facility] nter [phone] Triglycerides Level 67 mg/dL Normal <150 Cholesterol Level 153 mg/dL Normal <200 HDL Cholesterol 67 mg/dL Normal >40 LDL Cholesterol 73 mg/dL Normal <100 Non-HDL-C 86 mg/dL Normal Cholesterol Risk Ratio 2.283 Normal <5 TSH And T4 Free ([facility]) 09/03/2021 [facility] [phone] Thyroid Stimulating Hormone 3.520 uIU/ML Normal 0. 358-3.740 Free T4 0.90 ng/dL Normal 0.76-1.46 Basic Metabolic Profile 06/13/2021 [facility] [place], [place] [id number] [phone] Glucose, Fasting 119 mg/dL High 70-100 Blood [...] Laboratory test finding 06/13/2021 [place] [address] [phone] C Reactive Protein Quantitativ 3.22 mg/dL High 0 .00-0.30 CBC With Differential 06/13/2021 [place] [address] [phone] White Blood Count 6.7 10 Normal 4.0-10.0 [...] 36.0-66.0 Lymph % 6.0 % Low 24.0-44.0 [place] % 6.4 % Normal 2.0-8.0 Eos % 1.2 % Normal 0.0-3.0 Baso % 0.6 % Normal 0.0-1.0 Immature Granulocyte % 0.4 % Normal 0-3.0 Nucleated Red Blood Cell % 0.0 % Normal 0-0 Neutrophils # 5.7 10 Normal 1.5-8.5 Lymph # 0.4 10 Low 1.5-5.0 [place] # 0.4 10 Normal 0.0-0.8 Eos # 0.1 10 Normal 0.0-0.5 Baso # 0.0 10 Normal 0.0-0.2 Laboratory test finding 06/13/2021 [place] [address] [phone] Erythrocyte Sedimentation Rate 49 mm/hr High 0 -20 1 REFERENCE RANGES: <=5.6% NORMAL 5.7-6.4% SUGGESTS IMPAIRED GLUCOSE META BOLISM/PREDIABETIC >= 6.5% ABNORMAL 2 THE [place] DIABETES ASSOCI ATION STATES THAT MICROALBUMINURIA IS [...] Little GFR Left ESRD GFR <15 on EQUIPMENT TECHNICIAN 4 Units are mL/min/1.73 m2 Chronic Kidney Disease Staging per NKF: Stage I & II GFR >=60 Normal to Mildly Decreased Stage III GFR 30-59 Moderately Decreased Stage IV GFR 15-29 Severely Decreased Stage V GFR <15 Very Little GFR Left ESRD GFR <15 on EQUIPMENT TECHNICIAN Procedures Date Code Description Status 08/26/2021 88886 Chronic Care MGMT 20 Mins Clinical Staff Time Per Calendar Month Completed 08/24/2021 23088 Office/Outpatient Established Mo d MDM 30-39 Min Completed 08/24/2021 [id number] Diabetic Foot Exam Completed 08/10/2021 26321 Chronic Care MGMT 20 Mins Clinical Staff Time Per Calendar Month Completed 07/09/2021 00222 Chronic Care MGMT 20 Mins Clinical Staff Time Per Calendar Month Completed 06/05/2021 51184 Chronic Care MGMT 20 Mins Clinical Staff Time Per Calendar Month Completed 06/05/2021 90977 Chronic Care Management Services Ea Addl 20 Min Completed 06/04/2021 63370 Office/Outpatient Established Lo w MDM 20-29 Min Completed 05/13/2021 00367 Chronic Care MGMT 20 Mins Clinical Staff Time Per Calendar Month Completed 04/17/2021 18615 Chronic Care MGMT 20 Mins Clinical Staff [...] Visit 06/04/2021 2:15p Main Office Pleskach, Juliana, FRONT END SOFTWARE DEVELOPER S80.1 2xA Contusion of left lower leg, initial encounter Assessments Date Code Description Provider 08/26/2021 N18.30 Chronic kidney disease, stage 3 unspecified Pleskach, Juliana, FRONT END SOFTWARE DEVELOPER 08/26/2021 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 Pleskach, Juliana, FRONT END SOFTWARE DEVELOPER 08/26/2021 I10 Essential (primary) hypertension Pleskach, Juliana, FRONT END SOFTWARE DEVELOPER 08/26/2021 I48.19 Other persistent atrial fibrilla tion Pleskach, Juliana, FRONT END SOFTWARE DEVELOPER 08/26/2021 E03.9 Hypothyroidism, unspecified Ples kach, Juliana, FRONT END SOFTWARE DEVELOPER 08/24/2021 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 Pleskach, Juliana, FRONT END SOFTWARE DEVELOPER 08/24/2021 N18.30 Chronic kidney disease, stage 3 unspecified Pleskach, Juliana, FRONT END SOFTWARE DEVELOPER 08/24/2021 I10 Essential (primary) hypertension Pleskach, Juliana, FRONT END SOFTWARE DEVELOPER 08/24/2021 I48.19 Other persistent atrial fibrilla tion Pleskach, Juliana, FRONT END SOFTWARE DEVELOPER 08/24/2021 E03.9 Hypothyroidism, unspecified Ples kach, Juliana, FRONT END SOFTWARE DEVELOPER 08/24/2021 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 Pleskach, Juliana, FRONT END SOFTWARE DEVELOPER 08/24/2021 N40.0 Benign prostatic hyp erplasia without lower urinary tract symptoms Pleskach, Juliana, FRONT END SOFTWARE DEVELOPER 08/10/2021 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 Pleskach, Juliana, FRONT END SOFTWARE DEVELOPER 08/10/2021 N18.30 Chronic kidney disease, stage 3 unspecified Pleskach, Juliana, FRONT END SOFTWARE DEVELOPER 08/10/2021 I10 Essential (primary) hypertension Pleskach, Juliana, FRONT END SOFTWARE DEVELOPER 08/10/2021 I48.19 Other persistent atrial fibrilla tion Pleskach, Juliana, FRONT END SOFTWARE DEVELOPER 07/09/2021 N18.30 Chronic kidney disease, stage 3 unspecified Pleskach, Juliana, FRONT END SOFTWARE DEVELOPER 07/09/2021 I10 Essential (primary) hypertension Pleskach, Juliana, FRONT END SOFTWARE DEVELOPER 07/09/2021 I48.19 Other persistent atrial fibrilla tion Pleskach, Juliana, FRONT END SOFTWARE DEVELOPER 07/09/2021 E03.9 Hypothyroidism, unspecified Ples kach, Juliana, FRONT END SOFTWARE DEVELOPER 06/05/2021 N18.30 Chronic kidney disease, stage 3 unspecified Pleskach, Juliana, FRONT END SOFTWARE DEVELOPER 06/05/2021 I10 Essential (primary) hypertension Pleskach, Juliana, FRONT END SOFTWARE DEVELOPER 06/05/2021 I48.19 Other persistent atrial fibrilla tion Pleskach, Juliana, FRONT END SOFTWARE DEVELOPER 06/05/2021 E03.9 Hypothyroidism, unspecified Ples kayo, Juliana, FRONT END SOFTWARE DEVELOPER 06/04/2021 S80.12xA Hematoma of left lower leg Plesk ach, Juliana, FRONT END SOFTWARE DEVELOPER 05/13/2021 N18.30 Chronic kidney disease, stage 3 unspecified Pleskach, Juliana, FRONT END SOFTWARE DEVELOPER 05/13/2021 I48.19 Other persistent atrial fibrilla tion Pleskach, Juliana, FRONT END SOFTWARE DEVELOPER 05/13/2021 I10 Essential (primary) hypertension Pleskach, Juliana, FRONT END SOFTWARE DEVELOPER 05/13/2021 E03.9 Hypothyroidism, unspecified Ples kach, Juliana, FRONT END SOFTWARE DEVELOPER 04/17/2021 N18.30 Chronic kidney disease, stage 3 unspecified Pleskach, Juliana, FRONT END SOFTWARE DEVELOPER 04/17/2021 I48.19 Other persistent atrial fibrilla tion Pleskach, Juliana, FRONT END SOFTWARE DEVELOPER 04/17/2021 I10 Essential (primary) hypertension Pleskach, Juliana, FRONT END SOFTWARE DEVELOPER 04/17/2021 E03.9 Hypothyroidism, unspecified Ples kach, Juliana, FRONT END SOFTWARE DEVELOPER Plan of Treatment Future Appointment(s):* 02/23/2022 8:45 am - Juliana Lechuga FRONT END SOFTWARE DEVELOPER at Main Office 08/24/2021 - Juliana Lechuga FNP* E11.42 Type 2 diabetes mellitus with diabetic polyneuropathy* Comments:* diet controlled, recheck A1C * N18.30 [...] his carotids rechecked. Thank you. Closed [address] [facility] [address] [facility] [id number] [phone] Markos Augustine MD Patient is requesting to be referred back to have his carotids checked. Thank you. Closed 07/06/2021 [address] [facility] [address] [facility] [address] [phone] Dilip BOWEN M.D., Han Ortiz. Urgent Referral:patient need s hematoma evacuation LLE. Thank you. Closed 06/05/2021 [address] [facility] [address] [facility] [address] [phone]
--- OUTSIDE RECORDS SUMMARY | 2021-09-28 10:54 | CCD | Continuity of Care Document ---
Author Author Jacky GASPARC Organization Unknown Address [address] [place] [address], [facility] [place] [address] Phone [phone] Care Team Providers Care Grocery Clerk Selling Name Role Phone Bettina Soto MD AUTM [phone] Other, Provider AUTM Unavailable Isabel Mccarthy MD AUTM Dangelo Kimbrough MD AUTM [phone] Alexx Augustine MD AUTM [phone] Brian Campos MD AUTM [phone] Dangelo Centeno MD AUTM [phone] Problems Active Problems Provider Date Chronic atrial fibrillation Toya Gaspar PA-C Onset: 12/2014 Coronary arteriosclerosis LUANA Bass Onset: 09/15/2012 Hypertensive heart disease without congestive heart fa ilure Toya Gaspar PA-C Onset: 08/22/2015 Aortic valve disorder LUANA Bass Onset: Mitral valve disorder LUANA Bass Onset: Electrocardiogram abnormal Toya Gaspar PA-C Onset: 03/23 Right bundle branch block Toya Gaspar PA-C Onset: 2016 Pure hypercholesterolemia Toya Gaspar PA-C Onset: 2015 Sinus node dysfunction LUANA Bass Onset: Cardiac pacemaker in situ LUANA Bass Onset: 07/11/2012 Carotid artery occlusion Toya Gaspar PA-C Onset: 014 Dietary management surveillance Toya Gaspar PA-C Onset: 10/12/2017 Permanent atrial fibrillation Toya Gaspar PA-C Onset: Social History Type Date Description Comments Sex Unknown Tobacco Use Start: Unknown Never Smoked Cigarettes ETOH Use Consumes Beer 5 weekly Tobacco Use Start: Unknown Patient has never smoked Smoking Status Reviewed: 09/17/21 Patient has never smoked Exercise Type/Frequency Walks daily Exercise Type/Frequency Does housework twice a w [place] Exercise Type/Frequency Does yardwork twice a we [place] Exercise Limitations Neuropathy Exercise Limitations Back Pain Exercise Limitations Shortness Of Breath Allergies and adverse reactions Active Allergies Criticality Reaction | Severity Comments Date Septra Unable to assess criticality rash 03/18/2009 Procardia Unable to assess criticality rash 03/18/2009 Ampicillin Unable to assess criticality rash 03/18/2009 Sulfa Unable to assess criticality lip swelling 09/15/2012 Hydrochlorothiazide Unable to assess criticality rash, hives 05/03/2013 Vancomycin Unable to assess criticality rash 04/25/2019 Nifedipine Unable to assess criticality 04/25/2019 Medications Active Medications SIG Qnty Indications Ordering Provide r Date Eliquis 2.5mg Tablets Take One Tablet By Mouth Twice A Day 180tabs I48.21 Chandlre Gandara MD 05/01/2021 Allopurinol 100mg Tablets 1 by mouth every day Unknown 04/30/2021 Levothyroxine Sodium 25mcg Capsule s 1 by mouth every day Unknown 04/30/2021 Bisoprolol Fumarate 5mg Tablets 1/2 by mouth every day Unknown 04/25/2019 Gabapentin 600mg Tablets 1 by mouth two times a day Bettina Soto MD 04/25/2019 Ferrous Gluconate 324(38Fe) mg Tab lets 1 by mouth twice a day Bettina Soto MD 019 Privigen 10GM/100ML Solution 40 GM via IV once monthly Unknown 04/25/2019 Tamsulosin HCL 0.4mg Capsules 1 by mouth every day Unknown 04/25/2019 Octagam 25GM/500ML Solution Once monthly Brian Campos MD 04/18/2018 Methotrexate 2.5mg Tablets 3 by mouth once weekly Brian Campos MD 02/22/2016 Lisinopril 5mg Tablets 1 by mouth every day 90tabs I25.10 Toya Gaspar PA-C 10/29/2015 I11.9 Atorvastatin Calcium 10mg Tablets 1 by mouth every night at bedtime 90tabs I25.10 SEN Hernandez 08/22/2015 Folic Acid 1mg Tablets 1 by mouth every day 90tabs Chandler Gandara MD 02/18/2015 Travoprost 0.004% Solution 1 drop each eye once daily Maty Emanuel MD 02/19/20 15 Klor-Con M20 20Meq Tablets ER 1 by mouth every day 90tabs I11.9 Toya Gaspar PA-C 07/24/2013 Chlorthalidone 25mg Tablets Take One-Half Tablet By Mouth Every Day 45tabs I11.9 Nigel Zuñiga MD 0 07/24/2013 Nortriptyline HCL 50mg Capsules 1 po qhs Bettina Soto MD 05/03/2013 Vitamin D 2000Unit Capsules 1 po qd Bettina Soto MD 05/03/2013 Aspir-[address] 1 po qd Bettina Soto MD 09/14/2012 Nitrostat 0.4mg Tablets Sub 1 sl every 5min x3 as needed for chest pain 25tabs I25.10 Chandler Gandara MD 09/14/2012 Centrum Silver Tablets 1 po daily Unknown 03/18/2009 Immunizations Description No Information Available Vital Signs Date Vital Result Comment 09/17/2021 8:26am Home Weight 192lb Height 66 inches 5'6" Heart Rate 68 /min Irregular Respiratory Rate 16 /min BP Systolic Right Arm 136 mmHg sitting, regular c uff BP Diastolic Right Arm 74 mmHg sitting, regular cuff 05/01/2021 10:29am Weight 194.00 lb Height 66 inches 5'6" BMI (Body Mass Index) 31.3 kg/m2 Heart Rate 68 /min Irregular Respiratory Rate 16 /min BP Systolic Right Arm 136 mmHg sitting, regular c uff BP Diastolic Right Arm 84 mmHg sitting, regular cuff Results Test Acquired Date Facility Test Result H/L Range Note CMP 09/03/2021 [facility] - not interfaced (315)- - Albumin Serum/Plasma 3.4 Alt - SGPT 25 Calcium Ser/Plasma Mass/Vol 8.6 Carbon Dioxide Ser/Plasm 24 Chloride Serum/Plasma 107 Alkaline Phosphatase 74 Potassium 4.5 Protein Total 8.1 Sodium 138 Ast - Sgot 23 BUN - Urea Nitrogen 22 Glucose 114 High 83-110 Creatinine For GFR 1.76 Lipid Profile/Cardiac Risk Pro 09/03/2021 [facility] - not interfaced (315)- - Triglycerides 67 <150 Cholesterol 153 <200 HDL 67 >40.0 LDL Cholesterol 73 Chol/HDL Ratio 2.283 <5 Laboratory test finding 09/03/2021 [facility] - not interf aced (315)- - Thyroid Stimulating Hormone 3.520 Free T4 0.90 Hemoglobin A1c 09/03/2021 [facility] - not interfaced (315)- - Hemoglobin A1c 5.5 CBC without Differential 06/13/2021 [facility] - not inter faced (315)- - White Blood Count 6.7 5.0-10.0 Red Blood Count 2.97 Low 4.00-5.40 Platelets 200 172-450 Hemoglobin 10.7 Hematocrit 32.3 BMP 06/13/2021 [facility] - not interfaced (315)- - Calcium Ser/Plasma Mass/Vol 8.6 Sodium 142 Carbon Dioxide Ser/Plasm 23 Chloride Serum/Plasma 112 Potassium 4.6 Glucose 119 High 83-110 Blood Urea Nitrogen 28 High 7-18 Creatinine 1.49 High 0.6-1.0 G F R 47.9 Procedures Date Code Description Status 09/17/2021 33535 Office/Outpatient Established Lo w MDM 20-29 Min Completed 08/21/2021 23926 Office/Outpatient Established Mi nimal Problem(S) Completed 07/16/2021 05988 Office/Outpatient Established Mi nimal Problem(S) Completed 05/01/2021 99880 Office/Outpatient Established Mo d MDM 30-39 Min Completed 05/01/2021 25040 ECG 12-Lead Completed Medical Devices Description No Information Available Encounters Type Date Location Provider Dx Diagnosis Office Visit 09/17/2021 8:00a Main Office Toya Gaspar PA-C I49.5 Sick sinus syndrome Office Visit 08/21/2021 8:00a Main Office Toya Gaspar PA-C I49.5 Sick sinus syndrome Office Visit 07/16/2021 9:15a Main Office Toya Gaspar PA-C I49.5 Sick sinus syndrome Office Visit 05/01/2021 10:15a Main Office Toya E Symenow, PA-C I48.2 1 Permanent atrial fibrillation I25.10 Athscl heart disease of [place] coronary artery w/o ang pctrs I11.9 Hypertensive heart disease w ithout heart failure I35.1 Nonrheumatic aortic (valve) insufficiency I34.0 Nonrheumatic mitral (valve) insufficiency R94.31 Abnormal electrocardiogram [ ECG] [EKG] I45.0 Right fascicular block E78.00 Pure hypercholesterolemia, u nspecified I49.5 Sick sinus syndrome Z95.0 Presence of cardiac pacemake r I65.23 Occlusion and stenosis of bi lateral carotid arteries Z71.3 Dietary counseling and surve illance Assessments Date Code Description Provider 09/17/2021 I49.5 Sick sinus syndrome Toya Anderson Madelyn wilson, PA-C 08/21/2021 I49.5 Sick sinus syndrome Toya Anderson Madelyn wilson, PA-C 07/16/2021 I49.5 Sick sinus syndrome Toya Anderson Madelyn wilson, PA-C 05/01/2021 I48.21 Permanent atrial fibrillation Felice Vogt, PA-C 05/01/2021 I25.10 Atherosclerotic heart disease of [place] coronary artery with Toyajustin Gaspar, PA-C 05/01/2021 I11.9 Hypertensive heart disease witho ut heart failure Toyajustin Gaspar, PA-C 05/01/2021 I35.1 Nonrheumatic aortic (valve) insu fficiency Toya Gaspar, PA-C 05/01/2021 I34.0 Nonrheumatic mitral (valve) insu fficiency Toyajustin Gaspar, PA-C 05/01/2021 R94.31 Abnormal electrocardiogram [ECG] [EKG] Toya Justin Gaspar, PA-C 05/01/2021 I45.0 Right fascicular block Toya Justin bragg, PA-C 05/01/2021 E78.00 Pure hypercholesterolemia, unspe cified Toyajustin Gaspar, PA-C 05/01/2021 I49.5 Sick sinus syndrome oTya Anderson Madelyn wilson, PA-C 05/01/2021 Z95.0 Presence of cardiac pacemaker Felice Vogt, PA-C 05/01/2021 I65.23 Occlusion and stenosis of bilate ral carotid arteries Toya Gaspar PA-C 05/01/2021 Z71.3 Dietary counseling and surveilla nce Toya Gaspar PA-C Plan of Treatment Future Appointment(s):* 11/05/2021 8:15 am - Toya Gaspar PA-C at Main Office 09/17/2021 - Toya Gaspar PA-C* I49.5 Sick sinus syndrome * All * Follow up:* Wound check 1 week post generator change. Functional Status Functional Condition Comment Date Status Independent with all ADL's Activ e Mental Status Description No Information Available Referrals Description No Information Available
--- OUTSIDE RECORDS SUMMARY | 2021-09-28 10:54 | CCD | Continuity of Care Document ---
Author Author Jacky GASPARC Organization Unknown Address [address] [place] [address], [facility] [place] [address] Phone [phone] Care Team Providers Care Biological Chemist Name Role Phone Bettina Soto MD AUTM [phone] Other, Provider AUTM Unavailable Isabel Mccarthy MD AUTM [phone] Dangelo Kimbrough MD AUTM [phone] Alexx Augustine MD AUTM [phone] Brian Campos MD AUTM [phone] Dangelo Centeno MD AUTM [phone] Problems Active Problems Provider Date Chronic atrial [...] Exercise Type/Frequency Does housework twice a w [place] Exercise Type/Frequency Does yardwork twice a we [...] By Mouth Twice A Day 180tabs I48.21 Chandler Gandara MD 05/01/2021 Allopurinol 100mg Tablets 1 [...] 1 drop each eye once daily Maty Emnauel MD 02/19/20 15 Klor-Con M20 20Meq Tablets [...] Signs Date Vital Result Comment 09/17/2021 8:26am Weight 195.00 lb Home Weight 192lb Height 66 inches 5'6" BMI (Body Mass Index) 31.5 kg/m2 Heart Rate 68 /min Irregular Respiratory [...] H/L Range Note Complete Blood Count 09/17/2021 [facility] enter [phone] White Blood Count 5.0 10 Normal 4.0-10.0 [...] Blood Cell % 0.0 % Normal 0-0 CMP 09/03/2021 [facility] - not interfaced (315)- - Albumin Serum/Plasma 3.4 Alt - SGPT 25 Calcium Ser/Plasma Mass/Vol 8.6 Carbon Dioxide Ser/Plasm 24 Chloride Serum/Plasma 107 Alkaline Phosphatase 74 Potassium 4.5 Protein Total 8.1 Sodium 138 Ast - Sgot 23 BUN - Urea Nitrogen 22 Glucose 114 High 83-110 Creatinine For GFR 1.76 Lipid Profile/Cardiac Risk Pro 09/03/2021 [facility] - not interfaced (315)- - Triglycerides 67 <150 Cholesterol 153 <200 HDL 67 >40.0 LDL Cholesterol 73 Chol/HDL Ratio 2.283 <5 Laboratory test finding 09/03/2021 [facility] - not interf aced (315)- - Thyroid Stimulating Hormone 3.520 Free T4 0.90 Hemoglobin A1c 09/03/2021 [facility] - not interfaced (315)- - Hemoglobin A1c 5.5 CBC without Differential 06/13/2021 [facility] - not inter faced (315)- - White Blood Count 6.7 5.0-10.0 Red Blood Count 2.97 Low 4.00-5.40 Platelets 200 172-450 Hemoglobin 10.7 Hematocrit 32.3 BMP 06/13/2021 [facility] - not interfaced (315)- - Calcium Ser/Plasma Mass/Vol 8.6 Sodium 142 Carbon Dioxide Ser/Plasm 23 Chloride Serum/Plasma 112 Potassium 4.6 Glucose 119 High 83-110 Blood Urea Nitrogen 28 High 7-18 Creatinine 1.49 High 0.6-1.0 G F R 47.9 Procedures Date Code Description Status 09/17/2021 77973 Office/Outpatient Established Lo w MDM 20-29 Min Completed 08/21/2021 82500 Office/Outpatient Established Mi nimal Problem(S) Completed 07/16/2021 29984 Office/Outpatient Established Mi nimal Problem(S) Completed 05/01/2021 74458 Office/Outpatient Established Mo d MDM 30-39 Min Completed 05/01/2021 08438 ECG 12-Lead Completed Medical Devices Description No Information Available Encounters Type Date Location Provider Dx Diagnosis Office Visit 09/17/2021 8:00a Main Office Toya Gaspar PA-C I49.5 Sick sinus syndrome Office Visit 08/21/2021 8:00a Main Office Toya Gaspar PA-C I49.5 Sick sinus syndrome Office Visit 07/16/2021 9:15a Main Office Toya Gaspar PA-C I49.5 Sick sinus syndrome Office Visit 05/01/2021 10:15a Main Office Toya Gaspar PA-C I48.2 1 Permanent atrial fibrillation I25.10 [...] Provider 09/17/2021 I49.5 Sick sinus syndrome Toya wilson PA-C 08/21/2021 I49.5 Sick sinus syndrome Toya wilson PA-C 07/16/2021 I49.5 Sick sinus syndrome Toya wilson PA-C 05/01/2021 I48.21 Permanent atrial fibrillation Felice Vogt PA-C 05/01/2021 I25.10 Atherosclerotic heart disease of [place] coronary artery with Toya Gaspar PA-C 05/01/2021 I11.9 Hypertensive heart disease witho ut heart failure Toya Gaspar PA-C 05/01/2021 I35.1 Nonrheumatic aortic (valve) insu fficiency Toyagagan Gaspar, PA-C 05/01/2021 I34.0 Nonrheumatic mitral (valve) insu fficiency Toya Gaspar, PA-C 05/01/2021 R94.31 Abnormal electrocardiogram [ECG] [EKG] Toyagagan Gaspar PA-C 05/01/2021 I45.0 Right fascicular block Toyagagan Reyes antonetteSEN wilsonC 05/01/2021 E78.00 Pure hypercholesterolemia, unspe cified Toyagagan Gaspar, PA-C 05/01/2021 I49.5 Sick sinus syndrome ToyaSEN RosasC 05/01/2021 Z95.0 Presence of cardiac pacemaker Felice jone Gaspar PAYogiC 05/01/2021 I65.23 Occlusion and stenosis of bilate ral carotid arteries SEN HernandezC 05/01/2021 Z71.3 Dietary counseling and surveilla ncgagan Gaspar PA-C Plan of Treatment Future Appointment(s):* [...]
--- OUTSIDE RECORDS SUMMARY | 2021-09-28 10:54 | CCD | Continuity of Care Document ---
Author Author Jacky GASPARC Organization Unknown Address [address] [place] [address], [place] [address] Phone [phone] Care Team Providers Care Machine Ii Cutter Name Role Phone Bettina Soto MD AUTM [phone] Other, Provider AUTM Unavailable Isabel Mccarthy MD AUTM [phone] Dangelo Kimbrough MD AUTM [phone] Alexx Augustine MD AUTM [phone] Brian Campos MD AUTM [phone] Dangelo Centeno MD AUTM [phone] Problems Active Problems Provider Date Chronic atrial [...] Exercise Type/Frequency Does housework twice a w [place] Exercise Type/Frequency Does yardwork twice a we [...] H/L Range Note Complete Blood Count 09/17/2021 [facility] enter [phone] White Blood Count 5.0 10 Normal 4.0-10.0 [...] % 0.0 % Normal 0-0 CMP 09/03/2021 [facility] - not interfaced (315)- - Albumin Serum/Plasma 3.4 Alt - SGPT 25 Calcium Ser/Plasma Mass/Vol 8.6 Carbon Dioxide Ser/Plasm 24 Chloride Serum/Plasma 107 Alkaline Phosphatase 74 Potassium 4.5 Protein Total 8.1 Sodium 138 Ast - Sgot 23 BUN - Urea Nitrogen 22 Glucose 114 High 83-110 Creatinine For GFR 1.76 Lipid Profile/Cardiac Risk Pro 09/03/2021 [facility] - not interfaced (315)- - Triglycerides 67 <150 Cholesterol 153 <200 HDL 67 >40.0 LDL Cholesterol 73 Chol/HDL Ratio 2.283 <5 Laboratory test finding 09/03/2021 [facility] - not interf aced (315)- - Thyroid Stimulating Hormone 3.520 Free T4 0.90 Hemoglobin A1c 09/03/2021 [facility] - not interfaced (315)- - Hemoglobin A1c 5.5 CBC without Differential 06/13/2021 [facility] - not inter faced (315)- - White Blood Count 6.7 5.0-10.0 Red Blood Count 2.97 Low 4.00-5.40 Platelets 200 172-450 Hemoglobin 10.7 Hematocrit 32.3 BMP 06/13/2021 [facility] - not interfaced (315)- - Calcium Ser/Plasma Mass/Vol 8.6 Sodium 142 Carbon Dioxide Ser/Plasm 23 Chloride Serum/Plasma 112 Potassium 4.6 Glucose 119 High 83-110 Blood Urea Nitrogen 28 High 7-18 Creatinine 1.49 High 0.6-1.0 G F R 47.9 Procedures Date Code Description Status 09/17/2021 15634 Office/Outpatient Established Lo w MDM 20-29 Min Completed 08/21/2021 26056 Office/Outpatient Established Mi nimal Problem(S) Completed 07/16/2021 02793 Office/Outpatient Established Mi nimal Problem(S) Completed 05/01/2021 79056 Office/Outpatient Established Mo d MDM 30-39 Min Completed 05/01/2021 28043 ECG 12-Lead Completed Medical Devices Description No [...] PA-C 05/01/2021 I25.10 Atherosclerotic heart disease of [place] coronary artery with Toya Gaspar PA-C 05/01/2021 [...]
--- OUTSIDE RECORDS SUMMARY | 2021-09-28 10:54 | CCD | Continuity of Care Document ---
Author Author Jacky CAMPOS M.D. Organization Unknown Address [address] [place] [address] Phone [phone] Care Team Providers Care Single Needle Operator Name Role Phone Bettina Soto M.D. AUTM [phone] Problems Active Problems Provider Date Inflammatory neuropathy Brian Campos M.D. Onset: 4 Cellulitis Brian Campos M.D. Onset: 05/22/2014 Unsteady when walking Brian Campos M.D. Onset: 05/22/2014 Chronic inflammatory demyelinating polyradiculoneuropathy Terence Campos M.D. Onset: 10/28/2015 Spondylolysis of cervical spine Brian Campos M.D. Onset: 1 12/29/2014 Spondylolysis Brian Campos M.D. Onset: 10/28/2015 Abnormal gait Brian Campos M.D. Onset: 10/28/2015 Sensory neuropathy Brian Campos M.D. Onset: 10/01/2016 Dizziness and giddiness Brian Campos M.D. Onset: 7 Social History Type Date Description Comments Sex Unknown ETOH Use Denies alcohol use Tobacco Use Start: Unknown Patient has never smoked Recreational Drug Use Denies Drug Use Allergies and adverse reactions Active Allergies Criticality Reaction | Severity Comments Date Sulfa Antibiotics Unable to assess criticality 05/22/2014 Penicillins Unable to assess criticality 05/22/2014 Medications Active Medications SIG Qnty Indications Ordering Provide r Date Atorvastatin Calcium 10mg Tablets 1 by mouth every day 90tabs Brian Campos M.D. 02/14/2020 Gabapentin 300mg Capsules take one capsule by mouth twice a day maximum daily dose = 2 180caps Eduardo Campos M.D. 08/17/2019 Allopurinol 100mg Tablets 2 po qday 180taluis Campos M.D. 04/13/2019 Folic Acid 1mg Tablets take 1 tablet by mouth every day 90taluis Campos M.D. 06/25/2014 Methotrexate 2.5mg Tablets take 3 tablets every week 45taluis Campos M.D. 06/25/2014 Intravenous Immunoglobulin IV Onc e ivig 40 grams iv once a month for 6 months dx:cidp Terence Camops M.D. 11/20/2013 Nortriptyline HCL 50mg Capsules take one capsule by mouth at bedtime 90capmaureen Campos M.D. Immunizations Description No Information Available Vital Signs Date Vital Result Comment 06/27/2015 8:22am BP Systolic 170 mmHg BP Diastolic 80 mmHg Heart Rate 70 /min Respiratory Rate 16 /min Height 66 inches 5'6" Weight 220.00 lb BMI (Body Mass Index) 35.5 kg/m2 [place] Body Weight 142 lb 02/25/2015 8:33am BP Systolic 140 mmHg BP Diastolic 80 mmHg Heart Rate 72 /min Respiratory Rate 16 /min Height 66 inches 5'6" Weight 220.00 lb BMI (Body Mass Index) 35.5 kg/m2 [place] Body Weight 142 lb Results Description No Information Available Procedures Date Code Description Status 08/20/2021 06075 Phone Evaluation/Management Phys ician 11-20 Mins Completed Medical Devices Description No Information Available Encounters Type Date Location Provider Dx Diagnosis Office Visit 08/20/2021 12:00p Main office - [facility] Chalo Guerrero 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 08/20/2021 M43.02 Spondylolysis, cervical region Wale Campos M.D. 08/20/2021 M43.06 Spondylolysis, lumbar region Adrien Campos M.D. 08/20/2021 R26.81 Unsteadiness on feet Brian Campos M.D. 08/20/2021 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 Brian Campos M.D. 08/20/2021 R42 Dizziness and giddiness Brian joe M.D. Plan of Treatment Future Appointment(s):* 02/11/2022 11:30 am - Brian Campos M.D. at Main office - [place] Functional Status Description No Information Available Mental Status Description No Information Available Referrals Description No Information Available
--- OUTSIDE RECORDS SUMMARY | 2021-09-28 10:54 | CCD | Continuity of Care Document ---
Author Organization Unknown Address Unknown Phone Unavailable Care Team Providers Care Sales And Service Advisor Name Role Phone Bettina Soto MD AUTM [phone] Other, Provider AUTM Unavailable Isabel Mccarthy MD AUTM [phone] Dangelo Kimbrough MD AUTM [phone] Alexx Augustine MD AUTM [phone] Brian Campos MD AUTM [phone] Dangelo Centeno MD AUTM [phone] Problems Active Problems Provider Date Chronic atrial fibrillation SEN HernandezC Onset: 12/2014 Coronary arteriosclerosis LUANA Bass Onset: 09/15/2012 Hypertensive heart disease without congestive heart fa ilure SEN HernandezC Onset: 08/22/2015 Aortic valve disorder LUANA Bass Onset: Mitral valve disorder LUANA Bass Onset: Electrocardiogram abnormal YOUSIF Hernandez-C Onset: 03/23 Right bundle branch block YOUSIF Hernandez-C Onset: 2016 Pure hypercholesterolemia YOUSIF Hernandez-C Onset: 2015 Sinus node dysfunction LUANA Bass Onset: Cardiac pacemaker in situ LUANA Bass Onset: 07/11/2012 Carotid artery occlusion Toya Rivero PA-C Onset: 014 Dietary management surveillance YOUSIF Hernandez-C Onset: 10/12/2017 Permanent atrial fibrillation YOUSIF Hernandez-C Onset: Social History Type Date Description Comments Sex Unknown Tobacco Use Start: Unknown Never Smoked Cigarettes ETOH Use Consumes Beer 5 weekly Tobacco Use Start: Unknown Patient has never smoked Smoking Status Reviewed: 09/17/21 Patient has never smoked Exercise Type/Frequency Walks daily Exercise Type/Frequency Does housework twice a w [place] Exercise Type/Frequency Does yardwork twice a we [...] by mouth every day 90tabs I25.10 Toya Rivero PA-C 10/29/2015 I11.9 Atorvastatin Calcium 10mg Tablets 1 by mouth every night at bedtime 90tabs I25.10 SEN Hernandez 08/22/2015 Folic Acid 1mg Tablets 1 by mouth every day 90tabs Chandler Gandara MD 02/18/2015 Travoprost 0.004% Solution 1 drop each eye once daily Maty Emanuel MD 02/19/20 15 Klor-Con M20 20Meq Tablets ER 1 by mouth every day 90tabs I11.9 Toya Rivero PA-C 07/24/2013 Chlorthalidone 25mg Tablets Take One-Half [...] as needed for chest pain 25tabs I25.10 Chanlder Gandara MD 09/14/2012 Centrum Silver Tablets 1 [...] Test Result H/L Range Note CMP 09/03/2021 [facility] - not interfaced (315)- - Albumin Serum/Plasma 3.4 Alt - SGPT 25 Calcium Ser/Plasma Mass/Vol 8.6 Carbon Dioxide Ser/Plasm 24 Chloride Serum/Plasma 107 Alkaline Phosphatase 74 Potassium 4.5 Protein Total 8.1 Sodium 138 Ast - Sgot 23 BUN - Urea Nitrogen 22 Glucose 114 High 83-110 Creatinine For GFR 1.76 Lipid Profile/Cardiac Risk Pro 09/03/2021 [facility] - not interfaced (315)- - Triglycerides 67 <150 Cholesterol 153 <200 HDL 67 >40.0 LDL Cholesterol 73 Chol/HDL Ratio 2.283 <5 Laboratory test finding 09/03/2021 [facility] - not interf aced (315)- - Thyroid Stimulating Hormone 3.520 Free T4 0.90 Hemoglobin A1c 09/03/2021 [facility] - not interfaced (315)- - Hemoglobin A1c 5.5 CBC without Differential 06/13/2021 [facility] - not inter faced (315)- - White Blood Count 6.7 5.0-10.0 Red Blood Count 2.97 Low 4.00-5.40 Platelets 200 172-450 Hemoglobin 10.7 Hematocrit 32.3 BMP 06/13/2021 [facility] - not interfaced (315)- - Calcium Ser/Plasma Mass/Vol 8.6 Sodium 142 Carbon Dioxide Ser/Plasm 23 Chloride Serum/Plasma 112 Potassium 4.6 Glucose 119 High 83-110 Blood Urea Nitrogen 28 High 7-18 Creatinine 1.49 High 0.6-1.0 G F R 47.9 Procedures Date Code Description Status 09/17/2021 36402 Office/Outpatient Established Lo w MDM 20-29 Min Completed 08/21/2021 56344 Office/Outpatient Established Mi nimal Problem(S) Completed 07/16/2021 84454 Office/Outpatient Established Mi nimal Problem(S) Completed 05/01/2021 73943 Office/Outpatient Established Mo d MDM 30-39 Min Completed 05/01/2021 54022 ECG 12-Lead Completed Medical Devices Description No Information Available Encounters Type Date Location Provider Dx Diagnosis Office Visit 08/21/2021 8:00a Main Office Toya Rivero PA-C I49.5 Sick sinus syndrome Office Visit 07/16/2021 9:15a Main Office Toya Rivero PA-C I49.5 Sick sinus syndrome Office Visit 05/01/2021 10:15a Main Office Toya Rivero PA-C I48.2 1 Permanent atrial fibrillation I25.10 [...] Provider 09/17/2021 I49.5 Sick sinus syndrome Toya Justin wilson, PA-C 08/21/2021 I49.5 Sick sinus syndrome Toya Justin wilson, PA-C 07/16/2021 I49.5 Sick sinus syndrome Toya Justin wilson, PA-C 05/01/2021 I48.21 Permanent atrial fibrillation Felice becerril Justin Rivero, YOUSIF-C 05/01/2021 I25.10 Atherosclerotic heart disease of [place] coronary artery with Toya Rivero PA-C 05/01/2021 I11.9 Hypertensive heart disease witho ut heart failure Toya Rivero, PA-C 05/01/2021 I35.1 Nonrheumatic aortic (valve) insu fficiency Toya Rivero, PA-C 05/01/2021 I34.0 Nonrheumatic mitral (valve) insu fficiency Toya Rivero, PA-C 05/01/2021 R94.31 Abnormal electrocardiogram [ECG] [EKG] Toya Rviero, PA-C 05/01/2021 I45.0 Right fascicular block Toyajustin bragg, VA-C 05/01/2021 E78.00 Pure hypercholesterolemia, unspe cified Toya Rivero, PA-C 05/01/2021 I49.5 Sick sinus syndrome Toyajustin wilson, PA-C 05/01/2021 Z95.0 Presence of cardiac pacemaker Felice Vogt, PA-C 05/01/2021 I65.23 Occlusion and stenosis of bilate ral carotid arteries Toya Rivero, PA-C 05/01/2021 Z71.3 Dietary counseling and surveilla nce SEN HernandezC Plan of Treatment Future Appointment(s):* 11/05/2021 8:15 am - Toya Rivero PA-C at Main Office 09/17/2021 - Toya Rivero PA-C* I49.5 Sick sinus syndrome Functional Status Functional Condition Comment Date Status Independent with all ADL's Activ e Mental Status Description No Information Available Referrals Description No Information Available
--- OUTSIDE RECORDS SUMMARY | 2021-09-28 10:55 | CCD ---
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 Active confirmed 23285355 Problem Melanocytic nevi of face D22.30 Active confirmed 792437173 Problem Actinic keratoses L57.0 Active confirmed 40 1080018 Problem Melanocytic nevi of left lower limb, including hip D22.72 Active confirmed 748277823 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 Active confirmed 710044386 Problem Benign prostatic hyperplasia without lower urina ry tract symptoms N40.0 Active confirmed 880845654 Problem 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 Active confirmed 78944527 Problem Unspecified urinary incontinence R32 Active conf irmed 965539398 Problem Melanocytic nevi of right lower limb, including hip D22.71 Active confirmed 714507267 Problem Melanocytic nevi of left upper limb, including shoulder D22.62 Active confirmed 450973207 Problem Melanocytic nevi of right upper limb, including shoulder D22.61 Active confirmed 945252993 Problem Melanocytic nevi of trunk D22.5 Active confirmed 609590718 ALLERGIES Allergen (clinical drug ingredient) Drug/Non Drug Allergy do cumented on EMR Reaction Allergy Type Onset Date Status Penicillin (For Allergies Use Only) Unknown Drug Allerg y Active hydrochlorothiazide Hydrochlorothiazide([facility] Code:[address]-19) Unknown Drug Allergy Active ampicillin Ampicillin([facility] Code:[address]-25) Unknown Drug Allergy Active Septra Unknown Drug Allergy Active Procardia Unknown Drug Allergy Active Sulfa (for allergy use only) Unknown Drug Allergy Active ENCOUNTERS from 1935 to 2021-08-10 Encounter Location Date Provider Diagnosis [facility] [phone] [place] [address] 14 Jul, 2021 Chandler Cherry 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 IMMUNIZATIONS No Information SOCIAL HISTORY Tobacco Use: Social History Observation Description Date Details (start date - stop date) Never Smoker Sex Assigned At : Social History Observation Description Sex Assigned At Unknown Language: Question Answer Notes Languages spoken: Korean Taoism: Question Answer Notes Taoism No amish beliefs that would impact health care. Alcohol Screening: Question Answer Notes Did you have a drink containing alcohol in the past year? Ye s Points 1 Interpretation Negative How many drinks did you have on a typica l day when you were drinking in the past year? 1 or 2 (0 points) How often did you have a drink containing alcohol in t he past year? Monthly or less (1 point) Tobacco Use: Question Answer Notes Are you a: never smoker REASON FOR REFERRAL No Information VITAL SIGNS Weight 195 lbs Jul, Height 5'9'' in Jul, BMI 28.79 kg/m2 Jul, Heart Rate 79 /min Jul, Respiratory Rate 18 /min Jul, Temperature 97.6 degrees Fahrenheit Jul, Oximetry 99 Jul, Blood pressure systolic 135 mm Hg Jul, Blood pressure diastolic 64 mm Hg Jul, MEDICATIONS Medication SIG (Take, Route, Frequency, Duration) Notes Start Da te End Date Status Flomax 0.4 MG 1 capsule Orally Once a day for 90 day(s) Active Chlorthalidone 25 mg 1/2 tablet in the morning with food Orally Onc e a day Active Potassium Chloride 20 MEQ 1 packet with food Orally Once a day f or 30 day(s) Active Atorvastatin Calcium 10 MG 1 tablet Orally Once a day for 30 day(s) Not-Taking Lisinopril 5 MG 1 tablet Orally Once a day for 30 day(s) Active Cholecalciferol 2000 UNIT 1 capsule Orally Once a day for 30 day(s) Active Ferrous Gluconate 324 (38 Fe) MG 1 tablet Orally Once a day for 30 da y(s) Not-Taking Folic Acid 1 MG 1 tablet Orally Once a day for 30 day(s) Active Levothyroxine Sodium 25 MCG 1 tablet in the morning on an empty stomach Orally Once a day for 30 day(s) Active Gabapentin 300 MG 1 tablet Orally bid Active Nitroglycerin 0.4 MG as directed Sublingual Active Meclizine HCl 25 MG 1 tablet as needed Orally PRN Active Eliquis 5 MG TAKE ONE TABLET BY MOUTH TWICE A DAY Oral for 90 Not-Taking Immune Globulin (Human) 40 GM/400ML as directed Injection Active Aspir-81 Active Nortriptyline HCl 50 MG 1 capsule Orally Once a day for 30 day(s) Active Centrum Silver - as directed Orally Active Methotrexate 2.5 MG as directed Orally 7.5 MG ONCE WEEKLY 3 TABS ON MONDAYS ONLY Active Bisoprolol Fumarate 5 MG 1/2 tablet Orally Once a day Not-Taking Apixaban 2.5 MG as directed Orally BID Active Allopurinol 100 MG 2 tablet Orally Once a day Active Multivitamin - as directed Orally No t-Taking Travoprost 0.004 % as directed Ophthalmic DAILY Active PROCEDURES from 1935 to 2021-08-10 Procedure Date Ordered Result Body Site Medication: 4% Lidocaine topical cream (Anecream) 5gm 2021-08-04 N/A RESULTS No Results REASON FOR VISIT Left lower leg MEDICAL (GENERAL) HISTORY Type Description Date Medical History HX INCONTINENCE AND UTI Medical History PACEMAKER Medical History HTN Medical History A-FIB Medical History RENAL INSUFFICIENCY Medical History CHRONIC INFLAMMATORY DEMYELINATING POLYN EURITIS Medical History HYPERLIPIDEMIA Medical History [place] Medical History 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 Medical History BASAL CELL CARCINOMA Medical History Basal cell carcinoma of left cheek Medical History Squamous cell cancer of skin of left jose ek Medical History Squamous cell carcinoma of left hand Surgical History hernia repair Surgical History appendectomy Surgical History PACEMAKER 2008 Surgical History CATARACT Surgical History COLONOSCOPY/ ENDOSCOPY IN HOSPITAL Surgical History EXCISION LEFT CHEEK/BCC 2018 Hospitalization History rash Hospitalization History Nosebleed that would not stop, overn ight hospital stay Goals Section No Information Health Concerns No Information MEDICAL EQUIPMENT No Information MENTAL STATUS No Information FUNCTIONAL STATUS No Information ASSESSMENTS Encounter Date Diagnosis Assessment Notes Treatment Notes Treatm ent Clinical Notes Jul, Non-pressure chronic ulcer o f other part of left lower leg with fat layer exposed (ICD-10 - L97.822) PLAN OF TREATMENT Next Appt Details 1 Week Reason: Provider Name:Chandler Cherry, 09:15:00 AM, [address], , [place], [address], Provider Name:Josee Carranza, 2021-10-21 0 09:30:00 AM, [address], , [place], [address], Provider Name:Liliane Andrew, 2021-11-09 09:15:00 AM, [address] [place] [address], , [place], [address], Insurance Providers Payer Name Payer Address Payer Phone Insured Name Patient Relati onship to Insured Coverage Start Date Coverage End Date [employer] [facility] CLAIM DIV [address] [facility] [id number] CHIARA MARIE MEDICARE Part A and B [address] [facility] [address] [phone] CHIARA MARIE
--- OUTSIDE RECORDS SUMMARY | 2021-09-28 10:55 | CCD ---
Continuity of Care Document (CCD) Created on: 08/24/2021 Jacky Ritchie External Reference #: [id number] : 1935 Sex: Male Author Author Jacky LECHUGA Organization Unknown Address [address] [place] [address] Phone [phone] Care Team Providers Care Cloth Colorer Name Role Phone Brian Campos AUTM [phone] Maty Emanuel MD AUTM [phone] Dilip BOWEN M.D., Han Ortiz AUTM [phone] Markos Augustine MD AUTM [phone] Problems Active Problems Provider Date Essential hypertension [...] Yes Smoke Alarms Carbon Monoxide Detector: Yes Allergies, Adverse Reactions, Alerts Active Allergies Criticality Reaction | Severity Comments [...] by mouth every day 180tabs M10.9 Wale Lechuga, ANKUR 02/14/2020 Gabapentin 300mg Capsules 1 by mouth [...] Solutio n once a month IV G61.81 Brian aCmpos Nortriptyline HCL 50mg Capsules one po at hs Brian Campos Klor-Con M20 20Meq Tablets ER 1 by mouth every day 90tabs I10 Chandler Gandara MD Centrum Silver Tablets 1 po qd OTC Unknown History Medications Clindamycin HCL 300mg Capsules 1 by mouth three times a dayfor 10 days Unknown - 08/24/2021 Immunizations CPT Code Status Date Vaccine Lot # [id number] Given 08/21/2021 Moderna Sars-(Co vid-19) vaccine, mRNA, LNP-S, PF, 100 mcg/ 0.5 mL 84002 Given 06/13/2021 Boostrix (Tdap) Tetnus, Diphtheria Toxoids & Acellular Pertussis 27886 Given 01/30/2021 Moderna Sars-(Co vid-19) vaccine, mRNA, LNP-S, PF, 100 mcg/ 0.5 mL 86581 Given 01/01/2021 Moderna Sars-(Co vid-19) vaccine, mRNA, LNP-S, PF, 100 mcg/ 0.5 mL 68099 Given 09/11/2019 Influenza Virus Vaccine, Maury drivalent,multidose vial [id number] 23775 Given 09/05/2018 Influenza Virus Vaccine, Maury drivalent,multidose vial [id number] Q2038 Given 08/22/2017 Influenza Vaccine (Fluzone)( medicare) Q2038 Given 09/03/2016 Influenza Vaccine (Fluzone)( medicare) [id number] 51912 Given 07/24/2015 Influenza Vaccination 46220 Given 06/04/2015 Zostavax 11061 Given 04/28/2015 Prevnar 13 [id number] Q2038 Given 09/03/2014 Influenza Vaccine (Fluzone)( medicare) [id number] 96263 Given 09/03/2014 Boostrix (Tdap) Tetnus, Diphtheria Toxoids & Acellular Pertussis [id number] Q2038 Given 08/17/2013 Influenza Vaccine (Fluzone)( medicare) 46783 Given 08/17/2013 Influenza Vaccination [id number] Q2038 Given 08/04/2012 Influenza Vaccine (Fluzone)( medicare) 13325 Given 08/04/2012 Influenza Vaccination [id number] 50376 Given 08/03/2010 Pneumococcal Vaccine [id number] 09379 Given 08/03/2010 Influenza Vaccination [id number] 49046 Given 09/02/2009 Influenza Vaccination [id number] Vital Signs Date Vital Result Comment 08/24/2021 8:47am BP Systolic 154 mmHg BP Diastolic 63 mmHg Heart Rate 67 /min Body Temperature 96.8 F Respiratory Rate 17 /min Height 69 inches 5'9" Weight 198.12 lb O2 % BldC Oximetry 98 % Warren Body Weight 160 lb BMI (Body Mass Index) 29.3 kg/m2 06/04/2021 2:14pm BP Systolic 155 mmHg BP Diastolic 59 mmHg Heart Rate 76 /min Body Temperature 97.2 F Respiratory Rate 15 /min Height 69 inches 5'9" Weight 195.38 lb Warren Body Weight 160 lb BMI (Body Mass Index) 28.8 kg/m2 Results Test Acquired Date Facility Test Result H/L Range Note Basic Metabolic Profile 06/13/2021 [facility] [place] [address] [phone] Glucose, Fasting 119 mg/dL High 70-100 Blood Urea Nitrogen 28 mg/dL High 7-18 Creatinine For GFR 1.49 mg/dL High 0.70-1.30 Glomerular Filtration Rate 47.9 Normal >35 1 Sodium Level 142 mEq/L Normal 136-145 Potassium Serum 4.6 mEq/L Normal 3.5-5.1 Chloride Level 112 mEq/L High 98-107 Carbon Dioxide Level 23 mEq/L Normal 21-32 Anion Gap 7 mEq/L Low 8-16 Calcium Level 8.6 mg/dL Low 8.8-10.2 Laboratory test finding 06/13/2021 [facility] [place], [place] [id number] [phone] C Reactive Protein Quantitativ 3.22 mg/dL High 0 .00-0.30 CBC With Differential 06/13/2021 Patient [facility] nter [place], [place] [id number] [phone] White Blood Count 6.7 10 Normal 4.0-10.0 [...] 36.0-66.0 Lymph % 6.0 % Low 24.0-44.0 Wright % 6.4 % Normal 2.0-8.0 Eos % 1.2 % Normal 0.0-3.0 Baso % 0.6 % Normal 0.0-1.0 Immature Granulocyte % 0.4 % Normal 0-3.0 Nucleated Red Blood Cell % 0.0 % Normal 0-0 Neutrophils # 5.7 10 Normal 1.5-8.5 Lymph # 0.4 10 Low 1.5-5.0 Wright # 0.4 10 Normal 0.0-0.8 Eos # 0.1 10 Normal 0.0-0.5 Baso # 0.0 10 Normal 0.0-0.2 Laboratory test finding 06/13/2021 [facility] [place], [place] [id number] [phone] Erythrocyte Sedimentation Rate 49 mm/hr High 0 -20 1 Units are mL/min/1.73 m2 Chronic Kidney Disease Staging per NKF: Stage I & II GFR >=60 Normal to Mildly Decreased Stage III GFR 30-59 Moderately Decreased Stage IV GFR 15-29 Severely Decreased Stage V GFR <15 Very Little GFR Left ESRD GFR <15 on LEATHER TOOLER Procedures Date Code Description Status 08/24/2021 368982363 Diabetic Foot Exam Completed 07/09/2021 79204 Chronic Care MGMT 20 Mins Clinical Staff Time Per Calendar Month Completed 06/05/2021 58525 Chronic Care MGMT 20 Mins Clinical Staff Time Per Calendar Month Completed 06/05/2021 19782 Chronic Care Management Services Ea Addl 20 Min Completed 06/04/2021 72963 Office/Outpatient Established Lo w MDM 20-29 Min Completed 05/13/2021 64586 Chronic Care MGMT 20 Mins Clinical Staff Time Per Calendar Month Completed 04/17/2021 12068 Chronic Care MGMT 20 Mins Clinical Staff Time Per Calendar Month Completed 02/26/2021 25791 Chronic Care MGMT 20 Mins Clinical Staff Time Per Calendar Month Completed Medical Devices Description No Information Available Encounters Type Date Location Provider Dx Diagnosis Office Visit 06/04/2021 2:15p Main Office Juliana Lechuga, YARD MOTOR OPERATOR S80.1 2xA Contusion of left lower leg, initial encounter Assessments Date Code Description Provider 08/24/2021 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 PleJuliana encinas, YARD MOTOR OPERATOR 08/24/2021 N18.30 Chronic kidney disease, stage 3 unspecified Pleskach, Juliana, YARD MOTOR OPERATOR 08/24/2021 I10 Essential (primary) hypertension Plegeorginaach, Juliana, YARD MOTOR OPERATOR 08/24/2021 I48.19 Other persistent atrial fibrilla tion Pleskach, Juliana, YARD MOTOR OPERATOR 08/24/2021 E03.9 Hypothyroidism, unspecified Ples kach Juliana, YARD MOTOR OPERATOR 08/24/2021 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 Pleskach, Juliana, YARD MOTOR OPERATOR 08/24/2021 N40.0 Benign prostatic hyp erplasia without lower urinary tract symptoms Plegeorginaach Juliana, YARD MOTOR OPERATOR 07/09/2021 N18.30 Chronic kidney disease, stage 3 unspecified Pleskach, Juliana, YARD MOTOR OPERATOR 07/09/2021 I10 Essential (primary) hypertension Pleskach, Juliana, YARD MOTOR OPERATOR 07/09/2021 I48.19 Other persistent atrial fibrilla tion Pleskach, Juliana, YARD MOTOR OPERATOR 07/09/2021 E03.9 Hypothyroidism, unspecified Ples kach, Juliana, YARD MOTOR OPERATOR 06/05/2021 N18.30 Chronic kidney disease, stage 3 unspecified Pleskach, Juliana, YARD MOTOR OPERATOR 06/05/2021 I10 Essential (primary) hypertension Pleskach, Juliana, YARD MOTOR OPERATOR 06/05/2021 I48.19 Other persistent atrial fibrilla tion Pleskach, Juliana, YARD MOTOR OPERATOR 06/05/2021 E03.9 Hypothyroidism, unspecified Ples Suha hensleyy, YARD MOTOR OPERATOR 06/04/2021 S80.12xA Hematoma of left lower leg Plesk achJuliana, YARD MOTOR OPERATOR 05/13/2021 N18.30 Chronic kidney disease, stage 3 unspecified Pleskach Juliana, YARD MOTOR OPERATOR 05/13/2021 I48.19 Other persistent atrial fibrilla tion Plegeorginaterri Juliana, YARD MOTOR OPERATOR 05/13/2021 I10 Essential (primary) hypertension Plegeorginaach Juliana, YARD MOTOR OPERATOR 05/13/2021 E03.9 Hypothyroidism, unspecified Ples ayden Juliana, YARD MOTOR OPERATOR 04/17/2021 N18.30 Chronic kidney disease, stage 3 unspecified Plegeorginaach Jluiana, YARD MOTOR OPERATOR 04/17/2021 I48.19 Other persistent atrial fibrilla tion PlegeorginaSuha murrayy, YARD MOTOR OPERATOR 04/17/2021 I10 Essential (primary) hypertension Ankush Juliana, YARD MOTOR OPERATOR 04/17/2021 E03.9 Hypothyroidism, unspecified Ples joselynSuha ramy, YARD MOTOR OPERATOR 02/26/2021 N18.30 Chronic kidney disease, stage 3 unspecified Pleskach Juliana, YARD MOTOR OPERATOR 02/26/2021 I48.19 Other persistent atrial fibrilla tion PlegeorginaSuha murrayy, YARD MOTOR OPERATOR 02/26/2021 I10 Essential (primary) hypertension AnkushJuliana, YARD MOTOR OPERATOR 02/26/2021 E03.9 Hypothyroidism, unspecified Ples Juliana hensley, YARD MOTOR OPERATOR Plan of Treatment 08/24/2021 - Juliana Lechuga, YARD MOTOR OPERATOR* E11.42 Type 2 diabetes mellitus with diabetic polyneuropathy* New Labs:* Microalbumin Random, Scheduled: 08/24/21 * Hemoglobin A1c, Scheduled: 02/22/22 * Microalbumin Random, Scheduled: 02/22/22 * N18.30 Chronic kidney disease, stage 3 unspecified * I10 Essential (primary) hypertension* New Labs:* Comprehensive Metabolic Profil, Scheduled: 02/22/22 * Lipid Panel, Scheduled: 02/22/22 * Follow up:* 6 months, with labs * I48.19 Other persistent atrial fibrillation * E03.9 Hypothyroidism, unspecified* New Labs:* TSH And T4 Free (Mian), Scheduled: 02/22/22 * 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 Thank you. Closed [address] [facility] [address] [facility] [id number] [phone] Markos Augustine MD Patient is requesting to be referred back to have his carotids checked. Thank you. Closed 07/06/2021 [address] [facility] [address] [facility] [address] [phone] Dilip BOWEN M.D., Han Ortiz. Urgent Referral:patient need s hematoma evacuation LLE. Thank you. Closed 06/05/2021 [address] [facility] [address] [facility] [address] [phone]
--- OUTSIDE RECORDS SUMMARY | 2021-09-28 10:55 | CCD | Continuity of Care Document ---
Author Author Jacky GASPARC Organization Unknown Address [address] [place] [address], [place] [place] [address] Phone [phone] Care Team Providers Care Punchboard Stuffer Name Role Phone Bettina Soto MD AUTM [phone] Other, Provider AUTM Unavailable Isabel Mccarthy MD AUTM [phone] Dangelo Kimbrough MD AUTM [phone] Alexx Augustine MD AUTM [phone] Brian Campos MD AUTM [phone] Dangelo Centeno MD AUTM [phone] Problems Active Problems Provider Date Chronic atrial [...] Gaspar PA-C Onset: 014 Dietary management surveillance SEN HernandezJonah Onset: 10/12/2017 Permanent atrial fibrillation Toya Gaspar PA-C Onset: Social History Type Date Description Comments Sex Unknown Tobacco Use Start: Unknown Never Smoked Cigarettes ETOH Use Consumes Beer 5 weekly Tobacco Use Start: Unknown Patient has never smoked Smoking Status Reviewed: 05/01/21 Patient has never smoked Exercise Type/Frequency Walks daily Exercise Type/Frequency Does housework twice a w [place] Exercise Type/Frequency Does yardwork twice a we [...] Available Vital Signs Date Vital Result Comment 05/01/2021 10:29am Weight 194.00 lb Height 66 inches 5'6" BMI (Body Mass Index) 31.3 kg/m2 Heart Rate 68 /min Irregular Respiratory Rate 16 /min BP Systolic Right Arm 136 mmHg sitting, regular c uff BP Diastolic Right Arm 84 mmHg sitting, regular cuff 10/29/2020 10:20am Weight 194.00 lb Home Weight 195lb Home weight Height 66 inches 5'6" BMI (Body Mass Index) 31.3 kg/m2 Heart Rate 68 /min Irregular Respiratory Rate 16 /min BP Systolic Right Arm 136 mmHg sitting, regular c uff BP Diastolic Right Arm 78 mmHg sitting, regular cuff Results Test Acquired Date Facility Test Result H/L Range Note CBC without Differential 06/13/2021 [facility] - not inter faced (315)- - White Blood Count 6.7 5.0-10.0 Red Blood Count 2.97 Low 4.00-5.40 Platelets 200 172-450 Hemoglobin 10.7 Hematocrit 32.3 BMP 06/13/2021 [facility] - not interfaced (315)- - Calcium Ser/Plasma Mass/Vol 8.6 Sodium 142 Carbon Dioxide Ser/Plasm 23 Chloride Serum/Plasma 112 Potassium 4.6 Glucose 119 High 83-110 Blood Urea Nitrogen 28 High 7-18 Creatinine 1.49 High 0.6-1.0 G F R 47.9 Procedures Date Code Description Status 08/21/2021 09263 Office/Outpatient Established Mi nimal Problem(S) Completed 07/16/2021 68389 Office/Outpatient Established Mi nimal Problem(S) Completed 05/01/2021 70164 Office/Outpatient Established Mo d MDM 30-39 Min Completed 05/01/2021 78820 ECG 12-Lead Completed Medical Devices Description No [...] surve illance Assessments Date Code Description Provider 08/21/2021 I49.5 Sick sinus syndrome Toya wilson PA-C 07/16/2021 I49.5 Sick sinus syndrome Toya wilson PA-C 05/01/2021 I48.21 Permanent atrial fibrillation Felice Vogt PA-C 05/01/2021 I25.10 Atherosclerotic heart disease of [place] coronary artery with ToyaYOUSIF Chamberlain-C 05/01/2021 I11.9 Hypertensive heart disease witho ut heart failure Toya SEN FrazierC 05/01/2021 I35.1 Nonrheumatic aortic (valve) insu fficiency Toya Anderson Mat PA-C 05/01/2021 I34.0 Nonrheumatic mitral (valve) insu fficiency ToyaYOUSIF Chamberlain-C 05/01/2021 R94.31 Abnormal electrocardiogram [ECG] [EKG] Toya Anderson YOUSIF Gaspar-C 05/01/2021 I45.0 Right fascicular block Toya Anderson SEN MccoyC 05/01/2021 E78.00 Pure hypercholesterolemia, unspe cified ToyaYOUSIF Chamberlain-C 05/01/2021 I49.5 Sick sinus syndrome ToyaSEN RosasC 05/01/2021 Z95.0 Presence of cardiac pacemaker Felice SEN VogtC 05/01/2021 I65.23 Occlusion and stenosis of bilate ral carotid arteries ToyaSEN ChamberalinC 05/01/2021 Z71.3 Dietary counseling and surveilla madeline Gaspar PA-C Plan of Treatment Future Appointment(s):* 09/17/2021 8:00 am - Toya Gaspar PA-C at Main Office * 11/05/2021 8:15 am - Toya Gaspar PA-C at Main Office 05/01/2021 - Toya Gaspar PA-C* I48.21 Permanent atrial fibrillation* New Medication:* Eliquis 2.5 mg - Take One Tablet By Mouth Twice A Day * Recommendations:* Decrease Eliquis to 2.5 mg one pill twice a day. * I25.10 Atherosclerotic heart disease of [place] coronary artery with * I11.9 Hypertensive heart disease without heart failure * I35.1 Nonrheumatic aortic (valve) insufficiency * I34.0 Nonrheumatic mitral (valve) insufficiency * R94.31 Abnormal electrocardiogram [ECG] [EKG] * I45.0 Right fascicular block * E78.00 Pure hypercholesterolemia, unspecified * I49.5 Sick sinus syndrome * Z95.0 Presence of cardiac pacemaker * I65.23 Occlusion and stenosis of bilateral carotid arteries * Z71.3 Dietary counseling and surveillance * All * Follow up:* 3 month pacemaker battery check. 6 month pacer/FU. Functional Status Functional Condition Comment Date Status Independent with all ADL's Activ e Mental Status Description No Information Available Referrals Description No Information Available
--- OUTSIDE RECORDS SUMMARY | 2021-09-28 10:55 | CCD | Continuity of Care Document ---
Author Author Jacky KATZ Organization Unknown Address [address] [place] [address] Phone [phone] Care Team Providers Care Fire Chief Name Role Phone Chandler Gandara M.D. AUTM [phone] Juliana Lechuga N.P. AUTM [phone] Toya Rivero AUTM [phone] Maty Emanuel Sr. AUTM [phone] Problems Active Problems Provider Date Atrial fibrillation Onset: 02/01/2011 Chronic kidney disease stage 3 Onset: Essential hypertension Onset: 02/01/2011 Persistent atrial fibrillation Onset: Persistent atrial fibrillation Onset: Type 2 diabetes mellitus Onset: 02/20/20 21 Pure hypercholesterolemia Markos Katz M.D. Onset: 021 Coronary arteriosclerosis Markos Katz M.D. Onset: 021 Social History Type Date Description Comments Sex Unknown ETOH Use Drinks Alcoholic Beverages Occas ionally Tobacco Use Reviewed: 07/06/21 Patient has never smoked Smoking Status Reviewed: 07/06/21 Patient has never smoked Allergies, Adverse Reactions, Alerts Active Allergies Reaction Severity Comments Date Sulfa mouth sores 12/21/2010 Septra body redness 12/21/2010 Procardia body redness 12/21/2010 Ampicillin body redness 12/21/2010 Hydrochlorothiazide hives 08/15/20 13 Medications Active Medications SIG Qnty Indications Ordering Provide r Date Levothyroxine Sodium 25mcg Tablets Take One Tablet By Mouth Every Day 90tabs E03.9 Juliana Lechuga, N .P. 04/16/2020 Meclizine HCL 25mg Tablets 1 by mouth two times a day as needed vertigo 60tabs Juliana Lechuga, N .P. 08/17/2019 Gabapentin 300mg Capsules 1 by mouth two times a day 180caps G61.81 Juliana Lechuga, N.P. 08/17/2019 Methotrexate 2.5mg Tablets 3 tabs once a week tuesday 14tabs G61.81 Juliana Lechuga, N.P. 04/10/2019 Nitrostat 0.4mg Tablets Sub place one tablet under the tongue every 5 minutes for up to 3 doses as needed for chest pain. call 911 after the 3rd dose Unknown 04/10/2019 Flomax 0.4mg Capsules take one capsule by mouth at bedtime 90caps N40.0 Juliana Lechuga, N.P. 9 Lisinopril 5mg Tablets 1 by mouth every day at bedtime 90tabs I10 Juliana Lechuga, N.P. 04/10/2019 Gamma Globulin Antibodies IV monthly Unknown Allopurinol 100mg Tablets (2) tabs every day Unknown Klor-Con M20 20Meq Tablets ER 1 by mouth every day 90tabs I10 Chandler Gandara M.D. Nortriptyline HCL 50mg Capsules one po at hs Brian Campos M.D. Folic Acid 1mg Tablets 1 by mouth every day 30tabs Unknown Travoprost 0.004% Solution one gtt. each eye daily Maty Emanuel Sr., M.D. 0 Chlorthalidone 25mg Tablets take 1/2 tablet by mouth every morning 45tabs I10 Juliana Lechuga, N .P. Eliquis 2.5mg Tablets take 1 tablet by mouth twice a day I48.19 Nigel Zuñiga M.D. 0 Vitamin D 2000Unit Capsules q d Unknown Aspirin 81mg Tablets qd Unknown Multivitamins Capsules qd Unknown Immunizations Description No Information Available Vital Signs Date Vital Result Comment 07/06/2021 8:06am BP Systolic Right Arm 150 mmHg BP Diastolic Right Arm 60 mmHg BP Systolic Left Arm 90 mmHg Doppler Height 195 inches 16'3" 06/04/2021 2:14pm Heart Rate 76 /min Body Temperature 97.2 F Respiratory Rate 15 /min Height 69 inches 5'9" Weight 195.38 lb Weight 88.623 kg BMI (Body Mass Index) 28.8 kg/m2 Results Test Acquired Date Facility Test Result H/L Range Note Xray 07/06/2021 Main Office [phone] Carotid Ultrasound Bilateral <pending> CBC With Differential 02/02/2021 N2N/CCD Import White Blood Count 4.1 10 4.0-10.0 Red Blood Count 3.06 10 Low 4.30-6.10 Hemoglobin 10.6 g/dL Low 13.5-17.5 Hematocrit 33.3 % Low 42.0-52.0 Mean Corpuscular Volume 108.8 fl High 80.0-96.0 Mean Corpuscular Hemoglobin 34.6 pg High 27.0-33.0 Mean Corpuscular HGB Conc 31.8 g/dL Low 32.0-36.5 Red Cell Distribution Width 14.6 % High 11.5-14.5 Platelet Count, Automated 232 10 150-450 Neutrophils % 51.6 % 36.0-66.0 Lymph % 25.8 % 24.0-44.0 [place] % 14.1 % High 2.0-8.0 Eos % 7.1 % High 0.0-3.0 Baso % 1.2 % High 0.0-1.0 Immature Granulocyte % 0.2 % 0-3.0 Nucleated Red Blood Cell % 0.0 % 0-0 Neutrophils # 2.1 10 1.5-8.5 Lymph # 1.1 10 Low 1.5-5.0 [place] # 0.6 10 0.0-0.8 Eos # 0.3 10 0.0-0.5 Baso # 0.1 10 0.0-0.2 Lipid Panel 02/02/2021 N2N/CCD Import Triglycerides Level 46 mg/dL Cholesterol Level 130 mg/dL HDL Cholesterol 72 mg/dL LDL Cholesterol 49 mg/dL Non-HDL-C 58 mg/dL Cholesterol Risk Ratio 1.805 1 Laboratory test finding 02/02/2021 N2N/CCD Import Thyroid Stimulating Hormone 2.740 uIU/ML 0.358-3.740 Free T4 0.88 ng/dL 0.76-1.46 Hemoglobin A1c 02/02/2021 N2N/CCD Import Hemoglobin A1c 5.5 % 1 Estimated Average Glucose 111 mg/dL High 60-110 1 REFERENCE RANGES: <=5.6% NORMAL 5.7-6.4% SUGGESTS IMPAIRED GLUCOSE META BOLISM/PREDIABETIC >= 6.5% ABNORMAL Procedures Date Code Description Status 07/06/2021 37161 Duplex Scan Extracranial Arterie s, Complete Bilateral Study Completed 07/06/2021 74134 Duplex Scan Extracranial Arterie s, Complete Bilateral Study Completed Medical Devices Description No Information Available Encounters Type Date Location Provider Dx Diagnosis Office Visit 07/06/2021 8:30a Main Office Markos Katz M.D. I65.23 Occlusion and stenosis of bilateral carotid arteries I70.208 Unsp athscl eyak arteries of extremities, oth extremity Assessments Date Code Description Provider 07/06/2021 I65.23 Occlusion and stenosis of bilate ral carotid arteries Markos Katz M.D. 07/06/2021 Z48.812 Encounter for surgic al aftercare following surgery on the circulatory system Markos Katz M.D. 07/06/2021 I70.208 Unspecified atherosc lerosis of eyak arteries of extremities, other extremity Markos Katz M.D. 07/06/2021 Z48.812 Encounter for surgic al aftercare following surgery on the circulatory system V[facility] Lab 07/06/2021 I65.23 Occlusion and stenosis of bilate ral carotid arteries Markos Katz M.D. Plan of Treatment Future Appointment(s):* 07/07/2022 8:30 am - Vascular Lab at Main Office 07/06/2021 - Markos Katz M.D.* I65.23 Occlusion and stenosis of bilateral carotid arteries * I70.208 Unsp athscl eyak arteries of extremities, oth extremity * * New Xrays:* Carotid Ultrasound Bilateral, Scheduled: 07/06/21 * Follow up:* 1 YEAR OV/US/ CAROTID BILATERAL/ Functional Status Description No Information Available Mental Status Description No Information Available Referrals Description No Information Available
--- OUTSIDE RECORDS SUMMARY | 2021-09-28 10:55 | CCD ---
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 Active confirmed 04127257 Problem Melanocytic nevi of face D22.30 Active confirmed 448249728 Problem Actinic keratoses L57.0 Active confirmed 40 8347663 Problem Melanocytic nevi of left lower limb, including hip D22.72 Active confirmed 493967064 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 Active confirmed 241997439 Problem Benign prostatic hyperplasia without lower urina ry tract symptoms N40.0 Active confirmed 578031091 Problem 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 Active confirmed 77654451 Problem Unspecified urinary incontinence R32 Active conf irmed 997784452 Problem Melanocytic nevi of right lower limb, including hip D22.71 Active confirmed 763342100 Problem Melanocytic nevi of left upper limb, including shoulder D22.62 Active confirmed 109078798 Problem Melanocytic nevi of right upper limb, including shoulder D22.61 Active confirmed 336593380 Problem Melanocytic nevi of trunk D22.5 Active confirmed 110651399 ALLERGIES Allergen (clinical drug ingredient) Drug/Non Drug Allergy do cumented on EMR Reaction Allergy Type Onset Date Status Penicillin (For Allergies Use Only) Unknown Drug Allerg y Active hydrochlorothiazide Hydrochlorothiazide([facility] Code:[address]-81) Unknown Drug Allergy Active ampicillin Ampicillin([facility] Code:[address]-17) Unknown Drug Allergy Active Septra Unknown Drug Allergy Active Procardia Unknown Drug Allergy Active Sulfa (for allergy use only) Unknown Drug Allergy Active ENCOUNTERS from 1937 to 2021-07-24 Encounter Location Date Provider Diagnosis [facility] [address] [phone] [place] [address] Jun, Chandler Stillerman Open wound T14.8XXA and Non- pressure chronic ulcer of other part of left lower leg with fat layer exposed L97.822 IMMUNIZATIONS No Information SOCIAL HISTORY Tobacco Use: Social History Observation Description Date Details (start date - stop date) Never Smoker Sex Assigned At : Social History Observation Description Sex Assigned At Unknown Language: Question Answer Notes Languages spoken: Georgian Lutheran: Question Answer Notes Lutheran No denominational beliefs that would impact health care. Alcohol [...] No Information VITAL SIGNS Weight 195 lbs Jun, Height 5'9'' in Jun, BMI 28.79 kg/m2 Jun, Heart Rate 82 /min Jun, Respiratory Rate 19 /min Jun, Temperature 97.7 degrees Fahrenheit Jun, Oximetry 98 Jun, Blood pressure systolic 130 mm Hg Jun, Blood pressure diastolic 63 mm Hg Jun, MEDICATIONS Medication SIG (Take, Route, Frequency, Duration) Notes Start Da te End Date Status Chlorthalidone 25 mg 1/2 tablet in the morning with food Orally Onc e a day Active Atorvastatin Calcium 10 MG 1 tablet Orally Once a day for 30 day(s) Not-Taking Immune Globulin (Human) 40 GM/400ML as directed Injection Active Gabapentin 300 MG 1 tablet Orally bid Active Nitroglycerin 0.4 MG as directed Sublingual Active Flomax 0.4 MG 1 capsule Orally Once a day for 90 day(s) Active Eliquis 5 MG TAKE ONE TABLET BY MOUTH TWICE A DAY Oral for 90 Not-Taking Ferrous Gluconate 324 (38 Fe) MG 1 tablet Orally Once a day for 30 da y(s) Not-Taking Methotrexate 2.5 MG as directed Orally 7.5 MG ONCE WEEKLY 3 TABS ON MONDAYS ONLY Active Lisinopril 5 MG 1 tablet Orally Once a day for 30 day(s) Active Meclizine HCl 25 MG 1 tablet as needed Orally PRN Active Travoprost 0.004 % as directed Ophthalmic DAILY Active Aspir-81 Active Levothyroxine Sodium 25 MCG 1 tablet in the morning on an empty stomach Orally Once a day for 30 day(s) Active Potassium Chloride 20 MEQ 1 packet with food Orally Once a day f or 30 day(s) Active Bisoprolol Fumarate 5 MG 1/2 tablet Orally Once a day Not-Taking Allopurinol 100 MG 2 tablet Orally Once a day Active Apixaban 2.5 MG as directed Orally BID Active Folic Acid 1 MG 1 tablet Orally Once a day for 30 day(s) Active Centrum Silver - as directed Orally Active Multivitamin - as directed Orally No t-Taking Nortriptyline HCl 50 MG 1 capsule Orally Once a day for 30 day(s) Active Cholecalciferol 2000 UNIT 1 capsule Orally Once a day for 30 day(s) Active PROCEDURES from 1937 to 2021-07-24 Procedure Date Ordered Result Body Site Medication: 4% Lidocaine topical cream (Anecream) 5gm 2021-07-21 N/A RESULTS No Results REASON FOR VISIT LLE wound MEDICAL (GENERAL) HISTORY Type Description Date Medical History HX INCONTINENCE AND UTI Medical History PACEMAKER Medical History HTN Medical History A-FIB Medical History RENAL INSUFFICIENCY Medical History CHRONIC INFLAMMATORY DEMYELINATING POLYN EURITIS Medical History HYPERLIPIDEMIA Medical History [place] Medical History DM TYPE 2 W/O COMPLICATIONS [...] Notes Treatment Notes Treatm ent Clinical Notes Jun, Open wound (ICD-10 - T14.8XXA) Jun, Non-pressure chronic ulcer o f other part of left lower leg with fat layer exposed (ICD-10 - L97.822) PLAN OF TREATMENT Next Appt Details 1 Week Reason: Provider Name:Chandler Cherry, 09:30:00 AM, [address], , [place], [address], Provider Name:Josee Carranza, 2021-10-21 0 09:30:00 AM, [address] [facility] , [place], [address], Provider Name:Liliane Andrew, 2021-11-09 09:15:00 AM, [address] [place] [address], , [place], [address], Insurance Providers Payer Name Payer Address Payer Phone Insured Name Patient Relati onship to Insured Coverage Start Date Coverage End Date [employer] [facility] CLAIM DIV [address] [facility] [phone] CHIARA MARIE MEDICARE Part A and B [address] [facility] [address] [phone] CHIARA MARIE
--- OUTSIDE RECORDS SUMMARY | 2021-09-28 10:55 | CCD | Continuity of Care Document ---
Author Author Jacky CAMPOS M.D. Organization Unknown Address [address] [place] [address] Phone [phone] Care Team Providers Care Digital Assistant Name Role Phone Bettina Soto M.D. AUTM [phone] Problems Active Problems Provider Date Inflammatory neuropathy Brian Campos M.D. Onset: 4 Cellulitis Brian Campos M.D. Onset: 05/22/2014 Unsteady when walking Brian Campos M.D. Onset: 05/22/2014 Chronic inflammatory demyelinating polyradiculoneuropathy Terence Campos M.D. Onset: 10/28/2015 Spondylolysis of cervical spine Brian aCmpos M.D. Onset: 12/29/2014 Spondylolysis Brian Campos M.D. Onset: 10/28/2015 Abnormal gait Brian Campos M.D. Onset: 10/28/2015 Sensory neuropathy Brian Campos M.D. Onset: 10/01/2016 Dizziness and giddiness Brian Campos M.D. Onset: 7 Social History Type Date Description Comments Sex Unknown ETOH Use Denies alcohol use Tobacco Use Start: Unknown Patient has never smoked Recreational Drug Use Denies Drug Use Allergies, Adverse Reactions, Alerts Active Allergies Criticality [...] a month for 6 months dx:cidp Terence Campos M.D. 11/20/2013 Nortriptyline HCL 50mg Capsules take one capsule by mouth at bedtime 90capmaureen Campos M.D. Immunizations Description No Information Available Vital Signs Date Vital Result Comment 06/27/2015 8:22am BP Systolic 170 mmHg BP Diastolic 80 mmHg Heart Rate 70 /min Respiratory Rate 16 /min Height 66 inches 5'6" Weight 220.00 lb BMI (Body Mass Index) 35.5 kg/m2 [place] Body Weight 142 lb 02/25/2015 8:33am BP Systolic 140 mmHg BP Diastolic 80 mmHg Heart Rate 72 /min Respiratory Rate 16 /min Height 66 inches 5'6" Weight 220.00 lb BMI (Body Mass Index) 35.5 kg/m2 [place] Body Weight 142 lb Results Description No Information Available Procedures Date Code Description Status 08/20/2021 56926 Phone Evaluation/Management Phys ician 11-20 Mins Completed Medical Devices Description No Information Available Encounters Type Date Location Provider Dx Diagnosis Office Visit 08/20/2021 12:00p Main office - Castine Chalo Guerrero G61.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 Plan of Treatment No Information Available Functional Status Description No Information Available Mental Status Description No Information Available Referrals Description No Information Available
--- OUTSIDE RECORDS SUMMARY | 2021-09-28 10:55 | CCD ---
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 Active confirmed 01784505 Problem Melanocytic nevi of face D22.30 Active confirmed 417961354 Problem Actinic keratoses L57.0 Active confirmed 40 0371309 Problem Melanocytic nevi of left lower limb, including hip D22.72 Active confirmed 743729003 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 Active confirmed 574268323 Problem Benign prostatic hyperplasia without lower urina ry tract symptoms N40.0 Active confirmed 349770813 Problem 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 Active confirmed 59876335 Problem Unspecified urinary incontinence R32 Active conf irmed 151287650 Problem Melanocytic nevi of right lower limb, including hip D22.71 Active confirmed 148422849 Problem Melanocytic nevi of left upper limb, including shoulder D22.62 Active confirmed 589763663 Problem Melanocytic nevi of right upper limb, including shoulder D22.61 Active confirmed 633614161 Problem Melanocytic nevi of trunk D22.5 Active confirmed 147351503 ALLERGIES Allergen (clinical drug ingredient) Drug/Non Drug Allergy do cumented on EMR Reaction Allergy Type Onset Date Status Penicillin (For Allergies Use Only) Unknown Drug Allerg y Active hydrochlorothiazide Hydrochlorothiazide([facility] Code:[address]-65) Unknown Drug Allergy Active ampicillin Ampicillin([facility] Code:[address]-21) Unknown Drug Allergy Active Septra Unknown Drug Allergy Active Procardia Unknown Drug Allergy Active Sulfa (for allergy use only) Unknown Drug Allergy Active ENCOUNTERS from 1937 to 2021-07-17 Encounter Location Date Provider Diagnosis [facility] [address] [phone] [place] [address] Jun, Chandler Stillerman Open wound T14.8XXA and Non- pressure chronic ulcer of other part of left lower leg with fat layer exposed L97.822 IMMUNIZATIONS No Information SOCIAL HISTORY Tobacco Use: Social History Observation Description Date Details (start date - stop date) Never Smoker Sex Assigned At : Social History Observation Description Sex Assigned At Unknown Language: Question Answer Notes Languages spoken: Slovenian Spiritism: Question Answer Notes Spiritism No yazidi beliefs that would impact health care. Alcohol [...] Jun, BMI 28.79 kg/m2 Jun, Heart Rate 76 /min Jun, Respiratory Rate 18 /min Jun, Temperature 98.3 degrees Fahrenheit Jun, Oximetry 98 Jun, Blood pressure systolic 152 mm Hg Jun, Blood pressure diastolic 73 mm Hg Jun, MEDICATIONS Medication SIG (Take, Route, Frequency, Duration) Notes Start Da te End Date Status Travoprost 0.004 % as directed Ophthalmic DAILY Active Potassium Chloride 20 MEQ 1 packet with food Orally Once a day f or 30 day(s) Active Atorvastatin Calcium 10 MG 1 tablet Orally Once a day for 30 day(s) Not-Taking Nitroglycerin 0.4 MG as directed Sublingual Active Centrum Silver - as directed Orally Active Allopurinol 100 MG 2 tablet Orally Once a day Active Cholecalciferol 2000 UNIT 1 capsule Orally Once a day for 30 day(s) Active Nortriptyline HCl 50 MG 1 capsule Orally Once a day for 30 day(s) Active Levothyroxine Sodium 25 MCG 1 tablet in the morning on an empty stomach Orally Once a day for 30 day(s) Active Apixaban 2.5 MG as directed Orally BID Active Eliquis 5 MG TAKE ONE TABLET BY MOUTH TWICE A DAY Oral for 90 Not-Taking Meclizine HCl 25 MG 1 tablet as needed Orally PRN Active Lisinopril 5 MG 1 tablet Orally Once a day for 30 day(s) Active Folic Acid 1 MG 1 tablet Orally Once a day for 30 day(s) Active Gabapentin 300 MG 1 tablet Orally bid Active Ferrous Gluconate 324 (38 Fe) MG 1 tablet Orally Once a day for 30 da y(s) Not-Taking Chlorthalidone 25 mg 1/2 tablet in the morning with food Orally Onc e a day Active Methotrexate 2.5 MG as directed Orally 7.5 MG ONCE WEEKLY 3 TABS ON MONDAYS ONLY Active Bisoprolol Fumarate 5 MG 1/2 tablet Orally Once a day Not-Taking Flomax 0.4 MG 1 capsule Orally Once a day for 90 day(s) Active Multivitamin - as directed Orally No t-Taking -81 Active Immune Globulin (Human) 40 GM/400ML as directed Injection Active PROCEDURES from 1937 to 2021-07-17 Procedure Date Ordered Result Body Site Medication: 4% Lidocaine topical cream (Anecream) 5gm 2021-07-14 N/A RESULTS No Results REASON FOR VISIT LLE wound MEDICAL (GENERAL) HISTORY Type Description Date Medical History HX INCONTINENCE AND UTI Medical History PACEMAKER Medical History HTN Medical History A-FIB Medical History RENAL INSUFFICIENCY Medical History CHRONIC INFLAMMATORY DEMYELINATING POLYN EURITIS Medical History HYPERLIPIDEMIA Medical History [place] Medical History 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 CLAIM DIV [address] [facility] [address] CHIARA MARIE MEDICARE Part A and B [address] [facility] [address] CHIARA MARIE
--- OUTSIDE RECORDS SUMMARY | 2021-09-28 10:55 | CCD ---
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 confirmed 02980563 Problem Melanocytic nevi of face D22.30 Active confirmed 469020279 Problem Actinic keratoses L57.0 Active confirmed 40 1797658 Problem Melanocytic nevi of left lower limb, including hip D22.72 Active confirmed 125519462 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 Active confirmed 425321331 Problem Benign prostatic hyperplasia without lower urina ry tract symptoms N40.0 Active confirmed 482865662 Problem 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 Active confirmed 61768617 Problem Unspecified urinary incontinence R32 Active conf irmed 153344020 Problem Melanocytic nevi of right lower limb, including hip D22.71 Active confirmed 262519524 Problem Melanocytic nevi of left upper limb, including shoulder D22.62 Active confirmed 322614112 Problem Melanocytic nevi of right upper limb, including shoulder D22.61 Active confirmed 512453049 Problem Melanocytic nevi of trunk D22.5 Active confirmed 791202566 ALLERGIES Allergen (clinical drug ingredient) Drug/Non Drug Allergy do cumented on EMR Reaction Allergy Type Onset Date Status Penicillin (For Allergies Use Only) Unknown Drug Allerg y Active hydrochlorothiazide Hydrochlorothiazide([facility] Code:[address]-23) Unknown Drug Allergy Active ampicillin Ampicillin([facility] Code:[address]-31) Unknown Drug Allergy Active Septra Unknown Drug Allergy Active Procardia Unknown Drug Allergy Active Sulfa (for allergy use only) Unknown Drug Allergy Active ENCOUNTERS from 1937 to 2021-08-17 Encounter Location Date Provider Diagnosis [facility] W[facility] [address] [phone] [place] [address] Jul, Chandler Cherry 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 Alcohol [...] Jul, BMI 28.79 kg/m2 Jul, Heart Rate 70 /min Jul, Respiratory Rate 16 /min Jul, Temperature 96.1 degrees Fahrenheit Jul, Oximetry 98 Jul, Blood pressure systolic 179 mm Hg Jul, Blood pressure diastolic 70 mm Hg Jul, MEDICATIONS Medication SIG (Take, Route, Frequency, Duration) Notes Start Da te End Date Status Nortriptyline HCl 50 MG 1 capsule Orally Once a day for 30 day(s) Active Nitroglycerin 0.4 MG as directed Sublingual Active Multivitamin - as directed Orally No t-Taking Travoprost 0.004 % as directed Ophthalmic DAILY Active Immune Globulin (Human) 40 GM/400ML as directed Injection Active Potassium Chloride 20 MEQ 1 packet with food Orally Once a day f or 30 day(s) Active Chlorthalidone 25 mg 1/2 tablet in the morning with food Orally Onc e a day Active Flomax 0.4 MG 1 capsule Orally Once a day for 90 day(s) Active Apixaban 2.5 MG as directed Orally BID Active Aspir-81 Active Levothyroxine Sodium 25 MCG 1 tablet in the morning on an empty stomach Orally Once a day for 30 day(s) Active Lisinopril 5 MG 1 tablet Orally Once a day for 30 day(s) Active Centrum Silver - as directed Orally Active Cholecalciferol 2000 UNIT 1 capsule Orally Once a day for 30 day(s) Active Meclizine HCl 25 MG 1 tablet as needed Orally PRN Active Bisoprolol Fumarate 5 MG 1/2 tablet Orally Once a day Not-Taking Gabapentin 300 MG 1 tablet Orally bid Active Eliquis 5 MG TAKE ONE TABLET BY MOUTH TWICE A DAY Oral for 90 Not-Taking Atorvastatin Calcium 10 MG 1 tablet Orally Once a day for 30 day(s) Not-Taking Ferrous Gluconate 324 (38 Fe) MG 1 tablet Orally Once a day for 30 da y(s) Not-Taking Allopurinol 100 MG 2 tablet Orally Once a day Active Folic Acid 1 MG 1 tablet Orally Once a day for 30 day(s) Active Methotrexate 2.5 MG as directed Orally 7.5 MG ONCE WEEKLY 3 TABS ON MONDAYS ONLY Active PROCEDURES No Information RESULTS No Results REASON FOR VISIT Left lower leg MEDICAL (GENERAL) HISTORY Type Description Date Medical History HX INCONTINENCE AND UTI Medical History PACEMAKER Medical History HTN Medical History A-FIB Medical History RENAL INSUFFICIENCY Medical History CHRONIC INFLAMMATORY DEMYELINATING POLYN EURITIS Medical History HYPERLIPIDEMIA Medical History [place] Medical History 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 Medical History BASAL CELL CARCINOMA Medical History Basal cell carcinoma of left cheek Medical History Squamous cell cancer of skin of left jose ek Medical History Squamous cell carcinoma of left hand Surgical History hernia repair Surgical History appendectomy Surgical History PACEMAKER 2008 Surgical History CATARACT Surgical History COLONOSCOPY/ [facility]OSCOPY [facility]OS[facility] 019 Surgical History EXCISION LEFT CHEEK/BCC 2018 Hospitalization History rash Hospitalization History Nosebleed that would not stop, overn ight hospital stay Goals Section No Information Health Concerns No Information MEDICAL EQUIPMENT No Information MENTAL STATUS No Information FUNCTIONAL STATUS No Information ASSESSMENTS Encounter Date Diagnosis Assessment Notes Treatment Notes Treatm ent Clinical Notes 21 Sep, 2021 Non-pressure chronic ulcer o f other part of left lower leg with fat layer exposed (ICD-10 - L97.822) I, Myesha Joe, documented the above order acting as a scribe for Dr. Cherry. I have reviewed the above order , written by namrata Singleton, and I verify it is accurate. I reviewed with the patient the signs and symptoms of a recurrent wound such as drainage redness tenderness pain and breakdown of skin. He is aware of this should present he is to contact our clinic for further evaluation and treatment. Protective foam dressing will be utilized and the patient will continue with a support stocking PLAN OF TREATMENT Treatment Notes Assessment Notes Clinical Notes Non-pressure chronic ulcer of other part of left lower leg with fat layer exposed I, Myesha Joe, documente d the above order acting as a scribe for Dr. Cherry. I have reviewed the above order , written by namrata Singleton, and I verify it is accurate.I reviewed with the patient the signs and symptoms of a recurrent wound such as drainage redness tenderness pain and breakdown of skin. He is aware of this should present he is to contact our clinic for further evaluation and treatment. Protective foam dressing will be utilized and the patient will continue with a support stocking Next Appt Details prn Reason: Provider Name:Josee Carranza, 2021-10-21 0 09:30:00 AM, [address] , , [place], [address], Provider Name:Liliane Andrew, 2021-11-09 09:15:00 AM, [address] [place] [address], , [place], [address], Insurance Providers Payer Name Payer Address Payer Phone Insured Name Patient Relati onship to Insured Coverage Start Date Coverage End Date [employer]IONS [facility] CLAIM DIV [address] [facility] [phone] CHIARA MARIE MEDICARE Part A and B [address] [facility] [id number] CHIARA MARIE
--- OUTSIDE RECORDS SUMMARY | 2021-09-28 10:55 | CCD | Continuity of Care Document ---
Author Author Jacky GASPARC Organization Unknown Address [address] [place] [address], [facility] [place] [address] Phone [phone] Care Team Providers Care Manager Of Procurement Name Role Phone Bettina Soto MD AUTM [phone] Other, Provider AUTM Unavailable Isabel Mccarthy MD AUTM Dangelo Kimbrough MD AUTM [phone] Alexx Augustine MD AUTM [phone] Brian Campos MD AUTM [phone] Dangelo Centeno MD AUTM [phone] Problems Active Problems Provider Date Chronic atrial [...] Exercise Type/Frequency Does housework twice a w [place] Exercise Type/Frequency Does yardwork twice a we ek garcia Exercise Limitations Neuropathy Exercise Limitations Back Pain Exercise Limitations Shortness Of Breath Allergies, Adverse Reactions, Alerts Active Allergies Criticality [...] 47.9 Procedures Date Code Description Status 08/21/2021 00217 Office/Outpatient Established Mi nimal Problem(S) Completed 07/16/2021 65768 Office/Outpatient Established Mi nimal Problem(S) Completed 05/01/2021 33919 Office/Outpatient Established Mo d MDM 30-39 Min Completed 05/01/2021 18453 ECG 12-Lead Completed Medical Devices Description No [...] PA-C 05/01/2021 I25.10 Atherosclerotic heart disease of [place] coronary artery with SEN HernandezC 05/01/2021 I11.9 Hypertensive heart disease witho ut heart failure SEN HernandezC 05/01/2021 I35.1 Nonrheumatic aortic (valve) insu fficiency Toya YOUSIF Frazier-C 05/01/2021 I34.0 Nonrheumatic mitral (valve) insu fficiency ToyaSEN ChamberlainC 05/01/2021 R94.31 Abnormal electrocardiogram [ECG] [EKG] Toya SEN FrazierC 05/01/2021 I45.0 Right fascicular block ToyaSEN LevinC 05/01/2021 E78.00 Pure hypercholesterolemia, unspe cified SEN HernandezC 05/01/2021 I49.5 Sick sinus syndrome Toya wilson PA-C 05/01/2021 Z95.0 Presence of cardiac pacemaker Felice SEN VogtC 05/01/2021 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 * I25.10 Atherosclerotic heart disease of [place] coronary artery with * I11.9 Hypertensive heart [...]
--- OUTSIDE RECORDS SUMMARY | 2021-09-28 10:55 | CCD | Continuity of Care Document ---
Author Author Jacky LECHUGA Organization Unknown Address [address] [place] [address] Phone [phone] Care Team Providers Care Mental Health Coordinator Name Role Phone Brian Campos AUTM [phone] Maty Emanuel MD AUTM [phone] Dilip BOWEN M.D., Han Ortiz AUTM [phone] Markos Augustine MD AUTM [phone] Problems Active Problems Provider Date Essential hypertension Bettina Soto M.D. Onset: 02/01 Atrial fibrillation Bettina Soto M.D. Onset: 02/02/20 11 Persistent atrial fibrillation Bettina Soto M.D. Onsgagan t: 10/28/2015 Persistent atrial fibrillation Bettina Soto M.D. Onsgagan t: 04/28/2016 Chronic kidney disease [...] n once a month IV G61.81 Brian Campos Nortriptyline HCL 50mg Capsules one po at hs Brian Campos Klor-Con M20 20Meq Tablets ER 1 by mouth every day 90tabs I10 Chandler Gandara MD Centrum Silver Tablets 1 po qd OTC Unknown History Medications Clindamycin HCL 300mg Capsules 1 by mouth three times a dayfor 10 days Unknown - 08/24/2021 Immunizations CPT Code Status Date Vaccine Lot # [id number] Given 08/21/2021 Moderna Sars-(Co vid-19) vaccine, mRNA, LNP-S, PF, 100 mcg/ 0.5 mL 11281 Given 06/13/2021 Boostrix (Tdap) Tetnus, Diphtheria Toxoids & Acellular Pertussis 74344 Given 01/30/2021 Moderna Sars-(Co vid-19) vaccine, mRNA, LNP-S, PF, 100 mcg/ 0.5 mL 93216 Given 01/01/2021 Moderna Sars-(Co vid-19) vaccine, mRNA, LNP-S, PF, 100 mcg/ 0.5 mL 02922 Given 09/11/2019 Influenza Virus Vaccine, Maury drivalent,multidose vial [id number] Given 09/05/2018 Influenza Virus Vaccine, Maury drivalent,multidose vial [id number] Q2038 Given 08/22/2017 Influenza Vaccine (Fluzone)( medicare) Q2038 Given 09/03/2016 Influenza Vaccine (Fluzone)( medicare) [id number] 94000 Given 07/24/2015 Influenza Vaccination 03472 Given 06/04/2015 Zostavax 75426 Given 04/28/2015 Prevnar 13 [id number] Q2038 Given 09/03/2014 Influenza Vaccine (Fluzone)( medicare) [id number] 63412 Given 09/03/2014 Boostrix (Tdap) Tetnus, Diphtheria Toxoids & Acellular Pertussis [id number] Q2038 Given 08/17/2013 Influenza Vaccine (Fluzone)( medicare) 81583 Given 08/17/2013 Influenza Vaccination [id number] Q2038 Given 08/04/2012 Influenza Vaccine (Fluzone)( medicare) 52375 Given 08/04/2012 Influenza Vaccination [id number] 73898 Given 08/03/2010 Pneumococcal Vaccine [id number] 66806 Given 08/03/2010 Influenza Vaccination [id number] 26899 Given 09/02/2009 Influenza Vaccination [id number] Vital Signs Date Vital Result Comment 08/24/2021 8:47am BP Systolic 154 mmHg BP Diastolic 63 mmHg Heart Rate 67 /min Body Temperature 96.8 F Respiratory Rate 17 /min Height 69 inches 5'9" Weight 198.12 lb O2 % BldC Oximetry 98 % [place] Body Weight 160 lb BMI (Body Mass Index) 29.3 kg/m2 06/04/2021 2:14pm BP Systolic 155 mmHg BP Diastolic 59 mmHg Heart Rate 76 /min Body Temperature 97.2 F Respiratory Rate 15 /min Height 69 inches 5'9" Weight 195.38 lb [place] Body Weight 160 lb BMI (Body Mass Index) 28.8 kg/m2 Results Test Acquired Date Facility Test Result H/L Range Note Basic Metabolic Profile 06/13/2021 [facility] [place] [address] [phone] Glucose, Fasting 119 mg/dL High 70-100 Blood [...] Laboratory test finding 06/13/2021 [facility] [place], [place] [id number] [phone] C Reactive Protein Quantitativ 3.22 mg/dL High 0 .00-0.30 CBC With Differential 06/13/2021 [facility] [place], [place] [id number] [phone] White Blood Count 6.7 10 Normal 4.0-10.0 [...] 36.0-66.0 Lymph % 6.0 % Low 24.0-44.0 [place] % 6.4 % Normal 2.0-8.0 Eos % 1.2 % Normal 0.0-3.0 Baso % 0.6 % Normal 0.0-1.0 Immature Granulocyte % 0.4 % Normal 0-3.0 Nucleated Red Blood Cell % 0.0 % Normal 0-0 Neutrophils # 5.7 10 Normal 1.5-8.5 Lymph # 0.4 10 Low 1.5-5.0 [place] # 0.4 10 Normal 0.0-0.8 Eos # 0.1 10 Normal 0.0-0.5 Baso # 0.0 10 Normal 0.0-0.2 Laboratory test finding 06/13/2021 [facility] [place], [place] [id number] [phone] Erythrocyte Sedimentation Rate 49 mm/hr High 0 -20 1 Units are mL/min/1.73 m2 Chronic Kidney Disease Staging per NKF: Stage I & II GFR >=60 Normal to Mildly Decreased Stage III GFR 30-59 Moderately Decreased Stage IV GFR 15-29 Severely Decreased Stage V GFR <15 Very Little GFR Left ESRD GFR <15 on CLINICAL APPLICATIONS MANAGER Procedures Date Code Description Status 08/24/2021 42065 Office/Outpatient Established Mo d MDM 30-39 Min Completed 08/24/2021 501253963 Diabetic Foot Exam Completed 07/09/2021 43530 Chronic Care MGMT 20 Mins Clinical Staff Time Per Calendar Month Completed 06/05/2021 58835 Chronic Care [facility] 20 Mins Clinical Staff Time Per Calendar Month Completed 06/05/2021 72427 Chronic Care Management Services Ea Addl 20 Min Completed 06/04/2021 90975 Office/Outpatient Established Lo w MDM 20-29 Min Completed 05/13/2021 45393 Chronic Care MGMT 20 Mins Clinical Staff Time Per Calendar Month Completed 04/17/2021 34453 Chronic Care MGMT 20 Mins Clinical Staff Time Per Calendar Month Completed 02/26/2021 35190 Chronic Care MGMT 20 Mins Clinical Staff Time Per Calendar Month Completed Medical Devices Description No Information Available Encounters Type Date Location Provider Dx Diagnosis Office Visit 08/24/2021 8:45a Main Office Plegeorginaach, Juliana, ASSISTANT FOREMAN 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30 Chronic kidney disease, stage 3 unspecified Pleskach, Juliana, ASSISTANT FOREMAN 08/24/2021 I10 Essential (primary) hypertension Pleskach, Juliana, ASSISTANT FOREMAN 08/24/2021 I48.19 Other persistent atrial fibrilla tion Pleskach, Juliana, ASSISTANT FOREMAN 08/24/2021 E03.9 Hypothyroidism, unspecified Ples kach Juliana, ASSISTANT FOREMAN 08/24/2021 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 Pleskach, Juliana, ASSISTANT FOREMAN 08/24/2021 N40.0 Benign prostatic hyp erplasia without lower urinary tract symptoms Pleskach, Juliana, ASSISTANT FOREMAN 07/09/2021 N18.30 Chronic kidney disease, stage 3 unspecified Pleskach, Juliana, ASSISTANT FOREMAN 07/09/2021 I10 Essential (primary) hypertension Pleskach, Juliana, ASSISTANT FOREMAN 07/09/2021 I48.19 Other persistent atrial fibrilla tion Pleskach, Juliana, ASSISTANT FOREMAN 07/09/2021 E03.9 Hypothyroidism, unspecified Ples kach, Juliana, ASSISTANT FOREMAN 06/05/2021 N18.30 Chronic kidney disease, stage 3 unspecified Pleskach, Juliana, ASSISTANT FOREMAN 06/05/2021 I10 Essential (primary) hypertension Pleskach, Juliana, ASSISTANT FOREMAN 06/05/2021 I48.19 Other persistent atrial fibrilla tion Pleskach, Juliana, ASSISTANT FOREMAN 06/05/2021 E03.9 Hypothyroidism, unspecified Ples kach, Juliana, ASSISTANT FOREMAN 06/04/2021 S80.12xA Hematoma of left lower leg Plesk ach, Juliana, ASSISTANT FOREMAN 05/13/2021 N18.30 Chronic kidney disease, stage 3 unspecified Pleskach, Juliana, ASSISTANT FOREMAN 05/13/2021 I48.19 Other persistent atrial fibrilla tion Pleskach, Juliana, ASSISTANT FOREMAN 05/13/2021 I10 Essential (primary) hypertension Pleskach, Juliana, ASSISTANT FOREMAN 05/13/2021 E03.9 Hypothyroidism, unspecified Ples kach, Juliana, ASSISTANT FOREMAN 04/17/2021 N18.30 Chronic kidney disease, stage 3 unspecified Pleskach, Juliana, ASSISTANT FOREMAN 04/17/2021 I48.19 Other persistent atrial fibrilla tion Pleskach, Juliana, ASSISTANT FOREMAN 04/17/2021 I10 Essential (primary) hypertension Pleskach, Juliana, ASSISTANT FOREMAN 04/17/2021 E03.9 Hypothyroidism, unspecified Ples kach, Juliana, ASSISTANT FOREMAN 02/26/2021 N18.30 Chronic kidney disease, stage 3 unspecified Pleskach, Juliana, ASSISTANT FOREMAN 02/26/2021 I48.19 Other persistent atrial fibrilla tion Pleskach, Juliana, ASSISTANT FOREMAN 02/26/2021 I10 Essential (primary) hypertension Pleskach, Juliana, ASSISTANT FOREMAN 02/26/2021 E03.9 Hypothyroidism, unspecified Ples kach Juliana, ASSISTANT FOREMAN Plan of Treatment Future Appointment(s):* 02/23/2022 8:45 am - Juliana Lechuga FNP at Main Office 08/24/2021 - Juliana Lechuga FNP* E11.42 Type 2 diabetes mellitus with diabetic polyneuropathy* New Labs:* Microalbumin Random, Scheduled: 08/24/21 * Hemoglobin A1c, Scheduled: 02/22/22 * Microalbumin Random, Scheduled: 02/22/22 * Comments:* diet controlled, recheck A1C * N18.30 Chronic kidney disease, stage 3 unspecified* Comments:* stable for age, continue to monitor * I10 Essential (primary) hypertension* New Labs:* Comprehensive Metabolic Profil, Scheduled: 02/22/22 * Lipid Panel, Scheduled: 02/22/22 * Comments:* controlled, continue current medications * Follow up:* 6 months, with labs * I48.19 Other persistent atrial fibrillation* Comments:* follows with cardiology. * E03.9 Hypothyroidism, unspecified* New Labs:* TSH And T4 Free (Mian), Scheduled: 02/22/22 * Comments:* continue levothyroxine * G61.81 Chronic inflammatory [...] his carotids rechecked. Thank you. Closed [address] [facility] [address] [phone] Markos Augustine MD Patient is requesting to be referred back to have his carotids checked. Thank you. Closed 07/06/[address] [address] [phone] Dilip BOWEN M.D., Han Mukherjee Urgent Referral:patient need s hematoma evacuation LLE. Thank you. Closed 06/05/[address] [place] [address] [phone]
--- OUTSIDE RECORDS SUMMARY | 2021-09-28 10:55 | CCD | Continuity of Care Document ---
Author Author Jacky GASPARC Organization Unknown Address [address] [place] [address], [facility] [place] [address] Phone [phone] Care Team Providers Care Fire Hydrant Mechanic Name Role Phone Bettina Soto MD AUTM [phone] Other, Provider AUTM Unavailable Isabel Mccarthy MD AUTM [phone] Dangelo Kimbrough MD AUTM [phone] Alexx Augustine MD AUTM [phone] Brian Campos MD AUTM [phone] Dangelo Centeno MD AUTM [phone] Problems Active Problems Provider Date Chronic atrial [...] Exercise Type/Frequency Does housework twice a w [place] Exercise Type/Frequency Does yardwork twice a we [...] Hemoglobin 10.7 Hematocrit 32.3 BMP 06/13/2021 [facility] - not interfaced (315)- - Calcium Ser/Plasma Mass/Vol 8.6 Sodium 142 Carbon Dioxide Ser/Plasm 23 Chloride Serum/Plasma 112 Potassium 4.6 Glucose 119 High 83-110 Blood Urea Nitrogen 28 High 7-18 Creatinine 1.49 High 0.6-1.0 G F R 47.9 Lipid Profile/Cardiac Risk Pro 02/02/2021 [facility] (315)- - Triglycerides 46 Cholesterol 130 120-200 HDL 72 High 40-60 LDL Cholesterol 49 Chol/HDL Ratio 1.805 CMP 02/02/2021 [facility] (315)- - Albumin Serum/Plasma 3.7 Alt - SGPT 22 Calcium Ser/Plasma Mass/Vol 8.9 Carbon Dioxide Ser/Plasm 28 Chloride Serum/Plasma 108 Alkaline Phosphatase 109 Potassium 4.7 Protein Total 7.3 Sodium 141 Ast - Sgot 11 BUN - Urea Nitrogen 28 Glucose 123 High 70-100 Creatinine For GFR 1.59 CBC without Differential 02/02/2021 [facility] (315)- - White Blood Count 4.1 4.0-10.0 Red Blood Count 3.06 Low 4.30-6.10 Platelets 232 150-450 Hemoglobin 10.6 Low 13.5-17.5 Hematocrit 33.3 Low 42.0-52.0 Hemoglobin A1c 02/02/2021 [facility] (315)- - Hemoglobin A1c 5.5 Procedures Date Code Description Status 07/16/2021 08509 Office/Outpatient Established Mi nimal Problem(S) Completed 05/01/2021 63242 Office/Outpatient Established Mo d MDM 30-39 Min Completed 05/01/2021 97029 ECG 12-Lead Completed Medical Devices Description No Information Available Encounters Type Date Location Provider Dx Diagnosis Office Visit 07/16/2021 9:15a Main Office Toya [...] surve illance Assessments Date Code Description Provider 07/16/2021 I49.5 Sick sinus syndrome SEN LandryC 05/01/2021 I48.21 Permanent atrial fibrillation SEN HutchisonC 05/01/2021 I25.10 Atherosclerotic heart disease of [place] coronary artery with SEN HernandezC 05/01/2021 I11.9 [facility]C 05/01/2021 I35.1 Nonrheumatic aortic (valve) insu fficiency SEN HernandezC 05/01/2021 I34.0 Nonrheumatic mitral (valve) insu fficiency YOUSIF Hernandez-C 05/01/2021 R94.31 Abnormal electrocardiogram [ECG] [EKG] SEN HernandezC 05/01/2021 I45.0 Right fascicular block SEN CarrascoC 05/01/2021 E78.00 Pure hypercholesterolemia, unspe cified SEN HernandezC 05/01/2021 I49.5 Sick sinus syndrome SEN LandryC 05/01/2021 Z95.0 Presence of cardiac pacemaker SEN HutchisonC 05/01/2021 I65.23 Occlusion and stenosis of bilate ral carotid arteries Toya Gaspar PA-C 05/01/2021 Z71.3 Dietary counseling and surveilla madeline [...] day. * I25.10 Atherosclerotic heart disease of [place] coronary artery with * I11.9 Hypertensive heart [...]
--- OUTSIDE RECORDS SUMMARY | 2021-09-28 10:55 | CCD | Continuity of Care Document ---
Author Organization Unknown Address Unknown Phone Unavailable Care Team Providers Care Chairlift Operator Name Role Phone Bettina Soto MD AUTM [phone] Other, Provider AUTM Unavailable Isabel Mccarthy MD AUTM Dangelo Kimbrough MD AUTM [phone] Alexx Augustine MD AUTM [phone] Brian Campos MD AUTM [phone] Dnagelo Centeno MD AUTM [phone] Problems Active Problems Provider Date Chronic atrial [...] Exercise Type/Frequency Does housework twice a w [place] Exercise Type/Frequency Does yardwork twice a we [...] H/L Range Note CBC without Differential 06/13/2021 [facility] - not inter faced (315)- - White Blood Count 6.7 5.0-10.0 Red Blood Count 2.97 Low 4.00-5.40 Platelets 200 172-450 Hemoglobin 10.7 Hematocrit 32.3 BMP 06/13/2021 [facility] - not interfaced (315)- - Calcium [...] A1c 5.5 Procedures Date Code Description Status 05/01/2021 63690 Office/Outpatient Established Mo d MDM 30-39 Min Completed 05/01/2021 75411 ECG 12-Lead Completed Medical Devices Description No Information Available Encounters Type Date Location Provider Dx Diagnosis Office Visit 05/01/2021 10:15a Main Office Toya [...] surve illance Assessments Date Code Description Provider 05/01/2021 I48.21 Permanent atrial fibrillation Felice Wong ZULMA Rivero 05/01/2021 I25.10 Atherosclerotic heart disease of [place] coronary artery with SEN HernandezC 05/01/2021 I11.9 Hypertensive heart disease witho ut heart failure Toya Rivero PA-C 05/01/2021 I35.1 Nonrheumatic aortic (valve) insu fficiency SEN HernandezC 05/01/2021 I34.0 Nonrheumatic mitral (valve) insu fficiency SEN HernandezC 05/01/2021 R94.31 Abnormal electrocardiogram [ECG] [EKG] SEN HernandezC 05/01/2021 I45.0 Right fascicular block Toya bragg PA-C 05/01/2021 E78.00 Pure hypercholesterolemia, unspe cified SEN HernandezC 05/01/2021 I49.5 Sick sinus syndrome SEN LandryC 05/01/2021 Z95.0 Presence of cardiac pacemaker Felice jone Rivero PA-C 05/01/2021 I65.23 Occlusion and stenosis of bilate ral carotid arteries SEN HernandezC 05/01/2021 Z71.3 Dietary counseling and surveilla huie Toya Rivero PA-C Plan of Treatment Future Appointment(s):* 11/05/2021 8:15 am - Toya Rivero PA-C at Main Office * 07/16/2021 9:15 am - Toya Rivero PA-C at Main Office 05/01/2021 - Toya Rivero PA-C* I48.21 Permanent atrial fibrillation* New Medication:* Eliquis 2.5 mg - Take One Tablet By Mouth Twice A Day * Recommendations:* Decrease Eliquis to 2.5 mg one pill twice a day. * I25.10 Atherosclerotic heart disease of [place] coronary artery with * I11.9 Hypertensive heart [...]
--- OUTSIDE RECORDS SUMMARY | 2021-09-28 10:55 | CCD | Continuity of Care Document ---
Author Author Jacky GASPARC Organization Unknown Address [address] [place] [address], [facility] [place] [address] Phone [phone] Care Team Providers Care Dehydrogenation Supervisor Name Role Phone Bettina Soto MD AUTM [phone] Other, Provider AUTM Unavailable Isabel Mccarthy MD AUTM Dangelo Kimbrough MD AUTM [phone] Alexx Augustine MD AUTM [phone] Brian Campos MD AUTM [phone] Dangelo Centeno MD AUTM [phone] Problems Active Problems Provider Date Chronic atrial [...] Exercise Type/Frequency Does housework twice a w [place] Exercise Type/Frequency Does yardwork twice a we [...] 172-450 Hemoglobin 10.7 Hematocrit 32.3 BMP 06/13/2021 [facility] - not interfaced (315)- - Calcium [...] 5.5 Procedures Date Code Description Status 07/16/2021 74927 Office/Outpatient Established Mi nimal Problem(S) Completed 05/01/2021 47990 Office/Outpatient Established Mo d MDM 30-39 Min Completed 05/01/2021 85729 ECG 12-Lead Completed Medical Devices Description No [...] HutchisonC 05/01/2021 I25.10 Atherosclerotic heart disease of [place] coronary artery with SEN HernandezC 05/01/2021 I11.9 [facility] S[facility] HernandezC 05/01/2021 I35.1 Nonrheumatic aortic (valve) insu fficiency SEN HernandezC 05/01/2021 I34.0 Nonrheumatic mitral (valve) insu fficiency Toya Gaspar, YOUSIF-C 05/01/2021 R94.31 Abnormal electrocardiogram [ECG] [EKG] SEN HernandezC 05/01/2021 I45.0 Right fascicular block Toya bragg, SENC 05/01/2021 E78.00 Pure hypercholesterolemia, unspe cified SEN HernandezC 05/01/2021 I49.5 Sick sinus syndrome SEN LandryC 05/01/2021 Z95.0 Presence of cardiac pacemaker SEN HutchisonC 05/01/2021 I65.23 Occlusion and stenosis of bilate ral carotid arteries SEN HernandezC 05/01/2021 Z71.3 Dietary counseling and surveilla madeline Gaspar PA-C Plan of Treatment Future Appointment(s):* 08/21/2021 8:00 am - Toya Gaspar PA-C at Main Office * 11/05/2021 8:15 am - Toya Gaspar PA-C at Main Office 05/01/2021 - Toya Gaspar PA-C* I48.21 Permanent atrial fibrillation* New Medication:* Eliquis 2.5 mg - Take One Tablet By Mouth Twice A Day * Recommendations:* Decrease Eliquis to 2.5 mg one pill twice a day. * I25.10 Atherosclerotic heart disease of [place] coronary artery with * I11.9 Hypertensive heart [...]
--- OUTSIDE RECORDS SUMMARY | 2021-09-28 10:56 | CCD | Continuity of Care Document ---
Author Author [facility] Organization Unknown Address [address] [place] [address] Phone Unavailable Care Team Providers Care Band Cutter Name Role Phone Chandler Gandara M.D. AUTM [phone] Juliana Lechuga N.P. AUTM [phone] Toya Rivero AUTM [phone] Maty Emanuel Sr. AUTM [phone] Problems Active Problems Provider Date Atrial fibrillation Onset: 02/01/2011 Chronic kidney disease stage 3 Onset: Essential hypertension Onset: 02/01/2011 Persistent atrial fibrillation Onset: Persistent atrial fibrillation Onset: Type 2 diabetes mellitus Onset: 02/20/20 21 Pure hypercholesterolemia Markos Augustine M.D. Onset: 021 Coronary arteriosclerosis Markos Augustine M.D. Onset: 021 Social History Type Date [...] times a day as needed vertigo 60tabs PleJuliana encinas, N .P. 08/17/2019 Gabapentin 300mg Capsules 1 [...] Nortriptyline HCL 50mg Capsules one po at Brian Campos M.D. Folic Acid 1mg Tablets [...] H/L Range Note Xray 07/06/2021 Main Office [phone] Carotid Ultrasound Bilateral <pending> CBC With Differential [...] % 36.0-66.0 Lymph % 25.8 % 24.0-44.0 [place] % 14.1 % High 2.0-8.0 Eos % 7.1 % High 0.0-3.0 Baso % 1.2 % High 0.0-1.0 Immature Granulocyte % 0.2 % 0-3.0 Nucleated Red Blood Cell % 0.0 % 0-0 Neutrophils # 2.1 10 1.5-8.5 Lymph # 1.1 10 Low 1.5-5.0 [place] # 0.6 10 0.0-0.8 Eos # 0.3 [...] ABNORMAL Procedures Date Code Description Status 07/06/2021 26883 Duplex Scan Extracranial Arterie s, Complete Bilateral Study Completed Medical Devices Description No Information Available Encounters Description No Information Available Assessments Date Code Description Provider 07/06/2021 Z48.812 Encounter for reinier savage aftercare following surgery on the circulatory system [facility] Plan of Treatment Future Appointment(s):* 07/07/2022 8:30 am - [facility] at Main Office 07/06/2021 - Markos Augustine M.D.* * New Xrays:* Carotid Ultrasound Bilateral, Ordered: 07/06/21 * Follow up:* 1 YEAR OV/US/ CAROTID BILATERAL/ Functional Status Description No Information Available Mental Status Description No Information Available Referrals Description No Information Available
--- OUTSIDE RECORDS SUMMARY | 2021-09-28 10:56 | CCD ---
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 39928195 Problem Melanocytic nevi of face D22.30 Active confirmed 987210107 Problem Actinic keratoses L57.0 Active confirmed 40 8476782 Problem Melanocytic nevi of left lower limb, including hip D22.72 Active confirmed 335182879 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 Active confirmed 308202767 Problem Benign prostatic hyperplasia without lower urina ry tract symptoms N40.0 Active confirmed 317903563 Problem 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 Active confirmed 31295137 Problem Unspecified urinary incontinence R32 Active conf irmed 205955672 Problem Melanocytic nevi of right lower limb, including hip D22.71 Active confirmed 681697310 Problem Melanocytic nevi of left upper limb, including shoulder D22.62 Active confirmed 280914285 Problem Melanocytic nevi of right upper limb, including shoulder D22.61 Active confirmed 724817962 Problem Melanocytic nevi of trunk D22.5 Active confirmed 453026805 ALLERGIES Allergen (clinical drug ingredient) Drug/Non Drug Allergy do cumented on EMR Reaction Allergy Type Onset Date Status Penicillin (For Allergies Use Only) Unknown Drug Allerg y Active hydrochlorothiazide Hydrochlorothiazide([facility] Code:[address]-48) Unknown Drug Allergy Active ampicillin Ampicillin([facility] Code:[address]-30) Unknown Drug Allergy Active Septra Unknown Drug Allergy Active Procardia Unknown Drug Allergy Active Sulfa (for allergy use only) Unknown Drug Allergy Active ENCOUNTERS from 1935 to 2021-07-08 Encounter Location Date Provider Diagnosis [facility] [phone] [place] [address] Jun, Chandler Stillerman Open wound T14.8XXA and Non- pressure chronic ulcer of other part of left lower leg with fat layer exposed L97.822 IMMUNIZATIONS No Information SOCIAL HISTORY Tobacco Use: Social History Observation Description Date Details (start date - stop date) Never Smoker Sex Assigned At : Social History Observation Description Sex Assigned At Unknown Language: Question Answer Notes Languages spoken: Welsh Sabianism: Question Answer Notes Sabianism No confucianist beliefs that would impact health care. Alcohol [...] Jun, BMI 28.79 kg/m2 Jun, Heart Rate 91 /min Jun, Respiratory Rate 16 /min Jun, Temperature 98.3 degrees Fahrenheit Jun, Oximetry 99% Jun, Blood pressure systolic 157 mm Hg Jun, Blood pressure diastolic 83 mm Hg Jun, MEDICATIONS Medication SIG (Take, Route, Frequency, Duration) Notes Start Da te End Date Status Active Methotrexate 2.5 MG as directed Orally 7.5 MG ONCE WEEKLY 3 TABS ON MONDAYS ONLY Active Gabapentin 300 MG 1 tablet Orally bid Active Allopurinol 100 MG 2 tablet Orally Once a day Active Travoprost 0.004 % as directed Ophthalmic DAILY Active Multivitamin - as directed Orally No t-Taking Folic Acid 1 MG 1 tablet Orally Once a day for 30 day(s) Active Immune Globulin (Human) 40 GM/400ML as directed Injection Active Eliquis 5 MG TAKE ONE TABLET BY MOUTH TWICE A DAY Oral for 90 Not-Taking Centrum Silver - as directed Orally Active Ferrous Gluconate 324 (38 Fe) MG 1 tablet Orally Once a day for 30 da y(s) Not-Taking Nitroglycerin 0.4 MG as directed Sublingual Active Atorvastatin Calcium 10 MG 1 tablet Orally Once a day for 30 day(s) Not-Taking Chlorthalidone 25 mg 1/2 tablet in the morning with food Orally Onc e a day Active Nortriptyline HCl 50 MG 1 capsule Orally Once a day for 30 day(s) Active Lisinopril 5 MG 1 tablet Orally Once a day for 30 day(s) Active Cholecalciferol 2000 UNIT 1 capsule Orally Once a day for 30 day(s) Active Bisoprolol Fumarate 5 MG 1/2 tablet Orally Once a day Not-Taking Levothyroxine Sodium 25 MCG 1 tablet in the morning on an empty stomach Orally Once a day for 30 day(s) Active Flomax 0.4 MG 1 capsule Orally Once a day for 90 day(s) Active Meclizine HCl 25 MG 1 tablet as needed Orally PRN Active Potassium Chloride 20 MEQ 1 packet with food Orally Once a day f or 30 day(s) Active Apixaban 2.5 MG as directed Orally BID Active PROCEDURES from 1937 to 2021-07-08 Procedure Date Ordered Result Body Site Medication: 4% Lidocaine topical cream (Anecream) 5gm 2021-07-07 N/A RESULTS No Results REASON FOR VISIT Left Leg Hematoma MEDICAL (GENERAL) HISTORY Type Description Date Medical History HX INCONTINENCE AND UTI Medical History PACEMAKER Medical History HTN Medical History A-FIB Medical History RENAL INSUFFICIENCY Medical History CHRONIC INFLAMMATORY DEMYELINATING POLYN EURITIS Medical History HYPERLIPIDEMIA Medical History OLD MA Medical History DM TYPE 2 W/O COMPLICATIONS [...] with fat layer exposed (ICD-10 - L97.822) Jun, Other Chronic venous i nsufficiency material was printed,Debridement of a wound, infection, or burn material was printed PLAN OF TREATMENT Next Appt Details 1 Week Reason: Provider Name:Chandler Cherry, 09:15:00 AM, [address], , [place], [address], Provider Name:Josee Carranza, 2021-10-21 0 09:30:00 AM, [address], , [place], [address], Provider Name:Liliane Andrew, 2021-11-09 09:15:00 AM, [address] [place] [address], , [place], [address], Insurance Providers Payer Name Payer Address Payer Phone Insured Name Patient Relati onship to Insured Coverage Start Date Coverage End Date [employer] [facility] CLAIM DIV [address] [facility] [id number] CHIARA MARIE MEDICARE Part A and B [address] [facility] [phone] CHIARA MARIE
--- OUTSIDE RECORDS SUMMARY | 2021-09-28 10:57 | CCD ---
Author Author [facility] Organization [facility] Address Unknown Phone Unavailable Care Team Providers Care Commercial Property Manager Name Role Phone Karen Rivero PA Unavailable Unavailable Symenow, Karen Pittman PA Unavailable Unavailable Symenow, Karen Pittman PA Unavailable Unavailable Symenow, Karen Pittman PA Unavailable Unavailable Symenow, Karen Pittman PA Unavailable Unavailable Symenow, Karen Pittman PA Unavailable Unavailable Symenow, Karen Garciae PA Unavailable Unavailable Symenow, Karen Pittman PA Unavailable Unavailable SymenowKaren PA Unavailable Unavailable SymenowKaren PA Unavailable Unavailable Symenow, Karen Toya PA Unavailable Unavailable Symenow, Karen Toya PA Unavailable Unavailable Symenow, Karen Toya PA Unavailable Unavailable Symenow, Karen Toya PA Unavailable Unavailable Symenow, Karen Toya PA Unavailable Unavailable Symenow, Karen Toya PA Unavailable Unavailable Symenow, Akren Toya PA Unavailable Unavailable Symenow, Karen Toya PA Unavailable Unavailable Symenow, Karen Toya PA Unavailable Unavailable Symenow, Karen Toya PA Unavailable Unavailable Symenow, Karen Toya PA Unavailable Unavailable Symenow, Karen Toya PA Unavailable Unavailable Symenow, Karen Toya PA Unavailable Unavailable Symenow, Karen Toya PA Unavailable Unavailable Symenow, Karen Toya PA Unavailable Unavailable Symenow, Karen Toya PA Unavailable Unavailable Symenow, Karen Toya PA Unavailable Unavailable Symenow, Karen Toya PA Unavailable Unavailable Symenow, Karen Toya PA Unavailable Unavailable Symenow, Karen Toya PA Unavailable Unavailable Symenow, Karen Toya PA Unavailable Unavailable Symenow, Karen Toya PA Unavailable Unavailable Symenow, Karen Toya PA Unavailable Unavailable Symenow, Karen Toya PA Unavailable Unavailable Brian Campos MD Unavailable Unavailable AliBrian MD Unavailable Unavailable AliBrian MD Unavailable Unavailable AliBrian MD Unavailable Unavailable AliBrian MD Unavailable Unavailable AliBrian MD Unavailable Unavailable AliBrian MD Unavailable Unavailable AliBrian MD Unavailable Unavailable AliBrian MD Unavailable Unavailable AliBrian MD Unavailable Unavailable AliBrian MD Unavailable Unavailable Ali, Brian PEREZ Unavailable Unavailable Ali, Brian PEREZ Unavailable Unavailable AliBrian MD Unavailable Unavailable AliBrian MD Unavailable Unavailable AliBrian MD Unavailable Unavailable AliBrian MD Unavailable Unavailable AliBrian MD Unavailable Unavailable AliBrian MD Unavailable Unavailable AliBrian MD Unavailable Unavailable AliBrian MD Unavailable Unavailable AliBrian MD Unavailable Unavailable AliBrian MD Unavailable Unavailable AliBrian MD Unavailable Unavailable AliBrian MD Unavailable Unavailable AliBrian MD Unavailable Unavailable AliBrian MD Unavailable Unavailable AliBrian MD Unavailable Unavailable AliBrian MD Unavailable Unavailable AliBrian MD Unavailable Unavailable AliBrian MD Unavailable Unavailable AliBrian MD Unavailable Unavailable AliBrian MD Unavailable Unavailable AliBrian MD Unavailable Unavailable Brian Campos MD Unavailable Unavailable Brian Campos MD Unavailable Unavailable Brian Campos MD Unavailable Unavailable AliBrian MD Unavailable Unavailable AliBrian MD Unavailable Unavailable AliBrian MD Unavailable Unavailable Brian Campos MD Unavailable Unavailable Brian Campos MD Unavailable Unavailable Brian Campos MD Unavailable Unavailable Brian Campos MD Unavailable Unavailable Brian Campos MD Unavailable Unavailable Brian Campos MD Unavailable Unavailable AliBrian MD Unavailable Unavailable AliBrian MD Unavailable Unavailable AliBrian MD Unavailable Unavailable Brian Campos MD Unavailable Unavailable Brian Campos MD Unavailable Unavailable Pleskach, Juliana AUTOMOTIVE SERVICE MANAGEMENT TEACHER Unavailable Unavailable Pleskach, Juliana AUTOMOTIVE SERVICE MANAGEMENT TEACHER Unavailable Unavailable Pleskach, Juliana AUTOMOTIVE SERVICE MANAGEMENT TEACHER Unavailable Unavailable Pleskach, Juliana AUTOMOTIVE SERVICE MANAGEMENT TEACHER Unavailable Unavailable Pleskach, Juliana AUTOMOTIVE SERVICE MANAGEMENT TEACHER Unavailable Unavailable Pleskach, Juliana AUTOMOTIVE SERVICE MANAGEMENT TEACHER Unavailable Unavailable Pleskach, Juliana AUTOMOTIVE SERVICE MANAGEMENT TEACHER Unavailable Unavailable Pleskach, Juliana AUTOMOTIVE SERVICE MANAGEMENT TEACHER Unavailable Unavailable Pleskach, Juliana AUTOMOTIVE SERVICE MANAGEMENT TEACHER Unavailable Unavailable Pleskach, Juliana AUTOMOTIVE SERVICE MANAGEMENT TEACHER Unavailable Unavailable Pleskach, Juliana AUTOMOTIVE SERVICE MANAGEMENT TEACHER Unavailable Unavailable Pleskach, Juliana AUTOMOTIVE SERVICE MANAGEMENT TEACHER Unavailable Unavailable Pleskach, Juliana AUTOMOTIVE SERVICE MANAGEMENT TEACHER Unavailable Unavailable Pleskach, Juliana AUTOMOTIVE SERVICE MANAGEMENT TEACHER Unavailable Unavailable Pleskach, Juliana AUTOMOTIVE SERVICE MANAGEMENT TEACHER Unavailable Unavailable Pleskach, Juliana AUTOMOTIVE SERVICE MANAGEMENT TEACHER Unavailable Unavailable Pleskach, Juliana AUTOMOTIVE SERVICE MANAGEMENT TEACHER Unavailable Unavailable Pleskach, Juliana AUTOMOTIVE SERVICE MANAGEMENT TEACHER Unavailable Unavailable Pleskach, Juliana AUTOMOTIVE SERVICE MANAGEMENT TEACHER Unavailable Unavailable Pleskach, Juliana AUTOMOTIVE SERVICE MANAGEMENT TEACHER Unavailable Unavailable Pleskach, Juliana AUTOMOTIVE SERVICE MANAGEMENT TEACHER Unavailable Unavailable Pleskach, Juliana AUTOMOTIVE SERVICE MANAGEMENT TEACHER Unavailable Unavailable Pleskach, Juliana AUTOMOTIVE SERVICE MANAGEMENT TEACHER Unavailable Unavailable Pleskach, Juliana AUTOMOTIVE SERVICE MANAGEMENT TEACHER Unavailable Unavailable Pleskach, Juliana AUTOMOTIVE SERVICE MANAGEMENT TEACHER Unavailable Unavailable Pleskach, Juliana AUTOMOTIVE SERVICE MANAGEMENT TEACHER Unavailable Unavailable Pleskach, Juliana AUTOMOTIVE SERVICE MANAGEMENT TEACHER Unavailable Unavailable Pleskach, Juliana AUTOMOTIVE SERVICE MANAGEMENT TEACHER Unavailable Unavailable Pleskach, Juliana AUTOMOTIVE SERVICE MANAGEMENT TEACHER Unavailable Unavailable Pleskach, Juliana AUTOMOTIVE SERVICE MANAGEMENT TEACHER Unavailable Unavailable Pleskach, Juliana AUTOMOTIVE SERVICE MANAGEMENT TEACHER Unavailable Unavailable Pleskach, Juliana AUTOMOTIVE SERVICE MANAGEMENT TEACHER Unavailable Unavailable Pleskach, Juliana AUTOMOTIVE SERVICE MANAGEMENT TEACHER Unavailable Unavailable Pleskach, Juliana AUTOMOTIVE SERVICE MANAGEMENT TEACHER Unavailable Unavailable Pleskach, Juliana AUTOMOTIVE SERVICE MANAGEMENT TEACHER Unavailable Unavailable Pleskach, Juliana AUTOMOTIVE SERVICE MANAGEMENT TEACHER Unavailable Unavailable Pleskach, Juliana AUTOMOTIVE SERVICE MANAGEMENT TEACHER Unavailable Unavailable Pleskach, Juliana AUTOMOTIVE SERVICE MANAGEMENT TEACHER Unavailable Unavailable Pleskach, Juliana AUTOMOTIVE SERVICE MANAGEMENT TEACHER Unavailable Unavailable Pleskach, Juliana AUTOMOTIVE SERVICE MANAGEMENT TEACHER Unavailable Unavailable Pleskach, Juliana AUTOMOTIVE SERVICE MANAGEMENT TEACHER Unavailable Unavailable Pleskach, Juliana AUTOMOTIVE SERVICE MANAGEMENT TEACHER Unavailable Unavailable Pleskach, Juliana AUTOMOTIVE SERVICE MANAGEMENT TEACHER Unavailable Unavailable Pleskach, Juliana AUTOMOTIVE SERVICE MANAGEMENT TEACHER Unavailable Unavailable Sara Augustine MD Unavailable Unavailable Sara Augustine MD Unavailable Unavailable Sara Augustine MD Unavailable Unavailable Sara Augustine MD Unavailable Unavailable Davide, N Markos MD Unavailable Unavailable Davide, N Markos MD Unavailable Unavailable Davide, N Markos MD Unavailable Unavailable Davide, N Markos MD Unavailable Unavailable Davide, N Markos MD Unavailable Unavailable Davide, N Markos MD Unavailable Unavailable Davide, N Markos MD Unavailable Unavailable Davide, N Markos MD Unavailable Unavailable Davide, N Markos MD Unavailable Unavailable Davide, N Markos MD Unavailable Unavailable Davide, N Markos MD Unavailable Unavailable Davide, N Markos MD Unavailable Unavailable Davide, N Markos MD Unavailable Unavailable Davide, N Markos MD Unavailable Unavailable Davide, N Markos MD Unavailable Unavailable Davide, N Markos MD Unavailable Unavailable Davide, N Markos MD Unavailable Unavailable Davide, N Markos MD Unavailable Unavailable Davide, N Markos MD Unavailable Unavailable Davide, N Markos MD Unavailable Unavailable Davide, N Markos MD Unavailable Unavailable Davide, N Markos MD Unavailable Unavailable Davide, N Markos MD Unavailable Unavailable Davide, N Markos MD Unavailable Unavailable Davide, N Markos MD Unavailable Unavailable Davide, N Markos MD Unavailable Unavailable Davide, N Markos MD Unavailable Unavailable Davide, N Markos MD Unavailable Unavailable Davide, N Markos MD Unavailable Unavailable Davide, N Markos MD Unavailable Unavailable Davide, N Markos MD Unavailable Unavailable Davide, N Markos MD Unavailable Unavailable Davide, N Markos MD Unavailable Unavailable Davide, N Markos MD Unavailable Unavailable Davide, N Markos MD Unavailable Unavailable Davide, N Markos MD Unavailable Unavailable Davide, N Markos MD Unavailable Unavailable Davide, N Markos MD Unavailable Unavailable Davide, N Markos MD Unavailable Unavailable Davide, N Markos MD Unavailable Unavailable Davide, N Markos MD Unavailable Unavailable Davide, N Markos MD Unavailable Unavailable Davide, N Markos MD Unavailable Unavailable Davide, N Markos MD Unavailable Unavailable Davide, N Markos MD Unavailable Unavailable Davide, N Markos MD Unavailable Unavailable Davide, N Markos MD Unavailable Unavailable Davide, N Markos MD Unavailable Unavailable Davide, N Markos MD Unavailable Unavailable Davide, N Markos MD Unavailable Unavailable Davide, N Markos MD Unavailable Unavailable Davide, N Markos MD Unavailable Unavailable Davide, N Markos MD Unavailable Unavailable Davide, N Markos MD Unavailable Unavailable Davide, N Markos MD Unavailable Unavailable Davide, N Markos MD Unavailable Unavailable Davide, N Markos MD Unavailable Unavailable Davide, N Markos MD Unavailable Unavailable Davide, N Markos MD Unavailable Unavailable Davide, N Markos MD Unavailable Unavailable Davide, N Markos MD Unavailable Unavailable Davide, N Markos MD Unavailable Unavailable Davide, N Markos MD Unavailable Unavailable Davide, N Markos MD Unavailable Unavailable Davide, N Markos MD Unavailable Unavailable Davide, N Markos MD Unavailable Unavailable Davide, N Markos MD Unavailable Unavailable Davide, N Markos MD Unavailable Unavailable Davide, N Markos MD Unavailable Unavailable Davide, N Markos MD Unavailable Unavailable Davide, N Markos MD Unavailable Unavailable Davide, N Markos MD Unavailable Unavailable Davide, N Markos MD Unavailable Unavailable Davide, N Markos MD Unavailable Unavailable Davide, N Markos MD Unavailable Unavailable Davide, N Markos MD Unavailable Unavailable Davide, N Markos MD Unavailable Unavailable Davide, N Markos MD Unavailable Unavailable Davide, N Markos MD Unavailable Unavailable Davide, N Markos MD Unavailable Unavailable Matias, L Elizabeth RPA Unavailable Unavailable Matias, L Elizabeth RPA Unavailable Unavailable Matias, L Elizabeth RPA Unavailable Unavailable Matias, L Elizabeth RPA Unavailable Unavailable Matias, L Elizabeth RPA Unavailable Unavailable Matias, L Elizabeth RPA Unavailable Unavailable Matias, L Elizabeth RPA Unavailable Unavailable Matias, L Elizabeth RPA Unavailable Unavailable Matias, L Elizabeth RPA Unavailable Unavailable Matias, L Elizabeth RPA Unavailable Unavailable Matias, L Elizabeth RPA Unavailable Unavailable Matias, L Elizabeth RPA Unavailable Unavailable Matias, L Elizabeth RPA Unavailable Unavailable Matias, L Elizabeth RPA Unavailable Unavailable Matias, L Elizabeth RPA Unavailable Unavailable Matias, L Elizabeth RPA Unavailable Unavailable Matias, L Elizabeth RPA Unavailable Unavailable Matias, L Elizabeth RPA Unavailable Unavailable Matias, L Elizabeth RPA Unavailable Unavailable Matias, L Elizabeth RPA Unavailable Unavailable Matias, L Elizabeth RPA Unavailable Unavailable Matias, L Elizabeth RPA Unavailable Unavailable Matias, L Elizabeth RPA Unavailable Unavailable Matias, L Elizabeth RPA Unavailable Unavailable Matias, L Elizabeth RPA Unavailable Unavailable Matias, L Elizabeth RPA Unavailable Unavailable Matias, L Elizabeth RPA Unavailable Unavailable Matias, L Elizabeth RPA Unavailable Unavailable Matias, L Elizabeth RPA Unavailable Unavailable Matias, L Elizabeth RPA Unavailable Unavailable Matias, L Elizabeth RPA Unavailable Unavailable Matias, L Elizabeth RPA Unavailable Unavailable Dilip JR, J Han MD Unavailable Unavailable Angel Cherry JR, MD Unavailable Unavailable Angel Cherry JR, MD Unavailable Unavailable Angel Cherry JR, MD Unavailable Unavailable Angel Cherry JR, MD Unavailable Unavailable Angel Cherry JR, MD Unavailable Unavailable Angel Cherry JR, MD Unavailable Unavailable Angel Cherry JR, MD Unavailable Unavailable Angel Cherry JR, MD Unavailable Unavailable Angel Cherry JR, MD Unavailable Unavailable Angel Cherry JR, MD Unavailable Unavailable Angel Cherry JR, MD Unavailable Unavailable Angel Cherry JR, MD Unavailable Unavailable Angel Cherry JR, MD Unavailable Unavailable Angel Cherry JR, MD Unavailable Unavailable Angel Cherry JR, MD Unavailable Unavailable Angel Cherry JR, MD Unavailable Unavailable Angel Cherry JR, MD Unavailable Unavailable Angel Cherry JR, MD Unavailable Unavailable Angel Cherry JR, MD Unavailable Unavailable Angel Cherry JR, MD Unavailable Unavailable Angel Cherry JR, MD Unavailable Unavailable Angel Cherry JR, MD Unavailable Unavailable Angel Cherry JR, MD Unavailable Unavailable Angel Cherry JR, MD Unavailable Unavailable Angel Cherry JR, MD Unavailable Unavailable Angel Cherry JR, MD Unavailable Unavailable Angel Cherry JR, MD Unavailable Unavailable Angel Cherry JR, MD Unavailable Unavailable Angel Cherry JR, MD Unavailable Unavailable Angel Cherry JR, MD Unavailable Unavailable Angel Cherry JR, MD Unavailable Unavailable Angel Cherry JR, MD Unavailable Unavailable Angel Cherry JR, MD Unavailable Unavailable Angel Cherry JR, MD Unavailable Unavailable Angel Cherry JR, MD Unavailable Unavailable Angel Cherry JR, MD Unavailable Unavailable Angel Cherry JR, MD Unavailable Unavailable Angel Cherry JR, MD Unavailable Unavailable Angel Cherry JR, MD Unavailable Unavailable Angel Cherry JR, MD Unavailable Unavailable Angel Cherry JR, MD Unavailable Unavailable Angel Cherry JR, MD Unavailable Unavailable Angel Cherry JR, MD Unavailable Unavailable Angel Cherry JR, MD Unavailable Unavailable Angel Cherry JR, MD Unavailable Unavailable Angel Cherry JR, MD Unavailable Unavailable Angel Cherry JR, MD Unavailable Unavailable Angel Cherry JR, MD Unavailable Unavailable Angel Cherry JR, MD Unavailable Unavailable Angel Cherry JR, MD Unavailable Unavailable Angel Cherry JR, MD Unavailable Unavailable Angel Cherry JR, MD Unavailable Unavailable Angel Cherry JR, MD Unavailable Unavailable Re-disclosure Warning The records that you are about to access may contain information from federally-assisted alcohol or drug abuse programs. If such information is present, then the following federally mandated warning applies: This information has been disclosed to you from records protected by federal confidentiality rules (42 CFR part 2). The federal rules prohibit you from making any further disclosure of this information unless further disclosure is expressly permitted by the written consent of the person to whom it pertains or as otherwise permitted by 42 CFR part 2. A general authorization for the release of medical or other information is NOT sufficient for this purpose. The Federal rules restrict any use of the information to criminally investigate or prosecute any alcohol or drug abuse patient.The records that you are about to access may contain highly sensitive health information, the redisclosure of which is protected by Article 27-F of the [facility] Public Health law. If you continue you may have access to information: Regarding HIV / AIDS; Provided by facilities licensed or operated by the [facility] Office of Mental Health; or Provided by the [facility] Office for People With Developmental Disabilities. If such information is present, then the following [facility] mandated warning applies: This information has been disclosed to you from confidential records which are protected by state law. State law prohibits you from making any further disclosure of this information without the specific written consent of the person to whom it pertains, or as otherwise permitted by law. Any unauthorized further disclosure in violation of state law may result in a fine or penitentiary sentence or both. A general authorization for the release of medical or other information is NOT sufficient authorization for further disc losure. Family History Family Member Name Family Member Gender Family Member Status Date o f Status Description Data Source(s) Unknown Unknown Problem [facility] ([facility]) Unknown Unknown Problem [facility] ([facility] Unknown Female Encounters Encounter Providers Location Date Indications Data Source(s ) Outpatient Attender: Toya DODD Main Office 09/17/2021 08:00:00 AM EDT [facility] ([facility]) Outpatient Attender: Juliana Lechuga [facility] Main Office 08/24/2021 0 8:45:00 AM EDT [facility] ([facility] Outpatient Attender: Toya DODD Main Office 08/21/2021 08:00:00 AM EDT [facility] ([facility]) Office Visit Attender: Brian Campos MD Main office - [place] 08/20/2021 12:00:00 PM EDT MED[facility] ([facility], ) ([id number]) For Template [facility] [address] [place] [address] 08/11/2021 12:00:00 AM EDT eCW1 ([facility]) Outpatient [facility] [place] [id number] 08/04/2021 12:00:00 AM EDT eCW1 ([facility]) ([id number]) For Template Cummings [address] [place], [place] [id number] 07/21/2021 12:00:00 AM EDT eCW1 ([facility]) Outpatient Attender: Toya DODD Main Office 07/16/2021 09:15:00 AM EDT [facility] ([facility]) ([id number]) For Template [place] [address] [place], [place] [phone] 07/14/2021 12:00:00 AM EDT eCW1 ([facility]) (WND NP120) New Patient [address] [place], [place] [id number] 07/07/2021 12:00:00 AM EDT eCW1 ([facility]) Outpatient Attender: Markos Augustine MD Main Office 07/06/2021 08:30:00 AM EDT [facility] ([facility]) Outpatient Attender: Elizabeth Mejiasang/[place]/Benny/R eindl 07/01/2021 10:30:00 AM EDT [facility] ([facility] ) Outpatient Attender: Elizabeth Mejiasang/[place]/Benny/R eindl 2021 09:00:00 AM EDT [facility] ([facility] [place] [address] [facility] [address] 2021 12:00:00 AM EDT eCW1 ([facility]) (MMS 3) [place] [address] [facility] [address] 06/11/2021 12:00:00 AM EDT eCW1 ([facility]) Outpatient Attender: Han Goins/Matthew/Benny/Rein dl 06/05/2021 01:00:00 PM EDT [facility] ([facility]) Outpatient Attender: Juliana Lechuga [facility] Main Office 06/04/2021 0 2:15:00 PM EDT [facility] ([facility] [place] [address] [facility] [address] 05/06/2021 12:00:00 AM EDT eCW1 ([facility]) Outpatient Attender: Toya DODD Main Office 05/01/2021 10:15:00 AM EDT [facility] ([facility]) Office Visit Attender: Brian Campos MD Main office - [place] 02/17/2021 12:00:00 PM EDT MED[facility] ([facility], ) Outpatient Attender: Juliana Lechuga [facility] Main Office 02/10/2021 0 8:45:00 AM EDT [facility] ([facility] [place] [address] [facility] [address] 10/31/2020 12:00:00 AM EST eCW1 ([facility]) Outpatient Attender: Toya DODD Main Office 10/29/2020 09:15:00 AM EST [facility] ([facility]) Office Visit Attender: Brian Campos MD Main office - [place] 08/19/2020 10:30:00 AM EDT MED[facility] ([facility], ) Outpatient Attender: Juliana Lechuga [facility] Main Office 08/12/2020 0 8:45:00 AM EDT [facility] ([facility] Immunizations Vaccine Date Status Description Data Source(s) Moderna Sars-(Covid-19) vaccine, mRNA, LNP-S, PF, 100 mcg/ 0.5 mL 08/21/2021 08:59:00 AM EDT completed [facility] ([facility] COVID-19 VACCINE Moderna 08/21/2021 12:00:00 AM EDT completed [facility] Vaccine Series Complete: YESThis Data wa s Submitted to [facility] Via [employer]. Tdap 06/13/2021 03:17:00 PM EDT completed M [facility] ([facility] Moderna Sars-(Covid-19) vaccine, mRNA, LNP-S, PF, 100 mcg/ 0.5 mL 01/30/2021 02:49:00 PM EST completed [facility] COVID-19 VACCINE Moderna 01/30/2021 12:00:00 AM EST completed [facility] Vaccine Series Complete: YESThis Data wa s Submitted to [facility] Via [employer]. COVID-19 VACCINE, MRNA-1273, LNP-S (MODERNA)/PF 01/30/2021 1 2:00:00 AM EST completed [facility] Moderna Sars-(Covid-19) vaccine, mRNA, LNP-S, PF, 100 mcg/ 0.5 mL 01/01/2021 02:49:00 PM EST completed [facility] COVID-19 VACCINE Moderna 01/01/2021 12:00:00 AM EST completed [facility] Vaccine Series Complete: NOThis Data was Submitted to [facility] Via [employer]. COVID-19 VACCINE, MRNA-1273, LNP-S (MODERNA)/PF 01/01/2021 1 2:00:00 AM EST completed [facility] Medications Medication Brand Name Start Date Product Form Dose Route Admi nistrative Instructions Pharmacy Instructions Status Indications Reaction Description Data Source(s) 240 mcg/0.7 mL 09/21/2021 12:00:00 AM EDT syringe 0 INJECT DIRECTED INJECT DIRECTED SOLD: 09/21/2021 [facility] Nortriptyline 50 MG Oral Capsule NORTRIPTYLINE HCL 09/18/2021 12 :00:00 AM EDT capsule 90 TAKE ONE CAPSULE BY MOUTH AT BED TIME TAKE ONE CAPSULE BY MOUTH AT BEDTIME SOLD: 09/21/2021 [facility] 300 mg 09/18/2021 12:00:00 AM EDT capsule 180 TAKE ONE CAPSULE BY MOUTH TWICE A DAY TAKE ONE CAPSULE BY MOUTH TWICE A DAY SOLD: 09/21/2021 [facility] 100 mg 09/18/2021 12:00:00 AM EDT tablet 180 TAKE TWO TABLETS BY MOUTH EVERY DAY TAKE TWO TABLETS BY MOUTH EVERY DAY SOLD: 09/21/2021 [facility] 100 mcg/0.5 mL 08/21/2021 12:00:00 AM EDT suspension 0 INJECT DIRECTED INJECT DIRECTED SOLD: 08/21/2021 [facility] atorvastatin 10 MG Oral Tablet ATORVASTATIN CALCIUM 08/21/2021 1 2:00:00 AM EDT tablet 90 TAKE ONE TABLET BY MOUTH EVERY D AY TAKE ONE TABLET BY MOUTH EVERY DAY SOLD: 08/23/2021 [facility] 25 mg 07/18/2021 12:00:00 AM EDT tablet 45 TAKE ONE-HALF TABLET BY MOUTH EVERY DAY IN THE MORNING TAKE ONE-HALF TABLET BY MOUTH EVERY DAY IN THE MORNING SOLD: 07/20/2021 [facility] Clindamycin 300 MG Oral Capsule Clindamycin HCL 06/23/2021 12:00:00 A M EDT ORAL completed [facility] ([facility] 25 mcg 06/22/2021 12:00:00 AM EDT tablet 90 TAKE ONE TABLET BY MOUTH EVERY DAY TAKE ONE TABLET BY MOUTH EVERY DAY SOLD: 09/26/2021 [facility] 25 mcg 06/22/2021 12:00:00 AM EDT tablet 90 TAKE ONE TABLET BY MOUTH EVERY DAY TAKE ONE TABLET BY MOUTH EVERY DAY SOLD: 06/24/2021 [facility] Clindamycin 300 MG Oral Capsule CLINDAMYCIN HCL 06/14/2021 12:00 :00 AM EDT capsule 30 TAKE ONE CAPSULE BY MOUTH THREE TIMES A DAY TAKE ONE CAPSULE BY MOUTH THREE TIMES A DAY SOLD: 06/14/2021 [facility] Meclizine Hydrochloride 25 MG Oral Tablet MECLIZINE HCL 06/05/2021 12:00:00 AM EDT tablet 60 TAKE ONE TABLET BY MOUTH TWI CE A DAY NEEDED FOR VERTIGO TAKE ONE TABLET BY MOUTH TWICE A DAY NEEDED FOR VERTIGO SOLD: 06/08/2021 [facility] 5 mg 05/06/2021 12:00:00 AM EDT tablet 90 TAKE ONE TABLET BY MOUTH EVERY DAY TAKE ONE TABLET BY MOUTH EVERY DAY SOLD: 09/07/2021 [facility] 5 mg 05/06/2021 12:00:00 AM EDT tablet 90 TAKE ONE TABLET BY MOUTH EVERY DAY TAKE ONE TABLET BY MOUTH EVERY DAY SOLD: 05/11/2021 [facility] atorvastatin 10 MG Oral Tablet ATORVASTATIN CALCIUM 05/01/2021 1 2:00:00 AM EDT tablet 90 TAKE ONE TABLET BY MOUTH AT BEDT AYLIN TAKE ONE TABLET BY MOUTH AT BEDTIME SOLD: 05/04/2021 [facility] 2.5 mg 05/01/2021 12:00:00 AM EDT tablet 180 TAKE ONE TABLET BY MOUTH TWICE A DAY TAKE ONE TABLET BY MOUTH TWICE A DAY SOLD: 05/04/2021 [facility] 20 mEq 05/01/2021 12:00:00 AM EDT tablet,ER particles/cry stals 90 TAKE ONE TABLET BY MOUTH EVERY DAY TAKE ONE TABLET BY MOUTH EVERY DAY SOLD: 05/04/2021 [facility] apixaban 2.5 MG Oral Tablet [Eliquis] Eliquis 05/01/2021 12:00:00 AM EDT active [facility] ([facility]) 0.4 mg 05/01/2021 12:00:00 AM EDT tablet, sublingual 25 TAKE 1 TABLET UNDER THE TONGUE EVERY 5 MINUTES TIMES 3 DOSES NEEDED FOR CHEST PAIN TAKE 1 TABLET UNDER THE TONGUE EVERY 5 MINUTES TIMES 3 DOSES NEEDED FOR CHEST PAIN SOLD: 05/04/2021 [facility] 20 mEq 05/01/2021 12:00:00 AM EDT tablet,ER particles/cry stals 90 TAKE ONE TABLET BY MOUTH EVERY DAY TAKE ONE TABLET BY MOUTH EVERY DAY SOLD: 08/14/2021 [facility] Levothyroxine Sodium 0.025 MG Oral Capsule Levothyroxine Sod ium 04/30/2021 12:00:00 AM EDT ORAL active M EDENT ([facility]) Allopurinol 100 MG Oral Tablet Allopurinol 04/30/2021 12:00:00 AM EDT ORAL active [facility] ([facility]) Nortriptyline 50 MG Oral Capsule NORTRIPTYLINE HCL 04/15/2021 12 :00:00 AM EDT capsule 90 TAKE ONE CAPSULE BY MOUTH AT BED TIME TAKE ONE CAPSULE BY MOUTH AT BEDTIME SOLD: 07/15/2021 [facility] 300 mg 04/15/2021 12:00:00 AM EDT capsule 180 TAKE ONE CAPSULE BY MOUTH TWICE A DAY TAKE ONE CAPSULE BY MOUTH TWICE A DAY SOLD: 04/17/2021 [facility] Nortriptyline 50 MG Oral Capsule NORTRIPTYLINE HCL 04/15/2021 12 :00:00 AM EDT capsule 90 TAKE ONE CAPSULE BY MOUTH AT BED TIME TAKE ONE CAPSULE BY MOUTH AT BEDTIME SOLD: 04/17/2021 [facility] 300 mg 04/15/2021 12:00:00 AM EDT capsule 180 TAKE ONE CAPSULE BY MOUTH TWICE A DAY TAKE ONE CAPSULE BY MOUTH TWICE A DAY SOLD: 07/15/2021 [facility] 100 mg 04/14/2021 12:00:00 AM EDT tablet 180 TAKE TWO TABLETS BY MOUTH EVERY DAY TAKE TWO TABLETS BY MOUTH EVERY DAY SOLD: 07/15/2021 [facility] 5 mg 04/14/2021 12:00:00 AM EDT tablet 180 TAKE ONE TABLET BY MOUTH TWICE A DAY TAKE ONE TABLET BY MOUTH TWICE A DAY SOLD: 04/17/2021 [facility] 100 mg 04/14/2021 12:00:00 AM EDT tablet 180 TAKE TWO TABLETS BY MOUTH EVERY DAY TAKE TWO TABLETS BY MOUTH EVERY DAY SOLD: 04/17/2021 [facility] 25 mg 04/14/2021 12:00:00 AM EDT tablet 45 TAKE ONE-HALF TABLET BY MOUTH EVERY DAY IN THE MORNING TAKE ONE-HALF TABLET BY MOUTH EVERY DAY IN THE MORNING SOLD: 04/17/2021 [facility] 2.5 mg 02/21/2021 12:00:00 AM EDT tablet 36 TAKE THREE TABLETS BY MOUTH WEEKLY TAKE THREE TABLETS BY MOUTH WEEKLY SOLD: 02/21/2021 [facility] 2.5 mg 02/21/2021 12:00:00 AM EDT tablet 36 TAKE THREE TABLETS BY MOUTH WEEKLY TAKE THREE TABLETS BY MOUTH WEEKLY SOLD: 07/15/2021 [facility] 1 mg 02/21/2021 12:00:00 AM EDT tablet 90 TAKE ONE TABLET BY MOUTH EVERY DAY TAKE ONE TABLET BY MOUTH EVERY DAY SOLD: 02/21/2021 [facility] 1 mg 02/21/2021 12:00:00 AM EDT tablet 90 TAKE ONE TABLET BY MOUTH EVERY DAY TAKE ONE TABLET BY MOUTH EVERY DAY SOLD: 07/15/2021 [facility] atorvastatin 10 MG Oral Tablet ATORVASTATIN CALCIUM 02/17/2021 1 2:00:00 AM EDT tablet 90 TAKE ONE TABLET BY MOUTH EVERY D AY TAKE ONE TABLET BY MOUTH EVERY DAY SOLD: 02/21/2021 [facility] 25 mcg 12/15/2020 12:00:00 AM EST tablet 90 TAKE ONE TABLET BY MOUTH EVERY DAY TAKE ONE TABLET BY MOUTH EVERY DAY SOLD: 12/17/2020 [facility] 25 mcg 12/15/2020 12:00:00 AM EST tablet 90 TAKE ONE TABLET BY MOUTH EVERY DAY TAKE ONE TABLET BY MOUTH EVERY DAY SOLD: 03/22/2021 [facility] 0.4 mg 10/31/2020 12:00:00 AM EST capsule 90 TAKE ONE CAPSULE BY MOUTH EVERY DAY TAKE ONE CAPSULE BY MOUTH EVERY DAY SOLD: 05/20/2021 [facility] 0.4 mg 10/31/2020 12:00:00 AM EST capsule 90 TAKE ONE CAPSULE BY MOUTH EVERY DAY TAKE ONE CAPSULE BY MOUTH EVERY DAY SOLD: 11/03/2020 [facility] 0.4 mg 10/31/2020 12:00:00 AM EST capsule 90 TAKE ONE CAPSULE BY MOUTH EVERY DAY TAKE ONE CAPSULE BY MOUTH EVERY DAY SOLD: 02/11/2021 [facility] 0.4 mg 10/31/2020 12:00:00 AM EST capsule 90 TAKE ONE CAPSULE BY MOUTH EVERY DAY TAKE ONE CAPSULE BY MOUTH EVERY DAY SOLD: 08/14/2021 [facility] 240 mcg/0.7 mL 08/26/2020 12:00:00 AM EDT syringe 0 INJECT 0.7ML INTRAMUSCULARLY INJECT 0.7ML INTRAMUSCULARLY SOLD: 08/26/2020 [facility] atorvastatin 10 MG Oral Tablet ATORVASTATIN CALCIUM 08/24/2020 1 2:00:00 AM EDT tablet 90 TAKE ONE TABLET BY MOUTH EVERY D AY MAXIMUM DAILY DOSE = 1 TAKE ONE TABLET BY MOUTH EVERY DAY MAXIMUM DAILY DOSE = 1 SOLD: 08/26/2020 [facility] 1 mg 08/19/2020 12:00:00 AM EDT tablet 90 TAKE ONE TABLET BY MOUTH EVERY DAY MAXIMUM DAILY DOSE = 1 TAKE ONE TABLET BY MOUTH EVERY DAY MAXIM UM DAILY DOSE = 1 SOLD: 12/17/2020 [facility] 1 mg 08/19/2020 12:00:00 AM EDT tablet 90 TAKE ONE TABLET BY MOUTH EVERY DAY MAXIMUM DAILY DOSE = 1 TAKE ONE TABLET BY MOUTH EVERY DAY MAXIM UM DAILY DOSE = 1 SOLD: 08/21/2020 [facility] 300 mg 08/19/2020 12:00:00 AM EDT capsule 180 TAKE ONE CAPSULE BY MOUTH TWICE A DAY MAXIMUM DAILY DOSE = 2 TAKE ONE CAPSULE BY MOUTH TWICE A DAY MA XIMUM DAILY DOSE = 2 SOLD: 01/09/2021 [facility] 300 mg 08/19/2020 12:00:00 AM EDT capsule 180 TAKE ONE CAPSULE BY MOUTH TWICE A DAY MAXIMUM DAILY DOSE = 2 TAKE ONE CAPSULE BY MOUTH TWICE A DAY MA XIMUM DAILY DOSE = 2 SOLD: 08/21/2020 [facility] 100 mg 08/19/2020 12:00:00 AM EDT tablet 180 TAKE TWO TABLETS BY MOUTH EVERY DAY MAXIMUM DAILY DOSE = 2 TAKE TWO TABLETS BY MOUTH EVERY DAY MAXI MUM DAILY DOSE = 2 SOLD: 01/09/2021 [facility] 100 mg 08/19/2020 12:00:00 AM EDT tablet 180 TAKE TWO TABLETS BY MOUTH EVERY DAY MAXIMUM DAILY DOSE = 2 TAKE TWO TABLETS BY MOUTH EVERY DAY MAXI MUM DAILY DOSE = 2 SOLD: 08/21/2020 [facility] 2.5 mg 08/19/2020 12:00:00 AM EDT tablet 45 TAKE 3 TABLETS BY MOUTH EVERY WEEK TAKE 3 TABLETS BY MOUTH EVERY WEEK SOLD: 08/21/2020 [facility] 2.5 mg 08/19/2020 12:00:00 AM EDT tablet 45 TAKE 3 TABLETS BY MOUTH EVERY WEEK TAKE 3 TABLETS BY MOUTH EVERY WEEK SOLD: 12/17/2020 [facility] Nortriptyline 50 MG Oral Capsule NORTRIPTYLINE HCL 07/09/2020 12 :00:00 AM EDT capsule 90 TAKE ONE CAPSULE BY MOUTH AT BED TIME TAKE ONE CAPSULE BY MOUTH AT BEDTIME SOLD: 10/10/2020 [facility] Nortriptyline 50 MG Oral Capsule NORTRIPTYLINE HCL 07/09/2020 12 :00:00 AM EDT capsule 90 TAKE ONE CAPSULE BY MOUTH AT BED TIME TAKE ONE CAPSULE BY MOUTH AT BEDTIME SOLD: 01/09/2021 [facility] 5 mg 2020 12:00:00 AM EDT tablet 90 TAKE ONE TABLET BY MOUTH EVERY DAY TAKE ONE TABLET BY MOUTH EVERY DAY SOLD: 11/19/2020 [facility] 5 mg 2020 12:00:00 AM EDT tablet 90 TAKE ONE TABLET BY MOUTH EVERY DAY TAKE ONE TABLET BY MOUTH EVERY DAY SOLD: 02/28/2021 [facility] 25 mcg 06/04/2020 12:00:00 AM EDT tablet 90 TAKE ONE TABLET BY MOUTH EVERY DAY TAKE ONE TABLET BY MOUTH EVERY DAY SOLD: 09/19/2020 [facility] 20 mEq 04/30/2020 12:00:00 AM EDT tablet,ER particles/cry stals 90 TAKE ONE TABLET BY MOUTH EVERY DAY TAKE ONE TABLET BY MOUTH EVERY DAY SOLD: 02/11/2021 [facility] 20 mEq 04/30/2020 12:00:00 AM EDT tablet,ER particles/cry stals 90 TAKE ONE TABLET BY MOUTH EVERY DAY TAKE ONE TABLET BY MOUTH EVERY DAY SOLD: 11/19/2020 [facility] 20 mEq 04/30/2020 12:00:00 AM EDT tablet,ER particles/cry stals 90 TAKE ONE TABLET BY MOUTH EVERY DAY TAKE ONE TABLET BY MOUTH EVERY DAY SOLD: 08/12/2020 [facility] 0.004 % 04/16/2020 12:00:00 AM EDT drops 2 INSTILL 1 DROP IN EACH EYE ONCE DAILY AT BEDTIME INSTILL 1 DROP IN EACH EYE ONCE DAILY AT BEDTIME SOLD: 10/18/2020 [facility] 0.004 % 04/16/2020 12:00:00 AM EDT drops 2 INSTILL 1 DROP IN EACH EYE ONCE DAILY AT BEDTIME INSTILL 1 DROP IN EACH EYE ONCE DAILY AT BEDTIME SOLD: 01/10/2021 [facility] 0.4 mg 04/16/2020 12:00:00 AM EDT capsule 90 TAKE ONE CAPSULE BY MOUTH AT BEDTIME TAKE ONE CAPSULE BY MOUTH AT BEDTIME SOLD: 08/17/2020 [facility] 0.004 % 04/16/2020 12:00:00 AM EDT drops 2 INSTILL 1 DROP IN EACH EYE ONCE DAILY AT BEDTIME INSTILL 1 DROP IN EACH EYE ONCE DAILY AT BEDTIME SOLD: 08/12/2020 [facility] 5 mg 04/11/2020 12:00:00 AM EDT tablet 180 TAKE ONE TABLET BY MOUTH TWICE A DAY TAKE ONE TABLET BY MOUTH TWICE A DAY SOLD: 10/18/2020 [facility] 5 mg 04/11/2020 12:00:00 AM EDT tablet 180 TAKE ONE TABLET BY MOUTH TWICE A DAY TAKE ONE TABLET BY MOUTH TWICE A DAY SOLD: 01/09/2021 [facility] 25 mg 04/11/2020 12:00:00 AM EDT tablet 45 TAKE ONE-HALF TABLET BY MOUTH EVERY DAY TAKE ONE-HALF TABLET BY MOUTH EVERY DAY SOLD: 10/18/2020 [facility] 25 mg 04/11/2020 12:00:00 AM EDT tablet 45 TAKE ONE-HALF TABLET BY MOUTH EVERY DAY TAKE ONE-HALF TABLET BY MOUTH EVERY DAY SOLD: 01/09/2021 [facility] Insurance Providers Payer name Policy type / Coverage type Policy ID Covered democrat ID Covered democrat's relationship to cummings Policy Cumm[employer] Plan Information [facility] Part B [id number] Self [id number] [facility] [id number] Self [id number] [employer] [facility] [employer] Part B [id number] Self [id number] [facility] [facility] [place] Part B [id number] Self [id number] [employer] Part B [id number] Self [id number] [facility] [employer] [facility] [place] Part B [id number] Self [id number] [employer] [facility] [employer] Part B [id number] Self [id number] [employer] [facility] [employer] Part B [id number] Self [employer] [facility] [employer] Part B [id number] Self [id number] MEDICARE [id number] SP [id number] Medicare (Part B) Medicare Primary [id number] Self [id number] MEDICARE A [id number] Self [id number] A MEDICARE [id number] SP [id number] A Medicare (Part B) Medicare Primary [id number] Self [id number] Medicare (Part B) Medicare Primary [id number] Self Medicare (Part B) Medicare Primary [id number] Self [id number] Medicare (Part B) Medicare Primary [id number] Self [id number] Medicare (Part B) Medicare Primary [id number] Self [id number] Medicare Medicare Primary [id number] Self Medicare (Part B) Medicare Primary [id number] Self [id number] Medicare (Part B) Medicare Primary [id number] Self [id number] Medicare (Part B) Medicare Primary [id number] Self [id number] AARP U [id number] Self [id number] [employer] C[employer] OPTIONS [id number] SP [id number] A[employer] OPTIONS [id number] SP [id number] A[employer] OPTIONS [id number] SP [id number] [employer] Part B [id number] 790.0 Self [id number] Medicare [place] Medicare Primary [id number] Self [id number] [employer] Part B [id number] 790.0 Self [id number] Medicare [place] Medicare Primary [id number] Self [id number] [employer] Medigap Part B [id number] Self Medicare [place] Medicare Primary [id number] Self [facility] Part B [id number] Self Medicare [place] Medicare Primary [id number] Self MEDICARE [id number] SP [id number] AARP S [id number] S [id number] AARP HE[employer] C[employer] OPTIONS [id number] SP [id number] MEDICARE [id number] SP [id number] MEDICARE C [id number] S [id number] AARP O [id number] S [id number] [employer] Part B [id number] Self [id number] Medicare [place] Medicare Primary [id number] Self [id number] ANSI-Medicare Part B [id number] ANSI-Commercial [id number] [facility] [id number] Self [id number] Medicare [place] Medicare Primary [id number] Self [id number] ANSI-Medicare Part B [id number] ANSI-Commercial [id number] ANSI-Commercial [id number] ANSI-Medicare Part B [id number] ANSI-Commercial [id number] ANSI-Medicare Part B [id number] [facility] [id number] 790.0 Self [id number] Medicare [place] Medicare Primary [id number] Self [id number] [employer] [employer] Part B [id number] 790.0 Self [id number] Medicare [place] Medicare Primary [id number] Self [id number] MEDICARE C [id number] S [id number] A [employer] Med[employer] Part B [id number] 790.0 Self [id number] Medicare [place] Medicare Primary [id number] Self [id number] [employer] Medigap Part B [id number] 790.0 Self [id number] Medicare [place] Medicare Primary [id number] Self [id number] Problems, Conditions, and Diagnoses Code Display Name Description Problem Type Effective Dates Data Source(s) L97.822 [id number] Non-pressure chronic ulcer of other part of left lower leg with fat layer exposed Problem 07/07/2021 12:00:00 AM EDT eCW1 ([facility]) [id number] Coronary arteriosclerosis Coronary arteriosclerosis Pr oblem 07/06/2021 12:00:00 AM EDT [facility] ([facility]) [id number] Pure hypercholesterolemia Pure hypercholesterolemia Pr oblem 06/26/2021 12:00:00 AM EDT [facility] ([facility]) C44.329 [id number] 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 06/11/2021 12:00:00 AM EDT eCW1 ([facility]) 78016370 Multiple sclerosis Multiple sclerosis Problem 11/2020 12:00:00 AM EDT [facility] ([facility] 09143583 Type 2 diabetes mellitus Type 2 diabetes mellitus Prob pema 02/19/2021 12:00:00 AM EDT [facility] ([facility] 49309614 Type 2 diabetes mellitus Type 2 diabetes mellitus Prob pema 02/19/2021 12:00:00 AM EDT [facility] ([facility]) Surgeries/Procedures Procedure Description Date Indications Data Source(s) OFFICE OUTPATIENT VISIT 15 MINUTES 09/17/2021 12:00:00 AM EDT MED[facility] ([facility]) Chronic Care MGMT 20 Mins Clinical Staff Time Per Calendar M [facility] 08/26/2021 12:00:00 AM EDT [facility] ([facility] Diabetic Foot Exam 08/24/2021 12:00:00 AM EDT [facility] ([facility] OFFICE OUTPATIENT VISIT 25 MINUTES 08/24/2021 12:00:00 AM EDT [facility] ([facility] OFFICE OUTPATIENT VISIT 5 MINUTES 08/21/2021 12:00:00 AM EDT MED[facility] ([facility]) PHYSICIAN TELEPHONE EVALUATION 11-20 MIN 08/20/2021 12 :00:00 AM EDT MED[facility] ([facility]) Chronic Care MGMT 20 Mins Clinical Staff Time Per Calendar M [facility] 08/10/2021 12:00:00 AM EDT [facility] ([facility] FINE NEEDLE ASPIRATION W/O IMAGING GUIDANCE 08/04/2021 12:00:00 AM EDT eCW1 ([facility]) FINE NEEDLE ASPIRATION W/O IMAGING GUIDANCE 07/21/2021 12:00:00 AM EDT eCW1 ([facility]) OFFICE OUTPATIENT VISIT 5 MINUTES 07/16/2021 12:00:00 AM EDT MED[facility] ([facility]) FINE NEEDLE ASPIRATION W/O IMAGING GUIDANCE 07/14/2021 12:00:00 AM EDT eCW1 ([facility]) Chronic Care MGMT 20 Mins Clinical Staff Time Per Calendar M ont 07/09/2021 12:00:00 AM EDT [facility] ([facility] FINE NEEDLE ASPIRATION W/O IMAGING GUIDANCE 07/07/2021 12:00:00 AM EDT eCW1 ([facility]) DUPLEX SCAN EXTRACRANIAL ART COMPL BI STUDY 07/06/2021 12:00:00 AM EDT MED[facility] ([facility]) DUPLEX SCAN EXTRACRANIAL ART COMPL BI STUDY 07/06/2021 12:00:00 AM EDT MED[facility] ([facility]) OFFICE OUTPATIENT VISIT 15 MINUTES 07/01/2021 12:00:00 AM EDT MEDENT ([facility]) OFFICE OUTPATIENT VISIT 15 MINUTES 2021 12:00:00 AM EDT MEDENT ([facility]) Suture Removal 2021 12:00:00 AM EDT eCW1 ([facility]) Med: Derm Lidocaine with Epinephrine Inj ection 1% with 2 ml sodium bicarbonate Intradermally to marked areas 06/11/2021 12:00:00 AM EDT eCW1 ([facility]) Chronic Care Management Services Ea Addl 20 Min 2020 12:00:00 AM EDT [facility] ([facility] Chronic Care MGMT 20 Mins Clinical Staff Time Per Calendar [facility] 06/05/2021 12:00:00 AM EDT [facility] ([facility] OFFICE OUTPATIENT NEW 30 MINUTES 06/05/2021 12:00:00 A M EDT MEDENT ([facility]) OFFICE OUTPATIENT VISIT 15 MINUTES 06/04/2021 12:00:00 AM EDT [facility] ([facility] Chronic Care MGMT 20 Mins Clinical Staff Time Per Calendar [facility] 05/13/2021 12:00:00 AM EDT [facility] ([facility] Med: Derm 1% Lidocaine with Epinephrine Injection Intr adermally to marked areas 05/06/2021 12:00:00 AM EDT eCW1 ([facility]) ECG ROUTINE ECG W/LEAST 12 LDS W/I&R 05/01/2021 12:00: 00 AM EDT MED[facility] ([facility]) OFFICE OUTPATIENT VISIT 25 MINUTES 05/01/2021 12:00:00 AM EDT MED[facility] ([facility]) Chronic Care MGMT 20 Mins Clinical Staff Time Per Calendar [facility] 04/17/2021 12:00:00 AM EDT [facility] ([facility] Chronic Care MGMT 20 Mins Clinical Staff Time Per Calendar [facility] 02/26/2021 12:00:00 AM EDT [facility] ([facility] Chronic Care MGMT 20 Mins Clinical Staff Time Per Calendar [facility] 02/09/2021 12:00:00 AM EDT [facility] ([facility] Chronic Care MGMT 20 Mins Clinical Staff Time Per Calendar [facility] 01/15/2021 12:00:00 AM EST [facility] ([facility] Chronic Care MGMT 20 Mins Clinical Staff Time Per Calendar [facility] 12/15/2020 12:00:00 AM EST [facility] ([facility] ECG ROUTINE ECG W/LEAST 12 LDS W/I&R 10/29/2020 12:00: 00 AM EST MED[facility] ([facility]) 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 2019 12:00:00 AM EST MED[facility] ([facility]) Results ID Date Data Source [id number] 09/17/2021 09:16:00 AM EDT [facility] ([facility] Name Value Range Interpretation Code Description Data Diandra rce(s) Supporting Document(s) White Blood Count 5.0 10 4.0-10.0 [facility] ([facility] Red Blood Count 3.21 10 4.30-6.10 [facility] ([facility] Hemoglobin 11.6 g/dL 13.5-17.5 [facility] ([facility] Mean Corpuscular Hemoglobin 36.1 pg 27.0-33.0 [facility] ([facility] Mean Corpuscular Volume 110.3 fl 80.0-96.0 M EDENT ([facility] Hematocrit 35.4 % 42.0-52.0 [facility] ([facility] Mean Corpuscular HGB Conc 32.8 g/dL 32.0-36.5 [facility] ([facility] Red Cell Distribution Width 15.6 % 11.5-14.5 [facility] ([facility] Platelet Count, Automated 232 10 150-450 [facility] ([facility] Nucleated Red Blood Cell % 0.0 % 0-0 MED [facility] ([facility] ID Date Data Source [id number] 09/17/2021 09:16:00 AM EDT [facility] ([facility]) Name Value Range Interpretation Code Description Data Diandra rce(s) Supporting Document(s) White Blood Count 5.0 10 4.0-10.0 [facility] ([facility]) Hematocrit 35.4 % 42.0-52.0 [facility] ([facility]) Hemoglobin 11.6 g/dL 13.5-17.5 [facility] ([facility]) Red Blood Count 3.21 10 4.30-6.10 [facility] ([facility]) Mean Corpuscular Hemoglobin 36.1 pg 27.0-33.0 [facility] ([facility]) Mean Corpuscular Volume 110.3 fl 80.0-96.0 M EDENT ([facility]) Red Cell Distribution Width 15.6 % 11.5-14.5 MED[facility] ([facility]) Mean Corpuscular HGB Conc 32.8 g/dL 32.0-36.5 MED[facility] ([facility]) Platelet Count, Automated 232 10 150-450 MED[facility] ([facility]) Nucleated Red Blood Cell % 0.0 % 0-0 MED ENT ([facility]) ID Date Data Source [id number] 09/03/2021 08:56:00 AM EDT [facility] ([facility] Name Value Range Interpretation Code Description Data Diandra rce(s) Supporting Document(s) Thyrotropin [Units/volume] in Serum or Plasma 3.520 uIU/ML 0.358-3.74 0 [facility] ([facility] Thyroxine (T4) free [Mass/volume] in Serum or Plasma 0.90 ng/dL 0.76- 1.46 [facility] ([facility] ID Date Data Source [id number] 09/03/2021 08:56:00 AM EDT [facility] ([facility] Name Value Range Interpretation Code Description Data Diandra rce(s) Supporting Document(s) Triglycerides Level 67 mg/dL [facility] ([facility] Cholesterol Level 153 mg/dL [facility] ([facility] HDL Cholesterol 67 mg/dL [facility] ([facility] LDL Cholesterol 73 mg/dL [facility] ([facility] Non-HDL-C 86 mg/dL [facility] ([facility] Cholesterol Risk Ratio 2.283 [facility] ([facility] ID Date Data Source [id number] 09/03/2021 08:56:00 AM EDT [facility] ([facility] Name Value Range Interpretation Code Description Data Diandra e(s) Supporting Document(s) Glucose, Fasting 114 mg/dL 70-100 [facility] ([facility] Creatinine For GFR 1.76 mg/dL 0.70-1.30 [facility] ([facility] Blood Urea Nitrogen 22 mg/dL 7-18 [facility] ([facility] Glomerular Filtration Rate 39.5 [facility] ([facility] <content>Units are mL/min/1.73 m2</content>
<content></content>
<content>Chronic Kidney Disease Staging per [facility]:</content>
<content></content>
<content>Stage I & II GFR >=60 Normal to Mildly Decreased</content>
<content>Stage III GFR 30- 59 Moderately Decreased</content>
<content>Stage IV GFR 15-29 Severely Decreased</content>
<content>Stage V GFR <15 Very Little GFR Left</content>
<content>ESRD GFR <15 on TELETYPE INSTALLER</content>
<content></content> Sodium Level 138 meq/L 136-145 [facility] ([facility] Chloride Level 107 meq/L 98-107 [facility] ([facility] Potassium Serum 4.5 meq/L 3.5-5.1 [facility] ([facility] Carbon Dioxide Level 24 meq/L 21-32 [facility] ([facility] Anion Gap 7 meq/L 8-16 [facility] ([facility] Calcium Level 8.6 mg/dL 8.8-10.2 [facility] ([facility] Alt/SGPT 25 U/L 12-78 [facility] Ast/Sgot 23 U/L 7-37 [facility] Alkaline Phosphatase 74 U/L 45-117 [facility] ([facility] Bilirubin,Total 0.6 mg/dL 0.2-1.0 [facility] ([facility] Total Protein 8.1 GM/DL 6.4-8.2 [facility] ([facility] Albumin 3.4 GM/DL 3.2-5.2 [facility] ([facility] Albumin/Globulin Ratio 0.7 [facility] ([facility] ID Date Data Source [id number] 09/03/2021 08:56:00 AM EDT [facility] ([facility] Name Value Range Interpretation Code Description Data Diandra rce(s) Supporting Document(s) Creatinine, Urine 111.0 mg/dL [facility] ([facility] Malb Urine Siemens 206.0 mg/L [facility] ([facility] Dmitriy/Creat Ratio 185.5 MCG/MG 0.0-30.0 [facility] ([facility] THE [employer] STATES THAT MICROALBUMINURIA IS PRESENT IF THE MICROALBUMIN/CREATININE RATIO EXCEEDS 30 MCG/MG. THE THRESHOLD FOR CLINICAL ALBUMINURIA IS REACHED AT 300 MCG/MG. THE CLASSIFICATION OF A PATIENT SHOULD BE BASED UPON AT LEAST 2 OF 3 ABNORMAL RESULTS ON SPECIMENS COLLECTED WITHIN A 3 TO 6 MONTH TIME FRAME. ID Date Data Source [id number] 09/03/2021 08:56:00 AM EDT [facility] ([facility] Name Value Range Interpretation Code Description Data Diandra rce(s) Supporting Document(s) Hemoglobin A1c/Hemoglobin.total in Blood 5.5 % [facility] ([facility] <content>REFERENCE RANGES:</content><br/ ><content></content>
<content><=5.6% NORMAL</content>
<content>5.7-6.4% SUGGESTS IMPAIRED GLUCOSE METABOLISM/PREDIABETIC</content>
<content>>= 6.5% ABNORMAL</content>
<content></content> Estimated Average Glucose 111 mg/dL 60-110 [facility] ([facility] ID Date Data Source [id number] 09/03/2021 08:27:00 AM EDT [facility] [place] Value Range Interpretation Code Description Data Diadnra rce(s) Supporting Document(s) Hemoglobin A1c/Hemoglobin.total in Blood 5.5 [facility] ([facility]) ID Date Data Source [id number] 09/03/2021 08:27:00 AM EDT [facility] [place] [place] Name Value Range Interpretation Code Description Data Diandra rce(s) Supporting Document(s) Thyroid Stimulating Hormone 3.520 ME DENT ([facility]) Free T4 0.90 [facility] ([facility]) ID Date Data Source [id number] 09/03/2021 08:27:00 AM EDT [facility] [place] [place] Name Value Range Interpretation Code Description Data Diandra rce(s) Supporting Document(s) Cholesterol 153 [facility] ([facility]) Triglycerides 67 [facility] ([facility]) Chol/HDL Ratio 2.283 [facility] ([facility]) HDL 67 [facility] ([facility]) Cholesterol in LDL [Mass/volume] in Serum or Plasma by calculation 73 [facility] ([facility]) ID Date Data Source [id number] 09/03/2021 08:27:00 AM EDT [facility] [place] [place] Name Value Range Interpretation Code Description Data Diandra rce(s) Supporting Document(s) Albumin [Mass/volume] in Serum or Plasma 3.4 [facility] ([facility]) Calcium [Mass/volume] in Serum or Plasma 8.6 [facility] ([facility]) Alanine aminotransferase [Enzymatic activity/volume] in Serum or Pl asma 25 [facility] ([facility]) Carbon dioxide, total [Moles/volume] in Serum or Plasma 24 [facility] ([facility]) Alkaline phosphatase [Enzymatic activity/volume] in Serum or Plasma 7 4 [facility] ([facility]) Chloride [Moles/volume] in Serum or Plasma 107 [facility] ([facility]) Protein [Mass/volume] in Serum or Plasma 8.1 [facility] ([facility]) Sodium 138 [facility] ([facility] Potassium [Moles/volume] in Serum or Plasma 4.5 [facility] ([facility]) Aspartate aminotransferase [Enzymatic activity/volume] in Serum or Plasma 23 [facility] ([facility]) Urea nitrogen [Mass/volume] in Serum or Plasma 22 [facility] ([facility]) Creatinine For GFR 1.76 [facility] ([facility]) Glucose 114 83-110 [facility] ([facility]) ID Date Data Source [id number] 07/06/2021 08:00:00 AM EDT [facility] ([facility]) Name Value Range Interpretation Code Description Data Diandra rce(s) Supporting Document(s) Carotid Ultrasound Bilateral Laboratory test result [facility] ([facility]) ID Date Data Source [id number] 06/13/2021 06:25:00 PM EDT [facility] ([facility] Name Value Range Interpretation Code Description Data Diandra rce(s) Supporting Document(s) Erythrocyte sedimentation rate by 2H Westergren method 49 mm/hr 0-2 0 [facility] ([facility] ID Date Data Source [id number] 06/13/2021 06:25:00 PM EDT [facility] ([facility] Name Value Range Interpretation Code Description Data Diandra rce(s) Supporting Document(s) Red Blood Count 2.97 10 4.30-6.10 [facility] ([facility] White Blood Count 6.7 10 4.0-10.0 [facility] ([facility] Hemoglobin 10.7 g/dL 13.5-17.5 [facility] ([facility] Hematocrit 32.3 % 42.0-52.0 [facility] ([facility] Mean Corpuscular Volume 108.8 fl 80.0-96.0 M EDENT ([facility] Mean Corpuscular Hemoglobin 36.0 pg 27.0-33.0 [facility] ([facility] Mean Corpuscular HGB Conc 33.1 g/dL 32.0-36.5 [facility] ([facility] Platelet Count, Automated 200 10 150-450 [facility] ([facility] Red Cell Distribution Width 15.3 % 11.5-14.5 [facility] ([facility] Neutrophils % 85.4 % 36.0-66.0 [facility] ([facility] Lymph % 6.0 % 24.0-44.0 [facility] ([facility] Dimmit % 6.4 % 2.0-8.0 [facility] ([facility] Eos % 1.2 % 0.0-3.0 [facility] ([facility] Baso % 0.6 % 0.0-1.0 [facility] ([facility] Immature Granulocyte % 0.4 % 0-3.0 [facility] ([facility] Nucleated Red Blood Cell % 0.0 % 0-0 [facility] ([facility] Neutrophils # 5.7 10 1.5-8.5 [facility] ([facility] Lymph # 0.4 10 1.5-5.0 [facility] ([facility] Dimmit # 0.4 10 0.0-0.8 [facility] ([facility] Eos # 0.1 10 0.0-0.5 [facility] ([facility] Baso # 0.0 10 0.0-0.2 [facility] ([facility] ID Date Data Source [id number] 06/13/2021 06:25:00 PM EDT [facility] ([facility] Name Value Range Interpretation Code Description Data Diandra rce(s) Supporting Document(s) C reactive protein [Mass/volume] in Serum or Plasma by High sensitivity method 3.22 mg/dL 0.00-0.30 [facility] ([facility] ID Date Data Source [id number] 06/13/2021 06:25:00 PM EDT [facility] ([facility] Name Value Range Interpretation Code Description Data Diandra rce(s) Supporting Document(s) Glucose, Fasting 119 mg/dL 70-100 [facility] ([facility] Creatinine For GFR 1.49 mg/dL 0.70-1.30 [facility] ([facility] Blood Urea Nitrogen 28 mg/dL 7-18 [facility] ([facility] Glomerular Filtration Rate 47.9 [facility] ([facility] <content>Units are mL/min/1.73 m2</content>
<content></content>
<content>Chronic Kidney Disease Staging per NKF:</content>
<content></content>
<content>Stage I & II GFR >=60 Normal to Mildly Decreased</content>
<content>Stage III GFR 30- 59 Moderately Decreased</content>
<content>Stage IV GFR 15-29 Severely Decreased</content>
<content>Stage V GFR <15 Very Little GFR Left</content>
<content>ESRD GFR <15 on TELETYPE INSTALLER</content>
<content></content> Sodium Level 142 meq/L 136-145 [facility] ([facility] Potassium Serum 4.6 meq/L 3.5-5.1 [facility] ([facility] Chloride Level 112 meq/L 98-107 [facility] ([facility] Carbon Dioxide Level 23 meq/L 21-32 [facility] ([facility] Anion Gap 7 meq/L 8-16 [facility] ([facility] Calcium Level 8.6 mg/dL 8.8-10.2 [facility] ([facility] ID Date Data Source [id number] 06/13/2021 03:05:00 PM EDT [facility] ([facility]) Name Value Range Interpretation Code Description Data Diandra rce(s) Supporting Document(s) Calcium [Mass/volume] in Serum or Plasma 8.6 [facility] ([facility]) Sodium 142 [facility] ([facility] Carbon dioxide, total [Moles/volume] in Serum or Plasma 23 [facility] ([facility]) Glucose 119 83-110 [facility] ([facility]) Chloride [Moles/volume] in Serum or Plasma 112 [facility] ([facility]) Potassium [Moles/volume] in Serum or Plasma 4.6 [facility] ([facility]) Blood Urea Nitrogen 28 7-18 [facility] ([facility]) Creatinine 1.49 0.6-1.0 [facility] ([facility]) Glomerular filtration rate/1.73 sq M.pre dicted [Volume Rate/Area] in Serum or Plasma by Creatinine-based formula (MDRD) 47.9 [facility] ([facility]) ID Date Data Source [id number] 06/13/2021 03:05:00 PM EDT [facility] Name Value Range Interpretation Code Description Data Diandra rce(s) Supporting Document(s) White Blood Count 6.7 5.0-10.0 [facility] ([facility]) Red Blood Count 2.97 4.00-5.40 [facility] ([facility]io [facility]) Hemoglobin 10.7 [facility] ([facility]) Platelets 200 172-450 [facility] Hematocrit 32.3 [facility] ([facility]) ID Date Data Source [id number] 02/02/2021 11:06:00 AM EDT [facility] Name Value Range Interpretation Code Description Data Diandra rce(s) Supporting Document(s) Hemoglobin A1c/Hemoglobin.total in Blood 5.5 [facility] ([facility]) ID Date Data Source [id number] 02/02/2021 11:06:00 AM EDT [facility] Name Value Range Interpretation Code Description Data Diandra rce(s) Supporting Document(s) Red Blood Count 3.06 4.30-6.10 [facility] ([facility]) White Blood Count 4.1 4.0-10.0 [facility] ([facility]) Platelets 232 150-450 [facility] ([facility]) Hemoglobin 10.6 13.5-17.5 [facility] ([facility]) Hematocrit 33.3 42.0-52.0 [facility] ([facility]) ID Date Data Source [id number] 02/02/2021 11:06:00 AM EDT [facility] Name Value Range Interpretation Code Description Data Diandra rce(s) Supporting Document(s) Albumin [Mass/volume] in Serum or Plasma 3.7 [facility] ([facility]) Alanine aminotransferase [Enzymatic activity/volume] in Serum or Pl asma 22 [facility] ([facility]) Calcium [Mass/volume] in Serum or Plasma 8.9 [facility] ([facility]) Carbon dioxide, total [Moles/volume] in Serum or Plasma 28 [facility] ([facility]) Chloride [Moles/volume] in Serum or Plasma 108 [facility] ([facility]) Potassium [Moles/volume] in Serum or Plasma 4.7 [facility] ([facility]) Alkaline phosphatase [Enzymatic activity/volume] in Serum or Plasma 1 09 [facility] ([facility]) Sodium 141 [facility] ([facility]) Protein [Mass/volume] in Serum or Plasma 7.3 [facility] ([facility]) Aspartate aminotransferase [Enzymatic activity/volume] in Serum or Plasma 11 [facility] ([facility]) Urea nitrogen [Mass/volume] in Serum or Plasma 28 [facility] ([facility]) Glucose 123 70-100 [facility] ([facility]) Creatinine For GFR 1.59 [facility] ([facility]) ID Date Data Source [id number] 02/02/2021 11:06:00 AM EDT [facility] ([facility]) Name Value Range Interpretation Code Description Data Diandra rce(s) Supporting Document(s) Triglycerides 46 [facility] ([facility]) Cholesterol 130 120-200 [facility] ([facility]) Cholesterol in LDL [Mass/volume] in Serum or Plasma by calculation 49 [facility] ([facility]) HDL 72 40-60 [facility] ([facility]) Chol/HDL Ratio 1.805 [facility] ([facility]) ID Date Data Source [id number] 02/02/2021 09:28:00 AM EDT [facility] ([facility]) Name Value Range Interpretation Code Description Data Diandra rce(s) Supporting Document(s) Laboratory test finding (navigational concept) 111 mg/dL 60-110 [facility] ([facility]) Hemoglobin A1c/Hemoglobin.total in Blood 5.5 % [facility] ([facility]) <content>REFERENCE RANGES:</content><br/ ><content></content>
<content><=5.6% NORMAL</content>
<content>5.7-6.4% SUGGESTS IMPAIRED GLUCOSE METABOLISM/PREDIABETIC</content>
<content>>= 6.5% ABNORMAL</content>
<content></content>
<content></content> ID Date Data Source [id number] 02/02/2021 09:28:00 AM EDT [facility] ([facility]) Name Value Range Interpretation Code Description Data Diandra rce(s) Supporting Document(s) Thyrotropin [Units/volume] in Serum or Plasma 2.740 uIU/ML 0.358-3.74 0 [facility] ([facility]) Thyroxine (T4) free [Mass/volume] in Serum or Plasma 0.88 ng/dL 0.76- 1.46 [facility] ([facility]) ID Date Data Source [id number] 02/02/2021 09:28:00 AM EDT [facility] ([facility]) Name Value Range Interpretation Code Description Data Diandra rce(s) Supporting Document(s) Triglycerides Level 46 mg/dL [facility] ([facility]) Cholesterol Level 130 mg/dL [facility] ([facility]) LDL Cholesterol 49 mg/dL [facility] ([facility]) HDL Cholesterol 72 mg/dL [facility] ([facility]) Cholesterol Risk Ratio 1.805 [facility] ([facility]) Non-HDL-C 58 mg/dL [facility] ([facility]) ID Date Data Source [id number] 02/02/2021 09:28:00 AM EDT [facility] ([facility]) Name Value Range Interpretation Code Description Data Diandra rce(s) Supporting Document(s) White Blood Count 4.1 10 4.0-10.0 [facility] ([facility]) Red Blood Count 3.06 10 4.30-6.10 [facility] ([facility]) Hemoglobin 10.6 g/dL 13.5-17.5 [facility] ([facility]) Hematocrit [Volume Fraction] of Blood by Automated count 33.3 % 4 2.0-52.0 [facility] ([facility]) Mean Corpuscular Volume 108.8 fl 80.0-96.0 M EDENT ([facility]) Mean Corpuscular Hemoglobin 34.6 pg 27.0-33.0 [facility] ([facility]) Mean Corpuscular HGB Conc 31.8 g/dL 32.0-36.5 [facility] ([facility]) Red Cell Distribution Width 14.6 % 11.5-14.5 [facility] ([facility]) Platelet Count, Automated 232 10 150-450 MEDE NT ([facility]) Neutrophils % 51.6 % 36.0-66.0 [facility] ([facility]) Lymphocytes/100 leukocytes in Blood by Automated count 25.8 % 24. 0-44.0 [facility] ([facility]) Dimmit % 14.1 % 2.0-8.0 [facility] ([facility]) Eos % 7.1 % 0.0-3.0 [facility] ([facility]) Baso % 1.2 % 0.0-1.0 [facility] ([facility]) Immature Granulocyte % 0.2 % 0-3.0 [facility] ([facility]) Nucleated Red Blood Cell % 0.0 % 0-0 MED [facility] ([facility]) Lymph # 1.1 10 1.5-5.0 [facility] ([facility]) Neutrophils # 2.1 10 1.5-8.5 [facility] ([facility]) Dimmit # 0.6 10 0.0-0.8 [facility] ([facility]) Eos # 0.3 10 0.0-0.5 [facility] ([facility]) Baso # 0.1 10 0.0-0.2 [facility] ([facility]) ID Date Data Source [id number] 02/02/2021 09:28:00 AM EDT [facility] ([facility] Name Value Range Interpretation Code Description Data Diandra e(s) Supporting Document(s) Hemoglobin A1c/Hemoglobin.total in Blood 5.5 % [facility] ([facility] <content>REFERENCE RANGES:</content><br/ ><content></content>
<content><=5.6% NORMAL</content>
<content>5.7-6.4% SUGGESTS IMPAIRED GLUCOSE METABOLISM/PREDIABETIC</content>
<content>>= 6.5% ABNORMAL</content>
<content></content> Estimated Average Glucose 111 mg/dL 60-110 [facility] ([facility] ID Date Data Source [id number] 02/02/2021 09:28:00 AM EDT [facility] ([facility] Name Value Range Interpretation Code [facility](s) Thyrotropin [Units/volume] in Serum or Plasma 2.740 uIU/ML 0.358-3.74 0 [facility] ([facility] Thyroxine (T4) free [Mass/volume] in Serum or Plasma 0.88 ng/dL 0.76- 1.46 [facility] ([facility] ID Date Data Source [id number] 02/02/2021 09:28:00 AM EDT [facility] ([facility] Name Value Range Interpretation Code Description Data [facility] Supporting Document(s) Triglycerides Level 46 mg/dL [facility] ([facility] Cholesterol Level 130 mg/dL [facility] ([facility] HDL Cholesterol 72 mg/dL [facility] ([facility] LDL Cholesterol 49 mg/dL [facility] ([facility] Non-HDL-C 58 mg/dL [facility] ([facility] Cholesterol Risk Ratio 1.805 [facility] ([facility] ID Date Data Source [id number] 02/02/2021 09:28:00 AM EDT [facility] ([facility] Name Value Range Interpretation Code Description Data Diandra rce(s) Supporting Document(s) Glucose, Fasting 123 mg/dL 70-100 [facility] ([facility] Glomerular Filtration Rate 44.5 [facility] ([facility] <content>Units are mL/min/1.73 m2</content>
<content></content>
<content>Chronic Kidney Disease Staging per NKF:</content>
<content></content>
<content>Stage I & II GFR >=60 Normal to Mildly Decreased</content>
<content>Stage III GFR 30- 59 Moderately Decreased</content>
<content>Stage IV GFR 15-29 Severely Decreased</content>
<content>Stage V GFR <15 Very Little GFR Left</content>
<content>ESRD GFR <15 on TELETYPE INSTALLER</content>
<content></content> Blood Urea Nitrogen 28 mg/dL 7-18 [facility] ([facility] Creatinine For GFR 1.59 mg/dL 0.70-1.30 [facility] ([facility] Potassium Serum 4.7 meq/L 3.5-5.1 [facility] ([facility] Sodium Level 141 meq/L 136-145 [facility] ([facility] Chloride Level 108 meq/L 98-107 [facility] ([facility] Carbon Dioxide Level 28 meq/L 21-32 [facility] ([facility] Anion Gap 5 meq/L 8-16 [facility] ([facility] Ast/Sgot 11 U/L 7-37 [facility] ([facility] Calcium Level 8.9 mg/dL 8.8-10.2 [facility] ([facility] Bilirubin,Total 0.4 mg/dL 0.2-1.0 [facility] ([facility] Alkaline Phosphatase 109 U/L 45-117 [facility] ([facility] Alt/SGPT 22 U/L 12-78 [facility] ([facility] Albumin 3.7 GM/DL 3.2-5.2 [facility] ([facility] Total Protein 7.3 GM/DL 6.4-8.2 [facility] ([facility] Albumin/Globulin Ratio 1.0 [facility] ([facility] ID Date Data Source [id number] 02/02/2021 09:28:00 AM EDT [facility] ([facility] Name Value Range Interpretation Code Description Data Diandra rce(s) Supporting Document(s) White Blood Count 4.1 10 4.0-10.0 [facility] ([facility] Red Blood Count 3.06 10 4.30-6.10 [facility] ([facility] Hematocrit 33.3 % 42.0-52.0 [facility] ([facility] Hemoglobin 10.6 g/dL 13.5-17.5 [facility] ([facility] Mean Corpuscular Hemoglobin 34.6 pg 27.0-33.0 [facility] ([facility] Mean Corpuscular Volume 108.8 fl 80.0-96.0 M EDENT ([facility] Red Cell Distribution Width 14.6 % 11.5-14.5 [facility] ([facility] Mean Corpuscular HGB Conc 31.8 g/dL 32.0-36.5 [facility] ([facility] Platelet Count, Automated 232 10 150-450 [facility] ([facility] Lymph % 25.8 % 24.0-44.0 [facility] ([facility] Neutrophils % 51.6 % 36.0-66.0 [facility] ([facility] Dimmit % 14.1 % 2.0-8.0 [facility] ([facility] Eos % 7.1 % 0.0-3.0 [facility] ([facility] Nucleated Red Blood Cell % 0.0 % 0-0 [facility] ([facility] Immature Granulocyte % 0.2 % 0-3.0 [facility] ([facility] Baso % 1.2 % 0.0-1.0 [facility] ([facility] Lymph # 1.1 10 1.5-5.0 [facility] ([facility] Neutrophils # 2.1 10 1.5-8.5 [facility] ([facility] Baso # 0.1 10 0.0-0.2 [facility] ([facility] Eos # 0.3 10 0.0-0.5 [facility] ([facility] Dimmit # 0.6 10 0.0-0.8 [facility] ([facility] ID Date Data Source [id number] 10/29/2020 11:12:00 AM EST [facility] Name Value Range Interpretation Code Description Data Diandra rce(s) Supporting Document(s) Magnesium [Mass/volume] in Serum or Plasma 1.8 mg/dL 1.6-2.3 [facility] ([facility]) Laboratory test finding (navigational concept) Laboratory test result [facility] ([facility]) ID Date Data Source [id number] 10/29/2020 11:12:00 AM EST [facility] [place] Value Range Interpretation Code Description Data Diandra rce(s) Supporting Document(s) WBC 5.2 x10E3/uL 3.4-10.8 [facility] ([facility]) RBC 3.22 x10E6/uL 4.14-5.80 [facility] ([facility]) Hemoglobin [Mass/volume] in Blood 11.2 g/dL 13.0-17.7 [facility] ([facility]) Erythrocyte mean corpuscular hemoglobin [Entitic mass] by Automated count 34.8 pg 26.6-33.0 [facility] ([facility]) Erythrocyte mean corpuscular volume [Entitic volume] by Auto mated count 103 fL 79-97 [facility] ([facility]) Hematocrit [Volume Fraction] of Blood by Automated count 33.3 % 3 7.5-51.0 [facility] ([facility]) Erythrocyte distribution width [Ratio] by Automated count 14.1 % 11.6-15.4 [facility] ([facility]) Platelets [#/volume] in Blood by Automated count 240 x10E3/uL 150-450 [facility] ([facility]) Erythrocyte mean corpuscular hemoglobin concentration [Mass/volume] by Automated count 33.6 g/dL 31.5-35.7 [facility] Nucleated erythrocytes/100 leukocytes [Ratio] in Blood by Automated count Laboratory test result [facility] ([facility]) ID Date Data Source [id number] 10/29/2020 11:12:00 AM EST [facility] ([facility]) Name Value Range Interpretation Code Description Data Diandra rce(s) Supporting Document(s) Glucose 109 mg/dL 65-99 [facility] eGFR If NonAfricn Am 37 mL/min/1.73 MEDE NT ([facility]) Urea nitrogen [Mass/volume] in Serum or Plasma 32 mg/dL 8-27 [facility] ([facility]) Creatinine 1.68 mg/dL 0.76-1.27 MEDENT ([facility]) Sodium 142 mmol/L 134-144 MEDENT ([facility]) eGFR If Africn Am 43 mL/min/1.73 MED[facility] ([facility]) Urea nitrogen/Creatinine [Mass Ratio] in Serum or Plasma 19 1 0-24 MED[facility] ([facility]) Chloride [Moles/volume] in Serum or Plasma 104 mmol/L 96-106 MEDENT ([facility]) Carbon dioxide, total [Moles/volume] in Serum or Plasma 24 mmol/L 20 -29 MED[facility] ([facility]) Potassium [Moles/volume] in Serum or Plasma 5.2 mmol/L 3.5-5.2 MED[facility] ([facility]) Calcium [Mass/volume] in Serum or Plasma 9.6 mg/dL 8.6-10.2 MEDENT ([facility]) ID Date Data Source [id number] 10/30/2020 08:06:00 AM EST [facility] Name Value Range Interpretation Code Description Data Diandra rce(s) Supporting Document(s) WBC 5.2 x10E3/uL 3.4-10.8 [facility] RBC 3.22 x10E6/uL 4.14-5.80 Below low normal [facility] Hemoglobin 11.2 g/dL 13.0-17.7 Below low normal [facility] Hematocrit 33.3 % 37.5-51.0 Below low normal [facility] MCV 103 fL 79-97 Above high normal [facility] MCH 34.8 pg 26.6-33.0 Above high normal [facility] MCHC 33.6 g/dL 31.5-35.7 [facility] RDW 14.1 % 11.6-15.4 [facility] Platelets 240 x10E3/uL 150-450 [facility] ID Date Data Source [id number] 10/30/2020 08:06:00 AM EST [facility] Name Value Range Interpretation Code Description Data Diandra rce(s) Supporting Document(s) Glucose 109 mg/dL 65-99 Above high normal [facility] BUN 32 mg/dL 8-27 Above high normal [facility] Creatinine 1.68 mg/dL 0.76-1.27 Above high normal [facility] eGFR If NonAfricn Am 37 mL/min/1.73 >59 Below low normal [facility] eGFR If Africn Am 43 mL/min/1.73 >59 Below low normal [facility] BUN/Creatinine Ratio 19 10-24 [facility] Sodium 142 mmol/L 134-144 [facility] Potassium 5.2 mmol/L 3.5-5.2 [facility] Chloride 104 mmol/L 96-106 [facility] Carbon Dioxide, Total 24 mmol/L 20-29 [facility] Calcium 9.6 mg/dL 8.6-10.2 [facility] ID Date Data Source [id number] 10/30/2020 08:06:00 AM EST [facility] Name Value Range Interpretation Code Description Data Diandra rce(s) Supporting Document(s) Magnesium 1.8 mg/dL 1.6-2.3 [facility] Procedure Social History Code Duration Value Status Description Data Source(s ) Smoking 09/17/2021 12:00:00 AM EDT Patient has never smoked co mpleted Patient has never smoked MEDENT ([facility]) Smoking 08/24/2021 12:00:00 AM EDT Patient has never smoked co mpleted Patient has never smoked MEDENT ([facility] Smoking 08/11/2021 12:00:00 AM EDT Never Smoker completed Never S moker eCW1 ([facility]) Smoking 08/04/2021 12:00:00 AM EDT Never Smoker completed Never S moker eCW1 ([facility]) Smoking 07/21/2021 12:00:00 AM EDT Never Smoker completed Never S moker eCW1 ([facility]) Smoking 07/14/2021 12:00:00 AM EDT Never Smoker completed Never S moker eCW1 ([facility]) Smoking 07/07/2021 12:00:00 AM EDT Never Smoker completed Never S moker eCW1 ([facility]) Smoking 07/06/2021 12:00:00 AM EDT Patient has never smoked co mpleted Patient has never smoked MEDENT ([facility]) Smoking 06/11/2021 12:00:00 AM EDT Never Smoker completed Never S moker eCW1 ([facility]) Smoking 06/11/2021 12:00:00 AM EDT Never Smoker completed Never S moker eCW1 ([facility]) Smoking 05/06/2021 12:00:00 AM EDT Never Smoker completed Never S moker eCW1 ([facility]) Smoking 10/31/2020 12:00:00 AM EST Never Smoker completed Never S moker eCW1 ([facility]) Vital Signs ID Date Data Source UNK Name Value Range Interpretation Code Description Data Source(s) Body weight 195.00 [lb_av] 195.00 [lb_av] VIOLETTA T ([facility]) Body height 66 [in_i] 66 [in_i] MEDENT ([facility]) 5'6" Heart rate 68 /min 68 /min MED[facility] ([facility]) Irregular Respiratory rate 16 /min 16 /min MEDENT ( [facility]) Systolic blood pressure 136 mm[Hg] 136 mm[Hg] M EDENT ([facility]) sitting, regular cuff Diastolic blood pressure 74 mm[Hg] 74 mm[Hg] MEDENT ([facility]) sitting, regular cuff Body mass index (BMI) [Ratio] 31.5 kg/m2 31.5 k g/m2 MEDENT ([facility]) [place] body weight 160 [lb_av] 160 [lb_av] VIOLETTA Pascal ([facility] Body weight 198.12 [lb_av] 198.12 [lb_av] MEDEN T ([facility] Systolic blood pressure 154 mm[Hg] 154 mm[Hg] M EDENT ([facility] Heart rate 67 /min 67 /min MED[facility] ([facility] Diastolic blood pressure 63 mm[Hg] 63 mm[Hg] MEDENT ([facility] Body temperature 96.8 [degF] 96.8 [degF] MEDENT ([facility] Respiratory rate 17 /min 17 /min MEDENT ( [facility] Oxygen saturation in Arterial blood by Pulse oximetry 98 % 98 % MEDENT ([facility] Body height 69 [in_i] 69 [in_i] MEDENT ([facility] 5'9" Body mass index (BMI) [Ratio] 29.3 kg/m2 29.3 k g/m2 MEDENT ([facility] Systolic blood pressure 179 mm[Hg] 179 mm[Hg] e CW1 ([facility]) Body weight 195 [lb_av] 195 [lb_av] eCW1 ([facility]) Body height [in_i] eCW1 ([facility]) Body mass index (BMI) [Ratio] 28.79 kg/m2 28.79 kg/m2 eCW1 ([facility]) Heart rate 70 /min 70 /min eCW1 ([facility]) Diastolic blood pressure 70 mm[Hg] 70 mm[Hg] eCW1 ([facility]) Respiratory rate 16 /min 16 /min eCW1 ([facility]) Body temperature 96.1 [degF] 96.1 [degF] eCW1 ( [facility]) Body height [in_i] eCW1 ([facility]) Body weight 195 [lb_av] 195 [lb_av] eCW1 ([facility]) Body mass index (BMI) [Ratio] 28.79 kg/m2 28.79 kg/m2 eCW1 ([facility]) Heart rate 79 /min 79 /min eCW1 ([facility]) Respiratory rate 18 /min 18 /min eCW1 ([facility]) Body temperature 97.6 [degF] 97.6 [degF] eCW1 ( [facility]) Systolic blood pressure 135 mm[Hg] 135 mm[Hg] e CW1 ([facility]) Diastolic blood pressure 64 mm[Hg] 64 mm[Hg] eCW1 ([facility]) Respiratory rate 19 /min 19 /min eCW1 ([facility]) Body weight 195 [lb_av] 195 [lb_av] eCW1 ([facility]) Body temperature 97.7 [degF] 97.7 [degF] eCW1 ( [facility]) Body height [in_i] eCW1 ([facility]) Body mass index (BMI) [Ratio] 28.79 kg/m2 28.79 kg/m2 eCW1 ([facility]) Heart rate 82 /min 82 /min eCW1 ([facility]) Systolic blood pressure 130 mm[Hg] 130 mm[Hg] e CW1 ([facility]) Diastolic blood pressure 63 mm[Hg] 63 mm[Hg] eCW1 ([facility]) Body weight 195 [lb_av] 195 [lb_av] eCW1 ([facility]) Body height [in_i] eCW1 ([facility]) Body mass index (BMI) [Ratio] 28.79 kg/m2 28.79 kg/m2 eCW1 ([facility]) Heart rate 76 /min 76 /min eCW1 ([facility]) Respiratory rate 18 /min 18 /min eCW1 ([facility]) Body temperature 98.3 [degF] 98.3 [degF] eCW1 ( [facility]) Systolic blood pressure 152 mm[Hg] 152 mm[Hg] e CW1 ([facility]) Diastolic blood pressure 73 mm[Hg] 73 mm[Hg] eCW1 ([facility]) Body weight 195 [lb_av] 195 [lb_av] eCW1 ([facility]) Body height [in_i] eCW1 ([facility]) Body mass index (BMI) [Ratio] 28.79 kg/m2 28.79 kg/m2 eCW1 ([facility]) Heart rate 91 /min 91 /min eCW1 ([facility]) Respiratory rate 16 /min 16 /min eCW1 ([facility]) Body temperature 98.3 [degF] 98.3 [degF] eCW1 ( [facility]) Systolic blood pressure 157 mm[Hg] 157 mm[Hg] e CW1 ([facility]) Diastolic blood pressure 83 mm[Hg] 83 mm[Hg] eCW1 ([facility]) Body height 195 [in_i] 195 [in_i] MEDENT ([facility] 16'3" Systolic blood pressure 150 mm[Hg] 150 mm[Hg] M EDENT ([facility]) Diastolic blood pressure 60 mm[Hg] 60 mm[Hg] MEDENT ([facility]) Systolic blood pressure 90 mm[Hg] 90 mm[Hg] M EDENT ([facility]) Doppler Body surface area Derived from formula 2.02 m2 2.02 m2 MEDENT ([facility], ) Systolic blood pressure 118 mm[Hg] 118 mm[Hg] M EDENT ([facility], ) Diastolic blood pressure 62 mm[Hg] 62 mm[Hg] MEDENT ([facility], ) Body temperature 98.0 [degF] 98.0 [degF] MEDENT ([facility], ) Body height 68 [in_i] 68 [in_i] MEDENT ([facility], ) 5'8" Body weight 194.25 [lb_av] 194.25 [lb_av] MEDEN T ([facility]) Body mass index (BMI) [Ratio] 29.5 kg/m2 29.5 k g/m2 [facility] ([facility]) [place] body weight 154 [lb_av] 154 [lb_av] MEDEN T ([facility]) Body weight 88.112 kg 88.112 kg [facility] ([facility]) Systolic blood pressure 180 mm[Hg] 180 mm[Hg] M EDENT ([facility]) Body weight 199.25 [lb_av] 199.25 [lb_av] MEDEN T ([facility]) Body mass index (BMI) [Ratio] 30.3 kg/m2 30.3 k g/m2 [facility] ([facility]) [place] body weight 154 [lb_av] 154 [lb_av] MEDEN T ([facility]) Body weight 90.380 kg 90.380 kg [facility] ([facility]) Body surface area Derived from formula 2.04 m2 2.04 m2 [facility] ([facility]) Diastolic blood pressure 69 mm[Hg] 69 mm[Hg] [facility] ([facility]) Body temperature 98.3 [degF] 98.3 [degF] [facility] ([facility]) Body height 68 [in_i] 68 [in_i] [facility] ([facility]) 5'8" Body weight 197.8 [lb_av] 197.8 [lb_av] eCW1 ([facility]) Body height [in_i] eCW1 ([facility]) Body mass index (BMI) [Ratio] 38.63 kg/m2 38.63 kg/m2 eCW1 ([facility]) Systolic blood pressure 133 mm[Hg] 133 mm[Hg] e CW1 ([facility]) Diastolic blood pressure 78 mm[Hg] 78 mm[Hg] eCW1 ([facility]) [place] body weight 154 [lb_av] 154 [lb_av] MEDEN T ([facility]) Body weight 88.225 kg 88.225 kg MEDENT ([facility]) Body surface area Derived from formula 2.02 m2 2.02 m2 [facility] ([facility]) Systolic blood pressure 177 mm[Hg] 177 mm[Hg] M EDENT ([facility]) Diastolic blood pressure 75 mm[Hg] 75 mm[Hg] MEDENT ([facility]) Body height 68 [in_i] 68 [in_i] MEDENT ([facility]) 5'8" Body weight 194.50 [lb_av] 194.50 [lb_av] MEDEN T ([facility]) Body mass index (BMI) [Ratio] 29.6 kg/m2 29.6 k g/m2 [facility] Respiratory rate 15 /min 15 /min MEDENT ( [facility]) Body mass index (BMI) [Ratio] 28.8 kg/m2 28.8 k g/m2 MEDENT ([facility]) Body weight 195.38 [lb_av] 195.38 [lb_av] MEDEN T ([facility] Body mass index (BMI) [Ratio] 28.8 kg/m2 28.8 k g/m2 [facility] ([facility] [place] body weight 160 [lb_av] 160 [lb_av] MEDEN T ([facility] Systolic blood pressure 155 mm[Hg] 155 mm[Hg] M EDENT ([facility] Heart rate 76 /min 76 /min [facility] ([facility]) Body temperature 97.2 [degF] 97.2 [degF] MEDENT ([facility]) Body height 69 [in_i] 69 [in_i] MEDENT ([facility]) 5'9" Body weight 195.38 [lb_av] 195.38 [lb_av] MEDEN T ([facility]) Body weight 88.623 kg 88.623 kg MED[facility] ([facility]) Diastolic blood pressure 59 mm[Hg] 59 mm[Hg] MED[facility] ([facility] Heart rate 76 /min 76 /min MED[facility] ([facility] Body temperature 97.2 [degF] 97.2 [degF] MED[facility] ([facility] Respiratory rate 15 /min 15 /min MED[facility] ( [facility] Body height 69 [in_i] 69 [in_i] MED[facility] ([facility] 5'9" Body weight 198.8 [lb_av] 198.8 [lb_av] eCW1 ([facility]) Body height [in_i] eCW1 ([facility]) Body mass index (BMI) [Ratio] 38.82 kg/m2 38.82 kg/m2 eCW1 ([facility]) Systolic blood pressure 126 mm[Hg] 126 mm[Hg] e CW1 ([facility]) Diastolic blood pressure 74 mm[Hg] 74 mm[Hg] eCW1 ([facility]) Body weight 194.00 [lb_av] 194.00 [lb_av] MEDEN T ([facility]) Body height 66 [in_i] 66 [in_i] MEDENT ([facility]) 5'6" Heart rate 68 /min 68 /min MED[facility] ([facility]) Irregular Body mass index (BMI) [Ratio] 31.3 kg/m2 31.3 k g/m2 MED[facility] ([facility]) Respiratory rate 16 /min 16 /min MEDENT ( [facility]) Systolic blood pressure 136 mm[Hg] 136 mm[Hg] M EDENT ([facility]) sitting, regular cuff Diastolic blood pressure 84 mm[Hg] 84 mm[Hg] MEDENT ([facility]) sitting, regular cuff Systolic blood pressure 182 mm[Hg] 182 mm[Hg] M EDENT ([facility] recheck Systolic blood pressure 192 mm[Hg] 192 mm[Hg] M EDENT ([facility] Diastolic blood pressure 83 mm[Hg] 83 mm[Hg] MEDENT ([facility] Diastolic blood pressure 71 mm[Hg] 71 mm[Hg] MEDENT ([facility] recheck Heart rate 82 /min 82 /min MED[facility] ([facility] Body temperature 96.9 [degF] 96.9 [degF] MEDENT ([facility] Respiratory rate 18 /min 18 /min MEDENT ( [facility] Body height 69 [in_i] 69 [in_i] MEDENT ([facility] 5'9" Body weight 199.38 [lb_av] 199.38 [lb_av] MEDEN T ([facility] Oxygen saturation in Arterial blood by Pulse oximetry 98 % 98 % MED[facility] ([facility] [place] body weight 160 [lb_av] 160 [lb_av] MEDEN T ([facility] Body mass index (BMI) [Ratio] 29.4 kg/m2 29.4 k g/m2 MED[facility] ([facility] Body weight 198 [lb_av] 198 [lb_av] eCW1 ([facility]) Body height [in_i] eCW1 ([facility]) Heart rate 66 /min 66 /min eCW1 ([facility]) Respiratory rate 18 /min 18 /min eCW1 ([facility]) Body temperature 96.6 [degF] 96.6 [degF] eCW1 ( [facility]) Diastolic blood pressure 72 mm[Hg] 72 mm[Hg] eCW1 ([facility]) Body mass index (BMI) [Ratio] 38.67 kg/m2 38.67 kg/m2 eCW1 ([facility]) Systolic blood pressure 128 mm[Hg] 128 mm[Hg] e CW1 ([facility]) Body weight 194.00 [lb_av] 194.00 [lb_av] MEDEN T ([facility]) Body height 66 [in_i] 66 [in_i] MEDENT ([facility]) 5'6" Systolic blood pressure 136 mm[Hg] 136 mm[Hg] M EDENT ([facility]) sitting, regular cuff Diastolic blood pressure 78 mm[Hg] 78 mm[Hg] MEDENT ([facility]) sitting, regular cuff Body mass index (BMI) [Ratio] 31.3 kg/m2 31.3 k g/m2 MEDENT ([facility]) Heart rate 68 /min 68 /min MED[facility] ([facility]) Irregular Respiratory rate 16 /min 16 /min MEDENT ( [facility]) Diastolic blood pressure 65 mm[Hg] 65 mm[Hg] MEDENT ([facility] Heart rate 68 /min 68 /min MED[facility] ([facility] Body temperature 96.6 [degF] 96.6 [degF] MEDENT ([facility] Respiratory rate 16 /min 16 /min MEDENT ( [facility] Body height 69 [in_i] 69 [in_i] MEDENT ([facility] 5'9" Systolic blood pressure 168 mm[Hg] 168 mm[Hg] M EDENT ([facility] Systolic blood pressure 151 mm[Hg] 151 mm[Hg] M EDENT ([facility] Diastolic blood pressure 67 mm[Hg] 67 mm[Hg] MEDENT ([facility] [place] body weight 160 [lb_av] 160 [lb_av] VIOLETTA Pascal ([facility] Body mass index (BMI) [Ratio] 29.3 kg/m2 29.3 k g/m2 NEVIN ([facility] Body weight 198.50 [lb_av] 198.50 [lb_av] VIOLETTA Pascal ([facility]
[2021-09-28] MEDS ORDERED: BACITRACIN OINTMENT 30GM TUBE As Ordered ONE (12:13)
[2021-09-28] MEDS ORDERED: LIDOCAINE 1% SDV 30ML VIAL As Ordered ONE (12:13)
[2021-09-28] MEDS ORDERED: ACETAMINOPHEN 1000MG 100ML IV BTL (OFIRMEV) (J0131 PER 10MG) As Ordered ONE (12:50)
[2021-09-28] MEDS ORDERED: LIDOCAINE 2% 100MG/5ML SDV (FOR ANES.) As Ordered ONE (12:50)
[2021-09-28] MEDS ORDERED: fentaNYL 100 MCG/2 ML INJECTION (J3010) As Ordered ONE (12:50)
[2021-09-28] MEDS ORDERED: propofoL 200 MG/20 ML VIAL As Ordered ONE (12:50)
[2021-09-28 14:25] VITALS: BP 140/70
--- NOTE | 2021-09-28 15:07 | RO ---
OPERATIVE NOTE DATE OF OPERATION: 09/28/2021 PREOPERATIVE DIAGNOSIS: Pacemaker battery depletion. POSTOPERATIVE DIAGNOSIS: Pacemaker battery depletion. FINDINGS: Pacemaker battery depletion. PROCEDURE PERFORMED: Explantation of old single chamber pacemaker pulse generator (Medtronic) and implantation of new single chamber pacemaker pulse generator (Medtronic). SURGEON: Nigel Zuñiga MD WOUND/OSTOMY CLINICAL NURSE SPECIALIST: None. ANESTHESIA: Lidocaine 1% local/monitored anesthesia care. SPECIMEN: Old Medtronic single chamber pacemaker pulse generator. ESTIMATED BLOOD LOSS: Less than 2 mL. No blood products replaced. DRAINS: None. COMPLICATIONS: None. DESCRIPTION OF PROCEDURE: The patient was prepped and draped over the left pectoralis region. 3D Ioban was applied. Lidocaine 1% was used for local anesthetic. An incision was made through the existing pacemaker incision line using a PEAK PlasmaBlade. Some fine scissors dissection was also used. Dissection was carried down to the anterior capsule overlying the pacemaker pulse generator. The tie-down suture holding the pacemaker pulse generator was cut and removed. The pacemaker pulse generator was then removed from the pocket. The set screw was loosened and the old pacemaker pulse generator was removed. The existing terminal pin of the ventricular lead was then plugged into the new pacemaker pulse generator and secured by tightening the set screw. A pole test was applied to demonstrate that it was secured within the header. A medium size TYRX antimicrobial envelope was cut into four pieces and placed into the pacemaker pocket. The new pacemaker pulse generator was then placed into the pacemaker pocket with the excess lead material below. The deep layer was closed using individual sutures consisting of 2-0 Vicryl. A 4-0 Biosyn was applied in continuous subcuticular suture to close the skin layer with the free ends protruding 1 cm through the skin on both ends. A Prineo dressing was applied and the free ends of the Biosyn suture were snipped at the level of the skin on both sides. The patient tolerated the procedure well without any immediate complications. The existing pacemaker pulse generator that was removed was a Medtronic Sensia with product #SESR01, SR IS-1 . Serial #[id number]. Originally implanted by Dr. Zuñiga 04/01/2009. The new pacemaker pulse generator implanted was Medtronic [place] XT SR MRI SureScan, model #W1SR01 and had serial #[id number]. Device based testing through the new pacemaker pulse generator showed an R wave amplitude of 4.5 millivolts with lead impedance of 351 ohms and capture threshold of 0.75 volts at 0.4 milliseconds. The existing right ventricular lead was a Medtronic model 4076/58, 58 cm in length. It had serial #[id number]. It was originally implanted by Dr. Zuñiga 04/01/2009.
== END 2021-09-28 14:42 | disposition home or self-care (01) ==
LOC: M SDC 10:48
PROVIDERS: ATTEND Internal Medicine Cardiovascular Disease
DX: I49.5 Sick sinus syndrome (principal); Z45.010 Encounter for checking and testing of cardiac pacemaker pulse generator [battery]; I48.20 Chronic atrial fibrillation, unspecified; Z86.73 Personal history of transient ischemic attack (TIA), and cerebral infarction without residual deficits; Z79.01 Long term (current) use of anticoagulants; Z79.899 Other long term (current) drug therapy; Z88.0 Allergy status to penicillin; Z88.8 Allergy status to other drugs, medicaments and biological substances
CPT/HCPCS: 33227; C1786; J0131; J0690; J3010

== ENCOUNTER → 2021-11-09 | Outpatient (REF) | payer MEDICARE ==
[~2021-11-09] MED LIST changes: -CEFD1CAP8 PO; +CEFD300C41 PO; -LISI-898 PO; +LISI5TAB11 PO; -LR 1,000 ML IV ONE; +POTA-151 PO; -POTA20TA6 PO; -ceFAZolin SOD 2 GM in IV 1 EA IV ONE
== END ==
LOC: M LAB REF 11:25
PROVIDERS: ATTEND Physician Assistant
DX: L82.1 Other seborrheic keratosis (principal)
CPT/HCPCS: 11102; 88305; G0463

== ENCOUNTER → 2022-02-23 | Outpatient (CLI) | payer MEDICARE ==
[2022-02-23 14:31] LABS: HEMOGLOBIN A1c 5.3 %
[2022-02-23 14:45] LABS: ALBUMIN 3.7 GM/DL (3.2-5.2); BILIRUBIN,TOTAL 0.7 MG/DL (0.2-1.0); CALCIUM LEVEL 9.5 MG/DL (8.8-10.2); CREATININE FOR GFR 1.58 MG/DL (0.70-1.30); FREE T4 0.96 NG/DL (0.76-1.46); GLOMERULAR FILTRATION RATE 44.7 (>35); POTASSIUM SERUM 4.8 MEQ/L (3.5-5.1); THYROID STIMULATING HORMONE 3.36 uIU/ML (0.358-3.740); TOTAL PROTEIN 7.9 GM/DL (6.4-8.2)
== END ==
LOC: M PLALAB 10:13
PROVIDERS: ATTEND Nurse Practitioner Family
DX: E11.42 Type 2 diabetes mellitus with diabetic polyneuropathy (principal); E03.9 Hypothyroidism, unspecified

== ENCOUNTER → 2022-02-23 | Outpatient (CLI) | payer MEDICARE ==
[2022-02-23 14:06] LABS: BASO # 0.1 10^3/uL (0.0-0.2); BASO % 1.5 % (0.0-1.0); EOS # 0.2 10^3/uL (0.0-0.5); EOS % 3.7 % (0.0-3.0); HEMATOCRIT 32.9 % (42.0-52.0); HEMOGLOBIN 10.9 g/dl (13.5-17.5); LYMPH # 1.1 10^3/uL (1.5-5.0); LYMPH % 26.4 % (24.0-44.0); MEAN CORPUSCULAR HEMOGLOBIN 36.9 pg (27.0-33.0); MEAN CORPUSCULAR HGB CONC 33.1 g/dl (32.0-36.5); MEAN CORPUSCULAR VOLUME 111.5 fl (80.0-96.0); MONO # 0.5 10^3/uL (0.0-0.8); MONO % 11.9 % (2.0-8.0); NEUTROPHILS # 2.3 10^3/uL (1.5-8.5); NEUTROPHILS % 56.3 % (36.0-66.0); PLATELET COUNT, AUTOMATED 205 10^3/uL (150-450); RED BLOOD COUNT 2.95 10^6/uL (4.30-6.10); WHITE BLOOD COUNT 4.1 10^3/uL (4.0-10.0)
[2022-02-23 14:34] LABS: ALBUMIN 3.7 GM/DL (3.2-5.2); ALT/SGPT 26 U/L (12-78); BILIRUBIN,TOTAL 0.5 MG/DL (0.2-1.0); BLOOD UREA NITROGEN 28 MG/DL (7-18); CALCIUM LEVEL 9.4 MG/DL (8.8-10.2); CARBON DIOXIDE LEVEL 28 MEQ/L (21-32); CHLORIDE LEVEL 108 MEQ/L (98-107); CREATININE FOR GFR 1.53 MG/DL (0.70-1.30); GLOMERULAR FILTRATION RATE 46.4 (>35); GLUCOSE, FASTING 119 MG/DL (70-100); POTASSIUM SERUM 4.6 MEQ/L (3.5-5.1); SODIUM LEVEL 140 MEQ/L (136-145); TOTAL PROTEIN 7.8 GM/DL (6.4-8.2)
[2022-02-23 14:43] LABS: VITAMIN B12 LEVEL 471 PG/ML
[2022-02-23 14:44] LABS: FOLATE > 24.0 NG/ML
== END ==
LOC: M PLALAB 10:15
PROVIDERS: ATTEND Psychiatry & Neurology Neurology
DX: E53.8 Deficiency of other specified B group vitamins (principal); E51.9 Thiamine deficiency, unspecified; E55.9 Vitamin D deficiency, unspecified; E11.42 Type 2 diabetes mellitus with diabetic polyneuropathy; E03.9 Hypothyroidism, unspecified; N18.9 Chronic kidney disease, unspecified

== ENCOUNTER 2022-05-21 14:49 | Emergency (ER) | payer MEDICARE ==
[~2022-05-21] VITALS: Ht 175.3 cm; Wt 81.8 kg
[2022-05-21 14:51] VITALS: BP 129/65
== END 2022-05-21 17:24 | disposition left against medical advice (07) ==
LOC: M ED 14:49
DX: Z53.21 Procedure and treatment not carried out due to patient leaving prior to being seen by health care provider (principal)

== ENCOUNTER 2022-06-09 09:29 | Inpatient (IN) | payer MEDICARE ==
[~2022-06-09] VITALS: Ht 175.3 cm; Wt 80.3 kg
[2022-06-09 10:18] LABS: VENOUS BASE EXCESS -1.1 (-2.0-2.0); VENOUS HCO3 24.8 MEQ/L (23.0-27.0); VENOUS O2 SATURATION 46.8 % (60.0-80.0); VENOUS PARTIAL PRESSURE CO2 46.5 mmHg (38.0-50.0); VENOUS PARTIAL PRESSURE O2 27.2 mmHg (30.0-50.0); VENOUS PH 7.345 UNITS (7.330-7.430); VENOUS STANDARD HCO3 22.6 MEQ/L; VENOUS TOTAL CO2 26.2 MEQ/L (24.0-28.0)
[2022-06-09 10:22] LABS: BASO # 0.1 10^3/uL (0.0-0.2); BASO % 0.7 % (0.0-1.0); EOS # 0.1 10^3/uL (0.0-0.5); EOS % 0.9 % (0.0-3.0); HEMATOCRIT 29.7 % (42.0-52.0); HEMOGLOBIN 9.8 g/dl (13.5-17.5); LYMPH # 0.6 10^3/uL (1.5-5.0); LYMPH % 7.1 % (24.0-44.0); MEAN CORPUSCULAR HEMOGLOBIN 35.3 pg (27.0-33.0); MEAN CORPUSCULAR VOLUME 106.8 fl (80.0-96.0); MONO # 0.8 10^3/uL (0.0-0.8); MONO % 9.7 % (2.0-8.0); NEUTROPHILS # 6.5 10^3/uL (1.5-8.5); NEUTROPHILS % 80.9 % (36.0-66.0); PLATELET COUNT, AUTOMATED 365 10^3/uL (150-450); RED BLOOD COUNT 2.78 10^6/uL (4.30-6.10)
[2022-06-09 11:07] LABS: ALBUMIN 2.7 GM/DL (3.2-5.2); BILIRUBIN,DIRECT 0.2 MG/DL (0.0-0.2); BILIRUBIN,TOTAL 0.5 MG/DL (0.2-1.0); CALCIUM LEVEL 9.3 MG/DL (8.8-10.2); CREATININE FOR GFR 2.14 MG/DL (0.70-1.30); GLOMERULAR FILTRATION RATE 31.5 (>35); POTASSIUM SERUM 5.1 MEQ/L (3.5-5.1); THYROID STIMULATING HORMONE 2.03 uIU/ML (0.358-3.740); TOTAL PROTEIN 7.8 GM/DL (6.4-8.2)
[2022-06-09] MEDS ORDERED: NS 500 ML IV ONE (11:50)
[2022-06-09] MEDS ORDERED: ALLO100T PO (14:46)
[2022-06-09] MEDS ORDERED: PREG100C PO (14:46)
[2022-06-09] MEDS ORDERED: ELIQ2.5T PO (14:46)
[2022-06-09] MEDS ORDERED: FLOM0.4C39 PO (14:46)
[2022-06-09] MEDS ORDERED: ACET650T61 PO (14:47)
[2022-06-09] MEDS ORDERED: HOME MED LIST COMPLETE! XX SCH (14:50)
[2022-06-09] MEDS: NS 1,000 ML IV SCH (16:11)
[2022-06-09 16:31] LABS: HEMATOCRIT 29.2 % (42.0-52.0); HEMOGLOBIN 9.2 g/dl (13.5-17.5); MEAN CORPUSCULAR HEMOGLOBIN 34.3 pg (27.0-33.0); MEAN CORPUSCULAR HGB CONC 31.5 g/dl (32.0-36.5); PLATELET COUNT, AUTOMATED 351 10^3/uL (150-450); RED BLOOD COUNT 2.68 10^6/uL (4.30-6.10); WHITE BLOOD COUNT 7.4 10^3/uL (4.0-10.0)
[2022-06-09 16:40] LABS: ALBUMIN 2.5 GM/DL (3.2-5.2); BILIRUBIN,TOTAL 0.4 MG/DL (0.2-1.0); CALCIUM LEVEL 9.7 MG/DL (8.8-10.2); CREATININE FOR GFR 1.94 MG/DL (0.70-1.30); GLOMERULAR FILTRATION RATE 35.3 (>35); POTASSIUM SERUM 5.2 MEQ/L (3.5-5.1); TOTAL PROTEIN 7.9 GM/DL (6.4-8.2)
[2022-06-09 17:14] LABS: RSV AMPLIFICATION NEGATIVE (NEGATIVE)
[2022-06-09] MEDS: PREGABALIN 50 MG CAP (LYRICA) PO SCH ×2 (17:38→22:28)
[2022-06-09 20:42] VITALS: BP 131/63
[2022-06-09] MEDS ORDERED: NORTRIPTYLINE 25 MG CAP PO SCH (21:00)
[2022-06-09] MEDS ORDERED: lisinopriL 5 MG TAB PO SCH (21:00)
[2022-06-09] MEDS ORDERED: LATANOPROST 0.005% OPHTH SOLN 2.5 ML OU SCH (21:00)
[2022-06-09] MEDS ORDERED: ACETAMINOPHEN 650MG ER TAB (TYLENOL ARTHRITIS) PO SCH (21:00)
[2022-06-09] MEDS: APIXABAN 2.5 MG TAB (ELIQUIS) PO SCH (22:28)
[2022-06-09] MEDS: FERROUS GLUCONATE 324 MG TAB PO SCH (22:29)
[2022-06-09] MEDS: allopurinoL 100 MG TAB PO SCH (22:31)
[2022-06-10] MEDS: NS 1,000 ML IV SCH ×2 (02:07→09:40)
[2022-06-10 04:00] VITALS: BP 121/56
[2022-06-10 08:20] LABS: CALCIUM LEVEL 8.7 MG/DL (8.8-10.2); CREATININE FOR GFR 1.61 MG/DL (0.70-1.30); GLOMERULAR FILTRATION RATE 43.7 (>35); POTASSIUM SERUM 4.7 MEQ/L (3.5-5.1)
[2022-06-10] MEDS ORDERED: POTASSIUM CHLORIDE 10MEQ SR TABLET PO SCH (09:00)
[2022-06-10] MEDS ORDERED: MULTIVITAMINS/MINERALS THERAP 1 TAB PO SCH (09:00)
[2022-06-10] MEDS ORDERED: ASPIRIN 81MG ENTERIC TABLET PO SCH (09:00)
[2022-06-10] MEDS ORDERED: PATIROMER SORBITEX CALCIUM 8.4 GM POWDER PACKET (VELTASSA) PO ONE (09:00)
[2022-06-10] MEDS ORDERED: CHLORTHALIDONE 25 MG TAB PO SCH (09:00)
[2022-06-10] MEDS ORDERED: FOLIC ACID 1 MG TAB PO SCH (09:00)
[2022-06-10] MEDS ORDERED: TAMSULOSIN 0.4 MG CAP PO SCH (09:00)
[2022-06-10] MEDS: PREGABALIN 50 MG CAP (LYRICA) PO SCH (09:32)
[2022-06-10] MEDS: APIXABAN 2.5 MG TAB (ELIQUIS) PO SCH (09:32)
[2022-06-10] MEDS: allopurinoL 100 MG TAB PO SCH (09:32)
[2022-06-10] MEDS: FERROUS GLUCONATE 324 MG TAB PO SCH (09:32)
[2022-06-10] MEDS ORDERED: PREG50CA PO (12:50)
== END 2022-06-10 14:23 | disposition home or self-care (01) | DRG 683 ==
LOC: EDBD 09:29 → M ED 09:29 → M ED INP 15:21 → ENRESERV 18:52 → M 4MAIN 20:45
PROVIDERS: ADMIT Internal Medicine; ATTEND Family Medicine
DX: N17.9 Acute kidney failure, unspecified (principal); G61.81 Chronic inflammatory demyelinating polyneuritis; E87.2 Acidosis; E87.5 Hyperkalemia; I12.9 Hypertensive chronic kidney disease with stage 1 through stage 4 chronic kidney disease, or unspecified chronic kidney disease; I48.0 Paroxysmal atrial fibrillation; N18.9 Chronic kidney disease, unspecified; G62.9 Polyneuropathy, unspecified; I65.29 Occlusion and stenosis of unspecified carotid artery; I73.9 Peripheral vascular disease, unspecified; D64.9 Anemia, unspecified; I25.10 Atherosclerotic heart disease of native coronary artery without angina pectoris; Z95.0 Presence of cardiac pacemaker; Z90.49 Acquired absence of other specified parts of digestive tract; Z79.82 Long term (current) use of aspirin; Z79.899 Other long term (current) drug therapy; Z88.0 Allergy status to penicillin; Z88.1 Allergy status to other antibiotic agents; Z88.2 Allergy status to sulfonamides; Z88.8 Allergy status to other drugs, medicaments and biological substances; Z20.822 Contact with and (suspected) exposure to COVID-19; R53.1 Weakness

== ENCOUNTER 2022-06-21 16:00 | Inpatient (IN) | payer MEDICARE ==
[~2022-06-21] VITALS: Ht 175.3 cm; Wt 77.3 kg
[~2022-06-21 16:00] MED LIST changes: +ACET650T61 PO; +ALLO100T PO; +ELIQ2.5T PO; +PREG100C PO; +PREG50CA PO
[2022-06-21] MEDS ORDERED: NS 1,000 ML IV SCH (16:25)
[2022-06-21 17:01] LABS: VENOUS BASE EXCESS -3.7 (-2.0-2.0); VENOUS HCO3 21.2 MEQ/L (23.0-27.0); VENOUS O2 SATURATION 51.8 % (60.0-80.0); VENOUS PARTIAL PRESSURE CO2 37.4 mmHg (38.0-50.0); VENOUS PARTIAL PRESSURE O2 29.2 mmHg (30.0-50.0); VENOUS PH 7.371 UNITS (7.330-7.430); VENOUS STANDARD HCO3 20.7 MEQ/L; VENOUS TOTAL CO2 22.3 MEQ/L (24.0-28.0)
[2022-06-21 17:16] LABS: BASO % 0.5 % (0.0-1.0); EOS % 0.5 % (0.0-3.0); HEMATOCRIT 27.8 % (42.0-52.0); HEMOGLOBIN 9.1 g/dl (13.5-17.5); LYMPH # 0.8 10^3/uL (1.5-5.0); LYMPH % 11.7 % (24.0-44.0); MEAN CORPUSCULAR HEMOGLOBIN 34.1 pg (27.0-33.0); MEAN CORPUSCULAR HGB CONC 32.7 g/dl (32.0-36.5); MEAN CORPUSCULAR VOLUME 104.1 fl (80.0-96.0); MONO # 0.8 10^3/uL (0.0-0.8); MONO % 12.9 % (2.0-8.0); NEUTROPHILS # 4.7 10^3/uL (1.5-8.5); NEUTROPHILS % 72.8 % (36.0-66.0); PLATELET COUNT, AUTOMATED 387 10^3/uL (150-450); RED BLOOD COUNT 2.67 10^6/uL (4.30-6.10); WHITE BLOOD COUNT 6.4 10^3/uL (4.0-10.0)
[2022-06-21 17:39] LABS: OSMOLALITY SERUM 298 MOSM/KG (280-301)
[2022-06-21 17:45] LABS: ALBUMIN 2.4 GM/DL (3.2-5.2); ALT/SGPT 42 U/L (12-78); BILIRUBIN,DIRECT 0.2 MG/DL (0.0-0.2); BILIRUBIN,TOTAL 0.5 MG/DL (0.2-1.0); BLOOD UREA NITROGEN 49 MG/DL (7-18); CALCIUM LEVEL 9.8 MG/DL (8.8-10.2); CARBON DIOXIDE LEVEL 21 MEQ/L (21-32); CHLORIDE LEVEL 109 MEQ/L (98-107); CREATININE FOR GFR 2.32 MG/DL (0.70-1.30); GLOMERULAR FILTRATION RATE 28.6 (>35); GLUCOSE, FASTING 123 MG/DL (70-100); POTASSIUM SERUM 5.1 MEQ/L (3.5-5.1); SODIUM LEVEL 139 MEQ/L (136-145); TOTAL PROTEIN 6.7 GM/DL (6.4-8.2)
[2022-06-21 18:03] LABS: RSV AMPLIFICATION NEGATIVE (NEGATIVE)
[2022-06-21] MEDS ORDERED: PREG50CA PO (18:35)
[2022-06-21] MEDS ORDERED: HOME MED LIST COMPLETE! XX SCH (18:35)
[2022-06-21] MEDS ORDERED: MAALOX 30 ML SUSP *UDC PO PRN (18:45)
[2022-06-21] MEDS ORDERED: NITROGLYCERIN 0.4 MG SUBL TABLET SL PRN (18:45)
[2022-06-21] MEDS ORDERED: MOM 30ML SUSPENSION UDC PO PRN (18:45)
[2022-06-21] MEDS ORDERED: ACETAMINOPHEN TAB 650MG DOSE (2X325MG) PO PRN (18:45)
[2022-06-21 19:33] LABS: FERRITIN 3171 NG/ML (26-388); FOLATE > 24.0 NG/ML (>5.4); IRON (FE) 21 UG/DL (65-175); TOTAL IRON BINDING CAPACITY 161 UG/DL (250-450); VITAMIN B12 LEVEL 507 PG/ML (247-911)
[2022-06-21 20:15] LABS: INR 2.02; PROTHROMBIN TIME 23.2 SECONDS (12.7-14.5)
[2022-06-21 20:16] LABS: PARTIAL THROMBOPLASTIN TIME 46.3 SECONDS (25.9-37.0)
[2022-06-21 20:40] VITALS: BP 134/63
[2022-06-21] MEDS ORDERED: CAPSAICIN 0.025% CR 60 GM TOP SCH (21:00)
[2022-06-21] MEDS: allopurinoL 100 MG TAB PO SCH (21:07)
[2022-06-21] MEDS: APIXABAN 2.5 MG TAB (ELIQUIS) PO SCH (21:07)
[2022-06-21] MEDS: NS 1,000 ML IV SCH ×2 (21:08→22:47)
[2022-06-21] MEDS: FERROUS GLUCONATE 324 MG TAB PO SCH (21:08)
[2022-06-22] MEDS: LATANOPROST 0.005% OPHTH SOLN 2.5 ML OU SCH ×2 (00:23→21:20)
[2022-06-22] MEDS: NORTRIPTYLINE 25 MG CAP PO SCH ×2 (00:25→21:20)
[2022-06-22 02:04] LABS: APPEARANCE, URINE HAZY (CLEAR); BACTERIA, URINE AUTO NEGATIVE (NEGATIVE); BILIRUBIN, URINE AUTO NEGATIVE (NEGATIVE); BLOOD, URINE BLOOD NEGATIVE (NEGATIVE); COLOR, URINE YELLOW (YELLOW); GLUCOSE, URINE (UA) AUTO NEGATIVE (NEGATIVE); KETONE, URINE AUTO TRACE mg/dL (NEGATIVE); LEUKOCYTE ESTERASE, URINE AUTO TRACE (NEGATIVE); NITRITE, URINE AUTO NEGATIVE (NEGATIVE); PROTEIN, URINE AUTO 1+ mg/dL (NEGATIVE); RBC, URINE AUTO 2 /HPF (0-3); SPECIFIC GRAVITY URINE AUTO 1.016 (1.002-1.035); SQUAMOUS EPITHELIAL CELL UR AU 0 /HPF (0-6); UROBILINOGEN, URINE AUTO 0.2 mg/dL (0.0-2.0); WBC, URINE AUTO 1 /HPF (0-3)
[2022-06-22 02:16] LABS: TOTAL PROTEIN,RANDOM URINE 53.9 MG/DL (0.0-12.0)
[2022-06-22 06:00] VITALS: BP 119/63
[2022-06-22] MEDS: NS 1,000 ML IV SCH (06:05)
[2022-06-22 06:32] LABS: HEMATOCRIT 22.8 % (42.0-52.0); HEMOGLOBIN 7.3 g/dl (13.5-17.5); MEAN CORPUSCULAR HEMOGLOBIN 33.5 pg (27.0-33.0); MEAN CORPUSCULAR VOLUME 104.6 fl (80.0-96.0); PLATELET COUNT, AUTOMATED 383 10^3/uL (150-450); RED BLOOD COUNT 2.18 10^6/uL (4.30-6.10); WHITE BLOOD COUNT 7.9 10^3/uL (4.0-10.0)
[2022-06-22 07:12] LABS: CREATININE FOR GFR 1.93 MG/DL (0.70-1.30); GLOMERULAR FILTRATION RATE 35.4 (>35); MAGNESIUM LEVEL 1.8 MG/DL (1.8-2.4); POTASSIUM SERUM 5.2 MEQ/L (3.5-5.1)
[2022-06-22] MEDS ORDERED: POTASSIUM CHLORIDE 10MEQ SR TABLET PO SCH (09:00)
[2022-06-22] MEDS: allopurinoL 100 MG TAB PO SCH ×2 (09:03→21:20)
[2022-06-22] MEDS: FERROUS GLUCONATE 324 MG TAB PO SCH ×2 (09:03→21:20)
[2022-06-22] MEDS: APIXABAN 2.5 MG TAB (ELIQUIS) PO SCH ×2 (09:03→21:20)
[2022-06-22] MEDS: MULTIVITAMINS/MINERALS THERAP 1 TAB PO SCH (09:03)
[2022-06-22] MEDS: ASPIRIN 81MG ENTERIC TABLET PO SCH (09:03)
[2022-06-22] MEDS: FOLIC ACID 1 MG TAB PO SCH (09:03)
[2022-06-22] MEDS: TAMSULOSIN 0.4 MG CAP PO SCH (09:03)
[2022-06-22] MEDS: GABAPENTIN 300 MG CAP PO SCH (09:03)
[2022-06-22 14:00] VITALS: BP 118/63
[2022-06-22 17:42] LABS: HEMATOCRIT 23.7 % (42.0-52.0); HEMOGLOBIN 7.6 g/dl (13.5-17.5)
[2022-06-22 20:00] VITALS: BP 122/62
[2022-06-23] VITALS (10 sets, daily range): BP systolic 98–146; BP diastolic 58–89
[2022-06-23 06:30] LABS: BASO % 0.5 % (0.0-1.0); EOS # 0.1 10^3/uL (0.0-0.5); EOS % 1.4 % (0.0-3.0); HEMATOCRIT 23.3 % (42.0-52.0); HEMOGLOBIN 7.3 g/dl (13.5-17.5); LYMPH % 13.4 % (24.0-44.0); MEAN CORPUSCULAR HEMOGLOBIN 32.9 pg (27.0-33.0); MEAN CORPUSCULAR HGB CONC 31.3 g/dl (32.0-36.5); MONO # 0.8 10^3/uL (0.0-0.8); MONO % 10.7 % (2.0-8.0); NEUTROPHILS # 5.4 10^3/uL (1.5-8.5); NEUTROPHILS % 72.8 % (36.0-66.0); PLATELET COUNT, AUTOMATED 405 10^3/uL (150-450); RED BLOOD COUNT 2.22 10^6/uL (4.30-6.10); WHITE BLOOD COUNT 7.4 10^3/uL (4.0-10.0)
[2022-06-23 06:46] LABS: CREATININE FOR GFR 1.46 MG/DL (0.70-1.30); GLOMERULAR FILTRATION RATE 48.9 (>35); POTASSIUM SERUM 4.3 MEQ/L (3.5-5.1)
[2022-06-23] MEDS: FERROUS GLUCONATE 324 MG TAB PO SCH ×2 (08:53→21:43)
[2022-06-23] MEDS: APIXABAN 2.5 MG TAB (ELIQUIS) PO SCH ×2 (08:53→21:42)
[2022-06-23] MEDS: ASPIRIN 81MG ENTERIC TABLET PO SCH (08:53)
[2022-06-23] MEDS: TAMSULOSIN 0.4 MG CAP PO SCH (08:53)
[2022-06-23] MEDS: MULTIVITAMINS/MINERALS THERAP 1 TAB PO SCH (08:53)
[2022-06-23] MEDS: FOLIC ACID 1 MG TAB PO SCH (08:53)
[2022-06-23] MEDS: allopurinoL 100 MG TAB PO SCH ×2 (08:53→21:43)
[2022-06-23] MEDS: GABAPENTIN 300 MG CAP PO SCH (08:53)
[2022-06-23 19:44] LABS: HEMATOCRIT 33.8 % (42.0-52.0)
[2022-06-23 19:55] LABS: HEMOGLOBIN 11.2 g/dl (13.5-17.5)
[2022-06-23] MEDS: NORTRIPTYLINE 25 MG CAP PO SCH (21:43)
[2022-06-23] MEDS: LATANOPROST 0.005% OPHTH SOLN 2.5 ML OU SCH (21:43)
[2022-06-24 04:21] VITALS: BP 106/52
[2022-06-24 06:53] LABS: BASO # 0.1 10^3/uL (0.0-0.2); BASO % 0.8 % (0.0-1.0); EOS # 0.1 10^3/uL (0.0-0.5); EOS % 1.2 % (0.0-3.0); HEMATOCRIT 30.2 % (42.0-52.0); HEMOGLOBIN 10.1 g/dl (13.5-17.5); LYMPH % 12.2 % (24.0-44.0); MEAN CORPUSCULAR HEMOGLOBIN 33.2 pg (27.0-33.0); MEAN CORPUSCULAR HGB CONC 33.4 g/dl (32.0-36.5); MEAN CORPUSCULAR VOLUME 99.3 fl (80.0-96.0); MONO % 12.4 % (2.0-8.0); NEUTROPHILS # 5.7 10^3/uL (1.5-8.5); NEUTROPHILS % 72.4 % (36.0-66.0); PLATELET COUNT, AUTOMATED 388 10^3/uL (150-450); RED BLOOD COUNT 3.04 10^6/uL (4.30-6.10); WHITE BLOOD COUNT 7.8 10^3/uL (4.0-10.0)
[2022-06-24 07:25] LABS: CALCIUM LEVEL 9.2 MG/DL (8.8-10.2); CREATININE FOR GFR 1.25 MG/DL (0.70-1.30); GLOMERULAR FILTRATION RATE 58.4 (>35); POTASSIUM SERUM 4.2 MEQ/L (3.5-5.1)
[2022-06-24] MEDS: FERROUS GLUCONATE 324 MG TAB PO SCH (08:35)
[2022-06-24] MEDS: ASPIRIN 81MG ENTERIC TABLET PO SCH (08:35)
[2022-06-24] MEDS: FOLIC ACID 1 MG TAB PO SCH (08:35)
[2022-06-24] MEDS: MULTIVITAMINS/MINERALS THERAP 1 TAB PO SCH (08:35)
[2022-06-24] MEDS: APIXABAN 2.5 MG TAB (ELIQUIS) PO SCH (08:35)
[2022-06-24] MEDS: allopurinoL 100 MG TAB PO SCH (08:35)
[2022-06-24] MEDS: GABAPENTIN 300 MG CAP PO SCH (08:35)
[2022-06-24] MEDS: TAMSULOSIN 0.4 MG CAP PO SCH (08:35)
[2022-06-24] MEDS ORDERED: PANTOPRAZOLE 40MG TAB (PROTONIX) PO ONE (10:00)
== END 2022-06-24 11:15 | disposition home or self-care (01) | DRG 812 ==
LOC: EDBD 16:00 → M ED 16:00 → M ED INP 18:45 → M MSPAV 20:39
PROVIDERS: ADMIT Internal Medicine; ATTEND Internal Medicine
PROC: 30233N1 Transfusion of Nonautologous Red Blood Cells into Peripheral Vein, Percutaneous Approach (ICD-10-PCS; principal; 2022-06-23)
DX: D64.9 Anemia, unspecified (principal); G61.81 Chronic inflammatory demyelinating polyneuritis; N17.9 Acute kidney failure, unspecified; R63.0 Anorexia; R53.1 Weakness; N18.9 Chronic kidney disease, unspecified; I12.9 Hypertensive chronic kidney disease with stage 1 through stage 4 chronic kidney disease, or unspecified chronic kidney disease; I48.91 Unspecified atrial fibrillation; I25.10 Atherosclerotic heart disease of native coronary artery without angina pectoris; N40.0 Benign prostatic hyperplasia without lower urinary tract symptoms; Z66 Do not resuscitate; M10.9 Gout, unspecified; Z79.01 Long term (current) use of anticoagulants; Z95.0 Presence of cardiac pacemaker; E78.5 Hyperlipidemia, unspecified; Z88.0 Allergy status to penicillin; Z88.2 Allergy status to sulfonamides; Z88.8 Allergy status to other drugs, medicaments and biological substances; Z79.899 Other long term (current) drug therapy; Z79.82 Long term (current) use of aspirin; Z98.41 Cataract extraction status, right eye; Z98.42 Cataract extraction status, left eye

== ENCOUNTER → 2022-06-30 | Outpatient (CLI) | payer MEDICARE ==
[2022-06-30 18:02] LABS: BASO # 0.1 10^3/uL (0.0-0.2); BASO % 1.3 % (0.0-1.0); EOS # 0.2 10^3/uL (0.0-0.5); EOS % 2.3 % (0.0-3.0); HEMATOCRIT 39.7 % (42.0-52.0); HEMOGLOBIN 12.6 g/dl (13.5-17.5); LYMPH # 0.9 10^3/uL (1.5-5.0); LYMPH % 12.2 % (24.0-44.0); MEAN CORPUSCULAR HEMOGLOBIN 31.9 pg (27.0-33.0); MEAN CORPUSCULAR HGB CONC 31.7 g/dl (32.0-36.5); MEAN CORPUSCULAR VOLUME 100.5 fl (80.0-96.0); MONO # 0.7 10^3/uL (0.0-0.8); MONO % 9.4 % (2.0-8.0); NEUTROPHILS # 5.5 10^3/uL (1.5-8.5); NEUTROPHILS % 73.9 % (36.0-66.0); PLATELET COUNT, AUTOMATED 462 10^3/uL (150-450); RED BLOOD COUNT 3.95 10^6/uL (4.30-6.10); WHITE BLOOD COUNT 7.5 10^3/uL (4.0-10.0)
== END ==
LOC: M PLAIMG 15:07
PROVIDERS: ATTEND Nurse Practitioner Family
DX: D64.9 Anemia, unspecified (principal); K59.00 Constipation, unspecified

== ENCOUNTER → 2022-07-01 | Outpatient (REF) | payer MEDICARE ==
[~2022-07-01] MED LIST changes: +LEVO25TA5 PO
== END ==
LOC: M LAB REF 13:00
PROVIDERS: ATTEND Nurse Practitioner Family
DX: D64.9 Anemia, unspecified (principal)

== ENCOUNTER 2022-07-06 16:12 | Inpatient (IN) | payer MEDICARE ==
[~2022-07-06] VITALS: Ht 175.3 cm; Wt 70.7 kg
[~2022-07-06 16:12] MED LIST changes: -LEVO25TA5 PO
[2022-07-06 16:49] LABS: BASO % 0.3 % (0.0-1.0); EOS % 0.3 % (0.0-3.0); HEMATOCRIT 36.1 % (42.0-52.0); HEMOGLOBIN 11.7 g/dl (13.5-17.5); LYMPH # 0.8 10^3/uL (1.5-5.0); MEAN CORPUSCULAR HEMOGLOBIN 32.4 pg (27.0-33.0); MEAN CORPUSCULAR HGB CONC 32.4 g/dl (32.0-36.5); MONO # 1.3 10^3/uL (0.0-0.8); MONO % 11.8 % (2.0-8.0); NEUTROPHILS # 8.7 10^3/uL (1.5-8.5); NEUTROPHILS % 79.4 % (36.0-66.0); PLATELET COUNT, AUTOMATED 364 10^3/uL (150-450); RED BLOOD COUNT 3.61 10^6/uL (4.30-6.10); WHITE BLOOD COUNT 10.9 10^3/uL (4.0-10.0)
[2022-07-06 17:20] LABS: ALBUMIN 2.4 GM/DL (3.2-5.2); ALT/SGPT 25 U/L (12-78); BILIRUBIN,DIRECT 0.5 MG/DL (0.0-0.2); BILIRUBIN,TOTAL 0.9 MG/DL (0.2-1.0); BLOOD UREA NITROGEN 48 MG/DL (7-18); CALCIUM LEVEL 9.4 MG/DL (8.8-10.2); CARBON DIOXIDE LEVEL 24 MEQ/L (21-32); CHLORIDE LEVEL 101 MEQ/L (98-107); CREATININE FOR GFR 2.69 MG/DL (0.70-1.30); GLOMERULAR FILTRATION RATE 24.1 (>35); GLUCOSE, FASTING 105 MG/DL (70-100); LIPASE 794 U/L (73-393); POTASSIUM SERUM 5.6 MEQ/L (3.5-5.1); SODIUM LEVEL 132 MEQ/L (136-145); TOTAL PROTEIN 8.6 GM/DL (6.4-8.2)
[2022-07-06 18:01] LABS: WBC, URINE 0-1 /hpf (0-3)
[2022-07-06 18:02] LABS: HYALINE CAST, URINE 0-1 /lpf (0-1); RENAL EPITHELIAL CELLS, URINE SMALL AMOUNT /hpf; SQUAMOUS EPITHELIAL CELL URINE NONE SEEN /hpf (SMALL AMT)
[2022-07-06 18:03] LABS: BACTERIA, URINE MOD AMOUNT
[2022-07-06] MEDS ORDERED: NS 1,000 ML IV SCH (18:25)
[2022-07-06] MEDS ORDERED: NS 1,000 ML IV ONE (19:20)
[2022-07-06] MEDS ORDERED: PANTOPRAZOLE 40MG VIAL IV ONE (19:20)
[2022-07-06] MEDS: NS 1,000 ML IV SCH (19:20)
[2022-07-06] MEDS ORDERED: GABA-282 PO (19:38)
[2022-07-06] MEDS ORDERED: LEVO25TA5 PO (19:38)
[2022-07-06] MEDS ORDERED: HOME MED LIST COMPLETE! XX SCH (19:40)
[2022-07-06] MEDS ORDERED: NITROGLYCERIN 0.4 MG SUBL TABLET SL PRN (20:35)
[2022-07-06 20:51] LABS: INR 2.87; PROTHROMBIN TIME 30.4 SECONDS (12.7-14.5)
[2022-07-06 20:52] LABS: PARTIAL THROMBOPLASTIN TIME 60.2 SECONDS (25.9-37.0)
[2022-07-06 20:56] LABS: HEPATITIS B SURFACE ANTIGEN NEGATIVE (NEGATIVE)
[2022-07-06] MEDS ORDERED: ACETAMINOPHEN 650MG ER TAB (TYLENOL ARTHRITIS) PO SCH (21:00)
[2022-07-06 21:23] LABS: HEPATITIS C VIRUS ABY INDEX 0.1 INDEX (<0.8)
[2022-07-06 21:24] LABS: HEPATITIS B CORE ANTIBODY IGM NEGATIVE (NEGATIVE)
[2022-07-06 22:20] VITALS: BP 102/52
[2022-07-06] MEDS: FERROUS GLUCONATE 324 MG TAB PO SCH (22:41)
[2022-07-06] MEDS: ACETAMINOPHEN TAB 650MG DOSE (2X325MG) PO PRN (22:41)
[2022-07-06] MEDS: GABAPENTIN 300 MG CAP PO SCH (22:41)
[2022-07-06] MEDS: DOCUSATE SODIUM 100MG CAPSULE PO SCH (22:41)
[2022-07-06] MEDS: APIXABAN 2.5 MG TAB (ELIQUIS) PO SCH (22:41)
[2022-07-06 23:00] VITALS: O2SAT 95
[2022-07-06 23:51] VITALS: O2SAT 94
[2022-07-07] VITALS (31 sets, daily range): BP systolic 80–142; BP diastolic 44–70; O2SAT 94–99
[2022-07-07] MEDS: NORTRIPTYLINE 25 MG CAP PO SCH ×2 (00:11→22:03)
[2022-07-07] MEDS: LATANOPROST 0.005% OPHTH SOLN 2.5 ML OU SCH ×2 (00:11→22:03)
[2022-07-07] MEDS ORDERED: NS 1,000 ML IV ONE (03:55)
[2022-07-07] MEDS: NS 1,000 ML IV SCH ×4 (04:51→22:03)
[2022-07-07 05:18] LABS: HEMATOCRIT 28.6 % (42.0-52.0); MEAN CORPUSCULAR HEMOGLOBIN 32.5 pg (27.0-33.0); MEAN CORPUSCULAR HGB CONC 32.5 g/dl (32.0-36.5); RED BLOOD COUNT 2.86 10^6/uL (4.30-6.10); WHITE BLOOD COUNT 7.4 10^3/uL (4.0-10.0)
[2022-07-07 05:25] LABS: HEMOGLOBIN 9.3 g/dl (13.5-17.5); PLATELET COUNT, AUTOMATED 261 10^3/uL (150-450)
[2022-07-07 05:48] LABS: POTASSIUM RANDOM URINE 77.5 MEQ/L; TOTAL PROTEIN,RANDOM URINE 89.5 MG/DL (0.0-12.0)
[2022-07-07 05:56] LABS: CALCIUM LEVEL 8.5 MG/DL (8.8-10.2); CREATININE FOR GFR 2.45 MG/DL (0.70-1.30); GLOMERULAR FILTRATION RATE 26.9 (>35); MAGNESIUM LEVEL 1.8 MG/DL (1.8-2.4); POTASSIUM SERUM 4.4 MEQ/L (3.5-5.1)
[2022-07-07 06:12] LABS: ALBUMIN 1.7 GM/DL (3.2-5.2); BILIRUBIN,DIRECT 0.6 MG/DL (0.0-0.2); BILIRUBIN,TOTAL 0.8 MG/DL (0.2-1.0); TOTAL PROTEIN 6.2 GM/DL (6.4-8.2)
[2022-07-07] MEDS: LEVOTHYROXINE 25MCG TABLET (0.025MG) PO SCH (06:17)
[2022-07-07] MEDS: FOLIC ACID 1MG TAB PO SCH (08:17)
[2022-07-07] MEDS: GABAPENTIN 300 MG CAP PO SCH ×2 (08:17→22:03)
[2022-07-07] MEDS: ASPIRIN 81MG ENTERIC TABLET PO SCH (08:17)
[2022-07-07] MEDS: APIXABAN 2.5 MG TAB (ELIQUIS) PO SCH ×2 (08:17→22:03)
[2022-07-07] MEDS: FERROUS GLUCONATE 324 MG TAB PO SCH ×2 (08:17→22:03)
[2022-07-07] MEDS: DOCUSATE SODIUM 100MG CAPSULE PO SCH ×2 (08:17→22:03)
[2022-07-07] MEDS: PANTOPRAZOLE 40MG VIAL IV SCH (08:18)
[2022-07-07] MEDS: TAMSULOSIN 0.4 MG CAP PO SCH (08:28)
[2022-07-07] MEDS ORDERED: POTASSIUM CHLORIDE 10MEQ SR TABLET PO SCH (09:00)
[2022-07-07] MEDS ORDERED: AZITHROMYCIN INJ 500 MG, VIAL MATE ADAPTER 1 EACH in NS 250 ML IV SCH (13:00)
[2022-07-07] MEDS: cefTRIAXone SOD 1 GM in D5W MINI-BAG PLUS 50 ML IV SCH (15:10)
[2022-07-07] MEDS: ACETAMINOPHEN TAB 650MG DOSE (2X325MG) PO PRN (17:03)
[2022-07-07 18:36] LABS: CORTISOL AM 15.2 UG/DL (4.3-22.4)
[2022-07-07] MEDS: DOXYCYCLINE HYCLATE 100 MG in D5W MINI-BAG PLUS 100 ML IV SCH (22:02)
[2022-07-08] VITALS: BP 142/60
[2022-07-08] MEDS: ACETAMINOPHEN TAB 650MG DOSE (2X325MG) PO PRN ×2 (01:21→05:15)
[2022-07-08 04:00] VITALS: BP 138/44
[2022-07-08 05:11] LABS: HEMATOCRIT 24.7 % (42.0-52.0); MEAN CORPUSCULAR HEMOGLOBIN 32.3 pg (27.0-33.0); MEAN CORPUSCULAR HGB CONC 32.4 g/dl (32.0-36.5); MEAN CORPUSCULAR VOLUME 99.6 fl (80.0-96.0); PLATELET COUNT, AUTOMATED 256 10^3/uL (150-450); RED BLOOD COUNT 2.48 10^6/uL (4.30-6.10); WHITE BLOOD COUNT 7.4 10^3/uL (4.0-10.0)
[2022-07-08] MEDS: LEVOTHYROXINE 25MCG TABLET (0.025MG) PO SCH (05:15)
[2022-07-08 05:44] LABS: ALBUMIN 1.6 GM/DL (3.2-5.2); BILIRUBIN,DIRECT 0.4 MG/DL (0.0-0.2); BILIRUBIN,TOTAL 0.6 MG/DL (0.2-1.0); CALCIUM LEVEL 7.8 MG/DL (8.8-10.2); CREATININE FOR GFR 1.55 MG/DL (0.70-1.30); GLOMERULAR FILTRATION RATE 45.6 (>35); MAGNESIUM LEVEL 1.4 MG/DL (1.8-2.4); POTASSIUM SERUM 4.2 MEQ/L (3.5-5.1); TOTAL PROTEIN 5.4 GM/DL (6.4-8.2)
[2022-07-08 08:46] VITALS: BP 115/56
[2022-07-08] MEDS: DOCUSATE SODIUM 100MG CAPSULE PO SCH ×2 (09:33→21:00)
[2022-07-08] MEDS: TAMSULOSIN 0.4 MG CAP PO SCH (09:34)
[2022-07-08] MEDS: GABAPENTIN 300 MG CAP PO SCH ×2 (09:34→22:10)
[2022-07-08] MEDS: APIXABAN 2.5 MG TAB (ELIQUIS) PO SCH ×2 (09:34→22:10)
[2022-07-08] MEDS: ASPIRIN 81MG ENTERIC TABLET PO SCH (09:34)
[2022-07-08] MEDS: FOLIC ACID 1MG TAB PO SCH (09:34)
[2022-07-08] MEDS: FERROUS GLUCONATE 324 MG TAB PO SCH ×2 (09:34→22:10)
[2022-07-08] MEDS: PANTOPRAZOLE 40MG VIAL IV SCH (09:36)
[2022-07-08] MEDS: DOXYCYCLINE HYCLATE 100 MG in D5W MINI-BAG PLUS 100 ML IV SCH ×2 (09:36→22:10)
[2022-07-08 12:09] VITALS: BP 123/58
[2022-07-08] MEDS: cefTRIAXone SOD 1 GM in D5W MINI-BAG PLUS 50 ML IV SCH (15:25)
[2022-07-08 15:47] VITALS: BP 126/60
[2022-07-08 20:45] VITALS: BP 167/78
[2022-07-08] MEDS: NORTRIPTYLINE 25 MG CAP PO SCH (22:10)
[2022-07-08] MEDS: LATANOPROST 0.005% OPHTH SOLN 2.5 ML OU SCH (22:10)
[2022-07-09] VITALS (8 sets, daily range): BP systolic 125–152; BP diastolic 55–72; O2SAT 96–98
[2022-07-09 05:10] LABS: HEMATOCRIT 27.2 % (42.0-52.0); HEMOGLOBIN 8.9 g/dl (13.5-17.5); MEAN CORPUSCULAR HEMOGLOBIN 32.2 pg (27.0-33.0); MEAN CORPUSCULAR HGB CONC 32.7 g/dl (32.0-36.5); MEAN CORPUSCULAR VOLUME 98.6 fl (80.0-96.0); PLATELET COUNT, AUTOMATED 280 10^3/uL (150-450); RED BLOOD COUNT 2.76 10^6/uL (4.30-6.10); WHITE BLOOD COUNT 8.6 10^3/uL (4.0-10.0)
[2022-07-09 05:54] LABS: ALBUMIN 1.9 GM/DL (3.2-5.2); BILIRUBIN,DIRECT 0.3 MG/DL (0.0-0.2); BILIRUBIN,TOTAL 0.5 MG/DL (0.2-1.0); CALCIUM LEVEL 8.9 MG/DL (8.8-10.2); CREATININE FOR GFR 1.45 MG/DL (0.70-1.30); GLOMERULAR FILTRATION RATE 49.2 (>35); MAGNESIUM LEVEL 1.3 MG/DL (1.8-2.4)
[2022-07-09] MEDS: LEVOTHYROXINE 25MCG TABLET (0.025MG) PO SCH (06:23)
[2022-07-09] MEDS ORDERED: MAG SULF IV ONE (07:25)
[2022-07-09] MEDS: ASPIRIN 81MG ENTERIC TABLET PO SCH (08:30)
[2022-07-09] MEDS: DOCUSATE SODIUM 100MG CAPSULE PO SCH ×2 (08:30→21:12)
[2022-07-09] MEDS: MAG SULF 1GM/100ML (MAG RUN) 1 GM in IV 1 EA IV SCH ×4 (08:30→13:20)
[2022-07-09] MEDS: FERROUS GLUCONATE 324 MG TAB PO SCH ×2 (08:31→21:12)
[2022-07-09] MEDS: FOLIC ACID 1MG TAB PO SCH (08:31)
[2022-07-09] MEDS: GABAPENTIN 300 MG CAP PO SCH ×2 (08:31→21:12)
[2022-07-09] MEDS: TAMSULOSIN 0.4 MG CAP PO SCH (08:31)
[2022-07-09] MEDS: APIXABAN 2.5 MG TAB (ELIQUIS) PO SCH ×2 (08:31→21:12)
[2022-07-09] MEDS: PANTOPRAZOLE 40MG TAB (PROTONIX) PO SCH (08:31)
[2022-07-09] MEDS: DOXYCYCLINE HYCLATE 100 MG in D5W MINI-BAG PLUS 100 ML IV SCH ×2 (09:46→21:11)
[2022-07-09] MEDS: cefTRIAXone SOD 1 GM in D5W MINI-BAG PLUS 50 ML IV SCH (14:47)
[2022-07-09] MEDS: LATANOPROST 0.005% OPHTH SOLN 2.5 ML OU SCH (21:12)
[2022-07-09] MEDS: NORTRIPTYLINE 25 MG CAP PO SCH (21:12)
[2022-07-10] VITALS (7 sets, daily range): BP systolic 123–177; BP diastolic 60–94
[2022-07-10] MEDS: LEVOTHYROXINE 25MCG TABLET (0.025MG) PO SCH (05:52)
[2022-07-10 07:25] LABS: HEMATOCRIT 27.3 % (42.0-52.0); HEMOGLOBIN 8.9 g/dl (13.5-17.5); MEAN CORPUSCULAR HEMOGLOBIN 31.7 pg (27.0-33.0); MEAN CORPUSCULAR HGB CONC 32.6 g/dl (32.0-36.5); MEAN CORPUSCULAR VOLUME 97.2 fl (80.0-96.0); PLATELET COUNT, AUTOMATED 308 10^3/uL (150-450); RED BLOOD COUNT 2.81 10^6/uL (4.30-6.10); WHITE BLOOD COUNT 8.8 10^3/uL (4.0-10.0)
[2022-07-10 07:59] LABS: ALBUMIN 1.8 GM/DL (3.2-5.2); ALT/SGPT 23 U/L (12-78); BILIRUBIN,DIRECT 0.2 MG/DL (0.0-0.2); BILIRUBIN,TOTAL 0.6 MG/DL (0.2-1.0); BLOOD UREA NITROGEN 23 MG/DL (7-18); CALCIUM LEVEL 8.9 MG/DL (8.8-10.2); CARBON DIOXIDE LEVEL 26 MEQ/L (21-32); CHLORIDE LEVEL 101 MEQ/L (98-107); CREATININE FOR GFR 1.11 MG/DL (0.70-1.30); GLOMERULAR FILTRATION RATE > 60.0 (>35); GLUCOSE, FASTING 103 MG/DL (70-100); MAGNESIUM LEVEL 2.1 MG/DL (1.8-2.4); POTASSIUM SERUM 3.6 MEQ/L (3.5-5.1); SODIUM LEVEL 135 MEQ/L (136-145); TOTAL PROTEIN 6.2 GM/DL (6.4-8.2)
[2022-07-10] MEDS: DOXYCYCLINE HYCLATE 100 MG in D5W MINI-BAG PLUS 100 ML IV SCH ×2 (08:13→21:23)
[2022-07-10] MEDS: DOCUSATE SODIUM 100MG CAPSULE PO SCH ×2 (08:14→21:24)
[2022-07-10] MEDS: ACETAMINOPHEN TAB 650MG DOSE (2X325MG) PO PRN (08:14)
[2022-07-10] MEDS: PANTOPRAZOLE 40MG TAB (PROTONIX) PO SCH (08:14)
[2022-07-10] MEDS: ASPIRIN 81MG ENTERIC TABLET PO SCH (08:14)
[2022-07-10] MEDS: FOLIC ACID 1MG TAB PO SCH (08:14)
[2022-07-10] MEDS: TAMSULOSIN 0.4 MG CAP PO SCH (08:15)
[2022-07-10] MEDS: FERROUS GLUCONATE 324 MG TAB PO SCH ×2 (08:15→21:23)
[2022-07-10] MEDS: APIXABAN 2.5 MG TAB (ELIQUIS) PO SCH ×2 (08:15→21:24)
[2022-07-10] MEDS: GABAPENTIN 300 MG CAP PO SCH ×2 (08:15→21:24)
[2022-07-10] MEDS: METOPROLOL TART 12.5 MG PER 1/2 TAB PO SCH ×2 (11:09→21:24)
[2022-07-10] MEDS: cefTRIAXone SOD 2 GM in D5W MINI-BAG PLUS 50 ML IV SCH (13:56)
[2022-07-10] MEDS: NORTRIPTYLINE 25 MG CAP PO SCH (21:24)
[2022-07-10] MEDS: LATANOPROST 0.005% OPHTH SOLN 2.5 ML OU SCH (21:24)
[2022-07-11] VITALS: BP 136/73
[2022-07-11 04:00] VITALS: BP 137/68
[2022-07-11] MEDS: LEVOTHYROXINE 25MCG TABLET (0.025MG) PO SCH (06:01)
[2022-07-11 06:04] LABS: HEMATOCRIT 27.8 % (42.0-52.0); HEMOGLOBIN 9.1 g/dl (13.5-17.5); MEAN CORPUSCULAR HEMOGLOBIN 31.2 pg (27.0-33.0); MEAN CORPUSCULAR HGB CONC 32.7 g/dl (32.0-36.5); MEAN CORPUSCULAR VOLUME 95.2 fl (80.0-96.0); PLATELET COUNT, AUTOMATED 291 10^3/uL (150-450); RED BLOOD COUNT 2.92 10^6/uL (4.30-6.10); WHITE BLOOD COUNT 7.8 10^3/uL (4.0-10.0)
[2022-07-11 06:37] LABS: ALBUMIN 1.7 GM/DL (3.2-5.2); ALT/SGPT 23 U/L (12-78); BILIRUBIN,DIRECT 0.2 MG/DL (0.0-0.2); BILIRUBIN,TOTAL 0.4 MG/DL (0.2-1.0); BLOOD UREA NITROGEN 22 MG/DL (7-18); CALCIUM LEVEL 9.2 MG/DL (8.8-10.2); CARBON DIOXIDE LEVEL 25 MEQ/L (21-32); CHLORIDE LEVEL 101 MEQ/L (98-107); CREATININE FOR GFR 0.96 MG/DL (0.70-1.30); GLOMERULAR FILTRATION RATE > 60.0 (>35); GLUCOSE, FASTING 105 MG/DL (70-100); MAGNESIUM LEVEL 1.6 MG/DL (1.8-2.4); POTASSIUM SERUM 3.5 MEQ/L (3.5-5.1); SODIUM LEVEL 132 MEQ/L (136-145); TOTAL PROTEIN 5.8 GM/DL (6.4-8.2)
[2022-07-11 07:18] VITALS: BP 134/63
[2022-07-11] MEDS ORDERED: MAG SULF 1GM/100ML (MAG RUN) 1 GM in IV 1 EA IV SCH (08:00)
[2022-07-11] MEDS: DOCUSATE SODIUM 100MG CAPSULE PO SCH ×2 (08:15→21:24)
[2022-07-11] MEDS: DOXYCYCLINE HYCLATE 100 MG in D5W MINI-BAG PLUS 100 ML IV SCH ×2 (08:15→21:20)
[2022-07-11] MEDS: FERROUS GLUCONATE 324 MG TAB PO SCH ×2 (08:16→21:21)
[2022-07-11] MEDS: GABAPENTIN 300 MG CAP PO SCH ×2 (08:16→21:21)
[2022-07-11] MEDS: FOLIC ACID 1MG TAB PO SCH (08:16)
[2022-07-11] MEDS: APIXABAN 2.5 MG TAB (ELIQUIS) PO SCH ×2 (08:16→21:24)
[2022-07-11] MEDS: ASPIRIN 81MG ENTERIC TABLET PO SCH (08:16)
[2022-07-11] MEDS: TAMSULOSIN 0.4 MG CAP PO SCH (08:16)
[2022-07-11] MEDS: PANTOPRAZOLE 40MG TAB (PROTONIX) PO SCH (08:16)
[2022-07-11] MEDS: METOPROLOL TART 12.5 MG PER 1/2 TAB PO SCH ×2 (08:17→21:24)
[2022-07-11] MEDS: MAG SULF 1GM/100ML (MAG RUN) 1 GM in IV 1 EA IV SCH ×4 (09:31→13:27)
[2022-07-11 11:30] VITALS: BP 119/58
[2022-07-11] MEDS ORDERED: AMPICILLIN SOD/SULBACTAM SOD 3 GM in D5W MINI-BAG PLUS 100 ML IV SCH (12:10)
[2022-07-11] MEDS: cefTRIAXone SOD 2 GM in D5W MINI-BAG PLUS 50 ML IV SCH (14:49)
[2022-07-11 20:00] VITALS: BP 128/60
[2022-07-11] MEDS: NORTRIPTYLINE 25 MG CAP PO SCH (21:21)
[2022-07-11] MEDS: LATANOPROST 0.005% OPHTH SOLN 2.5 ML OU SCH (21:25)
[2022-07-12 04:00] VITALS: BP 128/63
[2022-07-12 05:21] LABS: HEMOGLOBIN 8.5 g/dl (13.5-17.5); MEAN CORPUSCULAR HEMOGLOBIN 32.3 pg (27.0-33.0); MEAN CORPUSCULAR VOLUME 95.1 fl (80.0-96.0); PLATELET COUNT, AUTOMATED 338 10^3/uL (150-450); RED BLOOD COUNT 2.63 10^6/uL (4.30-6.10); WHITE BLOOD COUNT 7.4 10^3/uL (4.0-10.0)
[2022-07-12 05:44] LABS: ALBUMIN 1.6 GM/DL (3.2-5.2); ALT/SGPT 32 U/L (12-78); BILIRUBIN,DIRECT 0.2 MG/DL (0.0-0.2); BILIRUBIN,TOTAL 0.4 MG/DL (0.2-1.0); BLOOD UREA NITROGEN 19 MG/DL (7-18); CARBON DIOXIDE LEVEL 26 MEQ/L (21-32); CHLORIDE LEVEL 101 MEQ/L (98-107); CREATININE FOR GFR 0.92 MG/DL (0.70-1.30); GLOMERULAR FILTRATION RATE > 60.0 (>35); GLUCOSE, FASTING 111 MG/DL (70-100); POTASSIUM SERUM 3.6 MEQ/L (3.5-5.1); SODIUM LEVEL 133 MEQ/L (136-145); TOTAL PROTEIN 5.7 GM/DL (6.4-8.2)
[2022-07-12] MEDS: LEVOTHYROXINE 25MCG TABLET (0.025MG) PO SCH (06:13)
[2022-07-12 07:44] VITALS: BP 141/73
[2022-07-12] MEDS: DOCUSATE SODIUM 100MG CAPSULE PO SCH (09:06)
[2022-07-12] MEDS: PANTOPRAZOLE 40MG TAB (PROTONIX) PO SCH (09:06)
[2022-07-12] MEDS: DOXYCYCLINE HYCLATE 100 MG in D5W MINI-BAG PLUS 100 ML IV SCH (09:06)
[2022-07-12] MEDS: TAMSULOSIN 0.4 MG CAP PO SCH (09:06)
[2022-07-12] MEDS: FOLIC ACID 1MG TAB PO SCH (09:06)
[2022-07-12] MEDS: APIXABAN 2.5 MG TAB (ELIQUIS) PO SCH (09:06)
[2022-07-12] MEDS: GABAPENTIN 300 MG CAP PO SCH (09:06)
[2022-07-12] MEDS: ASPIRIN 81MG ENTERIC TABLET PO SCH (09:06)
[2022-07-12] MEDS: FERROUS GLUCONATE 324 MG TAB PO SCH (09:06)
[2022-07-12 09:07] VITALS: BP 141/73
[2022-07-12] MEDS: METOPROLOL TART 12.5 MG PER 1/2 TAB PO SCH (09:07)
[2022-07-12] MEDS: cefTRIAXone SOD 2 GM in D5W MINI-BAG PLUS 50 ML IV SCH (14:00)
[2022-07-12] MEDS ORDERED: AMOX875T2 PO (14:07)
[2022-07-12] MEDS ORDERED: DOXY-350 PO (14:07)
[2022-07-12] MEDS ORDERED: METO1TAB87 PO (14:38)
[2022-07-12] MEDS ORDERED: LEVO1TAB40 PO (15:47)
== END 2022-07-12 15:58 | disposition home or self-care (01) | DRG 682 ==
LOC: M ED 16:12 → EDBD 16:12 → M ED INP 19:17 → M PCU 22:15
PROVIDERS: ADMIT Family Medicine; ATTEND Internal Medicine
DX: N17.9 Acute kidney failure, unspecified (principal); J18.9 Pneumonia, unspecified organism; G61.81 Chronic inflammatory demyelinating polyneuritis; I73.9 Peripheral vascular disease, unspecified; I25.10 Atherosclerotic heart disease of native coronary artery without angina pectoris; E78.5 Hyperlipidemia, unspecified; I48.91 Unspecified atrial fibrillation; E03.9 Hypothyroidism, unspecified; D50.9 Iron deficiency anemia, unspecified; R62.7 Adult failure to thrive; I12.9 Hypertensive chronic kidney disease with stage 1 through stage 4 chronic kidney disease, or unspecified chronic kidney disease; N18.30 Chronic kidney disease, stage 3 unspecified; D63.1 Anemia in chronic kidney disease; Z79.01 Long term (current) use of anticoagulants; Z95.0 Presence of cardiac pacemaker; I95.9 Hypotension, unspecified; N40.0 Benign prostatic hyperplasia without lower urinary tract symptoms; L89.312 Pressure ulcer of right buttock, stage 2; Z88.2 Allergy status to sulfonamides; Z88.5 Allergy status to narcotic agent; Z88.0 Allergy status to penicillin; Z88.8 Allergy status to other drugs, medicaments and biological substances; Z79.82 Long term (current) use of aspirin; Z79.899 Other long term (current) drug therapy; Z98.41 Cataract extraction status, right eye; Z98.42 Cataract extraction status, left eye; K57.30 Diverticulosis of large intestine without perforation or abscess without bleeding; M10.9 Gout, unspecified

== ENCOUNTER 2022-07-26 08:13 | Inpatient (IN) | payer MEDICARE ==
[~2022-07-26] VITALS: Ht 175.3 cm; Wt 69.9 kg
[~2022-07-26 08:13] MED LIST changes: +AMOX875T2 PO; +LEVO1TAB40 PO; +LEVO25TA5 PO; +METO1TAB87 PO
[2022-07-26 10:16] LABS: BASO % 0.4 % (0.0-1.0); EOS # 0.1 10^3/uL (0.0-0.5); EOS % 0.9 % (0.0-3.0); HEMATOCRIT 29.8 % (42.0-52.0); HEMOGLOBIN 9.3 g/dl (13.5-17.5); LYMPH # 1.1 10^3/uL (1.5-5.0); LYMPH % 10.3 % (24.0-44.0); MEAN CORPUSCULAR HEMOGLOBIN 30.9 pg (27.0-33.0); MEAN CORPUSCULAR HGB CONC 31.2 g/dl (32.0-36.5); MONO # 0.7 10^3/uL (0.0-0.8); MONO % 6.8 % (2.0-8.0); NEUTROPHILS # 8.5 10^3/uL (1.5-8.5); NEUTROPHILS % 80.4 % (36.0-66.0); PLATELET COUNT, AUTOMATED 469 10^3/uL (150-450); RED BLOOD COUNT 3.01 10^6/uL (4.30-6.10); WHITE BLOOD COUNT 10.5 10^3/uL (4.0-10.0)
[2022-07-26 10:34] LABS: INR 1.51; PROTHROMBIN TIME 18.6 SECONDS (12.7-14.5)
[2022-07-26 10:45] LABS: BILIRUBIN,DIRECT 0.2 MG/DL (0.0-0.2); BILIRUBIN,TOTAL 0.5 MG/DL (0.2-1.0); CALCIUM LEVEL 9.3 MG/DL (8.8-10.2); CREATININE FOR GFR 1.68 MG/DL (0.70-1.30); GLOMERULAR FILTRATION RATE 41.5 (>35); POTASSIUM SERUM 4.6 MEQ/L (3.5-5.1); TOTAL PROTEIN 6.8 GM/DL (6.4-8.2)
[2022-07-26] MEDS ORDERED: PANTOPRAZOLE 40MG VIAL IV ONE (11:15)
[2022-07-26 12:22] LABS: RSV AMPLIFICATION NEGATIVE (NEGATIVE)
[2022-07-26] MEDS ORDERED: METO25TA4 PO (13:36)
[2022-07-26] MEDS ORDERED: HOME MED LIST COMPLETE! XX SCH (13:40)
[2022-07-26] MEDS: NS 1,000 ML IV SCH (14:55)
[2022-07-26 15:30] VITALS: BP 153/74
[2022-07-26] MEDS ORDERED: SODIUM CHLORIDE 0.9% 1000ML IV ONE ×2 (15:35→16:05)
[2022-07-26] MEDS ORDERED: IMMUNE GLOBULIN 10% 40GM 400ML BOTTLE (PRIVIGEN) (J1459 PER 500MG) IV SCH (15:45)
[2022-07-26] MEDS: LACRILUBE (AKWA TEARS) OPHTH OINT 3.5 GM OU SCH (16:00)
[2022-07-26] MEDS: FOLIC ACID 1MG TAB PO SCH (16:22)
[2022-07-26] MEDS: LEVOTHYROXINE 25MCG TABLET (0.025MG) PO SCH (16:22)
[2022-07-26] MEDS: TAMSULOSIN 0.4 MG CAP PO SCH (16:23)
[2022-07-26] MEDS: MULTIVITAMINS/MINERALS THERAP 1 TAB PO SCH (16:23)
[2022-07-26 16:37] LABS: HEMATOCRIT 25.3 % (42.0-52.0); HEMOGLOBIN 8.1 g/dl (13.5-17.5)
[2022-07-26] MEDS: SUCRALFATE 1 GM TAB PO SCH (17:16)
[2022-07-26 18:31] LABS: OSMOLALITY URINE 499 MOSM/KG (50-1400); SODIUM,RANDOM URINE 61 MEQ/L
[2022-07-26] MEDS: NORTRIPTYLINE 25 MG CAP PO SCH (20:26)
[2022-07-26] MEDS: LATANOPROST 0.005% OPHTH SOLN 2.5 ML OU SCH (20:26)
[2022-07-26] MEDS: GABAPENTIN 300 MG CAP PO SCH (20:26)
[2022-07-26] MEDS: FERROUS GLUCONATE 324 MG TAB PO SCH (20:26)
[2022-07-26] MEDS: PANTOPRAZOLE 40MG VIAL IV SCH (20:26)
[2022-07-26] MEDS: allopurinoL 100 MG TAB PO SCH (20:26)
[2022-07-26] MEDS ORDERED: PANTOPRAZOLE 40MG TAB (PROTONIX) PO SCH (21:00)
[2022-07-26 21:17] LABS: HEMATOCRIT 25.7 % (42.0-52.0)
[2022-07-26 22:00] VITALS: BP 138/60
[2022-07-26] MEDS: ACETAMINOPHEN TAB 650MG DOSE (2X325MG) PO PRN (23:54)
[2022-07-27] VITALS (11 sets, daily range): BP systolic 129–140; BP diastolic 61–67
[2022-07-27] MEDS: SUCRALFATE 1 GM TAB PO SCH ×4 (01:14→17:23)
[2022-07-27] MEDS: LACRILUBE (AKWA TEARS) OPHTH OINT 3.5 GM OU SCH ×4 (01:14→21:36)
[2022-07-27] MEDS: NS 1,000 ML IV SCH ×3 (04:47→21:36)
[2022-07-27] MEDS: LEVOTHYROXINE 25MCG TABLET (0.025MG) PO SCH (05:46)
[2022-07-27 06:49] LABS: HEMATOCRIT 23.9 % (42.0-52.0); HEMOGLOBIN 7.4 g/dl (13.5-17.5); MEAN CORPUSCULAR HEMOGLOBIN 31.4 pg (27.0-33.0); MEAN CORPUSCULAR VOLUME 101.3 fl (80.0-96.0); PLATELET COUNT, AUTOMATED 389 10^3/uL (150-450); RED BLOOD COUNT 2.36 10^6/uL (4.30-6.10); WHITE BLOOD COUNT 7.2 10^3/uL (4.0-10.0)
[2022-07-27 07:29] LABS: CALCIUM LEVEL 8.6 MG/DL (8.8-10.2); CREATININE FOR GFR 1.37 MG/DL (0.70-1.30); GLOMERULAR FILTRATION RATE 52.6 (>35); POTASSIUM SERUM 4.6 MEQ/L (3.5-5.1)
[2022-07-27] MEDS: FERROUS GLUCONATE 324 MG TAB PO SCH ×2 (09:00→21:34)
[2022-07-27] MEDS: FOLIC ACID 1MG TAB PO SCH (09:00)
[2022-07-27] MEDS: GABAPENTIN 300 MG CAP PO SCH ×2 (09:00→21:35)
[2022-07-27] MEDS: allopurinoL 100 MG TAB PO SCH ×2 (09:00→21:34)
[2022-07-27] MEDS: MULTIVITAMINS/MINERALS THERAP 1 TAB PO SCH (09:00)
[2022-07-27] MEDS: PANTOPRAZOLE 40MG VIAL IV SCH ×2 (09:00→21:33)
[2022-07-27] MEDS: TAMSULOSIN 0.4 MG CAP PO SCH (09:00)
[2022-07-27] MEDS: OCTREOTIDE ACETATE 100MCG/ML VIAL **IV ADMINISTRATION ONLY IV SCH ×2 (10:00→17:23)
[2022-07-27] MEDS: METOPROLOL TART 12.5 MG PER 1/2 TAB PO SCH ×2 (14:00→21:35)
[2022-07-27] MEDS ORDERED: LIDOCAINE 2% 100MG/5ML SDV (FOR ANES.) As Ordered ONE (15:29)
[2022-07-27] MEDS ORDERED: propofoL 200 MG/20 ML VIAL As Ordered ONE (15:29)
[2022-07-27] MEDS ORDERED: PHENYLephrine 500MCG 5ML (100MCG/ML) SYRINGE As Ordered ONE (15:29)
[2022-07-27 17:30] LABS: HEMATOCRIT 29.9 % (42.0-52.0); HEMOGLOBIN 9.5 g/dl (13.5-17.5)
[2022-07-27] MEDS: NORTRIPTYLINE 25 MG CAP PO SCH (21:33)
[2022-07-27] MEDS: ACETAMINOPHEN TAB 650MG DOSE (2X325MG) PO PRN (21:34)
[2022-07-27] MEDS: LATANOPROST 0.005% OPHTH SOLN 2.5 ML OU SCH (21:35)
[2022-07-28 01:30] VITALS: BP 138/71
[2022-07-28] MEDS: OCTREOTIDE ACETATE 100MCG/ML VIAL **IV ADMINISTRATION ONLY IV SCH ×3 (01:38→18:27)
[2022-07-28] MEDS: SUCRALFATE 1 GM TAB PO SCH ×4 (01:38→18:27)
[2022-07-28 05:51] LABS: HEMATOCRIT 28.3 % (42.0-52.0); HEMOGLOBIN 8.9 g/dl (13.5-17.5); MEAN CORPUSCULAR HEMOGLOBIN 30.7 pg (27.0-33.0); MEAN CORPUSCULAR HGB CONC 31.4 g/dl (32.0-36.5); MEAN CORPUSCULAR VOLUME 97.6 fl (80.0-96.0); PLATELET COUNT, AUTOMATED 399 10^3/uL (150-450); WHITE BLOOD COUNT 5.5 10^3/uL (4.0-10.0)
[2022-07-28 06:00] VITALS: BP 101/61
[2022-07-28] MEDS: LEVOTHYROXINE 25MCG TABLET (0.025MG) PO SCH (06:02)
[2022-07-28 06:32] LABS: CALCIUM LEVEL 8.6 MG/DL (8.8-10.2); CREATININE FOR GFR 1.26 MG/DL (0.70-1.30); GLOMERULAR FILTRATION RATE 57.9 (>35); POTASSIUM SERUM 4.5 MEQ/L (3.5-5.1)
[2022-07-28] MEDS ORDERED: PREVNAR 13 VACCINE SYRINGE IM.IMMUN ONE (09:00)
[2022-07-28] MEDS ORDERED: METHOTREXATE 2.5 MG TAB (J8610 PER 2.5MG) PO SCH (09:00)
[2022-07-28] MEDS: MULTIVITAMINS/MINERALS THERAP 1 TAB PO SCH (09:31)
[2022-07-28] MEDS: FOLIC ACID 1MG TAB PO SCH (09:31)
[2022-07-28] MEDS: TAMSULOSIN 0.4 MG CAP PO SCH (09:31)
[2022-07-28] MEDS: PANTOPRAZOLE 40MG VIAL IV SCH ×2 (09:32→21:57)
[2022-07-28] MEDS: GABAPENTIN 300 MG CAP PO SCH ×2 (09:32→21:57)
[2022-07-28] MEDS: allopurinoL 100 MG TAB PO SCH ×2 (09:32→21:57)
[2022-07-28] MEDS: FERROUS GLUCONATE 324 MG TAB PO SCH ×2 (09:32→21:59)
[2022-07-28] MEDS: LACRILUBE (AKWA TEARS) OPHTH OINT 3.5 GM OU SCH ×3 (09:32→21:59)
[2022-07-28] MEDS: METOPROLOL TART 12.5 MG PER 1/2 TAB PO SCH ×2 (09:36→21:59)
[2022-07-28 12:53] LABS: ALBUMIN 2.15 GM/DL (3.29-5.55); ALBUMIN % 35.9 % (55.8-66.1); ALPHA-1-GLOBULINS 0.66 GM/DL (0.17-0.41); ALPHA-2-GLOBULINS 1.04 GM/DL (0.42-0.99); ALPHA-2-GLOBULINS % 17.4 % (7.1-11.8); BETA-1-GLOBULINS 0.31 GM/DL (0.28-0.60); BETA-1-GLOBULINS % 5.1 % (4.7-7.2); BETA-2-GLOBULINS 0.37 GM/DL (0.19-0.55); BETA-2-GLOBULINS % 6.2 % (3.2-6.5); GAMMA GLOBULIN % 24.4 % (11.1-18.8); GAMMA GLOBULINS 1.46 GM/DL (0.65-1.58)
[2022-07-28] MEDS: NS 1,000 ML IV SCH (16:03)
[2022-07-28 18:00] VITALS: BP 138/69
[2022-07-28 21:05] VITALS: BP 140/73
[2022-07-28] MEDS: LATANOPROST 0.005% OPHTH SOLN 2.5 ML OU SCH (21:59)
[2022-07-28] MEDS: NORTRIPTYLINE 25 MG CAP PO SCH (22:00)
[2022-07-28] MEDS: ACETAMINOPHEN TAB 650MG DOSE (2X325MG) PO PRN (22:14)
[2022-07-29] MEDS: SUCRALFATE 1 GM TAB PO SCH ×2 (00:57→06:10)
[2022-07-29] MEDS: NS 1,000 ML IV SCH (00:58)
[2022-07-29] MEDS: OCTREOTIDE ACETATE 100MCG/ML VIAL **IV ADMINISTRATION ONLY IV SCH (00:58)
[2022-07-29 05:45] VITALS: BP 120/56
[2022-07-29] MEDS: LEVOTHYROXINE 25MCG TABLET (0.025MG) PO SCH (06:10)
[2022-07-29 06:40] LABS: HEMATOCRIT 28.1 % (42.0-52.0); HEMOGLOBIN 8.9 g/dl (13.5-17.5); MEAN CORPUSCULAR HEMOGLOBIN 31.3 pg (27.0-33.0); MEAN CORPUSCULAR HGB CONC 31.7 g/dl (32.0-36.5); MEAN CORPUSCULAR VOLUME 98.9 fl (80.0-96.0); PLATELET COUNT, AUTOMATED 412 10^3/uL (150-450); RED BLOOD COUNT 2.84 10^6/uL (4.30-6.10); WHITE BLOOD COUNT 6.4 10^3/uL (4.0-10.0)
[2022-07-29 07:26] LABS: BLOOD UREA NITROGEN 26 MG/DL (7-18); CALCIUM LEVEL 8.2 MG/DL (8.8-10.2); CARBON DIOXIDE LEVEL 20 MEQ/L (21-32); CHLORIDE LEVEL 108 MEQ/L (98-107); CREATININE FOR GFR 1.18 MG/DL (0.70-1.30); GLOMERULAR FILTRATION RATE > 60.0 (>35); GLUCOSE, FASTING 95 MG/DL (70-100); POTASSIUM SERUM 4.5 MEQ/L (3.5-5.1); SODIUM LEVEL 137 MEQ/L (136-145)
[2022-07-29 07:40] LABS: LIPASE 590 U/L (73-393)
[2022-07-29 08:00] VITALS: BP 132/74
[2022-07-29 09:01] VITALS: BP 132/74
[2022-07-29] MEDS: METOPROLOL TART 12.5 MG PER 1/2 TAB PO SCH (09:01)
[2022-07-29] MEDS: FOLIC ACID 1MG TAB PO SCH (09:02)
[2022-07-29] MEDS: GABAPENTIN 300 MG CAP PO SCH (09:02)
[2022-07-29] MEDS: MULTIVITAMINS/MINERALS THERAP 1 TAB PO SCH (09:02)
[2022-07-29] MEDS: FERROUS GLUCONATE 324 MG TAB PO SCH (09:03)
[2022-07-29] MEDS: TAMSULOSIN 0.4 MG CAP PO SCH (09:03)
[2022-07-29] MEDS: allopurinoL 100 MG TAB PO SCH (09:03)
[2022-07-29] MEDS: PANTOPRAZOLE 40MG VIAL IV SCH (09:03)
[2022-07-29] MEDS: LACRILUBE (AKWA TEARS) OPHTH OINT 3.5 GM OU SCH (09:04)
[2022-07-29] MEDS ORDERED: SUCRALFATE 1 GM TAB PO SCH (11:05)
[2022-07-29 14:00] VITALS: BP 138/62
[2022-07-29] MEDS ORDERED: SUCR1TA PO (14:59)
[2022-07-29] MEDS ORDERED: PROT1TAB2 PO (15:00)
[2022-07-29] MEDS ORDERED: PANTOPRAZOLE 40MG VIAL IV SCH (21:00)
== END 2022-07-29 16:05 | disposition home or self-care (01) | DRG 378 ==
LOC: M ED 08:13 → M ED INP 14:25 → M MSPAV 14:25 → ENRESERV 15:02 → M MSPAV 15:26
PROVIDERS: ADMIT Student in an Organized Health Care Education/Training Program; ATTEND Internal Medicine
PROC: 0DJ08ZZ Inspection of Upper Intestinal Tract, Via Natural or Artificial Opening Endoscopic (ICD-10-PCS; principal; 2022-07-26)
PROC: 30233N1 Transfusion of Nonautologous Red Blood Cells into Peripheral Vein, Percutaneous Approach (ICD-10-PCS; 2022-07-27)
DX: K29.71 Gastritis, unspecified, with bleeding (principal); N17.9 Acute kidney failure, unspecified; E87.1 Hypo-osmolality and hyponatremia; G61.81 Chronic inflammatory demyelinating polyneuritis; I48.20 Chronic atrial fibrillation, unspecified; C79.51 Secondary malignant neoplasm of bone; E03.9 Hypothyroidism, unspecified; N40.1 Benign prostatic hyperplasia with lower urinary tract symptoms; E83.52 Hypercalcemia; K21.00 Gastro-esophageal reflux disease with esophagitis, without bleeding; D63.1 Anemia in chronic kidney disease; I48.0 Paroxysmal atrial fibrillation; N18.30 Chronic kidney disease, stage 3 unspecified; I73.9 Peripheral vascular disease, unspecified; I12.9 Hypertensive chronic kidney disease with stage 1 through stage 4 chronic kidney disease, or unspecified chronic kidney disease; I65.29 Occlusion and stenosis of unspecified carotid artery; R97.20 Elevated prostate specific antigen [PSA]; Z88.0 Allergy status to penicillin; Z88.2 Allergy status to sulfonamides; Z88.8 Allergy status to other drugs, medicaments and biological substances; Z79.899 Other long term (current) drug therapy; Z79.01 Long term (current) use of anticoagulants; Z98.41 Cataract extraction status, right eye; Z98.42 Cataract extraction status, left eye; Z95.0 Presence of cardiac pacemaker

== ENCOUNTER → 2022-08-13 | Outpatient (REF) | payer MEDICARE ==
[~2022-08-13] MED LIST changes: +METO25TA4 PO; +PROT1TAB2 PO; +SUCR1TA PO; +XGEVINJ SC
== END ==
LOC: M SMT 13:02
PROVIDERS: ATTEND Urology
DX: R97.20 Elevated prostate specific antigen [PSA] (principal)

== ENCOUNTER → 2022-09-07 | Outpatient (REF) | payer MEDICARE ==
[~2022-09-07] MED LIST changes: +ELIQ2.5T
== END ==
LOC: M LAB REF 10:25
PROVIDERS: ATTEND Urology
DX: C61 Malignant neoplasm of prostate (principal)

== ENCOUNTER → 2022-09-16 | Outpatient (REF) | payer MEDICARE ==
[2022-09-16 15:58] LABS: APPEARANCE, URINE MANUAL HAZY (CLEAR); COLOR, URINE MANUAL YELLOW (YELLOW); PROTEIN, URINE MANUAL 1+ mg/dL (NEGATIVE); SPECIFIC GRAVITY,URINE MANUAL 1.015 (1.002-1.035)
[2022-09-16 15:59] LABS: BILIRUBIN, URINE MANUAL NEGATIVE (NEGATIVE); BLOOD URINE MANUAL POSITIVE (NEGATIVE); GLUCOSE, URINE (UA) MANUAL NEGATIVE (NEGATIVE); KETONE, URINE MANUAL NEGATIVE (NEGATIVE); LEUKOCYTE ESTERASE, URINE MAN POSITIVE (NEGATIVE); NITRITE, URINE MANUAL NEGATIVE (NEGATIVE); UROBILINOGEN, URINE MANUAL NORMAL (NORMAL)
[2022-09-16 16:27] LABS: BACTERIA, URINE LARGE AMOUNT; SQUAMOUS EPITHELIAL CELL URINE NONE SEEN /hpf (SMALL AMT); WBC, URINE TNTC /hpf (0-3)
== END ==
LOC: M LAB REF 15:06 → M SMT 15:06
PROVIDERS: ATTEND Urology
DX: R30.0 Dysuria (principal)

== ENCOUNTER → 2022-09-28 | Outpatient (CLI) | payer MEDICARE ==
[~2022-09-28] MED LIST changes: -DOXY-350 PO; +DOXY-444 PO
== END ==
LOC: M RAD 14:16
PROVIDERS: ATTEND Surgery
DX: L89.610 Pressure ulcer of right heel, unstageable (principal); L89.620 Pressure ulcer of left heel, unstageable; I77.1 Stricture of artery

== ENCOUNTER → 2022-10-19 | Outpatient (POV) | payer MEDICARE ==
[~2022-10-19] VITALS: Ht 175.3 cm; Wt 71.8 kg
[~2022-10-19] MED LIST changes: +CALC-190 PO
[2022-10-19 09:30] VITALS: BP 150/64
== END ==
LOC: M IRPOV 09:20
PROVIDERS: ATTEND Radiology Diagnostic Radiology
DX: I70.234 Atherosclerosis of native arteries of right leg with ulceration of heel and midfoot (principal); L97.419 Non-pressure chronic ulcer of right heel and midfoot with unspecified severity; R60.0 Localized edema; I48.91 Unspecified atrial fibrillation; I10 Essential (primary) hypertension; G62.9 Polyneuropathy, unspecified; Z85.828 Personal history of other malignant neoplasm of skin; Z85.46 Personal history of malignant neoplasm of prostate; Z95.0 Presence of cardiac pacemaker; Z96.1 Presence of intraocular lens; Z79.890 Hormone replacement therapy; Z79.1 Long term (current) use of non-steroidal anti-inflammatories (NSAID); Z79.899 Other long term (current) drug therapy; Z88.0 Allergy status to penicillin; Z88.1 Allergy status to other antibiotic agents; Z88.2 Allergy status to sulfonamides; Z88.8 Allergy status to other drugs, medicaments and biological substances

== ENCOUNTER → 2022-10-25 | Outpatient (CLI) | payer MEDICARE ==
[~2022-10-25] MED LIST changes: +ASPI81TA26 PO; +CARA1TAB6 PO; +DOCU250C7 PO; +FURO20TA2 PO; +MILK400S19 PO; +MIRA3350 PO; +OXYC-517 PO; +SENN-52 PO
== END ==
LOC: M LABSMTC 10:13
PROVIDERS: ATTEND Anesthesiology
DX: Z01.812 Encounter for preprocedural laboratory examination (principal); Z20.822 Contact with and (suspected) exposure to COVID-19

== ENCOUNTER 2022-10-28 06:34 | Inpatient (IN) | payer MEDICARE ==
[~2022-10-28] VITALS: Ht 175.3 cm; Wt 72.5 kg
[~2022-10-28 06:34] MED LIST changes: -ASPI81TA26 PO; -CARA1TAB6 PO; -DOCU250C7 PO; -FURO20TA2 PO; -MILK400S19 PO; -MIRA3350 PO; -OXYC-517 PO; -SENN-52 PO
[2022-10-28] MEDS ORDERED: ASPI81TA26 PO (07:16)
[2022-10-28] MEDS ORDERED: DOCU250C7 PO (07:16)
[2022-10-28] MEDS ORDERED: FURO20TA2 PO (07:16)
[2022-10-28] MEDS ORDERED: diphenhydrAMINE 50MG/ML VIAL As Ordered ONE (07:22)
[2022-10-28] MEDS ORDERED: fentaNYL 100 MCG/2 ML INJECTION As Ordered ONE ×2 (07:22→16:02)
[2022-10-28] MEDS ORDERED: LIDOCAINE 1% MDV 20ML VIAL As Ordered ONE ×2 (07:23→15:11)
[2022-10-28] MEDS ORDERED: HEPARIN 1,000UNITS/ML 10ML VIAL (FOR RADIOLOGY & DIALYSIS ONLY) As Ordered ONE ×2 (07:23→15:11)
[2022-10-28] MEDS ORDERED: MIDAZOLAM INJ 2MG/2ML VIAL (J2250 PER 1MG) As Ordered ONE ×2 (07:23→16:33)
[2022-10-28] MEDS ORDERED: ISOVUE-300 61% 50ML VIAL As Ordered ONE ×9 (07:23→17:22)
[2022-10-28] MEDS: NS 1,000 ML IV SCH ×2 (07:35→20:25)
[2022-10-28] MEDS ORDERED: ISOVUE-370 76% 100ML VIAL As Ordered ONE (14:53)
[2022-10-28 15:08] LABS: MEAN CORPUSCULAR HEMOGLOBIN 30.3 pg (27.0-33.0); MEAN CORPUSCULAR HGB CONC 30.6 g/dl (32.0-36.5); MEAN CORPUSCULAR VOLUME 99.1 fl (80.0-96.0); PLATELET COUNT, AUTOMATED 205 10^3/uL (150-450); RED BLOOD COUNT 2.11 10^6/uL (4.30-6.10); WHITE BLOOD COUNT 4.6 10^3/uL (4.0-10.0)
[2022-10-28 15:12] LABS: HEMATOCRIT 20.9 % (42.0-52.0); HEMOGLOBIN 6.4 g/dl (13.5-17.5)
[2022-10-28] MEDS ORDERED: propofoL 200 MG/20 ML VIAL As Ordered ONE ×2 (16:02→17:54)
[2022-10-28] MEDS ORDERED: ROCURONIUM BROMIDE 50 MG/5 ML VIAL As Ordered ONE (16:03)
[2022-10-28] MEDS ORDERED: ONDANSETRON 4MG 2ML VIAL As Ordered ONE (16:03)
[2022-10-28] MEDS ORDERED: LIDOCAINE 2% 100MG/5ML SDV (FOR ANES.) As Ordered ONE (16:03)
[2022-10-28] MEDS ORDERED: HEPARIN SOD (PORCINE) 5000UNITS/ML 1ML VIAL/SYRINGE As Ordered ONE ×3 (16:07→17:58)
[2022-10-28] MEDS ORDERED: THROMBIN 5,000 UNITS VIAL As Ordered ONE (16:07)
[2022-10-28] MEDS ORDERED: PHENYLEPHRINE 10MG/ML 1ML VIAL As Ordered ONE (16:11)
[2022-10-28] MEDS ORDERED: LIDOCAINE 1% SDV 30ML VIAL As Ordered ONE (16:48)
[2022-10-28] MEDS ORDERED: CALCIUM CHLORIDE 10% 1 GM/10 ML SYR As Ordered ONE (17:19)
[2022-10-28] MEDS ORDERED: BUPIVACAINE HCL 0.5% 30ML VIAL As Ordered ONE (18:16)
[2022-10-28] MEDS ORDERED: ePHEDrine SULFATE 25 MG/5 ML(5MG/ML) SYRINGE As Ordered ONE (18:28)
[2022-10-28] MEDS ORDERED: oxyCODONE 5MG TAB PO PRN ×2 (19:20→21:40)
[2022-10-28] MEDS ORDERED: fentaNYL 100 MCG/2 ML INJECTION IV PRN (19:20)
[2022-10-28] MEDS ORDERED: LR 1,000 ML IV SCH (19:20)
[2022-10-28] MEDS ORDERED: ONDANSETRON 4MG 2ML VIAL IV PRN (19:20)
[2022-10-28 19:59] LABS: HEMATOCRIT 34.6 % (42.0-52.0); MEAN CORPUSCULAR HEMOGLOBIN 28.7 pg (27.0-33.0); MEAN CORPUSCULAR HGB CONC 32.7 g/dl (32.0-36.5); MEAN CORPUSCULAR VOLUME 87.8 fl (80.0-96.0); PLATELET COUNT, AUTOMATED 138 10^3/uL (150-450); RED BLOOD COUNT 3.94 10^6/uL (4.30-6.10); WHITE BLOOD COUNT 8.8 10^3/uL (4.0-10.0)
[2022-10-28 20:21] LABS: HEMOGLOBIN 11.3 g/dl (13.5-17.5)
[2022-10-28 20:25] LABS: INR 1.36
[2022-10-28 21:04] LABS: PARTIAL THROMBOPLASTIN TIME 122.2 SECONDS (24.8-34.2)
[2022-10-28 21:38] LABS: ALKALINE PHOSPHATASE 110 U/L (46-116); ALT/SGPT < 9 U/L (7.0-40); AST/SGOT 16 U/L (<34); BLOOD UREA NITROGEN 14 MG/DL (9-23); CALCIUM LEVEL 6.9 MG/DL (8.3-10.6); CARBON DIOXIDE LEVEL 17 MMOL/L (20-31); CHLORIDE LEVEL 114 MMOL/L (98-107); CREATININE FOR GFR 0.74 MG/DL (0.70-1.30); GLOMERULAR FILTRATION RATE > 60.0 (>35); GLUCOSE, FASTING 152 MG/DL (74-106); POTASSIUM SERUM 4.4 MMOL/L (3.5-5.1); SODIUM LEVEL 140 MMOL/L (136-145); TOTAL PROTEIN 5.1 G/DL (5.7-8.2)
[2022-10-28 21:55] LABS: MAGNESIUM LEVEL 1.3 MG/DL (1.8-2.4)
[2022-10-28 21:58] VITALS: BP 141/58
[2022-10-28] MEDS ORDERED: HYDROMORPHONE HCL 0.5 MG/ 0.5 ML SYRINGE (J1170 PER 1) IV PRN (22:05)
[2022-10-28] MEDS: ceFAZolin SOD 1 GM in D5W MINI-BAG PLUS 50 ML IV SCH (22:08)
[2022-10-28] MEDS: MAG SULF 1GM/100ML (MAG RUN) 1 GM in IV 1 EA IV SCH (23:14)
[2022-10-29] VITALS (8 sets, daily range): BP systolic 137–152; BP diastolic 50–70
[2022-10-29] MEDS ORDERED: ELIQ2.5T PO (00:14)
[2022-10-29] MEDS ORDERED: CALC-190 PO (00:14)
[2022-10-29] MEDS ORDERED: FURO20TA2 PO (00:14)
[2022-10-29] MEDS ORDERED: DOCU250C7 PO (00:14)
[2022-10-29] MEDS ORDERED: CARA1TAB6 PO (00:14)
[2022-10-29] MEDS ORDERED: PROT1TAB2 PO (00:14)
[2022-10-29] MEDS ORDERED: HOME MED LIST COMPLETE! XX SCH (00:15)
[2022-10-29] MEDS: MAG SULF 1GM/100ML (MAG RUN) 1 GM in IV 1 EA IV SCH (00:32)
[2022-10-29 00:40] LABS: HEMATOCRIT 34.1 % (42.0-52.0); HEMOGLOBIN 11.6 g/dl (13.5-17.5)
[2022-10-29] MEDS: LATANOPROST 0.005% OPHTH SOLN 2.5 ML OU SCH ×2 (01:11→21:00)
[2022-10-29] MEDS ORDERED: HYDROMORPHONE HCL 0.5 MG/ 0.5 ML SYRINGE (J1170 PER 1) IV PRN (03:05)
[2022-10-29] MEDS: LEVOTHYROXINE 25MCG TABLET (0.025MG) PO SCH (05:33)
[2022-10-29] MEDS: ceFAZolin SOD 1 GM in D5W MINI-BAG PLUS 50 ML IV SCH ×2 (05:34→13:57)
[2022-10-29 06:00] LABS: HEMATOCRIT 31.4 % (42.0-52.0); HEMOGLOBIN 10.6 g/dl (13.5-17.5)
[2022-10-29 06:34] LABS: BLOOD UREA NITROGEN 17 MG/DL (9-23); CALCIUM LEVEL 6.9 MG/DL (8.3-10.6); CARBON DIOXIDE LEVEL 16 MMOL/L (20-31); CHLORIDE LEVEL 112 MMOL/L (98-107); CREATININE FOR GFR 0.85 MG/DL (0.70-1.30); GLOMERULAR FILTRATION RATE > 60.0 (>35); GLUCOSE, FASTING 186 MG/DL (74-106); POTASSIUM SERUM 4.5 MMOL/L (3.5-5.1); SODIUM LEVEL 139 MMOL/L (136-145)
[2022-10-29 08:13] LABS: MAGNESIUM LEVEL 1.8 MG/DL (1.8-2.4)
[2022-10-29] MEDS ORDERED: CHLORHEXIDINE GLUCONATE 0.12 % 15ML UDC (PERIDEX ORAL RINSE) MT SCH (09:00)
[2022-10-29] MEDS: GABAPENTIN 300 MG CAP PO SCH ×2 (09:11→22:09)
[2022-10-29] MEDS: PANTOPRAZOLE 40MG TAB (PROTONIX) PO SCH ×2 (09:12→22:09)
[2022-10-29] MEDS: TAMSULOSIN 0.4 MG CAP PO SCH (09:12)
[2022-10-29] MEDS: METOPROLOL TART 12.5 MG PER 1/2 TAB PO SCH ×2 (09:12→22:09)
[2022-10-29] MEDS: SUCRALFATE 1 GM TAB PO SCH ×2 (09:12→22:09)
[2022-10-29] MEDS: allopurinoL 100 MG TAB PO SCH ×2 (09:38→22:09)
[2022-10-29] MEDS: NS 1,000 ML IV SCH ×2 (11:13→22:10)
[2022-10-29] MEDS ORDERED: BISACODYL 5 MG TAB PO PRN (14:25)
[2022-10-29] MEDS ORDERED: MOM 30ML SUSPENSION UDC PO PRN (14:25)
[2022-10-29] MEDS ORDERED: ACETAMINOPHEN TAB 650MG DOSE (2X325MG) PO PRN (14:25)
[2022-10-29] MEDS ORDERED: SENOKOT S TAB PO PRN (14:25)
[2022-10-29] MEDS: NORTRIPTYLINE 25 MG CAP PO SCH (22:09)
[2022-10-29] MEDS: HEPARIN SOD (PORCINE) 5000UNITS/ML 1ML VIAL/SYRINGE SQ SCH (22:10)
[2022-10-30] MEDS: LEVOTHYROXINE 25MCG TABLET (0.025MG) PO SCH (05:44)
[2022-10-30] MEDS: NS 1,000 ML IV SCH (05:44)
[2022-10-30 06:00] VITALS: BP 144/66
[2022-10-30 08:14] LABS: BASO # 0.1 10^3/uL (0.0-0.2); BASO % 0.5 % (0.0-1.0); EOS # 0.2 10^3/uL (0.0-0.5); HEMATOCRIT 26.5 % (42.0-52.0); HEMOGLOBIN 8.6 g/dl (13.5-17.5); LYMPH # 1.1 10^3/uL (1.5-5.0); LYMPH % 10.5 % (24.0-44.0); MEAN CORPUSCULAR HEMOGLOBIN 28.6 pg (27.0-33.0); MEAN CORPUSCULAR HGB CONC 32.5 g/dl (32.0-36.5); MONO # 1.4 10^3/uL (0.0-0.8); MONO % 12.9 % (2.0-8.0); NEUTROPHILS # 7.9 10^3/uL (1.5-8.5); NEUTROPHILS % 73.6 % (36.0-66.0); PLATELET COUNT, AUTOMATED 158 10^3/uL (150-450); RED BLOOD COUNT 3.01 10^6/uL (4.30-6.10); WHITE BLOOD COUNT 10.7 10^3/uL (4.0-10.0)
[2022-10-30 08:19] LABS: BLOOD UREA NITROGEN 19 MG/DL (9-23); CALCIUM LEVEL 6.7 MG/DL (8.3-10.6); CARBON DIOXIDE LEVEL 19 MMOL/L (20-31); CHLORIDE LEVEL 111 MMOL/L (98-107); GLOMERULAR FILTRATION RATE > 60.0 (>35); GLUCOSE, FASTING 78 MG/DL (74-106); POTASSIUM SERUM 4.2 MMOL/L (3.5-5.1); SODIUM LEVEL 141 MMOL/L (136-145)
[2022-10-30] MEDS: TAMSULOSIN 0.4 MG CAP PO SCH (08:36)
[2022-10-30] MEDS: PANTOPRAZOLE 40MG TAB (PROTONIX) PO SCH ×2 (08:36→20:46)
[2022-10-30] MEDS: allopurinoL 100 MG TAB PO SCH ×2 (08:36→20:46)
[2022-10-30] MEDS: GABAPENTIN 300 MG CAP PO SCH ×2 (08:36→20:46)
[2022-10-30] MEDS: SUCRALFATE 1 GM TAB PO SCH ×2 (08:36→20:46)
[2022-10-30] MEDS: HEPARIN SOD (PORCINE) 5000UNITS/ML 1ML VIAL/SYRINGE SQ SCH ×2 (08:37→20:47)
[2022-10-30] MEDS: METOPROLOL TART 12.5 MG PER 1/2 TAB PO SCH ×2 (08:37→20:47)
[2022-10-30] MEDS ORDERED: CALCIUM GLUCONATE 1,000 MG in D5W MINI-BAG PLUS 100 ML IV ONE (12:00)
[2022-10-30] MEDS: OYSTER SHELL CALCIUM 500 MG TAB PO SCH ×2 (12:35→17:37)
[2022-10-30 14:00] VITALS: BP 137/67
[2022-10-30] MEDS: NORTRIPTYLINE 25 MG CAP PO SCH (20:46)
[2022-10-30] MEDS: LATANOPROST 0.005% OPHTH SOLN 2.5 ML OU SCH (20:47)
[2022-10-30 22:00] VITALS: BP 145/71
[2022-10-31 05:39] LABS: BASO # 0.1 10^3/uL (0.0-0.2); BASO % 0.5 % (0.0-1.0); EOS # 0.2 10^3/uL (0.0-0.5); EOS % 1.6 % (0.0-3.0); HEMATOCRIT 25.3 % (42.0-52.0); HEMOGLOBIN 8.3 g/dl (13.5-17.5); LYMPH % 10.4 % (24.0-44.0); MEAN CORPUSCULAR HEMOGLOBIN 29.3 pg (27.0-33.0); MEAN CORPUSCULAR HGB CONC 32.8 g/dl (32.0-36.5); MEAN CORPUSCULAR VOLUME 89.4 fl (80.0-96.0); MONO # 0.9 10^3/uL (0.0-0.8); MONO % 9.2 % (2.0-8.0); NEUTROPHILS # 7.7 10^3/uL (1.5-8.5); NEUTROPHILS % 77.8 % (36.0-66.0); PLATELET COUNT, AUTOMATED 147 10^3/uL (150-450); RED BLOOD COUNT 2.83 10^6/uL (4.30-6.10)
[2022-10-31 06:00] VITALS: BP 144/62
[2022-10-31 06:04] LABS: BLOOD UREA NITROGEN 17 MG/DL (9-23); CALCIUM LEVEL 6.9 MG/DL (8.3-10.6); CARBON DIOXIDE LEVEL 18 MMOL/L (20-31); CHLORIDE LEVEL 111 MMOL/L (98-107); CREATININE FOR GFR 0.97 MG/DL (0.70-1.30); GLOMERULAR FILTRATION RATE > 60.0 (>35); GLUCOSE, FASTING 86 MG/DL (74-106); POTASSIUM SERUM 4.5 MMOL/L (3.5-5.1); SODIUM LEVEL 138 MMOL/L (136-145)
[2022-10-31] MEDS: LEVOTHYROXINE 25MCG TABLET (0.025MG) PO SCH (06:09)
[2022-10-31] MEDS ORDERED: SODIUM BICARBONATE 325 MG TAB PO STA (07:04)
[2022-10-31] MEDS ORDERED: NS 1,000 ML IV SCH (07:05)
[2022-10-31] MEDS ORDERED: FUROSEMIDE 40MG/4ML VIAL (J1940) IV ONE (07:30)
[2022-10-31] MEDS: SUCRALFATE 1 GM TAB PO SCH ×2 (09:00→20:56)
[2022-10-31] MEDS: OYSTER SHELL CALCIUM 500 MG TAB PO SCH ×3 (09:00→17:50)
[2022-10-31] MEDS: GABAPENTIN 300 MG CAP PO SCH ×2 (09:00→20:56)
[2022-10-31] MEDS: TAMSULOSIN 0.4 MG CAP PO SCH (09:00)
[2022-10-31] MEDS: allopurinoL 100 MG TAB PO SCH ×2 (09:00→20:55)
[2022-10-31] MEDS: PANTOPRAZOLE 40MG TAB (PROTONIX) PO SCH ×2 (09:00→20:55)
[2022-10-31] MEDS: METOPROLOL TART 12.5 MG PER 1/2 TAB PO SCH ×2 (09:00→20:56)
[2022-10-31] MEDS: HEPARIN SOD (PORCINE) 5000UNITS/ML 1ML VIAL/SYRINGE SQ SCH ×2 (09:00→20:56)
[2022-10-31 14:00] VITALS: BP 121/59
[2022-10-31] MEDS: NORTRIPTYLINE 25 MG CAP PO SCH (20:56)
[2022-10-31] MEDS: LATANOPROST 0.005% OPHTH SOLN 2.5 ML OU SCH (21:52)
[2022-10-31 22:00] VITALS: BP 128/63
[2022-11-01] MEDS: LEVOTHYROXINE 25MCG TABLET (0.025MG) PO SCH (05:28)
[2022-11-01 06:00] VITALS: BP 127/68
[2022-11-01 07:16] LABS: BASO # 0.1 10^3/uL (0.0-0.2); BASO % 0.6 % (0.0-1.0); EOS # 0.4 10^3/uL (0.0-0.5); EOS % 4.8 % (0.0-3.0); HEMATOCRIT 25.7 % (42.0-52.0); HEMOGLOBIN 8.3 g/dl (13.5-17.5); LYMPH # 0.9 10^3/uL (1.5-5.0); LYMPH % 10.5 % (24.0-44.0); MEAN CORPUSCULAR HEMOGLOBIN 29.1 pg (27.0-33.0); MEAN CORPUSCULAR HGB CONC 32.3 g/dl (32.0-36.5); MEAN CORPUSCULAR VOLUME 90.2 fl (80.0-96.0); MONO # 0.8 10^3/uL (0.0-0.8); MONO % 8.6 % (2.0-8.0); NEUTROPHILS # 6.7 10^3/uL (1.5-8.5); NEUTROPHILS % 75.1 % (36.0-66.0); PLATELET COUNT, AUTOMATED 165 10^3/uL (150-450); RED BLOOD COUNT 2.85 10^6/uL (4.30-6.10); WHITE BLOOD COUNT 8.9 10^3/uL (4.0-10.0)
[2022-11-01 07:47] LABS: BLOOD UREA NITROGEN 17 MG/DL (9-23); CALCIUM LEVEL 7.2 MG/DL (8.3-10.6); CARBON DIOXIDE LEVEL 22 MMOL/L (20-31); CHLORIDE LEVEL 107 MMOL/L (98-107); CREATININE FOR GFR 1.02 MG/DL (0.70-1.30); GLOMERULAR FILTRATION RATE > 60.0 (>35); GLUCOSE, FASTING 97 MG/DL (74-106); POTASSIUM SERUM 4.3 MMOL/L (3.5-5.1); SODIUM LEVEL 136 MMOL/L (136-145)
[2022-11-01] MEDS: OYSTER SHELL CALCIUM 500 MG TAB PO SCH ×2 (08:14→12:30)
[2022-11-01] MEDS: HEPARIN SOD (PORCINE) 5000UNITS/ML 1ML VIAL/SYRINGE SQ SCH (08:14)
[2022-11-01] MEDS: SUCRALFATE 1 GM TAB PO SCH (08:14)
[2022-11-01] MEDS: PANTOPRAZOLE 40MG TAB (PROTONIX) PO SCH (08:14)
[2022-11-01] MEDS: TAMSULOSIN 0.4 MG CAP PO SCH (08:14)
[2022-11-01] MEDS: allopurinoL 100 MG TAB PO SCH (08:14)
[2022-11-01] MEDS: GABAPENTIN 300 MG CAP PO SCH (08:14)
[2022-11-01 08:15] VITALS: BP 133/65
[2022-11-01] MEDS: METOPROLOL TART 12.5 MG PER 1/2 TAB PO SCH (08:15)
[2022-11-01] MEDS ORDERED: PHENAZOPYRIDINE 100 MG TAB PO SCH (09:00)
[2022-11-01] MEDS ORDERED: FUROSEMIDE 20 MG TAB PO SCH (09:00)
[2022-11-01] MEDS ORDERED: SENOKOT S TAB PO PRN (10:30)
[2022-11-01] MEDS ORDERED: MOM 30ML SUSPENSION UDC PO PRN (10:30)
[2022-11-01] MEDS ORDERED: MIRALAX *UNIT DOSE* 17GM PACKET PO PRN (10:30)
[2022-11-01] MEDS ORDERED: MIRA3350 PO (11:08)
[2022-11-01] MEDS ORDERED: MILK400S19 PO (11:08)
[2022-11-01] MEDS ORDERED: SENN-52 PO (11:08)
[2022-11-01] MEDS ORDERED: OXYC-517 PO (11:08)
[2022-11-01] MEDS ORDERED: ASPI81TA26 PO (13:13)
[2022-11-02] MEDS ORDERED: TAMSULOSIN 0.4 MG CAP PO SCH (21:00)
== END 2022-11-01 14:00 | disposition home health service (06) | DRG 907 ==
LOC: M IRPRO 06:34 → M ICU 21:10 → M IRPRO 22:02 → M ED INP 22:03 → M ICU 22:04 → M MS5PR 10-29 18:02
PROVIDERS: ADMIT Internal Medicine Pulmonary Disease; ATTEND General Practice
PROC: 047K3DZ Dilation of Right Femoral Artery with Intraluminal Device, Percutaneous Approach (ICD-10-PCS; 2022-10-28)
PROC: 047M3ZZ Dilation of Right Popliteal Artery, Percutaneous Approach (ICD-10-PCS; 2022-10-28)
PROC: 047T3ZZ Dilation of Right Peroneal Artery, Percutaneous Approach (ICD-10-PCS; 2022-10-28)
PROC: 047P3DZ Dilation of Right Anterior Tibial Artery with Intraluminal Device, Percutaneous Approach (ICD-10-PCS; 2022-10-28)
PROC: 30233N1 Transfusion of Nonautologous Red Blood Cells into Peripheral Vein, Percutaneous Approach (ICD-10-PCS; 2022-10-28)
PROC: 04HY33Z Insertion of Infusion Device into Lower Artery, Percutaneous Approach (ICD-10-PCS; 2022-10-28)
PROC: 04QH0ZZ Repair Right External Iliac Artery, Open Approach (ICD-10-PCS; principal; 2022-10-28 08:30)
DX: I97.418 Intraoperative hemorrhage and hematoma of a circulatory system organ or structure complicating other circulatory system procedure (principal); K66.1 Hemoperitoneum; D62 Acute posthemorrhagic anemia; I48.20 Chronic atrial fibrillation, unspecified; C79.51 Secondary malignant neoplasm of bone; E87.21 Acute metabolic acidosis; C61 Malignant neoplasm of prostate; I73.9 Peripheral vascular disease, unspecified; K20.80 Other esophagitis without bleeding; I25.10 Atherosclerotic heart disease of native coronary artery without angina pectoris; L97.509 Non-pressure chronic ulcer of other part of unspecified foot with unspecified severity; K59.00 Constipation, unspecified; N40.0 Benign prostatic hyperplasia without lower urinary tract symptoms; Z79.01 Long term (current) use of anticoagulants; I95.81 Postprocedural hypotension; Z79.899 Other long term (current) drug therapy; Z88.0 Allergy status to penicillin; Z88.2 Allergy status to sulfonamides; E03.9 Hypothyroidism, unspecified; M10.9 Gout, unspecified

== ENCOUNTER → 2022-11-04 | Outpatient (REF) | payer MEDICARE ==
[~2022-11-04] MED LIST changes: +ASPI81TA26 PO; +CARA1TAB6 PO; +DOCU250C7 PO; +FURO20TA2 PO; +MILK400S19 PO; +MIRA3350 PO; +OXYC-517 PO; +SENN-52 PO
[2022-11-04 13:34] LABS: BASO % 0.4 % (0.0-1.0); EOS # 0.2 10^3/uL (0.0-0.5); EOS % 2.3 % (0.0-3.0); LYMPH # 0.6 10^3/uL (1.5-5.0); MEAN CORPUSCULAR HEMOGLOBIN 29.2 pg (27.0-33.0); MEAN CORPUSCULAR HGB CONC 32.1 g/dl (32.0-36.5); MEAN CORPUSCULAR VOLUME 90.9 fl (80.0-96.0); MONO # 0.8 10^3/uL (0.0-0.8); MONO % 8.6 % (2.0-8.0); NEUTROPHILS # 7.7 10^3/uL (1.5-8.5); NEUTROPHILS % 82.1 % (36.0-66.0); PLATELET COUNT, AUTOMATED 332 10^3/uL (150-450); RED BLOOD COUNT 3.08 10^6/uL (4.30-6.10); WHITE BLOOD COUNT 9.4 10^3/uL (4.0-10.0)
[2022-11-04 14:09] LABS: ALBUMIN 2.3 G/DL (3.2-5.2); ALKALINE PHOSPHATASE 123 U/L (46-116); ALT/SGPT < 9 U/L (7.0-40); AST/SGOT 22 U/L (<34); BLOOD UREA NITROGEN 16 MG/DL (9-23); CALCIUM LEVEL 7.4 MG/DL (8.3-10.6); CARBON DIOXIDE LEVEL 25 MMOL/L (20-31); CHLORIDE LEVEL 103 MMOL/L (98-107); CREATININE FOR GFR 0.92 MG/DL (0.70-1.30); GLOMERULAR FILTRATION RATE > 60.0 (>35); GLUCOSE, FASTING 124 MG/DL (74-106); POTASSIUM SERUM 3.9 MMOL/L (3.5-5.1); SODIUM LEVEL 137 MMOL/L (136-145); TOTAL PROTEIN 6.4 G/DL (5.7-8.2)
== END ==
LOC: M LAB REF 12:42
PROVIDERS: ATTEND Psychiatry & Neurology Neurology
DX: G61.81 Chronic inflammatory demyelinating polyneuritis (principal)

== ENCOUNTER → 2022-11-04 | Outpatient (REF) | payer MEDICARE ==
[2022-11-04 13:48] LABS: BLOOD UREA NITROGEN 17 MG/DL (9-23); CALCIUM LEVEL 7.7 MG/DL (8.3-10.6); CARBON DIOXIDE LEVEL 21 MMOL/L (20-31); CHLORIDE LEVEL 104 MMOL/L (98-107); CREATININE FOR GFR 0.88 MG/DL (0.70-1.30); GLOMERULAR FILTRATION RATE > 60.0 (>35); GLUCOSE, FASTING 126 MG/DL (74-106); SODIUM LEVEL 137 MMOL/L (136-145)
== END ==
LOC: M LAB REF 12:37
PROVIDERS: ATTEND Physician Assistant
DX: I50.32 Chronic diastolic (congestive) heart failure (principal)

== ENCOUNTER → 2022-11-23 | Outpatient (POV) | payer MEDICARE ==
[~2022-11-23] VITALS: Ht 175.3 cm; Wt 75.0 kg
[2022-11-23 09:20] VITALS: BP 115/58
== END ==
LOC: M IRPOV 08:54
PROVIDERS: ATTEND Radiology Diagnostic Radiology
DX: Z48.812 Encounter for surgical aftercare following surgery on the circulatory system (principal); I70.239 Atherosclerosis of native arteries of right leg with ulceration of unspecified site; Z88.0 Allergy status to penicillin; Z88.1 Allergy status to other antibiotic agents; Z88.2 Allergy status to sulfonamides; Z95.828 Presence of other vascular implants and grafts

== ENCOUNTER → 2023-02-03 | Outpatient (REF) | payer MEDICARE ==
[2023-02-03 13:56] LABS: HEMOGLOBIN 9.8 g/dl (13.5-17.5); MEAN CORPUSCULAR HEMOGLOBIN 31.9 pg (27.0-33.0); MEAN CORPUSCULAR HGB CONC 31.6 g/dl (32.0-36.5); PLATELET COUNT, AUTOMATED 243 10^3/uL (150-450); RED BLOOD COUNT 3.07 10^6/uL (4.30-6.10); WHITE BLOOD COUNT 4.7 10^3/uL (4.0-10.0)
[2023-02-03 14:20] LABS: CALCIUM LEVEL 7.8 MG/DL (8.3-10.6); CREATININE FOR GFR 1.23 MG/DL (0.70-1.30); GLOMERULAR FILTRATION RATE 59.5 (>35); POTASSIUM SERUM 3.9 MMOL/L (3.5-5.1)
== END ==
LOC: M LAB REF 13:24
PROVIDERS: ATTEND Physician Assistant
DX: I50.32 Chronic diastolic (congestive) heart failure (principal)

== ENCOUNTER → 2023-05-06 | Outpatient (REF) | payer MEDICARE ==
[~2023-05-06] MED LIST changes: +DARO300T PO
[2023-05-06 10:03] LABS: BASO # 0.1 10^3/uL (0.0-0.2); BASO % 1.6 % (0.0-1.0); EOS # 0.2 10^3/uL (0.0-0.5); EOS % 5.4 % (0.0-3.0); HEMATOCRIT 33.3 % (42.0-52.0); HEMOGLOBIN 10.6 g/dl (13.5-17.5); LYMPH # 1.2 10^3/uL (1.5-5.0); LYMPH % 26.1 % (24.0-44.0); MEAN CORPUSCULAR HEMOGLOBIN 33.5 pg (27.0-33.0); MEAN CORPUSCULAR HGB CONC 31.8 g/dl (32.0-36.5); MEAN CORPUSCULAR VOLUME 105.4 fl (80.0-96.0); MONO # 0.4 10^3/uL (0.0-0.8); MONO % 9.7 % (2.0-8.0); NEUTROPHILS # 2.5 10^3/uL (1.5-8.5); NEUTROPHILS % 56.7 % (36.0-66.0); PLATELET COUNT, AUTOMATED 167 10^3/uL (150-450); RED BLOOD COUNT 3.16 10^6/uL (4.30-6.10); WHITE BLOOD COUNT 4.4 10^3/uL (4.0-10.0)
[2023-05-06 10:19] LABS: HEMOGLOBIN A1c 5.5 % (4.0-6.0)
[2023-05-06 10:21] LABS: URIC ACID 5.8 MG/DL (3.7-9.2)
[2023-05-06 10:23] LABS: CREATININE, URINE 50.7 MG/DL
[2023-05-06 10:24] LABS: MAU/CREAT RATIO 134.1 MCG/MG (0.0-30.0)
[2023-05-06 10:25] LABS: ALBUMIN 3.3 G/DL (3.2-5.2); BILIRUBIN,TOTAL 0.5 MG/DL (0.3-1.2); CALCIUM LEVEL 9.3 MG/DL (8.3-10.6); CREATININE FOR GFR 1.52 MG/DL (0.70-1.30); GLOMERULAR FILTRATION RATE 46.6 (>35); POTASSIUM SERUM 4.2 MMOL/L (3.5-5.1); TOTAL PROTEIN 7.2 G/DL (5.7-8.2)
[2023-05-06 10:31] LABS: FREE T4 0.91 NG/DL (0.89-1.76); THYROID STIMULATING HORMONE 9.337 uIU/ML (0.55-4.78)
== END ==
LOC: M LAB REF 09:22
PROVIDERS: ATTEND Nurse Practitioner Family
DX: E11.42 Type 2 diabetes mellitus with diabetic polyneuropathy (principal); D50.0 Iron deficiency anemia secondary to blood loss (chronic); E03.9 Hypothyroidism, unspecified; M10.9 Gout, unspecified

== ENCOUNTER → 2023-05-16 | Outpatient (REF) | payer MEDICARE ==
[~2023-05-16] MED LIST changes: +PRED5TA PO; +ZYTI250T PO
== END ==
LOC: M SFHCDERM 17:43
PROVIDERS: ATTEND Physician Assistant
DX: C44.41 Basal cell carcinoma of skin of scalp and neck (principal)

== ENCOUNTER → 2023-07-13 | Outpatient (CLI) | payer MEDICARE | LOC: M PLAIMG 09:40 | PROVIDERS: ATTEND Internal Medicine Nephrology | DX: N18.31 Chronic kidney disease, stage 3a (principal); C61 Malignant neoplasm of prostate ==

== ENCOUNTER → 2023-08-03 | Outpatient (REF) | payer MEDICARE ==
[~2023-08-03] MED LIST changes: +MECL-209; -MECL1TAB31; -PREG100C PO; +PREG100C2 PO
[2023-08-03 11:25] LABS: FREE T4 1.26 NG/DL (0.89-1.76); THYROID STIMULATING HORMONE 2.155 uIU/ML (0.55-4.78)
== END ==
LOC: M LAB REF 09:53
PROVIDERS: ATTEND Nurse Practitioner Family
DX: E03.9 Hypothyroidism, unspecified (principal)

== ENCOUNTER → 2023-09-15 | Day surgery (SDC) | payer MEDICARE ==
[~2023-09-15] VITALS: Ht 175.3 cm; Wt 83.2 kg
[~2023-09-15] MED LIST changes: -CEFD300C41 PO; +CEFD300C42 PO; +LIDOCAINE 2% 100MG/5ML SDV (FOR ANES.) As Ordered ONE; +NS 1,000 ML IV ONE; +PRAD75CA5 PO; +PRED25TA PO; +XTAN40CA PO; +propofoL 200 MG/20 ML VIAL As Ordered ONE
[2023-09-15 08:34] VITALS: TEMP 96.6
[2023-09-15 08:49] VITALS: BP 155/66; O2SAT 98
== END | disposition home or self-care (01) ==
LOC: M OPP 06:59
PROVIDERS: ATTEND Surgery
DX: R93.3 Abnormal findings on diagnostic imaging of other parts of digestive tract (principal); K44.9 Diaphragmatic hernia without obstruction or gangrene; I48.91 Unspecified atrial fibrillation; I25.10 Atherosclerotic heart disease of native coronary artery without angina pectoris; I25.2 Old myocardial infarction; I10 Essential (primary) hypertension; M19.90 Unspecified osteoarthritis, unspecified site; G62.9 Polyneuropathy, unspecified; N40.0 Benign prostatic hyperplasia without lower urinary tract symptoms; M06.9 Rheumatoid arthritis, unspecified; Z95.0 Presence of cardiac pacemaker; Z85.46 Personal history of malignant neoplasm of prostate; Z88.0 Allergy status to penicillin; Z88.1 Allergy status to other antibiotic agents; Z88.2 Allergy status to sulfonamides; Z88.8 Allergy status to other drugs, medicaments and biological substances; Z79.82 Long term (current) use of aspirin; Z79.899 Other long term (current) drug therapy

== ENCOUNTER → 2024-02-06 | Outpatient (REF) | payer MEDICARE ==
[~2024-02-06] MED LIST changes: +CEFD1CAP9 PO; -CEFD300C42 PO; -LIDOCAINE 2% 100MG/5ML SDV (FOR ANES.) As Ordered ONE; -NITR1CAP26 PO; +NITR25CA2 PO; -NS 1,000 ML IV ONE; -propofoL 200 MG/20 ML VIAL As Ordered ONE
== END ==
LOC: M SFHCDERM 17:56
PROVIDERS: ATTEND Physician Assistant
DX: L82.1 Other seborrheic keratosis (principal)

== ENCOUNTER → 2024-04-20 | Outpatient (CLI) | payer MEDICARE ==
[~2024-04-20] MED LIST changes: +DOXY-440 PO; -DOXY-444 PO
== END ==
LOC: M ONCR 10:24
PROVIDERS: ATTEND General Practice
DX: C79.51 Secondary malignant neoplasm of bone (principal); C61 Malignant neoplasm of prostate; Z79.818 Long term (current) use of other agents affecting estrogen receptors and estrogen levels; Z79.52 Long term (current) use of systemic steroids; Z79.82 Long term (current) use of aspirin; Z79.899 Other long term (current) drug therapy; Z71.2 Person consulting for explanation of examination or test findings; Z88.1 Allergy status to other antibiotic agents; Z88.2 Allergy status to sulfonamides; Z88.3 Allergy status to other anti-infective agents; Z88.8 Allergy status to other drugs, medicaments and biological substances

== ENCOUNTER → 2024-05-17 | Outpatient (CLI) | payer MEDICARE ==
[~2024-05-17] MED LIST changes: +DEXA4TA PO
[2024-05-17] MEDS: XOFIGO(RADIUM-223 DICHLORIDE) 180UCI 6ML VL CHARGE IS PER UCI IV STA (13:23)
== END ==
LOC: M ONCR 12:52
PROVIDERS: ATTEND General Practice
DX: C61 Malignant neoplasm of prostate (principal); C79.51 Secondary malignant neoplasm of bone
CPT/HCPCS: 77300; 79101; A9606

== ENCOUNTER → 2024-06-14 | Outpatient (CLI) | payer MEDICARE ==
[~2024-06-14] MED LIST changes: +CIPR750T2 PO; +GABA-1490 PO; -GABA600T4 PO
[2024-06-14] MEDS: XOFIGO(RADIUM-223 DICHLORIDE) 180UCI 6ML VL CHARGE IS PER UCI IV STA (13:20)
== END ==
LOC: M ONCR 12:46
PROVIDERS: ATTEND General Practice
DX: C61 Malignant neoplasm of prostate (principal); C79.51 Secondary malignant neoplasm of bone; R30.0 Dysuria
CPT/HCPCS: 79101; A9606; G0463

== ENCOUNTER → 2024-07-05 | Outpatient (REF) | payer MEDICARE ==
[~2024-07-05] MED LIST changes: -GABA-1490 PO; +GABA600T4 PO
[2024-07-05 11:03] LABS: THYROID STIMULATING HORMONE 2.667 uIU/ML (0.55-4.78)
[2024-07-05 11:04] LABS: FREE T4 1.41 NG/DL (0.89-1.76)
== END ==
LOC: M LAB REF 09:57
PROVIDERS: ATTEND Nurse Practitioner Family
DX: I10 Essential (primary) hypertension (principal)

== ENCOUNTER → 2024-07-12 | Outpatient (CLI) | payer MEDICARE ==
[~2024-07-12] MED LIST changes: +CALC1CAP31; +GABA-1490 PO; -GABA600T4 PO
[2024-07-12] MEDS: XOFIGO(RADIUM-223 DICHLORIDE) 180UCI 6ML VL CHARGE IS PER UCI IV STA (13:29)
== END ==
LOC: M ONCR 13:03
PROVIDERS: ATTEND General Practice
DX: C61 Malignant neoplasm of prostate (principal); C79.51 Secondary malignant neoplasm of bone
CPT/HCPCS: 79101; A9606; G0463

== ENCOUNTER → 2024-08-09 | Outpatient (CLI) | payer MEDICARE ==
[2024-08-09] MEDS: XOFIGO(RADIUM-223 DICHLORIDE) 180UCI 6ML VL CHARGE IS PER UCI IV STA (13:30)
== END ==
LOC: M ONCR 12:52
PROVIDERS: ATTEND General Practice
DX: C61 Malignant neoplasm of prostate (principal); C79.51 Secondary malignant neoplasm of bone
CPT/HCPCS: 79101; A9606; G0463

== ENCOUNTER → 2024-08-22 | Outpatient (REF) | payer MEDICARE ==
[~2024-08-22] MED LIST changes: +GABA-1172 PO; -GABA-282 PO
== END ==
LOC: M SFHCDERM 17:48
PROVIDERS: ATTEND Physician Assistant
DX: C44.519 Basal cell carcinoma of skin of other part of trunk (principal)

== ENCOUNTER → 2024-09-06 | Outpatient (CLI) | payer MEDICARE ==
[2024-09-06] MEDS: XOFIGO(RADIUM-223 DICHLORIDE) 180UCI 6ML VL CHARGE IS PER UCI IV STA (15:19)
== END ==
LOC: M ONCR 14:06
PROVIDERS: ATTEND General Practice
DX: C79.51 Secondary malignant neoplasm of bone (principal); C61 Malignant neoplasm of prostate
CPT/HCPCS: 79101; A9606; G0463

== ENCOUNTER 2024-09-21 10:42 | Inpatient (IN) | payer MEDICARE ==
[~2024-09-21] VITALS: Ht 175.3 cm; Wt 85.7 kg
[~2024-09-21 10:42] MED LIST changes: -CALC1CAP31; +CALC1CAP31 PO
[2024-09-21 11:22] LABS: VENOUS BASE EXCESS 2.1 (-2.0-2.0); VENOUS O2 SATURATION 98.5 % (60.0-80.0); VENOUS PARTIAL PRESSURE CO2 29.1 mmHg (38.0-50.0); VENOUS PARTIAL PRESSURE O2 158.7 mmHg (30.0-50.0); VENOUS PH 7.535 UNITS (7.330-7.430); VENOUS STANDARD HCO3 26.3 MMOL/L; VENOUS TOTAL CO2 24.9 MMOL/L (24.0-28.0)
[2024-09-21 11:26] LABS: BASO % 0.2 % (0.0-1.0); EOS # 0.1 10^3/uL (0.0-0.5); EOS % 2.4 % (0.0-3.0); HEMOGLOBIN 10.3 g/dl (13.5-17.5); LYMPH # 0.1 10^3/uL (1.5-5.0); LYMPH % 1.7 % (24.0-44.0); MEAN CORPUSCULAR HEMOGLOBIN 34.6 pg (27.0-33.0); MEAN CORPUSCULAR HGB CONC 33.2 g/dl (32.0-36.5); MONO # 0.1 10^3/uL (0.0-0.8); MONO % 2.2 % (2.0-8.0); NEUTROPHILS # 5.4 10^3/uL (1.5-8.5); NEUTROPHILS % 92.6 % (36.0-66.0); PLATELET COUNT, AUTOMATED 120 10^3/uL (150-450); RED BLOOD COUNT 2.98 10^6/uL (4.30-6.10); WHITE BLOOD COUNT 5.8 10^3/uL (4.0-10.0)
[2024-09-21 11:39] LABS: INR 1.13; PARTIAL THROMBOPLASTIN TIME 34.1 SECONDS (24.8-34.2); PROTHROMBIN TIME 14.8 SECONDS (12.5-14.5)
[2024-09-21] MEDS: ACETAMINOPHEN 500 MG TAB PO ONE (11:41)
[2024-09-21] MEDS ORDERED: SYNT50TA PO (11:52)
[2024-09-21] MEDS ORDERED: PRAD75CA5 PO (11:52)
[2024-09-21] MEDS ORDERED: LOSA25TA13 PO (11:52)
[2024-09-21] MEDS ORDERED: DEXA4TA PO (11:52)
[2024-09-21] MEDS ORDERED: MULTTAB61 PO (11:52)
[2024-09-21] MEDS ORDERED: METH2.5T48 PO (11:52)
[2024-09-21] MEDS ORDERED: PRED25TA PO (11:52)
[2024-09-21] MEDS ORDERED: HOME MED LIST COMPLETE! XX SCH (11:55)
[2024-09-21 12:03] LABS: C REACTIVE PROTEIN QUANTITATIV 3.9 MG/DL (<1.0)
[2024-09-21 12:05] LABS: ALBUMIN 2.6 G/DL (3.2-5.2); BILIRUBIN,DIRECT 0.2 MG/DL (<0.4); BILIRUBIN,TOTAL 0.6 MG/DL (0.3-1.2); CALCIUM LEVEL 9.3 MG/DL (8.3-10.6); CREATININE FOR GFR 1.42 MG/DL (0.70-1.30); GLOMERULAR FILTRATION RATE 50.2 (>35); MAGNESIUM LEVEL 1.6 MG/DL (1.8-2.4); POTASSIUM SERUM 4.1 MMOL/L (3.5-5.1); TOTAL PROTEIN 6.3 G/DL (5.7-8.2)
[2024-09-21 12:12] LABS: PROCALCITONIN 0.21 ng/ml
[2024-09-21] MEDS: LevoFLOXacin IV 750 MG in IV 1 EA IV ONE (12:12)
[2024-09-21 12:53] LABS: APPEARANCE, URINE CLEAR (CLEAR); BACTERIA, URINE AUTO NEGATIVE (NEGATIVE); BILIRUBIN, URINE AUTO NEGATIVE (NEGATIVE); BLOOD, URINE BLOOD NEGATIVE (NEGATIVE); COLOR, URINE YELLOW (YELLOW); GLUCOSE, URINE (UA) AUTO NEGATIVE (NEGATIVE); KETONE, URINE AUTO NEGATIVE (NEGATIVE); LEUKOCYTE ESTERASE, URINE AUTO TRACE (NEGATIVE); NITRITE, URINE AUTO NEGATIVE (NEGATIVE); PROTEIN, URINE AUTO 1+ mg/dL (NEGATIVE); RBC, URINE AUTO 0 /HPF (0-3); SPECIFIC GRAVITY URINE AUTO 1.013 (1.002-1.035); SQUAMOUS EPITHELIAL CELL UR AU 1 /HPF (0-6); UROBILINOGEN, URINE AUTO 0.2 mg/dL (0.0-2.0); WBC, URINE AUTO 2 /HPF (0-3)
[2024-09-21] MEDS ORDERED: ACETAMINOPHEN 650MG ER TAB (TYLENOL ARTHRITIS) PO PRN (13:05)
[2024-09-21] MEDS ORDERED: NITROGLYCERIN 0.4MG SUBL TABLET SL PRN (13:05)
[2024-09-21] MEDS ORDERED: ZOVI5CRE4 TOP (14:27)
[2024-09-21] MEDS ORDERED: ZOVIRAX TOP SCH (15:00)
[2024-09-21] MEDS: NS 500 ML IV ONE ×2 (15:39→16:16)
[2024-09-21 16:23] VITALS: BP 136/61; TEMP 98.7; O2SAT 96
[2024-09-21] MEDS: MAG SULF 1GM/100ML (MAG RUN) 1 GM in IV 1 EA IV ONE (16:49)
[2024-09-21] MEDS: NS 1,000 ML IV SCH (16:49)
[2024-09-21] MEDS: LACTOBACILLUS ACIDOPHILUS CAP (BACID) PO SCH (16:49)
[2024-09-21] MEDS: predniSONE 20 MG TAB PO ONE (16:50)
[2024-09-21] MEDS: ACETAMINOPHEN 500 MG TAB PO SCH (16:50)
[2024-09-21] MEDS: ACYCLOVIR 200 MG CAPSULE PO ONE (18:16)
[2024-09-21 19:56] VITALS: BP 154/70; TEMP 98.5; O2SAT 99
[2024-09-21] MEDS: LOSARTAN 25 MG TAB PO SCH (21:00)
[2024-09-21] MEDS: UNRESOLVED PATIENT OWN MED ORDER XX SCH (21:00)
[2024-09-21] MEDS: METOPROLOL TART 12.5 MG PER 1/2 TAB PO SCH (21:00)
[2024-09-21] MEDS: DABIGATRAN ETEXILATE 75 MG CAP (PRADAXA) PO SCH (21:47)
[2024-09-21] MEDS: SUCRALFATE 1 GM TAB PO SCH (21:47)
[2024-09-21] MEDS: DOXYCYCLINE HYCLATE 100MG TABLET PO SCH (21:47)
[2024-09-21] MEDS: GABAPENTIN 300 MG CAP PO SCH (21:47)
[2024-09-21] MEDS: NORTRIPTYLINE 25 MG CAP PO SCH (21:48)
[2024-09-21] MEDS: allopurinoL 100 MG TAB PO SCH (21:49)
[2024-09-21] MEDS: PANTOPRAZOLE 40MG TAB (PROTONIX) PO SCH (21:49)
[2024-09-21] MEDS: LATANOPROST 0.005% OPHTH SOLN 2.5 ML OU SCH (21:49)
[2024-09-22 00:26] VITALS: BP 146/64; TEMP 97; O2SAT 96
[2024-09-22 00:31] VITALS: BP 109/65; TEMP 96.9; O2SAT 95
[2024-09-22 03:38] VITALS: BP 142/65; TEMP 98.5; O2SAT 97
[2024-09-22] MEDS: LEVOTHYROXINE 50MCG TABLET (0.05MG) PO SCH (05:37)
[2024-09-22 06:14] LABS: HEMOGLOBIN 9.1 g/dl (13.5-17.5); LYMPH # 0.1 10^3/uL (1.5-5.0); LYMPH % 3.1 % (24.0-44.0); MEAN CORPUSCULAR HEMOGLOBIN 34.1 pg (27.0-33.0); MEAN CORPUSCULAR HGB CONC 32.5 g/dl (32.0-36.5); MEAN CORPUSCULAR VOLUME 104.9 fl (80.0-96.0); MONO # 0.1 10^3/uL (0.0-0.8); MONO % 1.4 % (2.0-8.0); NEUTROPHILS # 3.9 10^3/uL (1.5-8.5); NEUTROPHILS % 94.3 % (36.0-66.0); PLATELET COUNT, AUTOMATED 102 10^3/uL (150-450); RED BLOOD COUNT 2.67 10^6/uL (4.30-6.10); WHITE BLOOD COUNT 4.2 10^3/uL (4.0-10.0)
[2024-09-22 06:40] LABS: CALCIUM LEVEL 8.8 MG/DL (8.3-10.6); CREATININE FOR GFR 1.33 MG/DL (0.70-1.30); GLOMERULAR FILTRATION RATE 54.1 (>35); POTASSIUM SERUM 3.8 MMOL/L (3.5-5.1)
[2024-09-22 07:46] VITALS: BP 170/70; TEMP 98.2; O2SAT 98
[2024-09-22] MEDS: cefTRIAXone SOD 2 GM in DEXTROSE 5% (D5W) ADV/MINI-BAG 50 ML IV SCH (08:41)
[2024-09-22 08:42] VITALS: BP 168/64
[2024-09-22] MEDS: ACYCLOVIR 200 MG CAPSULE PO SCH (08:42)
[2024-09-22] MEDS: ASPIRIN 81MG ENTERIC TABLET PO SCH (08:42)
[2024-09-22] MEDS: predniSONE 20 MG TAB PO SCH (08:42)
[2024-09-22] MEDS: ISOSORBIDE DIN. (ISORDIL) 30 MG TAB PO ONE (08:42)
[2024-09-22] MEDS: CALCITRIOL 0.25 MCG CAP (S0169) PO SCH (08:42)
[2024-09-22] MEDS: TAMSULOSIN 0.4 MG CAP PO SCH (08:43)
[2024-09-22] MEDS: FOLIC ACID 1MG TAB PO SCH (08:43)
[2024-09-22] MEDS ORDERED: predniSONE 5 MG TAB PO SCH (09:00)
[2024-09-22] MEDS ORDERED: CEFD300CAP PO (09:17)
[2024-09-22] MEDS ORDERED: BACI1CAP PO (09:17)
[2024-09-22] MEDS ORDERED: DOXY100T PO (09:17)
[2024-09-22] MEDS ORDERED: ISOS20TA4 PO (09:20)
[2024-09-22] MEDS ORDERED: SELF1KIT MC (09:20)
[2024-09-22 10:40] VITALS: BP 138/64
== END 2024-09-22 11:36 | disposition home or self-care (01) | DRG 871 ==
LOC: EDBD 10:42 → M ED 10:42 → M ED INP 12:56 → M PCU 16:05
PROVIDERS: ADMIT General Practice; ATTEND General Practice
DX: A41.9 Sepsis, unspecified organism (principal); J18.9 Pneumonia, unspecified organism; C79.51 Secondary malignant neoplasm of bone; E87.20 Acidosis, unspecified; E87.1 Hypo-osmolality and hyponatremia; I48.0 Paroxysmal atrial fibrillation; Z95.0 Presence of cardiac pacemaker; N18.30 Chronic kidney disease, stage 3 unspecified; E03.9 Hypothyroidism, unspecified; I25.10 Atherosclerotic heart disease of native coronary artery without angina pectoris; I25.2 Old myocardial infarction; G62.9 Polyneuropathy, unspecified; E78.5 Hyperlipidemia, unspecified; H40.9 Unspecified glaucoma; C61 Malignant neoplasm of prostate; Z92.3 Personal history of irradiation; M79.2 Neuralgia and neuritis, unspecified; Z88.0 Allergy status to penicillin; Z88.2 Allergy status to sulfonamides; Z88.8 Allergy status to other drugs, medicaments and biological substances; Z79.899 Other long term (current) drug therapy; Z79.82 Long term (current) use of aspirin; K57.90 Diverticulosis of intestine, part unspecified, without perforation or abscess without bleeding; B02.9 Zoster without complications; D63.1 Anemia in chronic kidney disease

== ENCOUNTER → 2024-09-24 | Outpatient (CLI) | payer MEDICARE ==
[~2024-09-24] MED LIST changes: +BACI1CAP PO; +CEFD300CAP PO; +DOXY100T PO; +ISOS20TA4 PO; +LOSA25TA13 PO; +MULTTAB61 PO; +SELF1KIT MC; +SYNT50TA PO; +ZOVI5CRE4 TOP
== END ==
LOC: M RAD 12:47
PROVIDERS: ATTEND Surgery
DX: I70.291 Other atherosclerosis of native arteries of extremities, right leg (principal)

== ENCOUNTER → 2024-10-04 | Outpatient (CLI) | payer MEDICARE ==
[~2024-10-04] MED LIST changes: +DULO1CAP6 PO; +DULO60CA35 PO; +MAGICMW SSP; +NYST-38 SSP; +XOFIGO(RADIUM-223 DICHLORIDE) 180UCI 6ML VL CHARGE IS PER UCI IV ONE
== END ==
LOC: M ONCR 14:14
PROVIDERS: ATTEND General Practice
DX: C61 Malignant neoplasm of prostate (principal); C79.51 Secondary malignant neoplasm of bone
CPT/HCPCS: 79101; A9606; G0463

== ENCOUNTER 2024-10-16 14:24 | Inpatient (IN) | payer MEDICARE ==
[~2024-10-16] VITALS: Ht 175.3 cm; Wt 74.3 kg
[~2024-10-16 14:24] MED LIST changes: -DULO60CA35 PO; -XOFIGO(RADIUM-223 DICHLORIDE) 180UCI 6ML VL CHARGE IS PER UCI IV ONE
[2024-10-16] MEDS ORDERED: ONDANSETRON 4MG 2ML VIAL As Ordered ONE (15:05)
[2024-10-16] MEDS: ONDANSETRON 4MG 2ML VIAL IV ONE (15:10)
[2024-10-16] MEDS: NS 1,000 ML IV ONE ×2 (15:22→17:52)
[2024-10-16 15:30] LABS: VENOUS BASE EXCESS -1.7 (-2.0-2.0); VENOUS HCO3 23.9 MMOL/L (23.0-27.0); VENOUS O2 SATURATION 75.6 % (60.0-80.0); VENOUS PARTIAL PRESSURE CO2 44.2 mmHg (38.0-50.0); VENOUS PARTIAL PRESSURE O2 44.1 mmHg (30.0-50.0); VENOUS PH 7.351 UNITS (7.330-7.430); VENOUS STANDARD HCO3 22.6 MMOL/L; VENOUS TOTAL CO2 25.3 MMOL/L (24.0-28.0)
[2024-10-16 15:32] LABS: BASO % 0.7 % (0.0-1.0); EOS # 0.1 10^3/uL (0.0-0.5); EOS % 2.5 % (0.0-3.0); HEMATOCRIT 29.5 % (42.0-52.0); HEMOGLOBIN 9.8 g/dl (13.5-17.5); LYMPH # 0.3 10^3/uL (1.5-5.0); LYMPH % 11.2 % (24.0-44.0); MEAN CORPUSCULAR HEMOGLOBIN 34.6 pg (27.0-33.0); MEAN CORPUSCULAR HGB CONC 33.2 g/dl (32.0-36.5); MEAN CORPUSCULAR VOLUME 104.2 fl (80.0-96.0); MONO # 0.2 10^3/uL (0.0-0.8); MONO % 5.4 % (2.0-8.0); NEUTROPHILS # 2.2 10^3/uL (1.5-8.5); NEUTROPHILS % 79.8 % (36.0-66.0); RED BLOOD COUNT 2.83 10^6/uL (4.30-6.10); WHITE BLOOD COUNT 2.8 10^3/uL (4.0-10.0)
[2024-10-16 15:43] LABS: INR 1.18; PARTIAL THROMBOPLASTIN TIME 42.5 SECONDS (24.8-34.2); PROTHROMBIN TIME 15.3 SECONDS (12.5-14.5)
[2024-10-16 15:52] LABS: PLATELET COUNT, AUTOMATED 75 10^3/uL (150-450)
[2024-10-16] MEDS ORDERED: ISOVUE-370 76% 100ML VIAL As Ordered ONE (15:53)
[2024-10-16 16:00] LABS: LIPASE 84 U/L (12-53)
[2024-10-16 16:01] LABS: AMYLASE 85 U/L (30-118); CPK CREATINE PHOSPHOKINASE 30 U/L (46-171)
[2024-10-16 16:14] LABS: PROCALCITONIN 0.18 ng/ml
[2024-10-16 16:40] LABS: ALBUMIN 2.3 G/DL (3.2-5.2); ALKALINE PHOSPHATASE 60 U/L (40-129); ALT/SGPT 35 U/L (7.0-40); AST/SGOT 39 U/L (<34); BILIRUBIN,DIRECT 0.2 MG/DL (<0.4); BILIRUBIN,TOTAL 0.6 MG/DL (0.3-1.2); BLOOD UREA NITROGEN 21 MG/DL (9-23); CALCIUM LEVEL 8.2 MG/DL (8.3-10.6); CARBON DIOXIDE LEVEL 26 MMOL/L (20-31); CHLORIDE LEVEL 96 MMOL/L (98-107); CK-MB VALUE MASS < 1.0 NG/ML (<3.6); FREE T4 1.64 NG/DL (0.89-1.76); GLUCOSE, FASTING 170 MG/DL (74-106); MB/CK RELATIVE INDEX 3.33 (< OR =4); POTASSIUM SERUM 3.6 MMOL/L (3.5-5.1); SODIUM LEVEL 133 MMOL/L (136-145); THYROID STIMULATING HORMONE 1.981 uIU/ML (0.55-4.78); TOTAL PROTEIN 6.7 G/DL (5.7-8.2)
[2024-10-16 17:12] LABS: CK-MB VALUE MASS < 1.0 NG/ML (<3.6); CPK CREATINE PHOSPHOKINASE 24 U/L (46-171); MB/CK RELATIVE INDEX 4.16 (< OR =4)
[2024-10-16] MEDS ORDERED: DULO60CA35 PO (18:25)
[2024-10-16] MEDS ORDERED: HOME MED LIST COMPLETE! XX SCH (18:35)
[2024-10-16 19:05] LABS: C REACTIVE PROTEIN QUANTITATIV 3.8 MG/DL (<1.0)
[2024-10-16 19:18] LABS: PROCALCITONIN 0.16 ng/ml
[2024-10-16] MEDS ORDERED: dexAMETHasone 4 MG TAB PO PRN (19:25)
[2024-10-16] MEDS ORDERED: FLUCONAZOLE 50MG TABLET PO ONE (20:00)
[2024-10-16] MEDS ORDERED: GLYCERIN ADULT SUPP PR ONE (20:00)
[2024-10-16 20:37] VITALS: BP 129/61; TEMP 97.7; O2SAT 94
[2024-10-16] MEDS: NYSTATIN 500,000U/5ML SUSP UDC SSP SCH (22:10)
[2024-10-16] MEDS: NS 1,000 ML IV SCH (22:10)
[2024-10-16] MEDS: LATANOPROST 0.005% OPHTH SOLN 2.5 ML OU SCH (22:10)
[2024-10-16] MEDS: LACTULOSE 20GM/30ML SYRUP UDC PO SCH (22:10)
[2024-10-16] MEDS: BISACODYL 10MG SUPP PR SCH (22:11)
[2024-10-16] MEDS: SUCRALFATE 1 GM TAB PO SCH (22:11)
[2024-10-16] MEDS: SENOKOT S TAB PO ONE (22:11)
[2024-10-16] MEDS: ATORVASTATIN 20 MG TAB PO SCH (22:11)
[2024-10-16] MEDS: FLUCONAZOLE 50MG TABLET PO ONE (22:12)
[2024-10-16] MEDS: DABIGATRAN ETEXILATE 75 MG CAP (PRADAXA) PO SCH (22:12)
[2024-10-16] MEDS: PANTOPRAZOLE 40MG TAB (PROTONIX) PO SCH (22:12)
[2024-10-16] MEDS: METOPROLOL TART 12.5 MG PER 1/2 TAB PO SCH (22:12)
[2024-10-16] MEDS: GLYCERIN ADULT SUPP PR ONE (22:13)
[2024-10-16] MEDS: ISOSORBIDE DIN. (ISORDIL) 20 MG TAB PO SCH (22:13)
[2024-10-16 23:07] VITALS: BP 113/53; TEMP 97.8; O2SAT 97
[2024-10-17] MEDS ORDERED: SENOKOT S TAB PO PRN
[2024-10-17 03:23] VITALS: BP 117/55; TEMP 97.2; O2SAT 95
[2024-10-17] MEDS: LEVOTHYROXINE 50MCG TABLET (0.05MG) PO SCH (05:55)
[2024-10-17 06:38] LABS: BASO % 0.5 % (0.0-1.0); HEMATOCRIT 22.5 % (42.0-52.0); LYMPH # 0.3 10^3/uL (1.5-5.0); LYMPH % 13.4 % (24.0-44.0); MEAN CORPUSCULAR HEMOGLOBIN 33.8 pg (27.0-33.0); MEAN CORPUSCULAR HGB CONC 32.4 g/dl (32.0-36.5); MEAN CORPUSCULAR VOLUME 104.2 fl (80.0-96.0); MONO # 0.1 10^3/uL (0.0-0.8); NEUTROPHILS # 1.6 10^3/uL (1.5-8.5); NEUTROPHILS % 77.1 % (36.0-66.0); RED BLOOD COUNT 2.16 10^6/uL (4.30-6.10)
[2024-10-17 06:51] LABS: HEMOGLOBIN 7.3 g/dl (13.5-17.5); PLATELET COUNT, AUTOMATED 56 10^3/uL (150-450)
[2024-10-17 07:20] LABS: BLOOD UREA NITROGEN 16 MG/DL (9-23); CARBON DIOXIDE LEVEL 28 MMOL/L (20-31); CHLORIDE LEVEL 105 MMOL/L (98-107); CHOLESTEROL LEVEL 134 MG/DL (<200); CHOLESTEROL RISK RATIO 4.46 (<5); CREATININE FOR GFR 1.21 MG/DL (0.70-1.30); GLOMERULAR FILTRATION RATE > 60.0 (>35); GLUCOSE, FASTING 101 MG/DL (74-106); LDL CHOLESTEROL 78.8 MG/DL (<100); POTASSIUM SERUM 4.1 MMOL/L (3.5-5.1); SODIUM LEVEL 137 MMOL/L (136-145); TRIGLYCERIDES LEVEL 126 MG/DL (<150)
[2024-10-17 07:38] VITALS: BP 137/63; TEMP 96.9; O2SAT 98
[2024-10-17 07:48] LABS: HEMOGLOBIN A1c 6.4 % (4.0-6.0)
[2024-10-17] MEDS: TAMSULOSIN 0.4 MG CAP PO SCH (08:15)
[2024-10-17] MEDS: FOLIC ACID 1MG TAB PO SCH (08:15)
[2024-10-17] MEDS: allopurinoL 100 MG TAB PO SCH (08:15)
[2024-10-17] MEDS: predniSONE 2.5 MG TAB PO SCH (08:15)
[2024-10-17] MEDS: ASPIRIN 81MG ENTERIC TABLET PO SCH (08:16)
[2024-10-17] MEDS: CALCITRIOL 0.25 MCG CAP (S0169) PO SCH (08:16)
[2024-10-17 11:26] VITALS: BP 125/58; TEMP 97.6; O2SAT 97
[2024-10-17] MEDS: PANTOPRAZOLE 40MG VIAL IV SCH (18:17)
[2024-10-17 18:44] LABS: HEMATOCRIT 25.3 % (42.0-52.0); HEMOGLOBIN 8.3 g/dl (13.5-17.5)
[2024-10-17 19:49] VITALS: BP 130/59; TEMP 97.7; O2SAT 99
[2024-10-17] MEDS: SUCRALFATE 1 GM TAB PO SCH (20:24)
[2024-10-17] MEDS: ACETAMINOPHEN 325 MG TAB PO PRN (22:29)
[2024-10-18] VITALS (10 sets, daily range): BP systolic 130–161; BP diastolic 56–69; TEMP 97.6–98.6; O2SAT 94–99
[2024-10-18 00:26] LABS: HEMATOCRIT 22.9 % (42.0-52.0); HEMOGLOBIN 7.5 g/dl (13.5-17.5)
[2024-10-18 06:39] LABS: BASO % 0.5 % (0.0-1.0); EOS # 0.1 10^3/uL (0.0-0.5); EOS % 3.7 % (0.0-3.0); HEMOGLOBIN 7.8 g/dl (13.5-17.5); LYMPH # 0.3 10^3/uL (1.5-5.0); LYMPH % 14.2 % (24.0-44.0); MEAN CORPUSCULAR HEMOGLOBIN 34.1 pg (27.0-33.0); MEAN CORPUSCULAR HGB CONC 32.5 g/dl (32.0-36.5); MEAN CORPUSCULAR VOLUME 104.8 fl (80.0-96.0); MONO # 0.2 10^3/uL (0.0-0.8); MONO % 7.8 % (2.0-8.0); NEUTROPHILS # 1.6 10^3/uL (1.5-8.5); NEUTROPHILS % 72.4 % (36.0-66.0); RED BLOOD COUNT 2.29 10^6/uL (4.30-6.10); WHITE BLOOD COUNT 2.2 10^3/uL (4.0-10.0)
[2024-10-18 06:43] LABS: PLATELET COUNT, AUTOMATED 53 10^3/uL (150-450)
[2024-10-18 07:19] LABS: BLOOD UREA NITROGEN 19 MG/DL (9-23); CALCIUM LEVEL 7.5 MG/DL (8.3-10.6); CARBON DIOXIDE LEVEL 27 MMOL/L (20-31); CHLORIDE LEVEL 105 MMOL/L (98-107); CREATININE FOR GFR 1.16 MG/DL (0.70-1.30); GLOMERULAR FILTRATION RATE > 60.0 (>35); GLUCOSE, FASTING 105 MG/DL (74-106); POTASSIUM SERUM 3.7 MMOL/L (3.5-5.1); SODIUM LEVEL 137 MMOL/L (136-145)
[2024-10-18 09:08] LABS: CK-MB VALUE MASS < 1.0 NG/ML (<3.6)
[2024-10-18 09:10] LABS: CPK CREATINE PHOSPHOKINASE 36 U/L (46-171); MB/CK RELATIVE INDEX 2.77 (< OR =4)
[2024-10-18 15:39] LABS: HEMATOCRIT 25.6 % (42.0-52.0); HEMOGLOBIN 8.6 g/dl (13.5-17.5)
[2024-10-19] VITALS (7 sets, daily range): BP systolic 137–161; BP diastolic 62–74; TEMP 97.3–97.6; O2SAT 95–99
[2024-10-19 06:45] LABS: BASO % 0.4 % (0.0-1.0); EOS # 0.1 10^3/uL (0.0-0.5); EOS % 3.1 % (0.0-3.0); HEMOGLOBIN 9.2 g/dl (13.5-17.5); LYMPH # 0.4 10^3/uL (1.5-5.0); LYMPH % 15.7 % (24.0-44.0); MEAN CORPUSCULAR HEMOGLOBIN 33.9 pg (27.0-33.0); MEAN CORPUSCULAR HGB CONC 34.1 g/dl (32.0-36.5); MEAN CORPUSCULAR VOLUME 99.6 fl (80.0-96.0); MONO # 0.3 10^3/uL (0.0-0.8); MONO % 11.8 % (2.0-8.0); NEUTROPHILS # 1.7 10^3/uL (1.5-8.5); NEUTROPHILS % 67.8 % (36.0-66.0); RED BLOOD COUNT 2.71 10^6/uL (4.30-6.10); WHITE BLOOD COUNT 2.5 10^3/uL (4.0-10.0)
[2024-10-19 06:53] LABS: PLATELET COUNT, AUTOMATED 50 10^3/uL (150-450)
[2024-10-19 07:05] LABS: BLOOD UREA NITROGEN 19 MG/DL (9-23); CARBON DIOXIDE LEVEL 27 MMOL/L (20-31); CHLORIDE LEVEL 103 MMOL/L (98-107); CREATININE FOR GFR 1.11 MG/DL (0.70-1.30); GLOMERULAR FILTRATION RATE > 60.0 (>35); GLUCOSE, FASTING 104 MG/DL (74-106); POTASSIUM SERUM 3.8 MMOL/L (3.5-5.1); SODIUM LEVEL 136 MMOL/L (136-145)
[2024-10-19] MEDS ORDERED: BISACODYL 10MG SUPP PR ONE (08:40)
[2024-10-19 09:14] LABS: IRON (FE) 73 UG/DL (65-175); PERCENT SATURATION 36.3 % (19.7-50.0); TOTAL IRON BINDING CAPACITY 201 UG/DL (250-425)
[2024-10-19 09:17] LABS: FERRITIN 1514.2 NG/ML (10.5-307.3); VITAMIN B12 LEVEL 654 PG/ML (211-911)
[2024-10-19 09:39] LABS: CK-MB VALUE MASS 1.2 NG/ML (<3.6)
[2024-10-19 09:40] LABS: MB/CK RELATIVE INDEX 3.52 (< OR =4)
[2024-10-19] MEDS: SENOKOT S TAB PO ONE (10:47)
[2024-10-19 16:48] LABS: ANA SCREEN, IFA NEGATIVE (NEGATIVE)
[2024-10-20 03:19] VITALS: BP 149/76; TEMP 97.6; O2SAT 99
[2024-10-20 07:17] LABS: BASO % 0.9 % (0.0-1.0); EOS # 0.1 10^3/uL (0.0-0.5); EOS % 3.6 % (0.0-3.0); HEMATOCRIT 27.3 % (42.0-52.0); LYMPH # 0.4 10^3/uL (1.5-5.0); LYMPH % 17.8 % (24.0-44.0); MONO # 0.4 10^3/uL (0.0-0.8); MONO % 17.3 % (2.0-8.0); NEUTROPHILS # 1.3 10^3/uL (1.5-8.5); NEUTROPHILS % 59.1 % (36.0-66.0); RED BLOOD COUNT 2.73 10^6/uL (4.30-6.10); WHITE BLOOD COUNT 2.3 10^3/uL (4.0-10.0)
[2024-10-20 07:20] LABS: PLATELET COUNT, AUTOMATED 70 10^3/uL (150-450)
[2024-10-20 07:30] LABS: BLOOD UREA NITROGEN 22 MG/DL (9-23); CALCIUM LEVEL 8.3 MG/DL (8.3-10.6); CARBON DIOXIDE LEVEL 27 MMOL/L (20-31); CHLORIDE LEVEL 103 MMOL/L (98-107); CREATININE FOR GFR 1.13 MG/DL (0.70-1.30); GLOMERULAR FILTRATION RATE > 60.0 (>35); GLUCOSE, FASTING 111 MG/DL (74-106); POTASSIUM SERUM 3.7 MMOL/L (3.5-5.1); SODIUM LEVEL 136 MMOL/L (136-145)
[2024-10-20 09:20] VITALS: BP 172/77
[2024-10-20] MEDS: DABIGATRAN ETEXILATE 75 MG CAP (PRADAXA) PO SCH (10:46)
[2024-10-22 16:46] LABS: HOMOCYST(E)INE SERUM 17.6 umol/L (<11.4)
[2024-10-23 15:52] LABS: SOLUBLE TRANSFERRIN RECEPTOR 0.97 mg/L (0.76-1.76)
== END 2024-10-20 12:13 | disposition home or self-care (01) | DRG 299 ==
LOC: M ED 16:30 → M ED INP 17:28 → M PCU 21:05
PROVIDERS: ADMIT General Practice; ATTEND General Practice
PROC: 30233N1 Transfusion of Nonautologous Red Blood Cells into Peripheral Vein, Percutaneous Approach (ICD-10-PCS; principal; 2024-10-18)
DX: I82.B22 Chronic embolism and thrombosis of left subclavian vein (principal); L89.153 Pressure ulcer of sacral region, stage 3; G45.8 Other transient cerebral ischemic attacks and related syndromes; D61.818 Other pancytopenia; C79.51 Secondary malignant neoplasm of bone; B37.0 Candidal stomatitis; E87.20 Acidosis, unspecified; E87.1 Hypo-osmolality and hyponatremia; K92.2 Gastrointestinal hemorrhage, unspecified; N17.9 Acute kidney failure, unspecified; I24.89 Other forms of acute ischemic heart disease; D62 Acute posthemorrhagic anemia; E86.0 Dehydration; C61 Malignant neoplasm of prostate; I12.9 Hypertensive chronic kidney disease with stage 1 through stage 4 chronic kidney disease, or unspecified chronic kidney disease; N18.30 Chronic kidney disease, stage 3 unspecified; I27.20 Pulmonary hypertension, unspecified; E03.9 Hypothyroidism, unspecified; D63.1 Anemia in chronic kidney disease; D50.9 Iron deficiency anemia, unspecified; I73.9 Peripheral vascular disease, unspecified; I48.0 Paroxysmal atrial fibrillation; I25.10 Atherosclerotic heart disease of native coronary artery without angina pectoris; E78.5 Hyperlipidemia, unspecified; R53.1 Weakness; R19.7 Diarrhea, unspecified; G62.9 Polyneuropathy, unspecified; K57.90 Diverticulosis of intestine, part unspecified, without perforation or abscess without bleeding; Z91.148 Patient's other noncompliance with medication regimen for other reason; I08.2 Rheumatic disorders of both aortic and tricuspid valves; I25.2 Old myocardial infarction; K56.41 Fecal impaction; Z92.3 Personal history of irradiation; Z88.0 Allergy status to penicillin; Z88.8 Allergy status to other drugs, medicaments and biological substances; Z88.2 Allergy status to sulfonamides; Z79.899 Other long term (current) drug therapy; Z79.82 Long term (current) use of aspirin; Z95.0 Presence of cardiac pacemaker; Z66 Do not resuscitate

== ENCOUNTER → 2024-12-26 | Outpatient (POV) | payer MEDICARE ==
[~2024-12-26] VITALS: Ht 175.3 cm; Wt 79.5 kg
[~2024-12-26] MED LIST changes: -BAYE325T12 PO; +BAYE325T2 PO; +DULO60CA35 PO
[2024-12-26 13:44] VITALS: BP 140/61; O2SAT 99
== END ==
LOC: M IRPOV 13:13
PROVIDERS: ATTEND Radiology Diagnostic Radiology
DX: I70.8 Atherosclerosis of other arteries (principal); E03.9 Hypothyroidism, unspecified; E78.5 Hyperlipidemia, unspecified; I12.9 Hypertensive chronic kidney disease with stage 1 through stage 4 chronic kidney disease, or unspecified chronic kidney disease; I25.2 Old myocardial infarction; I48.0 Paroxysmal atrial fibrillation; I73.9 Peripheral vascular disease, unspecified; N18.30 Chronic kidney disease, stage 3 unspecified; G62.9 Polyneuropathy, unspecified; Z88.0 Allergy status to penicillin; Z88.1 Allergy status to other antibiotic agents; Z88.2 Allergy status to sulfonamides; Z88.8 Allergy status to other drugs, medicaments and biological substances; Z95.0 Presence of cardiac pacemaker

== ENCOUNTER → 2024-12-28 | Outpatient (REF) | payer MEDICARE ==
[2024-12-28 12:52] LABS: FREE T4 1.39 NG/DL (0.89-1.76); THYROID STIMULATING HORMONE 1.412 uIU/ML (0.55-4.78)
[2024-12-28 14:20] LABS: HEMOGLOBIN A1c 5.4 % (4.0-6.0)
== END ==
LOC: M LAB REF 10:14
PROVIDERS: ATTEND Nurse Practitioner Family
DX: E11.42 Type 2 diabetes mellitus with diabetic polyneuropathy (principal); E03.9 Hypothyroidism, unspecified

== ENCOUNTER → 2025-01-04 | Outpatient (CLI) | payer MEDICARE ==
[2024-12-28 10:23] LABS: BASO # 0.1 10^3/uL (0.0-0.2); BASO % 1.2 % (0.0-1.0); EOS # 0.1 10^3/uL (0.0-0.5); EOS % 2.7 % (0.0-3.0); HEMATOCRIT 27.6 % (42.0-52.0); HEMOGLOBIN 8.6 g/dl (13.5-17.5); LYMPH # 0.7 10^3/uL (1.5-5.0); LYMPH % 15.7 % (24.0-44.0); MEAN CORPUSCULAR HEMOGLOBIN 32.8 pg (27.0-33.0); MEAN CORPUSCULAR HGB CONC 31.2 g/dl (32.0-36.5); MEAN CORPUSCULAR VOLUME 105.3 fl (80.0-96.0); MONO # 0.3 10^3/uL (0.0-0.8); MONO % 6.5 % (2.0-8.0); NEUTROPHILS # 3.1 10^3/uL (1.5-8.5); NEUTROPHILS % 73.4 % (36.0-66.0); PLATELET COUNT, AUTOMATED 187 10^3/uL (150-450); RED BLOOD COUNT 2.62 10^6/uL (4.30-6.10); WHITE BLOOD COUNT 4.2 10^3/uL (4.0-10.0)
[2024-12-28 10:39] LABS: ALBUMIN 2.7 G/DL (3.2-5.2); ALKALINE PHOSPHATASE 60 U/L (40-129); ALT/SGPT < 9 U/L (7.0-40); AST/SGOT 23 U/L (<34); BILIRUBIN,TOTAL 0.4 MG/DL (0.3-1.2); BLOOD UREA NITROGEN 15 MG/DL (9-23); CALCIUM LEVEL 8.3 MG/DL (8.3-10.6); CARBON DIOXIDE LEVEL 29 MMOL/L (20-31); CHLORIDE LEVEL 104 MMOL/L (98-107); CREATININE FOR GFR 1.05 MG/DL (0.70-1.30); GLOMERULAR FILTRATION RATE > 60.0 (>35); GLUCOSE, FASTING 116 MG/DL (74-106); POTASSIUM SERUM 3.2 MMOL/L (3.5-5.1); SODIUM LEVEL 142 MMOL/L (136-145); TOTAL PROTEIN 6.9 G/DL (5.7-8.2)
[2024-12-28 11:06] LABS: PROSTATIC SPECIFIC AG MONITOR 237.28 NG/ML (< 4.00); TESTOSTERONE < 7 NG/DL (241-827)
== END ==
LOC: M ONCR 13:10
PROVIDERS: ATTEND General Practice
DX: C79.51 Secondary malignant neoplasm of bone (principal); C61 Malignant neoplasm of prostate; R97.21 Rising PSA following treatment for malignant neoplasm of prostate; Z88.0 Allergy status to penicillin; Z88.1 Allergy status to other antibiotic agents; Z88.2 Allergy status to sulfonamides; Z88.8 Allergy status to other drugs, medicaments and biological substances; Z79.52 Long term (current) use of systemic steroids; Z79.82 Long term (current) use of aspirin; Z79.899 Other long term (current) drug therapy; Z92.3 Personal history of irradiation
CPT/HCPCS: 36415; 80053; 84153; 84403; 85025; G0463

== ENCOUNTER → 2025-02-01 | Outpatient (CLI) | payer MEDICARE ==
[~2025-02-01] MED LIST changes: +ONDA-83 PO
[2025-02-01] MEDS: PLUVICTO (LU-177 VIPIVOTIDE TETRAXETAN) 27 MCI/ML VL (CHARGE IS PER MCI) IV STA (09:29)
== END ==
LOC: M ONCR 08:46
PROVIDERS: ATTEND General Practice
DX: C61 Malignant neoplasm of prostate (principal); C79.51 Secondary malignant neoplasm of bone; R11.0 Nausea; R26.2 Difficulty in walking, not elsewhere classified; Z79.52 Long term (current) use of systemic steroids
CPT/HCPCS: 77300; 79101; A9607

== ENCOUNTER → 2025-03-14 | Outpatient (CLI) | payer MEDICARE ==
[~2025-03-14] MED LIST changes: -FLOM0.4C39 PO; -PREG50CA PO; +PREG50CA87 PO; +TAMS-18 PO
[2025-03-14 14:11] LABS: HEMATOCRIT 27.3 % (42.0-52.0); HEMOGLOBIN 8.5 g/dl (13.5-17.5); LYMPH # 0.3 10^3/uL (1.5-5.0); LYMPH % 7.7 % (24.0-44.0); MEAN CORPUSCULAR HEMOGLOBIN 32.9 pg (27.0-33.0); MEAN CORPUSCULAR HGB CONC 31.1 g/dl (32.0-36.5); MEAN CORPUSCULAR VOLUME 105.8 fl (80.0-96.0); MONO # 0.2 10^3/uL (0.0-0.8); MONO % 5.9 % (2.0-8.0); NEUTROPHILS # 3.4 10^3/uL (1.5-8.5); NEUTROPHILS % 86.1 % (36.0-66.0); PLATELET COUNT, AUTOMATED 30 10^3/uL (150-450); RED BLOOD COUNT 2.58 10^6/uL (4.30-6.10); WHITE BLOOD COUNT 3.9 10^3/uL (4.0-10.0)
== END ==
LOC: M ONCR 13:17
PROVIDERS: ATTEND General Practice
DX: C61 Malignant neoplasm of prostate (principal); C79.51 Secondary malignant neoplasm of bone; R97.20 Elevated prostate specific antigen [PSA]; R79.9 Abnormal finding of blood chemistry, unspecified
CPT/HCPCS: 85025; 85049; 85055; G0463

== ENCOUNTER → 2025-03-29 | Outpatient (CLI) | payer MEDICARE | LOC: M ONCR 09:44 | PROVIDERS: ATTEND General Practice | DX: C79.51 Secondary malignant neoplasm of bone (principal); C61 Malignant neoplasm of prostate ==

== ENCOUNTER 2025-06-06 04:58 | Emergency (ER) | payer MEDICARE ==
[~2025-06-06] VITALS: Ht 182.9 cm; Wt 79.5 kg
[~2025-06-06 04:58] MED LIST changes: +AZIT-10 PO
[2025-06-06 06:32] LABS: PLATELET COUNT, AUTOMATED 51 10^3/uL (150-450)
[2025-06-06 06:41] LABS: INR 1.02
[2025-06-06] MEDS ORDERED: PILL CUTTER 1 EACH XX ONE (06:53)
[2025-06-06 06:56] VITALS: BP 165/72
[2025-06-06] MEDS: METOPROLOL TART 25 MG TABLET PO ONE (06:56)
[2025-06-06] MEDS: LEVOTHYROXINE 50 MCG TABLET (0.05 MG) PO ONE (06:56)
[2025-06-06 06:58] LABS: CK-MB VALUE MASS 2.4 NG/ML (<3.6)
[2025-06-06] MEDS: NS 500 ML IV ONE (07:23)
[2025-06-06 07:24] LABS: CPK CREATINE PHOSPHOKINASE 38.0 U/L (46-171); MB/CK RELATIVE INDEX 6.31 (< OR =4)
[2025-06-06] MEDS: IPRATROPIUM 0.5 MG/ALBUTEROL 2.5 MG INH SOL UD 3 ML NEB PRN (07:30)
[2025-06-06 07:31] LABS: ALT/SGPT 30.0 U/L (7.0-40); AST/SGOT 36.0 U/L (<34); CALCIUM LEVEL 8.4 MG/DL (8.3-10.6); CARBON DIOXIDE LEVEL 30.0 MMOL/L (20-31); CHLORIDE LEVEL 96.0 MMOL/L (98-107); CREATININE FOR GFR 1.36 MG/DL (0.70-1.30); GLOMERULAR FILTRATION RATE 50.4 (>35); POTASSIUM SERUM 3.5 MMOL/L (3.5-5.1); SODIUM LEVEL 140.0 MMOL/L (136-145)
[2025-06-06 07:39] LABS: VENOUS BASE EXCESS 7.2 (-2.0-2.0); VENOUS HCO3 32.5 MMOL/L (23.0-27.0); VENOUS O2 SATURATION 57.0 % (60.0-80.0); VENOUS PARTIAL PRESSURE CO2 48.9 mmHg (38.0-50.0); VENOUS PARTIAL PRESSURE O2 31.5 mmHg (30.0-50.0); VENOUS PH 7.440 UNITS (7.330-7.430); VENOUS STANDARD HCO3 30.2 MMOL/L; VENOUS TOTAL CO2 34.0 MMOL/L (24.0-28.0)
[2025-06-06 08:09] LABS: EOSINOPHILS 4 % (0-3); LYMPHOCYTES 8 % (16-44); MONOCYTES 7 % (0-5); NEUTROPHILS 77 % (28-66)
[2025-06-06 08:11] LABS: PLATELET ESTIMATE MARKED DECREASE (NORMAL)
[2025-06-06 08:46] LABS: CK-MB VALUE MASS 2.2 NG/ML (<3.6)
[2025-06-06 08:48] LABS: CPK CREATINE PHOSPHOKINASE 33.0 U/L (46-171); MB/CK RELATIVE INDEX 6.66 (< OR =4)
[2025-06-06 09:51] LABS: CK-MB VALUE MASS 2.2 NG/ML (<3.6)
[2025-06-06 09:54] LABS: CPK CREATINE PHOSPHOKINASE 38.0 U/L (46-171); MB/CK RELATIVE INDEX 5.78 (< OR =4)
[2025-06-06 10:15] VITALS: BP 153/68; O2SAT 95
[2025-06-06 10:45] VITALS: TEMP 99.3
[2025-06-10] MEDS ORDERED: LEVO1TAB38 PO (10:05)
[2025-06-10] MEDS ORDERED: FLUC100T3 PO (10:06)
[2025-06-10] MEDS ORDERED: OXYC-517 PO (10:14)
[2025-06-13] MEDS ORDERED: VALA1TAB5 PO (14:27)
== END 2025-06-06 11:01 | disposition left against medical advice (07) ==
LOC: M ED 04:58
DX: R05.9 Cough, unspecified (principal); I48.92 Unspecified atrial flutter; I45.10 Unspecified right bundle-branch block; I25.2 Old myocardial infarction; I10 Essential (primary) hypertension; K57.30 Diverticulosis of large intestine without perforation or abscess without bleeding; E03.9 Hypothyroidism, unspecified; Z88.0 Allergy status to penicillin; Z88.2 Allergy status to sulfonamides; Z88.8 Allergy status to other drugs, medicaments and biological substances; Z79.82 Long term (current) use of aspirin; Z79.2 Long term (current) use of antibiotics; Z79.899 Other long term (current) drug therapy; Z79.83 Long term (current) use of bisphosphonates; Z53.9 Procedure and treatment not carried out, unspecified reason
CPT/HCPCS: 71045; 80048; 80076; 82550; 82553; 82803; 83605; 83690; 84484; 85025; 85049; 85055; 85610; 87486; 87581; 87633; 87798; 93005; 93041; 94640; 94760; 96361; 96374; 99285; J2919

== ENCOUNTER → 2025-06-13 | Outpatient (CLI) | payer MEDICARE ==
[~2025-06-13] MED LIST changes: +FLUC100T3 PO; +LEVO1TAB38 PO; +MED REC COMMENT; +SPIR-10 PO; +VALA1TAB5 PO
== END ==
LOC: M ONCR 12:47
PROVIDERS: ATTEND General Practice
DX: S81.809A Unspecified open wound, unspecified lower leg, initial encounter (principal); R21 Rash and other nonspecific skin eruption

== ENCOUNTER 2025-06-14 14:55 | Inpatient (IN) | payer MEDICARE ==
[~2025-06-14] VITALS: Ht 175.3 cm; Wt 70.3 kg
[~2025-06-14 14:55] MED LIST changes: -MED REC COMMENT; -SPIR-10 PO
[2025-06-14] MEDS ORDERED: FLUID PLACE HOLDER IV ONE (15:20)
[2025-06-14] MEDS ORDERED: ACYCLOVIR IV ONE (15:20)
[2025-06-14 15:59] LABS: PLATELET COUNT, AUTOMATED 53 10^3/uL (150-450)
[2025-06-14 16:16] LABS: LYMPHOCYTES 2 % (16-44); NEUTROPHILS 98 % (28-66)
[2025-06-14 16:17] LABS: PLATELET ESTIMATE DECREASED (NORMAL)
[2025-06-14 16:33] LABS: ALT/SGPT 27.0 U/L (7.0-40); AST/SGOT 32.0 U/L (<34); CALCIUM LEVEL 6.9 MG/DL (8.3-10.6); CARBON DIOXIDE LEVEL 24.0 MMOL/L (20-31); CHLORIDE LEVEL 92.0 MMOL/L (98-107); CREATININE FOR GFR 1.25 MG/DL (0.70-1.30); GLOMERULAR FILTRATION RATE 55.7 (>35); POTASSIUM SERUM 3.3 MMOL/L (3.5-5.1); SODIUM LEVEL 132.0 MMOL/L (136-145)
[2025-06-14] MEDS: NYSTATIN 500,000 UNITS/5 ML SUSP UDC SS SCH (17:00)
[2025-06-14] MEDS ORDERED: MORPHINE 2 MG/ML 1 ML VIAL IV PRN (17:00)
[2025-06-14] MEDS ORDERED: NALOXONE INJ 0.4 MG/1 ML VIAL IV PRN (17:00)
[2025-06-14] MEDS ORDERED: ACETAMINOPHEN 325 MG TAB PO PRN (17:00)
[2025-06-14] MEDS ORDERED: ONDANSETRON 4MG TAB PO PRN (17:00)
[2025-06-14] MEDS ORDERED: LEVO1TAB38 PO (17:02)
[2025-06-14] MEDS ORDERED: DULO1CAP6 PO (17:02)
[2025-06-14] MEDS ORDERED: FLUC100T3 PO (17:02)
[2025-06-14] MEDS ORDERED: DEXA4TA PO (17:02)
[2025-06-14] MEDS ORDERED: VALA1TAB5 PO (17:02)
[2025-06-14] MEDS ORDERED: OXYC-517 PO (17:02)
[2025-06-14] MEDS ORDERED: SPIR-10 PO (17:02)
[2025-06-14] MEDS ORDERED: ONDA-83 PO (17:02)
[2025-06-14] MEDS ORDERED: HOME MED LIST COMPLETE! XX SCH (17:05)
[2025-06-14] MEDS ORDERED: MED REC COMMENT (17:09)
[2025-06-14] MEDS: POTASSIUM CHLORIDE 10MEQ SR TABLET PO ONE (17:20)
[2025-06-14] MEDS: ACYCLOVIR 710 MG in NS 250 ML IV ONE (17:33)
[2025-06-14 19:04] LABS: INR 1.33
[2025-06-14 19:19] LABS: IRON (FE) 37 UG/DL (65-175); PERCENT SATURATION 25.7 % (19.7-50.0)
[2025-06-14 19:22] LABS: VITAMIN B12 LEVEL 265 PG/ML (211-911)
[2025-06-14] MEDS: NS (Normal Saline) 0.9% 1,000 ML IV SCH (19:28)
[2025-06-14 20:40] VITALS: BP 145/68; TEMP 97.5
[2025-06-14] MEDS: LATANOPROST 0.005% OPHTH SOLN 2.5 ML OU SCH (21:00)
[2025-06-14] MEDS ORDERED: FUROSEMIDE 20 MG TAB PO SCH (21:00)
[2025-06-14] MEDS: GABAPENTIN 300 MG CAP PO SCH (22:03)
[2025-06-14] MEDS: METOPROLOL TART 12.5 MG PER 1/2 TAB PO SCH (22:03)
[2025-06-14] MEDS: PANTOPRAZOLE 40MG TAB PO SCH (22:03)
[2025-06-14] MEDS: SUCRALFATE 1 GM TAB PO SCH (22:04)
[2025-06-14 23:03] LABS: CALCIUM LEVEL 6.5 MG/DL (8.3-10.6); CARBON DIOXIDE LEVEL 26.0 MMOL/L (20-31); CHLORIDE LEVEL 95.0 MMOL/L (98-107); CREATININE FOR GFR 1.29 MG/DL (0.70-1.30); GLOMERULAR FILTRATION RATE 53.7 (>35); MAGNESIUM LEVEL 1.6 MG/DL (1.8-2.4); POTASSIUM SERUM 3.6 MMOL/L (3.5-5.1); SODIUM LEVEL 133.0 MMOL/L (136-145)
[2025-06-15] MEDS: MAG SULF 1GM/100ML (MAG RUN) 1 GM in IV 1 EA IV SCH (00:24)
[2025-06-15] MEDS: POTASSIUM CHLORIDE 10MEQ SR TABLET PO ONE (00:25)
[2025-06-15] MEDS ORDERED: PILL CUTTER 1 EACH XX ONE (00:30)
[2025-06-15 05:02] VITALS: BP 109/63; TEMP 97.7; O2SAT 97
[2025-06-15] MEDS: LEVOTHYROXINE 50 MCG TABLET (0.05 MG) PO SCH (06:02)
[2025-06-15] MEDS: ACYCLOVIR 710 MG in NS 250 ML IV SCH (06:02)
[2025-06-15 06:26] LABS: PLATELET COUNT, AUTOMATED 49 10^3/uL (150-450)
[2025-06-15 06:48] LABS: ALT/SGPT 23.0 U/L (7.0-40); AST/SGOT 25.0 U/L (<34); CALCIUM LEVEL 7.0 MG/DL (8.3-10.6); CARBON DIOXIDE LEVEL 25.0 MMOL/L (20-31); CHLORIDE LEVEL 97.0 MMOL/L (98-107); CREATININE FOR GFR 1.29 MG/DL (0.70-1.30); GLOMERULAR FILTRATION RATE 53.7 (>35); POTASSIUM SERUM 5.4 MMOL/L (3.5-5.1); SODIUM LEVEL 132.0 MMOL/L (136-145)
[2025-06-15] MEDS: FLUCONAZOLE 100 MG TAB PO SCH (08:46)
[2025-06-15] MEDS: TAMSULOSIN 0.4 MG CAP PO SCH (08:47)
[2025-06-15] MEDS: FOLIC ACID 1 MG TAB PO SCH (08:47)
[2025-06-15] MEDS: CALCITRIOL 0.25 MCG CAP (S0169) PO SCH (08:48)
[2025-06-15] MEDS: PERCOCET 5MG/325MG TAB PO PRN ×2 (08:54→21:35)
[2025-06-15] MEDS ORDERED: SPIRONOLACTONE 25 MG TAB PO SCH (09:00)
[2025-06-15 09:53] LABS: MONOCYTES 1 % (0-5); NEUTROPHILS 91 % (28-66)
[2025-06-15 09:56] LABS: PLATELET ESTIMATE DECREASED (NORMAL)
[2025-06-15 12:00] VITALS: BP 129/61; TEMP 97.7; O2SAT 94
[2025-06-15] MEDS: PATIROMER SORBITEX CALCIUM 8.4GM POWDER PACKET PO ONE (12:13)
[2025-06-15] MEDS: DOCUSATE SODIUM 100 MG CAPSULE PO SCH (14:13)
[2025-06-15 19:56] VITALS: BP 130/56; TEMP 97.3; O2SAT 97
[2025-06-15] MEDS: MAGNESIUM OXIDE 400 MG TAB PO SCH (21:31)
[2025-06-15] MEDS: SENNA 8.6 MG TAB PO SCH (21:35)
[2025-06-16 04:35] VITALS: BP 153/65; TEMP 97.3; O2SAT 97
[2025-06-16 06:39] LABS: BASO # 0.0 10^3/uL (0.0-0.2); BASO % 0.0 % (0.0-1.0); EOS # 0.0 10^3/uL (0.0-0.5); EOS % 0.0 % (0.0-3.0); LYMPH # 0.0 10^3/uL (1.5-5.0); LYMPH % 1.5 % (24.0-44.0); MONO # 0.1 10^3/uL (0.0-0.8); MONO % 3.5 % (2.0-8.0); NEUTROPHILS # 1.9 10^3/uL (1.5-8.5); NEUTROPHILS % 94.5 % (36.0-66.0)
[2025-06-16 06:41] LABS: PLATELET COUNT, AUTOMATED 43 10^3/uL (150-450)
[2025-06-16 07:04] LABS: ALT/SGPT 19.0 U/L (7.0-40); AST/SGOT 26.0 U/L (<34); CALCIUM LEVEL 7.1 MG/DL (8.3-10.6); CARBON DIOXIDE LEVEL 21.0 MMOL/L (20-31); CHLORIDE LEVEL 103.0 MMOL/L (98-107); CREATININE FOR GFR 1.08 MG/DL (0.70-1.30); GLOMERULAR FILTRATION RATE 66.4 (>35); MAGNESIUM LEVEL 2.2 MG/DL (1.8-2.4); POTASSIUM SERUM 4.7 MMOL/L (3.5-5.1); SODIUM LEVEL 133.0 MMOL/L (136-145)
[2025-06-16 12:00] VITALS: BP 145/67; TEMP 97.5; O2SAT 96
[2025-06-16 21:16] VITALS: BP 145/71; TEMP 97.5
[2025-06-17 03:33] VITALS: BP 116/50; TEMP 97.5; O2SAT 96
[2025-06-17 07:16] LABS: BASO # 0.0 10^3/uL (0.0-0.2); BASO % 0.0 % (0.0-1.0); EOS # 0.0 10^3/uL (0.0-0.5); EOS % 0.0 % (0.0-3.0); LYMPH # 0.0 10^3/uL (1.5-5.0); LYMPH % 1.3 % (24.0-44.0); MONO # 0.1 10^3/uL (0.0-0.8); MONO % 5.3 % (2.0-8.0); NEUTROPHILS # 2.1 10^3/uL (1.5-8.5); NEUTROPHILS % 92.1 % (36.0-66.0)
[2025-06-17 07:17] LABS: PLATELET COUNT, AUTOMATED 36 10^3/uL (150-450)
[2025-06-17 07:31] LABS: ALT/SGPT 23.0 U/L (7.0-40); AST/SGOT 40.0 U/L (<34); CALCIUM LEVEL 7.2 MG/DL (8.3-10.6); CARBON DIOXIDE LEVEL 24.0 MMOL/L (20-31); CHLORIDE LEVEL 103.0 MMOL/L (98-107); CREATININE FOR GFR 1.29 MG/DL (0.70-1.30); GLOMERULAR FILTRATION RATE 53.3 (>35); POTASSIUM SERUM 5.4 MMOL/L (3.5-5.1); SODIUM LEVEL 136.0 MMOL/L (136-145)
[2025-06-17 12:00] VITALS: BP 145/74; TEMP 97.3; O2SAT 98
[2025-06-17] MEDS: PATIROMER SORBITEX CALCIUM 8.4GM POWDER PACKET PO SCH (12:17)
[2025-06-17 20:10] VITALS: BP 146/72; TEMP 97.5; O2SAT 99
[2025-06-17 23:39] LABS: D-DIMER QUANT 1.37 ug/mL (<0.5)
[2025-06-17 23:48] LABS: IRON (FE) 94 UG/DL (65-175); LDH LACTATE DEHYDROGENASE 314 U/L (120-246)
[2025-06-17 23:49] LABS: PERCENT SATURATION 41.4 % (19.7-50.0)
[2025-06-17 23:50] LABS: VITAMIN B12 LEVEL 548 PG/ML (211-911)
[2025-06-18 04:03] VITALS: BP 148/78; TEMP 97.2; O2SAT 98
[2025-06-18 06:35] LABS: BASO # 0.0 10^3/uL (0.0-0.2); BASO % 0.4 % (0.0-1.0); EOS # 0.0 10^3/uL (0.0-0.5); EOS % 0.0 % (0.0-3.0); LYMPH # 0.1 10^3/uL (1.5-5.0); LYMPH % 4.5 % (24.0-44.0); MONO # 0.2 10^3/uL (0.0-0.8); MONO % 9.0 % (2.0-8.0); NEUTROPHILS # 2.2 10^3/uL (1.5-8.5); NEUTROPHILS % 82.3 % (36.0-66.0)
[2025-06-18 06:39] LABS: PLATELET COUNT, AUTOMATED 33 10^3/uL (150-450)
[2025-06-18 06:59] LABS: ALT/SGPT 29.0 U/L (7.0-40); AST/SGOT 53.0 U/L (<34); CALCIUM LEVEL 7.5 MG/DL (8.3-10.6); CARBON DIOXIDE LEVEL 22.0 MMOL/L (20-31); CHLORIDE LEVEL 100.0 MMOL/L (98-107); CREATININE FOR GFR 1.17 MG/DL (0.70-1.30); GLOMERULAR FILTRATION RATE 60.0 (>35); POTASSIUM SERUM 5.2 MMOL/L (3.5-5.1); SODIUM LEVEL 132.0 MMOL/L (136-145)
[2025-06-18 12:00] VITALS: BP 113/65; TEMP 97.2; O2SAT 100
[2025-06-18 19:26] VITALS: BP 152/75; TEMP 97.3; O2SAT 99
[2025-06-18] MEDS: MOM 30 ML SUSPENSION UDC PO PRN (20:13)
[2025-06-19 03:44] VITALS: BP 154/77; TEMP 97.3; O2SAT 100
[2025-06-19 05:55] LABS: PLATELET COUNT, AUTOMATED 33 10^3/uL (150-450)
[2025-06-19 06:14] LABS: ATYPICAL LYMPH 2 % (0-5); LYMPHOCYTES 10 % (16-44); MONOCYTES 4 % (0-5); NEUTROPHILS 84 % (28-66)
[2025-06-19 06:18] LABS: CALCIUM LEVEL 7.7 MG/DL (8.3-10.6); CARBON DIOXIDE LEVEL 25.0 MMOL/L (20-31); CHLORIDE LEVEL 101.0 MMOL/L (98-107); CREATININE FOR GFR 1.21 MG/DL (0.70-1.30); GLOMERULAR FILTRATION RATE 57.6 (>35); MAGNESIUM LEVEL 2.2 MG/DL (1.8-2.4); PLATELET ESTIMATE MARKED DECREASE (NORMAL); POTASSIUM SERUM 5.2 MMOL/L (3.5-5.1); SODIUM LEVEL 135.0 MMOL/L (136-145)
[2025-06-19] MEDS: DEXTROSE 50% 50 ML SYRINGE IV STA (08:09)
[2025-06-19] MEDS: HumuLIN R (REGULAR) INSULIN (NovoLIN R) **100 U/ML** PER UNIT IV STA (08:16)
[2025-06-19 12:00] VITALS: BP 131/53; TEMP 97.5; O2SAT 98
[2025-06-19] MEDS: FUROSEMIDE 20 MG TAB PO SCH (17:31)
[2025-06-19 20:40] VITALS: BP 152/81; TEMP 97.3; O2SAT 96
[2025-06-20 03:43] VITALS: BP 133/75; TEMP 97.5; O2SAT 96
[2025-06-20 06:00] LABS: BASO # 0.0 10^3/uL (0.0-0.2); BASO % 0.0 % (0.0-1.0); EOS # 0.0 10^3/uL (0.0-0.5); EOS % 0.0 % (0.0-3.0); LYMPH # 0.1 10^3/uL (1.5-5.0); LYMPH % 2.7 % (24.0-44.0); MONO # 0.4 10^3/uL (0.0-0.8); MONO % 9.9 % (2.0-8.0); NEUTROPHILS # 3.2 10^3/uL (1.5-8.5); NEUTROPHILS % 86.1 % (36.0-66.0)
[2025-06-20 06:06] LABS: PLATELET COUNT, AUTOMATED 35 10^3/uL (150-450)
[2025-06-20 06:36] LABS: CALCIUM LEVEL 8.3 MG/DL (8.3-10.6); CARBON DIOXIDE LEVEL 22.0 MMOL/L (20-31); CHLORIDE LEVEL 101.0 MMOL/L (98-107); CREATININE FOR GFR 1.07 MG/DL (0.70-1.30); GLOMERULAR FILTRATION RATE 66.8 (>35); MAGNESIUM LEVEL 2.0 MG/DL (1.8-2.4); POTASSIUM SERUM 5.4 MMOL/L (3.5-5.1); SODIUM LEVEL 135.0 MMOL/L (136-145)
[2025-06-20] MEDS: DEXTROSE 50% 50 ML SYRINGE IV STA (07:13)
[2025-06-20] MEDS: HumuLIN R (REGULAR) INSULIN (NovoLIN R) **100 U/ML** PER UNIT IV STA (07:13)
[2025-06-20] MEDS: ALBUTEROL SULFATE 2.5 MG/0.5 ML INH CONCENTRATE NEB SOLN NEB ONE (08:05)
[2025-06-20 10:24] VITALS: BP 160/68
[2025-06-20] MEDS: PATIROMER SORBITEX CALCIUM 8.4GM POWDER PACKET PO SCH (12:00)
[2025-06-20] MEDS: MORPHINE 10 MG/0.5 ML ORAL CONCENTRATE SOLUTION U/D SL SCH (13:00)
[2025-06-20] MEDS ORDERED: SALIVA SUBSTITUTE BTL MT PRN (13:55)
[2025-06-20] MEDS ORDERED: POLYVINYL ALCOHOL OPHTH SOLN 15ML (LIQUITEARS) OU PRN (13:55)
[2025-06-20] MEDS: MORPHINE 10 MG/0.5 ML ORAL CONCENTRATE SOLUTION U/D SL PRN (15:32)
[2025-06-21] MEDS: LEVOTHYROXINE 50 MCG TABLET (0.05 MG) PO SCH (15:23)
[2025-06-21] MEDS: HYOSCYAMINE SULFATE 0.125 MG SUBL TABLET SL PRN (19:02)
[2025-06-23] MEDS: SCOPOLAMINE 1MG TRANSDERMAL PATCH TOP SCH (19:27)
[2025-06-24 10:31] VITALS: BP 125/75
[2025-06-24] MEDS: MORPHINE 10 MG/0.5 ML ORAL CONCENTRATE SOLUTION U/D SL SCH (16:48)
[2025-06-24] MEDS: LORazepam 0.5 MG TAB PO PRN (20:42)
[2025-06-24] MEDS: ATROPINE SULFATE 1% OPHTH SOLN 2 ML BTL SL PRN (21:32)
[2025-06-25] MEDS ORDERED: MORPHINE 10 MG/0.5 ML ORAL CONCENTRATE SOLUTION U/D SL PRN (11:35)
[2025-06-25] MEDS: MORPHINE 10 MG/0.5 ML ORAL CONCENTRATE SOLUTION U/D SL SCH (12:53)
[2025-06-25] MEDS: HYOSCYAMINE SULFATE 0.125 MG SUBL TABLET SL SCH (15:29)
== END 2025-06-26 08:50 | disposition expired | DRG 595 ==
LOC: M ED 14:55 → M ED INP 17:00 → M MSPAV 20:38
PROVIDERS: ADMIT Internal Medicine; ATTEND Student in an Organized Health Care Education/Training Program
DX: B02.9 Zoster without complications (principal); L89.153 Pressure ulcer of sacral region, stage 3; D61.810 Antineoplastic chemotherapy induced pancytopenia; C79.51 Secondary malignant neoplasm of bone; B37.81 Candidal esophagitis; E87.1 Hypo-osmolality and hyponatremia; I47.20 Ventricular tachycardia, unspecified; N17.9 Acute kidney failure, unspecified; D84.81 Immunodeficiency due to conditions classified elsewhere; B37.0 Candidal stomatitis; N18.30 Chronic kidney disease, stage 3 unspecified; I25.10 Atherosclerotic heart disease of native coronary artery without angina pectoris; I25.2 Old myocardial infarction; I12.9 Hypertensive chronic kidney disease with stage 1 through stage 4 chronic kidney disease, or unspecified chronic kidney disease; E03.9 Hypothyroidism, unspecified; I73.9 Peripheral vascular disease, unspecified; I27.20 Pulmonary hypertension, unspecified; Z51.5 Encounter for palliative care; E78.5 Hyperlipidemia, unspecified; Z66 Do not resuscitate; R53.1 Weakness; L89.620 Pressure ulcer of left heel, unstageable; I48.0 Paroxysmal atrial fibrillation; C61 Malignant neoplasm of prostate; R57.1 Hypovolemic shock; E87.5 Hyperkalemia; G62.9 Polyneuropathy, unspecified; M54.9 Dorsalgia, unspecified; H40.9 Unspecified glaucoma; L89.302 Pressure ulcer of unspecified buttock, stage 2; D64.9 Anemia, unspecified; E83.42 Hypomagnesemia; E87.6 Hypokalemia; E86.0 Dehydration; Z79.82 Long term (current) use of aspirin; Z79.52 Long term (current) use of systemic steroids; Z79.899 Other long term (current) drug therapy; Z88.0 Allergy status to penicillin; Z88.1 Allergy status to other antibiotic agents; Z88.2 Allergy status to sulfonamides; Z88.8 Allergy status to other drugs, medicaments and biological substances; Z95.0 Presence of cardiac pacemaker; Z79.890 Hormone replacement therapy